=== PATIENT | female | born 1965 | race Caucasian/White ===

== ENCOUNTER 2016-11-28 06:35 | Day surgery (SDC) | payer MEDICARE, OTHER ==
[2016-11-25 10:34] VITALS: BMI 40.3
[~2016-11-28 06:35] MED LIST: LACTATED RINGERS 1,000 ML IV SCH
[2016-11-28] MEDS ORDERED: LACTATED RINGERS 1,000 ML IV ONE (06:55)
[2016-11-28 07:12] LABS: Glucose,Whole Blood 155 mg/dL (75-99)
[2016-11-28 07:14] VITALS: TEMP 97.4
[2016-11-28] MEDS ORDERED: LIDOCAINE 1% INJ 10MG/ML (20 ML MDV) ONE (07:17)
[2016-11-28] MEDS ORDERED: MIDAZOLAM 2 MG/2 ML VIAL ONE (07:17)
[2016-11-28] MEDS ORDERED: PROPOFOL 10 MG/ML 20 ML VIAL IV ONE (07:17)
--- NOTE | 2016-11-28 07:36 | P.GSHP ---
History of Present Illness H&P Date: 11/28/16 Chief Complaint: GERD, screening colonoscopy This is a 51-year-old female for from Dr. Kay. Patient presents today for EGD and screening colonoscopy. She's had issues with GERD. - Constitutional Constitutional: Reports as per HPI Past Medical History Past Medical History: Asthma, Heart Failure, COPD, Diabetes Mellitus, Fibromyalgia, GERD/Reflux, Hypertension, Osteoarthritis (OA), Pneumonia, Sleep Apnea/CPAP/BIPAP, Thyroid Disorder Additional Past Medical History / Comment(s): neuropathy, GLAUCOMA, Degenerative disk disease and heraniated disk. irregular heartbeat, "low functioning kidneys", MS, no cpap used, diarrhea-occ black stool, diverticulitis , anemia History of Any Multi-Drug Resistant Organisms: None Reported Past Surgical History: Cholecystectomy, Hysterectomy, Orthopedic Surgery Additional Past Surgical History / Comment(s): benign mass removed from bladder , meño carpal tunnel, had 3 large herniated discs removed between c4-c6. Past Anesthesia/Blood Transfusion Reactions: No Reported Reaction Past Psychological History: Anxiety, Depression Smoking Status: Current every day smoker Past Alcohol Use History: None Reported Additional Past Alcohol Use History / Comment(s): smokes < 1 PD, has smoked for 20 yrs on and off Past Drug Use History: Marijuana Additional Drug Use History / Comment(s): . - Past Family History Father Family Medical History: Coronary Artery Disease (CAD) Additional Family Medical History / Comment(s): quadruple bypass surgery Mother Family Medical History: Cancer Medications and Allergies Home Medications Medication Instructions Recorded Confirmed Type Levothyroxine Sodium [Synthroid] 100 mcg PO DAILY 07/29/15 11/28/16 History Budesonide/Formoterol Fumarate 2 puff INHALATION BID 12/04/15 11/28/16 History [Symbicort 80-4.5 Mcg Inhaler] Divalproex [Depakote] 250 mg PO HS 12/04/15 11/28/16 History Divalproex [Depakote] 500 mg PO TID 12/04/15 11/28/16 History metFORMIN HCL 1,000 mg PO BID 12/04/15 11/28/16 History Insulin Glargine [Lantus] 50 unit SQ HS 02/10/16 11/28/16 History DULoxetine HCL [Cymbalta] 60 mg PO DAILY 02/11/16 11/28/16 History Furosemide [Lasix] 40 mg PO DAILY 03/09/16 11/28/16 History Carvedilol [Coreg] 6.25 mg PO QAM 03/10/16 11/28/16 History Baclofen [Lioresal] 10 mg PO HS 05/15/16 11/28/16 History Insulin Aspart [NovoLOG] See Protocol SQ ACHS 05/15/16 11/28/16 History Ipratropium-Albuterol Nebulize 3 ml INHALATION RT-Q4H PRN 05/15/16 11/28/16 History [Duoneb 0.5 mg-3 mg/3 ml Soln] Potassium Chloride ER [K-Dur 20] 20 meq PO DAILY 05/15/16 11/28/16 History traZODone HCL 300 mg PO HS 05/15/16 11/28/16 History Ferrous Sulfate [Feosol] 325 mg PO DAILY 11/25/16 11/28/16 History Isosorbide Mononitrate ER [Imdur] 30 mg PO DAILY 11/25/16 11/28/16 History Montelukast [Singulair] 10 mg PO HS 11/25/16 11/28/16 History Sucralfate [Carafate] 1 gm PO AC-TID 11/25/16 11/28/16 History diphenhydrAMINE [Benadryl] 25 mg PO DAILY PRN 11/25/16 11/28/16 History Allergies Allergy/AdvReac Type Severity Reaction Status Date / Time No Known Allergies Allergy Verified 11/28/16 06:51 Surgical - Exam Vital Signs Temp Pulse Resp BP Pulse Ox 97.4 F L 78 18 134/81 96 11/28/16 07:11 11/28/16 07:11 11/28/16 07:11 11/28/16 07:11 11/28/16 07:11 - General well developed, no distress - Eyes PERRL - ENT normal pinna - Neck no masses - Respiratory normal expansion - Cardiovascular Rhythm: regular - Abdomen Abdomen: soft, non tender Results - Labs Abnormal Lab Results - Last 24 Hours (Table) 11/28/16 Range/Units 07:09 POC Glucose (mg/dL) 155 H (75-99) mg/dL Assessment and Plan Plan: GERD we'll perform EGD. We'll also perform screening colonoscopy.
[2016-11-28 08:02] VITALS: RESP 16
--- NOTE | 2016-11-28 08:03 | P.OP ---
Date of Procedure: 11/28/16 Preoperative Diagnosis: GERD Screening colonoscopy Postoperative Diagnosis: Mild antral gastritis Mild esophagitis No evidence of hiatal hernia Mild diverticulosis Procedure(s) Performed: EGD Colonoscopy Anesthesia: MAC Surgeon: Rush Whitlock Pathology: other (Antral, esophagus) Condition: stable Disposition: PACU Description of Procedure: The patient's placed on the endoscopy table in the lateral position. He received IV sedation. The gastroscope placed oropharynx and passed into the esophagus and into the stomach. Scope was then placed through the pylorus. The first and second portion of the duodenum appeared normal. Scope was then brought back the antrum and this appeared mildly inflamed. A biopsies was performed. The scope was retroflexed and the remainder stomach appeared normal. There was no significant hiatal hernia. The scope was then brought back to the level GE junction and this was at 40 cm. The distal esophagus appeared mildly inflamed a biopsies was performed. The proximal esophagus appeared normal. Scope was withdrawn for patient. Next digital rectal exam was performed which revealed no abnormalities. Flexible colonoscope was then placed patient anus passed throughout the entire colon. The ileocecal valve was visualized. The cecum, ascending and transverse colon appeared normal. In the descending and sigmoid colon there is mild diverticulosis. Scope was then brought back the rectum and this appeared normal. Scope was withdrawn for patient.
[2016-11-28 08:11] LABS: Glucose,Whole Blood 147 mg/dL (75-99)
[2016-11-28 08:31] VITALS: BP 117/73; PULSE 74
== END 2016-11-28 08:49 | disposition home or self-care (01) ==
LOC: ORWHC2ENDO 06:35
PROVIDERS: ATTEND Surgery
DX: Z12.11 Encounter for screening for malignant neoplasm of colon (principal); K29.50 Unspecified chronic gastritis without bleeding; K21.0 Gastro-esophageal reflux disease with esophagitis; K57.30 Diverticulosis of large intestine without perforation or abscess without bleeding; J45.909 Unspecified asthma, uncomplicated; I11.0 Hypertensive heart disease with heart failure; I50.9 Heart failure, unspecified; J44.9 Chronic obstructive pulmonary disease, unspecified; E11.9 Type 2 diabetes mellitus without complications; M79.7 Fibromyalgia; G47.33 Obstructive sleep apnea (adult) (pediatric); M19.90 Unspecified osteoarthritis, unspecified site; E07.9 Disorder of thyroid, unspecified; I25.10 Atherosclerotic heart disease of native coronary artery without angina pectoris; H40.9 Unspecified glaucoma; F41.9 Anxiety disorder, unspecified; F31.9 Bipolar disorder, unspecified; Z79.84 Long term (current) use of oral hypoglycemic drugs; Z79.4 Long term (current) use of insulin; Z79.51 Long term (current) use of inhaled steroids; Z79.899 Other long term (current) drug therapy; F17.200 Nicotine dependence, unspecified, uncomplicated
CPT/HCPCS: 88305; 88342; 43239; J2250; J2001; J2704; G0121

== ENCOUNTER 2017-04-13 15:37 | Emergency (ER) | payer MEDICARE, OTHER ==
[2017-04-13 15:45] VITALS: PULSE 89; RESP 18
[2017-04-13] MEDS ORDERED: IOHEXOL 350 MG/ML 25 ML BOTTLE (ORAL USE) PO PRN (16:01)
[2017-04-13] MEDS ORDERED: RX INFO: IV CONTRAST WAS GIVEN 1 EACH MISC MISCELLANE PRN (16:01)
[2017-04-13] MEDS ORDERED: KETOROLAC 30 MG/ML 1 ML VIAL IVP STA (16:02)
[2017-04-13] MEDS ORDERED: ONDANSETRON 4 MG/2 ML VIAL IVP STA (16:02)
--- NOTE | 2017-04-13 16:15 | ED ---
General Adult HPI - General Chief complaint: Abdominal Pain Stated complaint: Abdominal pain Time Seen by Provider: 04/13/17 15:49 Source: patient Mode of arrival: wheelchair Limitations: no limitations - History of Present Illness Initial comments: Patient is a 52-year-old female with a significant medical history of bipolar depression, anxiety, fibromyalgia, diverticulosis presents with a chief complaint abdominal pain and lightheadedness 4 days. Patient states that her first symptom was abdominal pain. She characterizes her pain as sharp and localized to her left lower quadrant. Patient states that her symptoms are exacerbated by bowel movements, and certain movements. There are no alleviating factors. Patient takes [place] at home for pain control. Patient admits to being lightheaded recently. There are no aggravating or alleviating factors for lightheadedness. Onset/Timin -: days(s) Location: abdomen Radiation: non-radiation Quality: stabbing, sharp Consistency: constant Improves with: none Worsens with: none Associated Symptoms: fever/chills, nausea/vomiting - Related Data Home Medications Medication Instructions Recorded Confirmed RX: Levothyroxine Sodium 100 mcg PO DAILY 07/29/15 04/13/17 [Synthroid] RX: Budesonide/Formoterol Fumarate 2 puff INHALATION RT-BID 12/04/15 04/13/17 [Symbicort 80-4.5 Mcg Inhaler] RX: Divalproex [Depakote] 250 mg PO HS 12/04/15 04/13/17 RX: Divalproex [Depakote] 500 mg PO TID 12/04/15 04/13/17 RX: Insulin Glargine [Lantus] 50 unit SQ HS 02/10/16 04/13/17 RX: Furosemide [Lasix] 40 mg PO DAILY 03/09/16 04/13/17 RX: Carvedilol [Coreg] 6.25 mg PO AC-BID 03/10/16 04/13/17 Insulin Aspart [NovoLOG] See Protocol SQ ACHS 05/15/16 04/13/17 RX: Baclofen [Lioresal] 10 mg PO TID PRN 05/15/16 04/13/17 RX: Ipratropium-Albuterol Nebulize 3 ml INHALATION RT-Q4H PRN 05/15/16 04/13/17 [Duoneb 0.5 mg-3 mg/3 ml Soln] RX: Potassium Chloride ER [K-Dur 20 meq PO QAM 05/15/16 04/13/17 20] Isosorbide Mononitrate ER [Imdur] 30 mg PO DAILY 11/25/16 04/13/17 Montelukast [Singulair] 10 mg PO HS 11/25/16 04/13/17 RX: Sucralfate [Carafate] 1 gm PO QID 11/25/16 04/13/17 diphenhydrAMINE [Benadryl] 25 mg PO DAILY PRN 11/25/16 04/13/17 Albuterol Inhaler [Ventolin Hfa 1 - 2 puff INHALATION RT-Q6H PRN 04/13/17 Inhaler] HYDROcodone/APAP 10-325MG [[place] 1 tab PO TID PRN 04/13/17 04/13/17 10-325] RX: traZODone HCL 300 mg PO HS 04/13/17 04/13/17 metFORMIN HCL ER [Glucophage Xr] 500 mg PO BID 04/13/17 04/13/17 Previous Rx's Medication Instructions Recorded RX: LORazepam [Ativan] 1 mg PO TID PRN #20 tab 03/11/16 Allergies Allergy/AdvReac Type Severity Reaction Status Date / Time No Known Allergies Allergy Verified 04/13/17 15:55 Review of Systems ROS Statement: Those systems with pertinent positive or pertinent negative responses have been documented in the HPI. ROS Other: All systems not noted in ROS Statement are negative. Constitutional: Reports: chills. Denies: fever Eyes: Reports: vision change (Patient says that she has intermittent blurry vision) ENT: Denies: throat pain, hearing loss Respiratory: Denies: cough, dyspnea Cardiovascular: Denies: chest pain Endocrine: Reports: fatigue Gastrointestinal: Reports: nausea. Denies: vomiting Genitourinary: Reports: urgency Musculoskeletal: Reports: back pain (Chronic) Skin: Denies: rash Neurological: Reports: headache. Denies: weakness, numbness, paresthesias, abnormal gait Psychiatric: Reports: anxiety, depression Hematological/Lymphatic: Reports: as per HPI Past Medical History Past Medical History: Asthma, Heart Failure, COPD, Diabetes Mellitus, Fibromyalgia, GERD/Reflux, Hypertension, Osteoarthritis (OA), Pneumonia, Sleep Apnea/CPAP/BIPAP, Thyroid Disorder Additional Past Medical History / Comment(s): neuropathy, GLAUCOMA, Degenerative disk disease and heraniated disk. irregular heartbeat, "low functioning kidneys", MS, no cpap used, diarrhea-occ black stool, diverticulitis , anemia History of Any Multi-Drug Resistant Organisms: None Reported Past Surgical History: Cholecystectomy, Hysterectomy, Orthopedic Surgery Additional Past Surgical History / Comment(s): benign mass removed from bladder , meño carpal tunnel, had 3 large herniated discs removed between c4-c6. Past Anesthesia/Blood Transfusion Reactions: No Reported Reaction Past Psychological History: Anxiety, Depression Smoking Status: Current every day smoker Past Alcohol Use History: None Reported Past Drug Use History: Marijuana - Past Family History Father Family Medical History: Coronary Artery Disease (CAD) Additional Family Medical History / Comment(s): quadruple bypass surgery Mother Family Medical History: Cancer General Exam Limitations: no limitations General appearance: alert, in no apparent distress Head exam: Present: atraumatic, normocephalic Eye exam: Present: normal appearance ENT exam: Present: normal exam Neck exam: Present: normal inspection Respiratory exam: Present: normal lung sounds bilaterally, wheezes (Right-sided) . Absent: respiratory distress, rhonchi Cardiovascular Exam: Present: regular rate, normal rhythm, normal heart sounds GI/Abdominal exam: Present: soft, tenderness (Patient is tenderness palpation in the lower abdomen left greater than right. Abdomen is non-peritoneal. Abdominal exam is somewhat limited secondary to body habitus.). Absent: distended Rectal exam: Present: deferred Extremities exam: Present: normal inspection Back exam: Present: normal inspection Neurological exam: Present: alert, oriented X3 Psychiatric exam: Present: normal mood, anxious Skin exam: Present: warm, dry, intact Course Vital Signs 04/13/17 15:42 Temperature 99.1 F Pulse Rate 89 Respiratory 18 Rate Blood Pressure 139/68 O2 Sat by Pulse 96 Oximetry Medical Decision Making - Medical Decision Making Patient is a 52-year-old female presents with chief complaint of abdominal pain with associated chills, lightheadedness. Patient states that her primary care doctor is Dr. Kay who wanted her to come to the emergency department yesterday. Patient states that she is scheduled to have a CAT scan of her abdomen on . On examination, patient appears to be mildly anxious. She has a handwritten note explaining her current symptoms today. On initial evaluation, vital signs are stable. Patient is tenderness to the abdomen and the lower left quadrant. Given the patient's history of diverticulosis and upcoming CAT scan, we'll perform CAT scan today oral and IV contrast. Lab evaluation was sent, we'll evaluate urine as well. 6:45 PM Lab evaluation of this patient is unremarkable. Urinalysis does not show any evidence of infection. Computed tomography scan of the abdomen and pelvis that show any acute process. I discussed the results with Dr. Campbell, Dr. Kay' s partner. He is aware that the scheduled CT was performed today. He is agreeable to having the patient follow-up within the next week. I discussed results with the patient. At this time, she is agreeable with discharge. She is instructed to continue to take her normally prescribed pain medications as prescribed. He is instructed to return to the emergency department if her symptoms worsen or change in any way. - Lab Data Result diagrams: 04/13/17 16:22 04/13/17 16:22 Lab Results 04/13/17 04/13/17 04/13/17 Range/Units 16:22 16:22 16:55 WBC 10.4 (3.8-10.6) k/uL RBC 4.55 (3.80-5.40) m/uL Hgb 12.2 (11.4-16.0) gm/dL Hct 37.4 (34.0-46.0) % MCV 82.1 (80.0-100.0) fL MCH 26.9 (25.0-35.0) pg MCHC 32.8 (31.0-37.0) g/dL RDW 14.3 (11.5-15.5) % Plt Count 315 (150-450) k/uL Neutrophils % 43 % Lymphocytes % 50 % Monocytes % 4 % Eosinophils % 1 % Basophils % 1 % Neutrophils # 4.4 (1.3-7.7) k/uL Lymphocytes # 5.2 H (1.0-4.8) k/uL Monocytes # 0.4 (0-1.0) k/uL Eosinophils # 0.1 (0-0.7) k/uL Basophils # 0.1 (0-0.2) k/uL Manual Slide Review Performed Sodium 137 (137-145) mmol/L Potassium 4.1 (3.5-5.1) mmol/L Chloride 99 (98-107) mmol/L Carbon Dioxide 30 (22-30) mmol/L Anion Gap 8 mmol/L BUN 11 (7-17) mg/dL Creatinine 0.69 (0.52-1.04) mg/dL Est GFR (MDRD) Af Amer >60 (>60 ml/min/1.73 sqM) Est GFR (MDRD) Non-Af >60 (>60 ml/min/1.73 sqM) Glucose 123 H (74-99) mg/dL Calcium 9.6 (8.4-10.2) mg/dL Magnesium 1.5 L (1.6-2.3) mg/dL Total Bilirubin 0.2 (0.2-1.3) mg/dL AST 14 (14-36) U/L ALT 26 (9-52) U/L Alkaline Phosphatase 70 (38-126) U/L Total Protein 6.7 (6.3-8.2) g/dL Albumin 4.1 (3.5-5.0) g/dL Lipase 20 L (23-300) U/L Urine Color Yellow Urine Appearance Clear (Clear) Urine pH 6.0 (5.0-8.0) Ur Specific [place] 1.014 (1.001-1.035) Urine Protein Negative (Negative) Urine Glucose (UA) Negative (Negative) Urine Ketones 1+ H (Negative) Urine Blood Negative (Negative) Urine Nitrite Negative (Negative) Urine Bilirubin Negative (Negative) Urine Urobilinogen <2.0 (<2.0) mg/dL Ur Leukocyte Esterase Negative (Negative) Disposition Clinical Impression: Abdominal pain Disposition: HOME SELF-CARE Condition: Good Instructions: Abdominal Pain (ED) Referrals: Watson Kay MD [Primary Care Provider] - 1-2 days
[2017-04-13 16:38] LABS: Basophils # (A) 0.1 k/uL (0-0.2); Basophils % (A) 1 %; CH 27.6; CHCM 33.7; Eosinophils # (A) 0.1 k/uL (0-0.7); Eosinophils % (A) 1 %; HCT 37.4 % (34.0-46.0); HDW 2.47; HGB 12.2 gm/dL (11.4-16.0); Luc # (Auto) 0.19; Luc % (Auto) 2; Lymphocytes # (A) 5.2 k/uL (1.0-4.8); Lymphocytes % (A) 50 %; MCH 26.9 pg (25.0-35.0); MCHC 32.8 g/dL (31.0-37.0); MCV 82.1 fL (80.0-100.0); Mean Platelet Volume 7.2; Monocytes # (A) 0.4 k/uL (0-1.0); Monocytes % (A) 4 %; Neutrophils # (A) 4.4 k/uL (1.3-7.7); Neutrophils % (A) 43 %; RBC 4.55 m/uL (3.80-5.40); RDW 14.3 % (11.5-15.5); WBC 10.4 k/uL (3.8-10.6); WBC (Perox) 10.66
[2017-04-13 16:48] LABS: ALT 26 U/L (9-52); AST 14 U/L (14-36); Alkaline Phosphatase 70 U/L (38-126); Anion Gap 8 mmol/L; Blood Urea Nitrogen 11 mg/dL (7-17); Calcium 9.6 mg/dL (8.4-10.2); Carbon Dioxide 30 mmol/L (22-30); Chloride 99 mmol/L (98-107); Glucose 123 mg/dL (74-99); Magnesium 1.5 mg/dL (1.6-2.3); Non-African American GFR(MDRD) >60 (>60 ml/min/1.73 sqM); Potassium 4.1 mmol/L (3.5-5.1); Sodium 137 mmol/L (137-145); Total Bilirubin 0.2 mg/dL (0.2-1.3); Total Protein 6.7 g/dL (6.3-8.2)
[2017-04-13 16:51] LABS: Manual Review Performed
[2017-04-13 17:07] LABS: Appearance,Urine Clear (Clear); Bilirubin,Urine Negative (Negative); Glucose,Urine (UA) Negative (Negative); Ketones,Urine 1+ (Negative); Leukocyte Esterase,Urine Negative (Negative); Nitrite,Urine Negative (Negative); Protein,Urine Negative (Negative); Specific Gravity,Urine 1.014 (1.001-1.035); UA Billing (MACRO vs. MICRO) CHEM; Urobilinogen,Urine <2.0 mg/dL (<2.0)
--- NOTE | 2017-04-13 17:25 | XR ---
EXAMINATION TYPE: XR chest 2V DATE OF EXAM: 04/13/2017 COMPARISON: 05/15/2016 HISTORY: Syncope TECHNIQUE: Frontal and lateral views of the chest are obtained. FINDINGS: Heart and mediastinum are normal. Lungs are clear. Diaphragm is normal. Bony thorax is int act. IMPRESSION: No active cardiopulmonary disease. No change.
--- NOTE | 2017-04-13 18:21 | CT ---
EXAMINATION TYPE: CT abdomen pelvis w con DATE OF EXAM: 04/13/2017 COMPARISON: 12/07/2014 HISTORY: Generalized abdominal pain and left lower quadrant pain with nausea and changes in bowel hab its. CT DLP: 1795.30 mGycm Automated exposure control for dose reduction was used. TECHNIQUE: Helical acquisition of images was performed from the lung bases through the pelvis. CONTRAST: Performed with Oral Contrast and with IV Contrast, patient injected with 100 mL of Omnipaque 300. FINDINGS: Lung bases are clear. There is no pleural effusion. Heart size is normal. Liver spleen pancreas appear normal. Bile ducts are not dilated. There are clips from cholecystectomy . There is no adrenal mass. Kidneys show satisfactory contrast opacification. There is a 1 cm cortical cyst on the posterior right kidney. There is no hydronephrosis. There is no ascites. Bladder distends smoothly. There are multiple sigmoid diverticula. There is no sign of diverticulitis. Appendix is no t seen. There is no sign of appendicitis. There is no free fluid in the pelvis. I see no bony destruc tive process. There is no evidence of a hernia. IMPRESSION: THERE IS SIGMOID DIVERTICULOSIS WITHOUT SIGN OF DIVERTICULITIS. SMALL RIGHT RENAL CORTICAL CYST. NO A DVERSE CHANGE COMPARED TO OLD EXAM. I DO NOT SEE A CAUSE FOR LEFT LOWER QUADRANT PAIN.
[2017-04-13 18:53] VITALS: BP 133/98; TEMP 98
== END 2017-04-13 18:53 | disposition home or self-care (01) ==
LOC: EC 15:37
DX: R10.32 Left lower quadrant pain (principal); R11.2 Nausea with vomiting, unspecified; R42 Dizziness and giddiness; R50.9 Fever, unspecified; R06.2 Wheezing; F41.9 Anxiety disorder, unspecified; I11.0 Hypertensive heart disease with heart failure; I50.9 Heart failure, unspecified; E11.9 Type 2 diabetes mellitus without complications; J44.9 Chronic obstructive pulmonary disease, unspecified; E07.9 Disorder of thyroid, unspecified; F32.9 Major depressive disorder, single episode, unspecified; F17.200 Nicotine dependence, unspecified, uncomplicated; Z79.4 Long term (current) use of insulin; Z79.51 Long term (current) use of inhaled steroids; Z79.84 Long term (current) use of oral hypoglycemic drugs; Z79.899 Other long term (current) drug therapy; Z90.49 Acquired absence of other specified parts of digestive tract
CPT/HCPCS: 36415; 80053; 83690; 83735; 85025; 81003; 71020; 74177; 99284; 96374; 96375; J2405; J1885; Q9967

== ENCOUNTER 2019-01-07 06:37 | Day surgery (SDC) | payer MEDICARE, OTHER ==
[2019-01-05 10:38] VITALS: BMI 36.0
[2019-01-07 07:18] VITALS: TEMP 97.6
[2019-01-07 07:18] LABS: Glucose,Whole Blood 184 mg/dL (75-99)
[2019-01-07] MEDS ORDERED: LACTATED RINGERS 1,000 ML IV ONE ×2 (07:19)
[2019-01-07] MEDS ORDERED: MIDAZOLAM (PF) 2 MG/2 ML VIAL IVP ONE (07:26)
[2019-01-07] MEDS ORDERED: MIDAZOLAM (PF) 2 MG/2 ML VIAL IV ONE (07:27)
[2019-01-07] MEDS ORDERED: PROPOFOL 10 MG/ML 20 ML VIAL IV ONE (07:43)
--- NOTE | 2019-01-07 08:01 | P.GSHP ---
History of Present Illness H&P Date: 01/07/19 Chief Complaint: Diverticulitis, GERD This is a 56-year-old female who presents today for EGD colonoscopy. Patient has history of diverticulitis. There is question of a colovaginal fistula. She is also had GERD. Past Medical History Past Medical History: Asthma, Heart Failure, COPD, Diabetes Mellitus, Fibromyalgia, GERD/Reflux, Hypertension, Osteoarthritis (OA), Pneumonia, Thyroid Disorder Additional Past Medical History / Comment(s): neuropathy, GLAUCOMA, DDD, herniated disc, irregular heartbeat, "low functioning kidneys", ?MS, narcolepsy, diverticulitis, recent abd. pain History of Any Multi-Drug Resistant Organisms: None Reported Past Surgical History: Cholecystectomy, Hysterectomy, Orthopedic Surgery Additional Past Surgical History / Comment(s): benign mass removed from bladder, meño carpal tunnel, cervical fusion c4-c6. Past Anesthesia/Blood Transfusion Reactions: No Reported Reaction Smoking Status: Current every day smoker - Past Family History Father Family Medical History: Coronary Artery Disease (CAD) Additional Family Medical History / Comment(s): quadruple bypass surgery Mother Family Medical History: Cancer Medications and Allergies Home Medications Medication Instructions Recorded Confirmed Type Levothyroxine Sodium [Synthroid] 100 mcg PO DAILY 07/29/15 01/05/19 History Budesonide/Formoterol Fumarate 2 puff INHALATION HS 12/04/15 01/05/19 History [Symbicort 80-4.5 Mcg Inhaler] Insulin Glargine [Lantus] 40 unit SQ HS 02/10/16 01/05/19 History Furosemide [Lasix] 20 mg PO DAILY 03/09/16 01/05/19 History Carvedilol [Coreg] 3.125 mg PO AC-BID 03/10/16 01/05/19 History Ipratropium-Albuterol Nebulize 3 ml INHALATION RT-Q4H PRN 05/15/16 01/05/19 History [Duoneb 0.5 mg-3 mg/3 ml Soln] Potassium Chloride ER [K-Dur 20] 20 meq PO QAM 05/15/16 01/05/19 History Albuterol Inhaler [Ventolin Hfa 1 - 2 puff INHALATION RT-Q6H PRN 04/13/17 01/05/19 History Inhaler] HYDROcodone/APAP 10-325MG [[place] 1 tab PO TID PRN 04/13/17 01/05/19 History 10-325] metFORMIN HCL ER [Glucophage Xr] 500 mg PO BID 04/13/17 01/05/19 History Atorvastatin [Lipitor] 10 mg PO DAILY 01/05/19 01/05/19 History Brimonidine Tartrate/Timolol 1 drop BOTH EYES BID 01/05/19 01/05/19 History [Combigan 0.2%-0.5% Eye Drops] Latanoprost Ophth [Xalatan 0.005%] 1 drops BOTH EYES HS 01/05/19 01/05/19 History Liraglutide [Victoza 2-[place]] 1.2 mg SQ DAILY 01/05/19 01/05/19 History Melatonin 3 mg PO HS PRN 01/05/19 01/05/19 History Sertraline [Zoloft] 50 mg PO DAILY 01/05/19 01/05/19 History Allergies Allergy/AdvReac Type Severity Reaction Status Date / Time No Known Allergies Allergy Verified 01/05/19 10:29 Surgical - Exam Vital Signs Temp Pulse Resp BP Pulse Ox 97.6 F 80 20 142/82 97 01/07/19 07:14 01/07/19 07:14 01/07/19 07:14 01/07/19 07:14 01/07/19 07:14 - General well developed, well nourished, no distress - Eyes PERRL - ENT normal pinna - Neck no masses - Respiratory normal expansion - Cardiovascular Rhythm: regular - Abdomen Abdomen: soft, non tender Results - Labs Abnormal Lab Results - Last 24 Hours (Table) 01/07/19 Range/Units 07:15 POC Glucose (mg/dL) 184 H (75-99) mg/dL Assessment and Plan Assessment: GERD, diverticula is. We'll perform EGD and colonoscopy.
[2019-01-07 08:24] VITALS: RESP 16
--- NOTE | 2019-01-07 08:38 | P.OP ---
Date of Procedure: 01/07/19 Preoperative Diagnosis: GERD Diverticulitis Postoperative Diagnosis: Antral gastritis No hiatal hernia Diverticulosis Procedure(s) Performed: Colonoscopy EGD Anesthesia: MAC Surgeon: Rush Whitlock Pathology: other (Antrum) Condition: stable Disposition: PACU Description of Procedure: The patient was placed on the endoscopy table in the lateral position she received IV sedation. The gastroscope placed oropharynx passed in the esophagus and into the stomach. Scope was then placed through the pylorus. First and second portion of the duodenum appeared normal. Scope summer back the antrum this was mildly inflamed. A biopsies performed. The scope was then retroflexed and remainder stomach appeared normal there was no significant hiatal hernia. The GE junction was at 40 cm. The distal esophagus. Normal. The proximal esophagus. Normal. Scope was withdrawn for patient. Next digital rectal exam was performed which revealed a few external hemorrhoids. The flexor clot scope was then placed patient anus and passed with colon. Scope was passed beyond the sigmoid colon secondary to diverticulosis and tortuosity of the bowel. Scope was withdrawn. The rectum. Normal. Scope was withdrawn for patient. Patient was scheduled for a CAT scan of the abdomen. She'll follow-up in the office after the CAT scans performed.
[2019-01-07 08:59] VITALS: BP 120/83; PULSE 82
== END 2019-01-07 08:59 | disposition home or self-care (01) ==
LOC: ORWHC2ENDO 06:37
PROVIDERS: ATTEND Surgery
DX: K21.9 Gastro-esophageal reflux disease without esophagitis (principal); K29.50 Unspecified chronic gastritis without bleeding; K57.30 Diverticulosis of large intestine without perforation or abscess without bleeding; Q43.9 Congenital malformation of intestine, unspecified; K64.4 Residual hemorrhoidal skin tags; I11.0 Hypertensive heart disease with heart failure; I50.9 Heart failure, unspecified; E78.5 Hyperlipidemia, unspecified; J44.9 Chronic obstructive pulmonary disease, unspecified; E11.40 Type 2 diabetes mellitus with diabetic neuropathy, unspecified; E07.9 Disorder of thyroid, unspecified; M79.7 Fibromyalgia; N28.89 Other specified disorders of kidney and ureter; H40.9 Unspecified glaucoma; G47.419 Narcolepsy without cataplexy; M19.90 Unspecified osteoarthritis, unspecified site; I49.9 Cardiac arrhythmia, unspecified; F17.200 Nicotine dependence, unspecified, uncomplicated; Z87.01 Personal history of pneumonia (recurrent); Z79.4 Long term (current) use of insulin; Z79.891 Long term (current) use of opiate analgesic; Z79.890 Hormone replacement therapy; Z79.899 Other long term (current) drug therapy; Z79.51 Long term (current) use of inhaled steroids; Z97.2 Presence of dental prosthetic device (complete) (partial); Z90.49 Acquired absence of other specified parts of digestive tract; Z90.710 Acquired absence of both cervix and uterus; Z98.1 Arthrodesis status
CPT/HCPCS: 45378; 43239; 88305; J2704; J2250

== ENCOUNTER 2019-01-07 11:39 | Inpatient (IN) | payer MEDICARE ==
[2019-01-07 10:03] LABS: Blood Urea Nitrogen 11 mg/dL (7-17)
--- NOTE | 2019-01-07 11:25 | CT ---
EXAMINATION TYPE: CT abdomen pelvis w con DATE OF EXAM: 01/07/2019 COMPARISON: March 2017 HISTORY: Abdominal pain CT DLP: 1586 mGycm CONTRAST: CT scan of the abdomen and pelvis is performed with Oral Contrast and with IV Contrast, patient injec misty with 100 mL of Isovue 300. FINDINGS: LUNG BASES-: No visible nodule. No infiltrate. LIVER/GB: There is evidence of fatty liver. Cholecystectomy clips are in place. No space occupying he patic lesion. Biliary tree is of normal caliber. PANCREAS: No inflammation. No distinct mass. SPLEEN: No splenic enlargement. No lesion seen. ADRENALS: No nodule. No thickening. KIDNEYS/BLADDER: No hydronephrosis. No nephrolithiasis. No distinct renal mass. Urinary bladder g rossly unremarkable. BOWEL: Normal appendix. Mild inflammatory change involving the distal descending colon compatible wit h mild uncomplicated acute diverticulitis. No evidence of perforation or abscess. GENITAL ORGANS: No gross abnormality. LYMPH NODES: No greater than 1cm abdominal or pelvic lymph nodes are appreciated. AORTA: No significant abnormality. OSSEOUS STRUCTURES: No significant abnormality is seen. OTHER: No significant additional abnormality is seen. IMPRESSION: 1. Mild inflammatory change involving the distal descending colon compatible with mild uncomplicated acute diverticulitis.
[2019-01-07] MEDS ORDERED: PIPERACILLIN-TAZOBACTAM 3.375 GM in SODIUM CHLORIDE 0.9% 100 ML IVPB STA (12:00)
[2019-01-07] MEDS ORDERED: KETOROLAC 30 MG/ML 1 ML VIAL IVP STA (12:01)
[2019-01-07] MEDS ORDERED: NICOTINE 21MG/24HR PATCH TRANSDERM STA (12:01)
[2019-01-07] MEDS ORDERED: SODIUM CHLORIDE 0.9% 1,000 ML IV ONE (12:01)
[2019-01-07] MEDS ORDERED: MORPHINE SULFATE 4 MG/ML SYRINGE IVP STA (12:01)
[2019-01-07] MEDS ORDERED: NALOXONE 0.4 MG/ML 1 ML VIAL IV PRN (12:28)
[2019-01-07] MEDS ORDERED: ONDANSETRON 4 MG/2 ML VIAL IVP PRN (12:28)
[2019-01-07 12:33] LABS: Basophils # (A) 0.1 k/uL (0-0.2); Basophils % (A) 1 %; Eosinophils # (A) 0.2 k/uL (0-0.7); Eosinophils % (A) 2 %; HCT 36.4 % (34.0-46.0); HGB 12.2 gm/dL (11.4-16.0); Lymphocytes # (A) 3.7 k/uL (1.0-4.8); Lymphocytes % (A) 33 %; MCH 26.8 pg (25.0-35.0); MCHC 33.4 g/dL (31.0-37.0); MCV 80.1 fL (80.0-100.0); Mean Platelet Volume 7.2; Monocytes # (A) 0.4 k/uL (0-1.0); Monocytes % (A) 3 %; Neutrophils # (A) 6.8 k/uL (1.3-7.7); Neutrophils % (A) 61 %; Platelet Count 325 k/uL (150-450); RBC 4.55 m/uL (3.80-5.40); RDW 13.9 % (11.5-15.5); WBC 11.3 k/uL (3.8-10.6)
--- NOTE | 2019-01-07 12:34 | ED ---
General Adult HPI - General Chief complaint: Abdominal Pain Stated complaint: Abn findings Time Seen by Provider: 01/07/19 11:52 Source: patient, RN notes reviewed, old records reviewed Mode of arrival: ambulatory Limitations: no limitations - History of Present Illness Initial comments: 53-year-old female presenting with 3 days of abdominal pain, chills, nausea. Patient was sent from outpatient computed tomography scan with CT evidence of diverticulitis. She is having significant lower abdominal pain predominantly left-sided. No dysuria or hematuria. Patient has not had fever but does report chills. Denies rectal bleeding. - Related Data Home Medications Medication Instructions Recorded Confirmed Levothyroxine Sodium [Synthroid] 100 mcg PO DAILY 07/29/15 01/05/19 Budesonide/Formoterol Fumarate 2 puff INHALATION HS 12/04/15 01/05/19 [Symbicort 80-4.5 Mcg Inhaler] Insulin Glargine [Lantus] 40 unit SQ HS 02/10/16 01/05/19 Furosemide [Lasix] 20 mg PO DAILY 03/09/16 01/05/19 Carvedilol [Coreg] 3.125 mg PO AC-BID 03/10/16 01/05/19 Ipratropium-Albuterol Nebulize 3 ml INHALATION RT-Q4H PRN 05/15/16 01/05/19 [Duoneb 0.5 mg-3 mg/3 ml Soln] Potassium Chloride ER [K-Dur 20] 20 meq PO QAM 05/15/16 01/05/19 Albuterol Inhaler [Ventolin Hfa 1 - 2 puff INHALATION RT-Q6H PRN 04/13/1712/16 Inhaler] HYDROcodone/APAP 10-325MG [[place] 1 tab PO TID PRN 04/13/17 01/05/19 10-325] metFORMIN HCL ER [Glucophage Xr] 500 mg PO BID 04/13/17 01/05/19 Atorvastatin [Lipitor] 10 mg PO DAILY 01/05/19 01/05/19 Brimonidine Tartrate/Timolol 1 drop BOTH EYES BID 01/05/19 01/05/19 [Combigan 0.2%-0.5% Eye Drops] Latanoprost Ophth [Xalatan 0.005%] 1 drops BOTH EYES HS 01/05/19 01/05/19 Liraglutide [Victoza 2-[place]erson] 1.2 mg SQ DAILY 01/05/19 01/05/19 Melatonin 3 mg PO HS PRN 01/05/19 01/05/19 Sertraline [Zoloft] 50 mg PO DAILY 01/05/19 01/05/19 Allergies Allergy/AdvReac Type Severity Reaction Status Date / Time No Known Allergies Allergy Verified 01/07/19 11:44 Review of Systems ROS Statement: Those systems with pertinent positive or pertinent negative responses have been documented in the HPI. ROS Other: All systems not noted in ROS Statement are negative. Past Medical History Past Medical History: Asthma, Heart Failure, COPD, Diabetes Mellitus, Fibromyalgia, GERD/Reflux, Hypertension, Osteoarthritis (OA), Pneumonia, Thyroid Disorder Additional Past Medical History / Comment(s): neuropathy, GLAUCOMA, DDD, herniated disc, irregular heartbeat, "low functioning kidneys", ?MS, narcolepsy, diverticulitis, recent abd. pain History of Any Multi-Drug Resistant Organisms: None Reported Past Surgical History: Cholecystectomy, Hysterectomy, Orthopedic Surgery Additional Past Surgical History / Comment(s): benign mass removed from bladder, meño carpal tunnel, cervical fusion c4-c6. Past Anesthesia/Blood Transfusion Reactions: No Reported Reaction Past Psychological History: Anxiety, Depression Smoking Status: Current every day smoker Past Alcohol Use History: None Reported Past Drug Use History: None Reported - Past Family History Father Family Medical History: Coronary Artery Disease (CAD) Additional Family Medical History / Comment(s): quadruple bypass surgery Mother Family Medical History: Cancer General Exam Limitations: no limitations General appearance: alert, in no apparent distress Head exam: Present: atraumatic, normocephalic Eye exam: Present: normal appearance, PERRL ENT exam: Present: normal exam Neck exam: Present: normal inspection. Absent: tenderness Respiratory exam: Present: wheezes. Absent: respiratory distress Cardiovascular Exam: Present: regular rate, normal rhythm GI/Abdominal exam: Present: soft, tenderness (Left lower). Absent: distended, guarding, rebound Extremities exam: Present: normal inspection, normal capillary refill. Absent: pedal edema Neurological exam: Present: alert, oriented X3, CN II-XII intact. Absent: motor sensory deficit Psychiatric exam: Present: normal affect, normal mood Skin exam: Present: warm, dry, intact. Absent: cyanosis, diaphoretic Course Vital Signs 01/07/19 11:42 Temperature 98.2 F Pulse Rate 79 Respiratory 18 Rate Blood Pressure 128/76 O2 Sat by Pulse 96 Oximetry Medical Decision Making - Medical Decision Making 53-year-old female with 3 days of left lower quadrant abdominal pain. Patient has abdominal tenderness. Pain is severe in nature. CT does show left-sided diverticulitis with no complicating feature. Case discussed with Dr. Whitlock will admit. Patient placed on IV antibiotics. - Lab Data Result diagrams: 01/07/19 09:35 Lab Results 01/07/19 Range/Units 09:35 BUN 11 (7-17) mg/dL Creatinine 0.54 (0.52-1.04) mg/dL Est GFR (CKD-EPI)AfAm >90 (>60 ml/min/1.73 sqM) Est GFR (CKD-EPI)NonAf >90 (>60 ml/min/1.73 sqM) Disposition Clinical Impression: Abdominal pain, Diverticulitis Disposition: ADMITTED IP TO [facility] Condition: Stable Is patient prescribed a controlled substance at d/c from ED?: No Referrals: Watson Kay MD [Primary Care Provider] - 1-2 days Time of Disposition: 12:33 Decision to Admit Reason: Admit from EC Decision Date: 01/07/19 Decision Time: 12:34
[2019-01-07 12:44] LABS: ALT 41 U/L (9-52); AST 31 U/L (14-36); Alkaline Phosphatase 102 U/L (38-126); Anion Gap 7 mmol/L; Blood Urea Nitrogen 10 mg/dL (7-17); Calcium 9.8 mg/dL (8.4-10.2); Carbon Dioxide 28 mmol/L (22-30); Chloride 103 mmol/L (98-107); Glucose 124 mg/dL (74-99); Potassium 3.7 mmol/L (3.5-5.1); Sodium 138 mmol/L (137-145); Total Bilirubin 0.4 mg/dL (0.2-1.3); Total Protein 6.7 g/dL (6.3-8.2)
[2019-01-07] MEDS: SODIUM CHLORIDE 0.9% 1,000 ML IV SCH (12:47)
[2019-01-07] MEDS: ACETAMINOPHEN TAB 325 MG TAB PO PRN (13:59)
[2019-01-07] MEDS: IPRATROPIUM-ALBUTEROL 3 ML NEB INHALATION PRN (15:23)
[2019-01-07] MEDS: HYDROmorphone 0.5 MG/0.5 ML SYRINGE IVP PRN ×3 (15:54→23:08)
[2019-01-07 17:27] LABS: Glucose,Whole Blood 100 mg/dL (75-99)
[2019-01-07] MEDS: CARVEDILOL 3.125 MG TAB PO SCH (18:10)
[2019-01-07] MEDS: metFORMIN 500 MG TAB PO SCH (18:10)
[2019-01-07] MEDS: PIPERACILLIN-TAZOBACTAM 3.375 GM in SODIUM CHLORIDE 0.9% 100 ML IVPB SCH (20:10)
[2019-01-07 20:23] LABS: Glucose,Whole Blood 123 mg/dL (75-99)
[2019-01-07] MEDS: SYMBICORT 80-4.5 MCG INHALER INHALATION SCH (20:37)
[2019-01-07] MEDS: ALBUTEROL NEBULIZED 2.5 MG/3 ML INHALATION PRN (20:38)
[2019-01-07] MEDS ORDERED: INSULIN DETEMIR (LEVEMIR) 100 UNIT/ML SYR SQ SCH (21:00)
[2019-01-07] MEDS: ONDANSETRON 4 MG/2 ML VIAL IVP PRN (21:07)
[2019-01-07] MEDS: diphenhydrAMINE 25 MG CAP PO PRN (21:07)
[2019-01-07] MEDS: LATANOPROST 0.005% OPHTH DROPS 2.5 ML BTL BOTH EYES SCH (21:08)
[2019-01-07] MEDS: BRIMONIDINE TARTRATE 0.2% DROPS 5 ML BTL BOTH EYES SCH (21:08)
[2019-01-07] MEDS: TIMOLOL 0.5% OPHTH DROPS 5 ML BTL BOTH EYES SCH (21:08)
[2019-01-07 23:42] LABS: Glucose,Whole Blood 124 mg/dL (75-99)
[2019-01-08] MEDS: HYDROmorphone 0.5 MG/0.5 ML SYRINGE IVP PRN ×7 (02:29→22:11)
[2019-01-08] MEDS: ONDANSETRON 4 MG/2 ML VIAL IVP PRN ×4 (02:29→22:11)
[2019-01-08] MEDS: IPRATROPIUM-ALBUTEROL 3 ML NEB INHALATION PRN ×4 (05:00→18:56)
[2019-01-08] MEDS: PIPERACILLIN-TAZOBACTAM 3.375 GM in SODIUM CHLORIDE 0.9% 100 ML IVPB SCH ×3 (05:55→19:12)
[2019-01-08] MEDS: SODIUM CHLORIDE 0.9% 1,000 ML IV SCH ×2 (05:56→16:16)
[2019-01-08] MEDS: LEVOTHYROXINE 100 MCG TAB PO SCH (05:56)
[2019-01-08 07:00] LABS: Glucose,Whole Blood 128 mg/dL (75-99)
[2019-01-08 07:55] LABS: Basophils % (A) 1 %; Eosinophils # (A) 0.1 k/uL (0-0.7); Eosinophils % (A) 2 %; HCT 34.3 % (34.0-46.0); HGB 11.2 gm/dL (11.4-16.0); Lymphocytes # (A) 3.3 k/uL (1.0-4.8); Lymphocytes % (A) 41 %; MCH 26.2 pg (25.0-35.0); MCHC 32.7 g/dL (31.0-37.0); MCV 80.2 fL (80.0-100.0); Mean Platelet Volume 6.6; Monocytes # (A) 0.3 k/uL (0-1.0); Monocytes % (A) 4 %; Neutrophils % (A) 50 %; Platelet Count 305 k/uL (150-450); RBC 4.28 m/uL (3.80-5.40); RDW 13.8 % (11.5-15.5)
[2019-01-08 08:09] LABS: ALT 46 U/L (9-52); AST 32 U/L (14-36); Albumin 3.7 g/dL (3.5-5.0); Alkaline Phosphatase 88 U/L (38-126); Anion Gap 5 mmol/L; Blood Urea Nitrogen 9 mg/dL (7-17); Calcium 9.4 mg/dL (8.4-10.2); Carbon Dioxide 28 mmol/L (22-30); Chloride 107 mmol/L (98-107); Glucose 119 mg/dL (74-99); Magnesium 1.8 mg/dL (1.6-2.3); Potassium 3.9 mmol/L (3.5-5.1); Sodium 140 mmol/L (137-145); Total Bilirubin 0.5 mg/dL (0.2-1.3); Total Protein 6.1 g/dL (6.3-8.2)
[2019-01-08] MEDS: POTASSIUM CHLORIDE ER 20 MEQ TAB.ER PO SCH (09:42)
[2019-01-08] MEDS: ATORVASTATIN 10 MG TAB PO SCH (09:42)
[2019-01-08] MEDS: SERTRALINE 50 MG TAB PO SCH (09:42)
[2019-01-08] MEDS: FUROSEMIDE 20 MG TAB PO SCH (09:43)
[2019-01-08] MEDS: BRIMONIDINE TARTRATE 0.2% DROPS 5 ML BTL BOTH EYES SCH ×2 (09:43→21:30)
[2019-01-08] MEDS: metFORMIN 500 MG TAB PO SCH ×2 (09:43→16:19)
[2019-01-08] MEDS: NON-FORMULARY DRUG (Liraglutide [Victoza 2-Pak] 1.2 MG) SQ SCH (09:43)
[2019-01-08] MEDS: CARVEDILOL 3.125 MG TAB PO SCH ×2 (09:43→16:16)
[2019-01-08] MEDS: TIMOLOL 0.5% OPHTH DROPS 5 ML BTL BOTH EYES SCH ×2 (09:44→21:29)
--- NOTE | 2019-01-08 11:09 | P.GSHP ---
History of Present Illness H&P Date: 01/07/19 Chief Complaint: Diverticulitis 's is a 53-year-old female who was admitted to the hospital. Patient points of left lower quadrant pain. Her CAT scan shows evidence of diverticulitis. Past Medical History Past Medical History: Asthma, Heart Failure, COPD, Diabetes Mellitus, Eye Disorder (glaucoma), Fibromyalgia, GERD/Reflux, Hypertension, Musculoskeletal Disorder (DDD, herniated disc,), Osteoarthritis (OA), Pneumonia, Thyroid Dis order Additional Past Medical History / Comment(s): neuropathy, narcolepsy, History of Any Multi-Drug Resistant Organisms: None Reported Past Surgical History: Back Surgery (cervical fusion c4-c6), Bladder Surgery (benign tumor excision), Cholecystectomy, Hysterectomy, Orthopedic Surgery (CTR b/l) Additional Past Surgical History / Comment(s): benign mass removed from bladder, meño carpal tunnel, cervical fusion c4-c6, right wrist cyst removed. Past Anesthesia/Blood Transfusion Reactions: No Reported Reaction Past Psychological History: Anxiety, Depression Smoking Status: Current every day smoker Past Alcohol Use History: None Reported Additional Past Alcohol Use History / Comment(s): smokes < 1 PPD, has smoked for 35 yrs on and off Past Drug Use History: None Reported Additional Drug Use History / Comment(s): doesn't use anymore - Past Family History Father Family Medical History: Coronary Artery Disease (CAD) Additional Family Medical History / Comment(s): quadruple bypass surgery Mother Family Medical History: Cancer Medications and Allergies Home Medications Medication Instructions Recorded Confirmed Type Levothyroxine Sodium [Synthroid] 100 mcg PO DAILY 07/29/15 01/07/19 History Budesonide/Formoterol Fumarate 2 puff INHALATION RT-HS 12/04/15 01/07/19 History [Symbicort 80-4.5 Mcg Inhaler] Insulin Glargine [Lantus] 40 unit SQ HS 02/10/16 01/07/19 History Ipratropium-Albuterol Nebulize 3 ml INHALATION RT-Q4H PRN 05/15/16 01/07/19 History [Duoneb 0.5 mg-3 mg/3 ml Soln] Potassium Chloride ER [K-Dur 20] 20 meq PO QAM 05/15/16 01/07/19 History Albuterol Inhaler [Ventolin Hfa 1 - 2 puff INHALATION RT-Q6H PRN 04/13/17 01/07/19 History Inhaler] HYDROcodone/APAP 10-325MG [[place] 1 tab PO TID PRN 04/13/17 01/07/19 History 10-325] metFORMIN HCL ER [Glucophage Xr] 500 mg PO BID 04/13/17 01/07/19 History Atorvastatin [Lipitor] 10 mg PO DAILY 01/05/19 01/07/19 History Brimonidine Tartrate/Timolol 1 drop BOTH EYES BID 01/05/19 01/07/19 History [Combigan 0.2%-0.5% Eye Drops] Latanoprost Ophth [Xalatan 0.005%] 1 drops BOTH EYES HS 01/05/19 01/07/19 History Liraglutide [Victoza 2-[place]] 1.2 mg SQ DAILY 01/05/19 01/07/19 History Melatonin 3 mg PO HS PRN 01/05/19 01/07/19 History Sertraline [Zoloft] 50 mg PO DAILY 01/05/19 01/07/19 History Carvedilol [Coreg] 3.125 mg PO BID 01/07/19 01/07/19 History Furosemide [Lasix] 20 mg PO DAILY 01/07/19 01/07/19 History Allergies Allergy/AdvReac Type Severity Reaction Status Date / Time No Known Allergies Allergy Verified 01/07/19 13:37 Surgical - Exam Vital Signs Temp Pulse Resp BP Pulse Ox 98.2 F 79 18 128/76 96 01/07/19 11:42 01/07/19 11:42 01/07/19 11:42 01/07/19 11:42 01/07/19 11:42 - General well developed, well nourished, no distress - Eyes PERRL - ENT normal pinna - Cardiovascular Rhythm: regular - Abdomen Marked left lower quadrant pain Abdomen: soft Results - Labs 01/08/19 07:37 01/08/19 07:37 Abnormal Lab Results - Last 24 Hours (Table) 01/07/19 01/07/19 01/07/19 Range/Units 12:09 12:09 17:20 WBC 11.3 H (3.8-10.6) k/uL Hgb (11.4-16.0) gm/dL Glucose 124 H (74-99) mg/dL POC Glucose (mg/dL) 100 H (75-99) mg/dL Total Protein (6.3-8.2) g/dL 01/07/19 01/07/19 01/08/19 Range/Units 20:23 23:40 06:56 WBC (3.8-10.6) k/uL Hgb (11.4-16.0) gm/dL Glucose (74-99) mg/dL POC Glucose (mg/dL) 123 H 124 H 128 H (75-99) mg/dL Total Protein (6.3-8.2) g/dL 01/08/19 01/08/19 Range/Units 07:37 07:37 WBC (3.8-10.6) k/uL Hgb 11.2 L (11.4-16.0) gm/dL Glucose 119 H (74-99) mg/dL POC Glucose (mg/dL) (75-99) mg/dL Total Protein 6.1 L (6.3-8.2) g/dL Diabetes panel 01/07/19 01/08/19 Range/Units 12:09 07:37 Sodium 138 140 (137-145) mmol/L Potassium 3.7 3.9 (3.5-5.1) mmol/L Chloride 103 107 (98-107) mmol/L Carbon Dioxide 28 28 (22-30) mmol/L BUN 10 9 (7-17) mg/dL Creatinine 0.52 0.67 (0.52-1.04) mg/dL Glucose 124 H 119 H (74-99) mg/dL Calcium 9.8 9.4 (8.4-10.2) mg/dL AST 31 32 (14-36) U/L ALT 41 46 (9-52) U/L Alkaline Phosphatase 102 88 (38-126) U/L Total Protein 6.7 6.1 L (6.3-8.2) g/dL Albumin 4.0 3.7 (3.5-5.0) g/dL Calcium panel 01/07/19 01/08/19 Range/Units 12:09 07:37 Calcium 9.8 9.4 (8.4-10.2) mg/dL Albumin 4.0 3.7 (3.5-5.0) g/dL Pituitary panel 01/07/19 01/08/19 Range/Units 12:09 07:37 Sodium 138 140 (137-145) mmol/L Potassium 3.7 3.9 (3.5-5.1) mmol/L Chloride 103 107 (98-107) mmol/L Carbon Dioxide 28 28 (22-30) mmol/L BUN 10 9 (7-17) mg/dL Creatinine 0.52 0.67 (0.52-1.04) mg/dL Glucose 124 H 119 H (74-99) mg/dL Calcium 9.8 9.4 (8.4-10.2) mg/dL Adrenal panel 01/07/19 01/08/19 Range/Units 12: 07:37 Sodium 138 140 (137-145) mmol/L Potassium 3.7 3.9 (3.5-5.1) mmol/L Chloride 103 107 (98-107) mmol/L Carbon Dioxide 28 28 (22-30) mmol/L BUN 10 9 (7-17) mg/dL Creatinine 0.52 0.67 (0.52-1.04) mg/dL Glucose 124 H 119 H (74-99) mg/dL Calcium 9.8 9.4 (8.4-10.2) mg/dL Total Bilirubin 0.4 0.5 (0.2-1.3) mg/dL AST 31 32 (14-36) U/L ALT 41 46 (9-52) U/L Alkaline Phosphatase 102 88 (38-126) U/L Total Protein 6.7 6.1 L (6.3-8.2) g/dL Albumin 4.0 3.7 (3.5-5.0) g/dL Assessment and Plan Assessment: Diverticula is patient will receive IV antibiotics and IV hydration.
--- NOTE | 2019-01-08 11:10 | P.PN ---
Progress Note - Text Progress Note Date: 01/08/19 The patient still has complaints of left lower quadrant pain. She states her pain is almost the same as yesterday. On exam her vital signs are stable. Her abdomen soft. Diverticula is. Patient remain nothing by mouth and receive IV antibiotics.
--- NOTE | 2019-01-08 11:30 | P.CONS ---
History of Present Illness - Reason for Consult Consult date: 01/08/19 diabetes management Requesting physician: Rush Whitlock - History of Present Illness Kika is a 53-year-old white female well-known to me. She has a history of type 2 diabetes and COPD. She has multiple other medical medical comorbidities including cervical spinal fusion and chronic low back pain from this. She reports a several week history of increasing abdominal pain. She been referred to general surgery regarding this. She indicated her pain is mostly left lower quadrant. CT scan showed evidence of diverticulitis. General surgery was admitted her for further treatment. She is currently on clear liquids. She is requesting a nicotine patch. She denies any chest pains, pressures, or shortness of breath this time. He has some mild nausea, no recent emesis. No significant constipation or diarrhea. Review of Systems All systems: negative Past Medical History Past Medical History: Asthma, Heart Failure, COPD, Diabetes Mellitus, Eye Disorder (glaucoma), Fibromyalgia, GERD/Reflux, Hypertension, Musculoskeletal Disorder (DDD, herniated disc,), Osteoarthritis (OA), Pneumonia, Thyroid Disorder Additional Past Medical History / Comment(s): neuropathy, narcolepsy, History of Any Multi-Drug Resistant Organisms: None Reported Past Surgical History: Back Surgery (cervical fusion c4-c6), Bladder Surgery (benign tumor excision), Cholecystectomy, Hysterectomy, Orthopedic Surgery (CTR b/l) Past Anesthesia/Blood Transfusion Reactions: No Reported Reaction Past Psychological History: Anxiety, Depression Smoking Status: Current every day smoker Past Alcohol Use History: None Reported Additional Past Alcohol Use History / Comment(s): smokes < 1 PPD, has smoked for 35 yrs on and off Past Drug Use History: None Reported Additional Drug Use History / Comment(s): doesn't use anymore - Past Family History Father Family Medical History: Coronary Artery Disease (CAD) Additional Family Medical History / Comment(s): quadruple bypass surgery Mother Family Medical History: Cancer Medications and Allergies Home Medications Medication Instructions Recorded Confirmed Type Levothyroxine Sodium [Synthroid] 100 mcg PO DAILY 07/29/15 01/07/19 History Budesonide/Formoterol Fumarate 2 puff INHALATION RT-HS 12/04/15 01/07/19 History [Symbicort 80-4.5 Mcg Inhaler] Insulin Glargine [Lantus] 40 unit SQ HS 02/10/16 01/07/19 History Ipratropium-Albuterol Nebulize 3 ml INHALATION RT-Q4H PRN 05/15/16 01/07/19 History [Duoneb 0.5 mg-3 mg/3 ml Soln] Potassium Chloride ER [K-Dur 20] 20 meq PO QAM 05/15/16 01/07/19 History Albuterol Inhaler [Ventolin Hfa 1 - 2 puff INHALATION RT-Q6H PRN 04/13/17 01/07/19 History Inhaler] HYDROcodone/APAP 10-325MG [[place] 1 tab PO TID PRN 04/13/17 01/07/19 History 10-325] metFORMIN HCL ER [Glucophage Xr] 500 mg PO BID 04/13/17 01/07/19 History Atorvastatin [Lipitor] 10 mg PO DAILY 01/05/19 01/07/19 History Brimonidine Tartrate/Timolol 1 drop BOTH EYES BID 01/05/19 01/07/19 History [Combigan 0.2%-0.5% Eye Drops] Latanoprost Ophth [Xalatan 0.005%] 1 drops BOTH EYES HS 01/05/19 01/07/19 History Liraglutide [Victoza 2-[place]] 1.2 mg SQ DAILY 01/05/19 01/07/19 History Melatonin 3 mg PO HS PRN 01/05/19 01/07/19 History Sertraline [Zoloft] 50 mg PO DAILY 01/05/19 01/07/19 History Carvedilol [Coreg] 3.125 mg PO BID 01/07/19 01/07/19 History Furosemide [Lasix] 20 mg PO DAILY 01/07/19 01/07/19 History Allergies Allergy/AdvReac Type Severity Reaction Status Date / Time No Known Allergies Allergy Verified 01/07/19 13:37 Physical Exam Vitals: Vital Signs Temp Pulse Pulse Resp BP BP Pulse Ox 01/08/19 05:27 97.9 F 76 16 114/76 95 01/08/19 05:10 76 01/08/19 05:02 72 01/07/19 20:46 74 01/07/19 20:39 76 01/07/19 20:33 97.6 F 85 18 141/78 96 01/07/19 15:32 79 01/07/19 15:23 78 14 01/07/19 13:19 98.2 F 76 18 123/90 95 01/07/19 11:42 98.2 F 79 18 128/76 96 Intake and Output 01/07/19 01/08/19 01/08/19 22:59 06:59 14:59 Other: Voiding Method Toilet # Voids 1 0 GENERAL: Fatigue and mild discomfort. HEAD: Atraumatic, normocephalic. EYES: Pupils equal round and reactive to light, extraocular movements intact, sclera anicteric, conjunctiva are normal. ENT:nares patent, oropharynx clear without exudates. Moist mucous membranes. NECK: Normal range of motion, supple without lymphadenopathy or JVD, no thyromegaly LUNGS: Breath sounds coarse with bilateral expiratory wheeze. No crackles or rales this time HEART: Regular rate and rhythm without murmurs, rubs or gallops.S1S2 Normal ABDOMEN: Soft, slightly decreased bowel sounds, pain to palpation in the left lower quadrant, no hepatosplenomegaly is palpated EXTREMITIES: Normal range of motion, no pitting or edema. No clubbing or cyanosis. NEUROLOGICAL: Cranial nerves II through XII grossly intact. Normal speech, n ormal gait. PSYCH: Normal mood, normal affect. SKIN: Warm, Dry, normal turgor, no rashes or lesions noted. Results CBC & Chem 7: 01/08/19 07:37 01/08/19 07:37 Labs: Abnormal Lab Results - Last 24 Hours (Table) 01/07/19 01/07/19 01/07/19 Range/Units 12:09 12:09 17:20 WBC 11.3 H (3.8-10.6) k/uL Hgb (11.4-16.0) gm/dL Glucose 124 H (74-99) mg/dL POC Glucose (mg/dL) 100 H (75-99) mg/dL Total Protein (6.3-8.2) g/dL 01/07/19 01/07/19 01/08/19 Range/Units 20:23 23:40 06:56 WBC (3.8-10.6) k/uL Hgb (11.4-16.0) gm/dL Glucose (74-99) mg/dL POC Glucose (mg/dL) 123 H 124 H 128 H (75-99) mg/dL Total Protein (6.3-8.2) g/dL 01/08/19 01/08/19 Range/Units 07:37 07:37 WBC (3.8-10.6) k/uL Hgb 11.2 L (11.4-16.0) gm/dL Glucose 119 H (74-99) mg/dL POC Glucose (mg/dL) (75-99) mg/dL Total Protein 6.1 L (6.3-8.2) g/dL CT scan - abdomen: report reviewed (mild diverticulitis) Assessment and Plan (1) Diverticulitis Current Visit: Yes Status: Acute Code(s): K57.92 - DVTRCLI OF INTEST, PART UNSP, W/O PERF OR ABSCESS W/O BLEED SNOMED Code(s): 768514572 (2) Abdominal pain Current Visit: Yes Status: Acute Code(s): R10.9 - UNSPECIFIED ABDOMINAL PAIN SNOMED Code(s): 89627086 (3) Diabetes Current Visit: Yes Status: Chronic Code(s): E11.9 - TYPE 2 DIABETES MELLITUS WITHOUT COMPLICATIONS SNOMED Code(s): 47498812 (4) Status post cervical spinal fusion Current Visit: No Status: Chronic Code(s): Z98.1 - ARTHRODESIS STATUS SNOMED Code(s): 4299799087243 (5) COPD (chronic obstructive pulmonary disease) Current Visit: Yes Status: Chronic Code(s): J44.9 - CHRONIC OBSTRUCTIVE PULMONARY DISEASE, UNSPECIFIED SNOMED Code(s): 93052971 Plan: Since she is currently on clears and her glucoses remained excellent, I'll discontinue her Levemir and Victoza, there were held overnight. We will add a NovoLog scale and continue Accu-Cheks every 6 hours General surgery or monitor her diverticulitis. She'll continue on Symbicort along with the wound updrafts and Ventolin HFA as needed. She'll continue levothyroxine for hypothyroidism. She can remain on metformin from medications. Nicotine patch has been ordered. She is currently on Zosyn for antibiotic coverage. I'll reevaluate next 24 hours. Thank you very much for this consultation.
[2019-01-08 12:03] LABS: Glucose,Whole Blood 120 mg/dL (75-99)
[2019-01-08] MEDS: INSULIN ASPART (NovoLOG) 100 UNIT/ML VIAL SQ SCH ×3 (12:37→21:15)
[2019-01-08] MEDS: NICOTINE 21MG/24HR PATCH TRANSDERM SCH (13:05)
[2019-01-08] MEDS: diphenhydrAMINE 25 MG CAP PO PRN ×2 (14:39→22:11)
[2019-01-08 16:49] LABS: Glucose,Whole Blood 109 mg/dL (75-99)
[2019-01-08] MEDS: SYMBICORT 80-4.5 MCG INHALER INHALATION SCH (18:56)
[2019-01-08 20:58] LABS: Glucose,Whole Blood 128 mg/dL (75-99)
[2019-01-08] MEDS: LATANOPROST 0.005% OPHTH DROPS 2.5 ML BTL BOTH EYES SCH (21:30)
[2019-01-09] MEDS: SODIUM CHLORIDE 0.9% 1,000 ML IV SCH ×4 (00:15→20:16)
[2019-01-09] MEDS: HYDROmorphone 0.5 MG/0.5 ML SYRINGE IVP PRN ×6 (03:10→23:22)
[2019-01-09] MEDS: PIPERACILLIN-TAZOBACTAM 3.375 GM in SODIUM CHLORIDE 0.9% 100 ML IVPB SCH ×3 (03:13→20:14)
[2019-01-09] MEDS: ALBUTEROL NEBULIZED 2.5 MG/3 ML INHALATION PRN (03:43)
[2019-01-09] MEDS: ACETAMINOPHEN TAB 325 MG TAB PO PRN (05:24)
[2019-01-09] MEDS: LEVOTHYROXINE 100 MCG TAB PO SCH (06:16)
[2019-01-09 07:27] LABS: Glucose,Whole Blood 123 mg/dL (75-99)
[2019-01-09] MEDS: IPRATROPIUM-ALBUTEROL 3 ML NEB INHALATION PRN ×4 (07:56→19:40)
[2019-01-09] MEDS: SYMBICORT 80-4.5 MCG INHALER INHALATION SCH ×2 (07:57→19:40)
[2019-01-09] MEDS: ATORVASTATIN 10 MG TAB PO SCH (08:15)
[2019-01-09] MEDS: CARVEDILOL 3.125 MG TAB PO SCH ×2 (08:15→16:11)
[2019-01-09] MEDS: metFORMIN 500 MG TAB PO SCH ×2 (08:15→16:11)
[2019-01-09] MEDS: NICOTINE 21MG/24HR PATCH TRANSDERM SCH (08:15)
[2019-01-09] MEDS: SERTRALINE 50 MG TAB PO SCH (08:15)
[2019-01-09] MEDS: ONDANSETRON 4 MG/2 ML VIAL IVP PRN ×3 (08:16→22:30)
[2019-01-09] MEDS: INSULIN ASPART (NovoLOG) 100 UNIT/ML VIAL SQ SCH ×4 (08:16→22:33)
[2019-01-09] MEDS: diphenhydrAMINE 25 MG CAP PO PRN ×2 (08:16→16:11)
[2019-01-09] MEDS: POTASSIUM CHLORIDE ER 20 MEQ TAB.ER PO SCH (08:16)
[2019-01-09] MEDS: FUROSEMIDE 20 MG TAB PO SCH (08:16)
[2019-01-09] MEDS: BRIMONIDINE TARTRATE 0.2% DROPS 5 ML BTL BOTH EYES SCH ×2 (08:17→20:15)
[2019-01-09] MEDS: NON-FORMULARY DRUG (Liraglutide [Victoza 2-Pak] 1.2 MG) SQ SCH (08:17)
[2019-01-09] MEDS: TIMOLOL 0.5% OPHTH DROPS 5 ML BTL BOTH EYES SCH ×2 (08:18→20:15)
--- NOTE | 2019-01-09 10:04 | P.PN ---
Progress Note - Text Progress Note Date: 01/09/19 The patient feels slightly better today. She states that her pain is improved. She's had some feculent discharge from her vagina. On exam her vital signs are stable. There is less left lower quadrant abdominal pain. There is no rebound or guarding. Acute diverticulitis with colovaginal fistula. Patient continue clear liquids and IV antibiotics.
[2019-01-09 12:11] LABS: Glucose,Whole Blood 130 mg/dL (75-99)
[2019-01-09 16:58] LABS: Glucose,Whole Blood 145 mg/dL (75-99)
[2019-01-09] MEDS: LATANOPROST 0.005% OPHTH DROPS 2.5 ML BTL BOTH EYES SCH (20:15)
[2019-01-09 20:55] LABS: Glucose,Whole Blood 136 mg/dL (75-99)
[2019-01-09] MEDS: PROMETHAZINE 25 MG TAB PO PRN (23:26)
[2019-01-10] MEDS: HYDROmorphone 0.5 MG/0.5 ML SYRINGE IVP PRN ×7 (02:25→21:22)
[2019-01-10] MEDS: diphenhydrAMINE 25 MG CAP PO PRN ×2 (02:25→21:30)
[2019-01-10] MEDS: ALBUTEROL NEBULIZED 2.5 MG/3 ML INHALATION PRN (03:18)
[2019-01-10] MEDS: PIPERACILLIN-TAZOBACTAM 3.375 GM in SODIUM CHLORIDE 0.9% 100 ML IVPB SCH ×3 (04:36→19:52)
[2019-01-10] MEDS: LEVOTHYROXINE 100 MCG TAB PO SCH (05:45)
[2019-01-10] MEDS: PROMETHAZINE 25 MG TAB PO PRN ×3 (06:42→21:30)
[2019-01-10] MEDS: SODIUM CHLORIDE 0.9% 1,000 ML IV SCH ×3 (06:44→19:55)
[2019-01-10 07:05] LABS: Glucose,Whole Blood 114 mg/dL (75-99)
[2019-01-10] MEDS: IPRATROPIUM-ALBUTEROL 3 ML NEB INHALATION PRN ×4 (07:32→20:30)
[2019-01-10] MEDS: INSULIN ASPART (NovoLOG) 100 UNIT/ML VIAL SQ SCH ×4 (07:48→21:22)
[2019-01-10] MEDS: CARVEDILOL 3.125 MG TAB PO SCH ×2 (07:48→17:52)
[2019-01-10] MEDS: metFORMIN 500 MG TAB PO SCH ×2 (07:48→17:52)
[2019-01-10] MEDS: FUROSEMIDE 20 MG TAB PO SCH (07:48)
[2019-01-10] MEDS: POTASSIUM CHLORIDE ER 20 MEQ TAB.ER PO SCH (07:48)
[2019-01-10] MEDS: ATORVASTATIN 10 MG TAB PO SCH (07:48)
[2019-01-10] MEDS: SERTRALINE 50 MG TAB PO SCH (07:48)
[2019-01-10] MEDS: NICOTINE 21MG/24HR PATCH TRANSDERM SCH (07:49)
[2019-01-10] MEDS: BRIMONIDINE TARTRATE 0.2% DROPS 5 ML BTL BOTH EYES SCH ×2 (07:51→20:02)
[2019-01-10] MEDS: TIMOLOL 0.5% OPHTH DROPS 5 ML BTL BOTH EYES SCH ×2 (07:51→20:03)
[2019-01-10] MEDS: NON-FORMULARY DRUG (Liraglutide [Victoza 2-Pak] 1.2 MG) SQ SCH (07:52)
--- NOTE | 2019-01-10 10:32 | P.PN ---
Progress Note - Text Progress Note Date: 01/10/19 The patient has complaints of left lower quadrant pain. She is still passing small amount stool through her vagina. On exam her vital signs are stable. Her abdomen soft. She is tender in the left lower quadrant. Diverticulitis. Patient is a slow improvement with IV antibiotic. She'll cont inue on clear liquid diet. She'll be reassessed in the a.m.
[2019-01-10 12:00] LABS: Glucose,Whole Blood 104 mg/dL (75-99)
--- NOTE | 2019-01-10 12:17 | P.PN ---
Subjective Patient is admitted to Dr. Lacy for diverticulitis. She remains on Zosyn for antibiotic coverage. She has a DuoNeb and albuterol along with Symbicort for her COPD. She remains on metformin and NovoLog scale for diabetes. Her sugars seem well controlled this time. She has new complaints of bilateral mastoid pain. Worse on the right side. She denies any vomiting, some nausea, minimal chest pain with coughing, shortness of breath.Ongoing left lower quadrant abdominal pain. Objective - Vital Signs Vital signs: Vital Signs Temp 97.8 F 01/10/19 04:51 Pulse 72 01/10/19 11:47 Resp 18 01/10/19 04:51 BP 120/73 01/10/19 04:51 Pulse Ox 92 L 01/10/19 04:51 Intake & Output 01/09/19 01/10/19 01/10/19 18:59 06:59 18:59 Intake Total 600 Balance 600 Intake: Oral 600 Other: Voiding Method Toilet # Voids 3 3 # Bowel Movements 1 0 - Exam GENERAL: Fatigued and mild discomfort. HEAD: Atraumatic, normocephalic. EYES: Pupils equal round and reactive to light, extraocular movements intact, sclera anicteric, conjunctiva are normal. ENT:Moist mucous membranes. Dentition appears intact, multiple crowns and fillings. No evidence of significant caries, has not been previously treated. NECK: Normal range of motion, supple without lymphadenopathy or JVD, no thyromegaly. There is pain to palpation of the mastoids worse on the right to left. LUNGS: Breath sounds coarse with bilateral expiratory wheeze. No crackles or rales this time HEART: Regular rate and rhythm without murmurs, rubs or gallops.S1S2 Normal ABDOMEN: Soft, slightly decreased bowel sounds, pain to palpation in the left lower quadrant, no hepatosplenomegaly is palpated EXTREMITIES: Normal range of motion, no pitting or edema. No clubbing or cyanosis. NEUROLOGICAL: Cranial nerves II through XII grossly intact. Normal speech, normal gait. PSYCH: Normal mood, normal affect. SKIN: Warm, Dry, normal turgor, no rashes or lesions noted. - Labs CBC & Chem 7: 01/08/19 07:37 01/08/19 07:37 Labs: Abnormal Lab Results - Last 24 Hours (Table) 01/09/19 01/09/19 01/09/19 Range/Units 11:54 16:50 20:54 POC Glucose (mg/dL) 130 H 145 H 136 H (75-99) mg/dL 01/10/19 01/10/19 Range/Units 06:50 11:57 POC Glucose (mg/dL) 114 H 104 H (75-99) mg/dL Microbiology - Last 24 Hours (Table) 01/07/19 12:09 Blood Culture - Preliminary Blood No Growth after 48 hours Assessment and Plan (1) Diverticulitis Current Visit: Yes Status: Acute Code(s): K57.92 - DVTRCLI OF INTEST, PART UNSP, W/O PERF OR ABSCESS W/O BLEED SNOMED Code(s): 734169718 (2) Abdominal pain Current Visit: Yes Status: Acute Code(s): R10.9 - UNSPECIFIED ABDOMINAL PAIN SNOMED Code(s): 07764124 (3) Diabetes Current Visit: Yes Status: Chronic Code(s): E11.9 - TYPE 2 DIABETES MELLITUS WITHOUT COMPLICATIONS SNOMED Code(s): 67679716 (4) Status post cervical spinal fusion Current Visit: No Status: Chronic Code(s): Z98.1 - ARTHRODESIS STATUS SNOMED Code(s): 4454713683947 (5) COPD (chronic obstructive pulmonary disease) Current Visit: Yes Status: Chronic Code(s): J44.9 - CHRONIC OBSTRUCTIVE PULMONARY DISEASE, UNSPECIFIED SNOMED Code(s): 38338174 Plan: Tinea her current treatments for diabetes. General surgery or monitor her diverticulitis. She'll continue on Symbicort along with the updrafts and Ventolin HFA as needed For her COPD.She'll continue levothyroxine for hypothyroidism. She can remain on metformin from medications. Nicotine patch has been ordered. She is currently on Zosyn for antibiotic coverage. Consent suspicious or mastoid pain may be more on visualized dental caries underneath filling. The otoscope was unavailable this time will plan for evaluation bilaterally if her symptoms continue. I'll reevaluate next 24 hours.
[2019-01-10 17:12] LABS: Glucose,Whole Blood 121 mg/dL (75-99)
[2019-01-10] MEDS: LATANOPROST 0.005% OPHTH DROPS 2.5 ML BTL BOTH EYES SCH (20:02)
[2019-01-10 20:51] LABS: Glucose,Whole Blood 208 mg/dL (75-99)
[2019-01-10] MEDS: MELATONIN 3 MG TABLET PO PRN (21:32)
[2019-01-11] MEDS: HYDROmorphone 0.5 MG/0.5 ML SYRINGE IVP PRN ×7 (01:38→19:37)
[2019-01-11] MEDS: PIPERACILLIN-TAZOBACTAM 3.375 GM in SODIUM CHLORIDE 0.9% 100 ML IVPB SCH ×3 (03:39→19:36)
[2019-01-11] MEDS: LEVOTHYROXINE 100 MCG TAB PO SCH (05:26)
[2019-01-11 06:54] LABS: Glucose,Whole Blood 111 mg/dL (75-99)
[2019-01-11] MEDS: INSULIN ASPART (NovoLOG) 100 UNIT/ML VIAL SQ SCH ×4 (07:07→20:30)
[2019-01-11] MEDS: NON-FORMULARY DRUG (Liraglutide [Victoza 2-Pak] 1.2 MG) SQ SCH (07:07)
[2019-01-11] MEDS: FUROSEMIDE 20 MG TAB PO SCH (07:09)
[2019-01-11] MEDS: SERTRALINE 50 MG TAB PO SCH (07:09)
[2019-01-11] MEDS: POTASSIUM CHLORIDE ER 20 MEQ TAB.ER PO SCH (07:09)
[2019-01-11] MEDS: ATORVASTATIN 10 MG TAB PO SCH (07:09)
[2019-01-11] MEDS: NICOTINE 21MG/24HR PATCH TRANSDERM SCH (07:09)
[2019-01-11] MEDS: CARVEDILOL 3.125 MG TAB PO SCH ×2 (07:09→16:59)
[2019-01-11] MEDS: TIMOLOL 0.5% OPHTH DROPS 5 ML BTL BOTH EYES SCH ×2 (07:10→19:35)
[2019-01-11] MEDS: SODIUM CHLORIDE 0.9% 1,000 ML IV SCH ×2 (07:10→13:49)
[2019-01-11] MEDS: metFORMIN 500 MG TAB PO SCH ×2 (07:10→16:59)
[2019-01-11] MEDS: BRIMONIDINE TARTRATE 0.2% DROPS 5 ML BTL BOTH EYES SCH ×2 (07:10→19:35)
--- NOTE | 2019-01-11 09:03 | XR ---
EXAMINATION TYPE: XR chest 2V DATE OF EXAM: 01/11/2019 COMPARISON: 04/13/2017 HISTORY: Wheezing, cough, and shortness of breath TECHNIQUE: Frontal and lateral views of the chest are obtained. FINDINGS: There is no focal air space opacity, pleural effusion, or pneumothorax seen. Minimal centr al peribronchial cuffing is seen on the lateral view. The cardiac silhouette size is within normal li mits. The osseous structures are intact. There is partial visualization of a cervical fusion device . IMPRESSION: Minimal peribronchial cuffing centrally may represent reactive or infectious airway dise ase. No focal consolidation to suggest pneumonia.
[2019-01-11 09:40] LABS: Basophils % (A) 1 %; Eosinophils # (A) 0.3 k/uL (0-0.7); Eosinophils % (A) 3 %; HGB 11.5 gm/dL (11.4-16.0); Lymphocytes # (A) 2.4 k/uL (1.0-4.8); Lymphocytes % (A) 30 %; MCH 26.4 pg (25.0-35.0); MCV 82.4 fL (80.0-100.0); Mean Platelet Volume 7.4; Monocytes # (A) 0.3 k/uL (0-1.0); Monocytes % (A) 4 %; Neutrophils # (A) 4.7 k/uL (1.3-7.7); Neutrophils % (A) 60 %; Platelet Count 305 k/uL (150-450); RBC 4.38 m/uL (3.80-5.40); RDW 14.1 % (11.5-15.5); WBC 7.8 k/uL (3.8-10.6)
[2019-01-11 10:00] LABS: Anion Gap 8 mmol/L; Blood Urea Nitrogen 4 mg/dL (7-17); Calcium 9.5 mg/dL (8.4-10.2); Carbon Dioxide 28 mmol/L (22-30); Chloride 104 mmol/L (98-107); Glucose 256 mg/dL (74-99); Potassium 3.7 mmol/L (3.5-5.1); Sodium 140 mmol/L (137-145)
[2019-01-11] MEDS ORDERED: Potassium Replacement Protocol 1 EACH MISC MISCELLANE PRN (10:37)
[2019-01-11] MEDS: PROMETHAZINE 25 MG TAB PO PRN ×2 (11:20→16:59)
[2019-01-11] MEDS: IPRATROPIUM-ALBUTEROL 3 ML NEB INHALATION PRN (11:45)
[2019-01-11 12:00] LABS: Glucose,Whole Blood 122 mg/dL (75-99)
--- NOTE | 2019-01-11 13:23 | P.PN ---
Subjective Progress Note Date: 01/11/19 CHIEF COMPLAINT: Abdominal pain HISTORY OF PRESENT ILLNESS: Patient examined at the bedside. Patient reports diffuse abdominal pain. She continues to have stool via vagina. She is tolerating clear liquid diet. PHYSICAL EXAM: VITAL SIGNS: Reviewed. GENERAL: Well-developed in no acute distress. HEENT: No sclera icterus. Extraocular movements grossly intact. Moist buccal mucosa. Head is atraumatic, normocephalic. ABDOMEN: Soft. Nondistended. Generalized tenderness upon palpation. NEUROLOGIC: Alert and oriented. Cranial nerves II through XII grossly intact. ASSESSMENT: 1. Diverticulitis with colovaginal fistula PLAN: 1. Continue clear liquid diet 2. NPO after midnight 3. Patient will be tentatively scheduled for sigmoid colectomy with ostomy tomorrow with Dr. Whitlock Nurse practitioner note has been reviewed by physician. Signing provider agrees with the documented findings, assessment, and plan of care. Objective - Vital Signs Vital signs: Vital Signs Temp 98.1 F 01/11/19 06:00 Pulse 80 01/11/19 11:56 Resp 18 01/11/19 06:00 BP 124/74 01/11/19 06:00 Pulse Ox 95 01/11/19 06:00 Intake & Output 01/10/19 01/11/19 01/11/19 18:59 06:59 18:59 Intake Total 600 925 600 Balance 600 925 600 Weight 106.5 kg Intake: Oral 600 925 600 Other: Voiding Method Toilet Toilet # Voids 2 2 2 # Bowel Movements 1 0 - Labs CBC & Chem 7: 01/11/19 09:13 01/11/19 09:13 Labs: Abnormal Lab Results - Last 24 Hours (Table) 01/10/19 01/10/19 01/11/19 Range/Units 17:07 20:26 06:43 BUN (7-17) mg/dL Glucose (74-99) mg/dL POC Glucose (mg/dL) 121 H 208 H 111 H (75-99) mg/dL 01/11/19 01/11/19 Range/Units 09:13 11:53 BUN 4 L (7-17) mg/dL Glucose 256 H (74-99) mg/dL POC Glucose (mg/dL) 122 H (75-99) mg/dL Microbiology - Last 24 Hours (Table) 01/07/19 12:09 Blood Culture - Preliminary Blood No Growth after 72 hours
[2019-01-11] MEDS ORDERED: IPRATROPIUM-ALBUTEROL 3 ML NEB INHALATION PRN (14:51)
--- NOTE | 2019-01-11 14:56 | P.PN ---
Subjective Progress Note Date: 01/11/19 Patient is admitted to Dr. Lacy for diverticulitis. She remains on Zosyn for antibiotic coverage. She has a DuoNeb and albuterol along with Symbicort for her COPD. She remains on metformin and NovoLog scale for diabetes. Her sugars seem well controlled this time. She has new complaints of bilateral mastoid pain. Worse on the right side. She denies any vomiting, some nausea, minimal chest pain with coughing, shortness of breath.Ongoing left lower quadrant abdominal pain. 01/11/19 tolerating clear liquid diet with no nausea, vomiting. continues to have left lower quadrant pain as well as stool via Vagina. Afebrile, maintained on Zofran and IV fluids. Chest x-ray reporting very bronchial cuffing with no focal consolidation. IV fluids. Scheduled for sigmoid colectomy with colostomy tomorrow. Denies chest pain, palpitations or increased shortness of breath. No complaints of mastoid pain today, possibly sinus related. Objective - Vital Signs Vital signs: Vital Signs Temp 98.1 F 01/11/19 06:00 Pulse 73 01/11/19 06:00 Resp 18 01/11/19 06:00 BP 124/74 01/11/19 06:00 Pulse Ox 95 01/11/19 06:00 Intake & Output 01/10/19 01/11/19 01/11/19 18:59 06:59 18:59 Intake Total 600 925 600 Balance 600 925 600 Weight 106.5 kg Intake: Oral 600 925 600 Other: Voiding Method Toilet Toilet # Voids 2 2 # Bowel Movements 1 0 - Exam GENERAL: Sitting up in bed, no acute distress HEAD: Atraumatic, normocephalic. EYES: Pupils equal round and reactive to light, extraocular movements intact, sclera anicteric, conjunctiva are normal. ENT:Moist mucous membranes. Dentition appears intact, multiple crowns and fillings. No evidence of significant caries, has not been previously treated. NECK: Normal range of motion, supple without lymphadenopathy or JVD, no thyromegaly. LUNGS: Breath sounds coarse with fine bilateral expiratory wheeze. No crackles or rales at this time. HEART: Regular rate and rhythm without murmurs, rubs or gallops.S1S2 Normal ABDOMEN: Soft, slightly decreased bowel sounds, pain to palpation in the left lower quadrant, no hepatosplenomegaly is palpated EXTREMITIES: Normal range of motion, no pitting or edema. No clubbing or cyanosis. NEUROLOGICAL: Cranial nerves II through XII grossly intact. Normal speech, normal gait. PSYCH: Normal mood, normal affect. SKIN: Warm, Dry, normal turgor, no rashes or lesions noted. - Labs CBC & Chem 7: 01/11/19 09:13 01/11/19 09:13 Labs: Abnormal Lab Results - Last 24 Hours (Table) 01/10/19 01/10/19 01/10/19 Range/Units 11:57 17:07 20:26 BUN (7-17) mg/dL Glucose (74-99) mg/dL POC Glucose (mg/dL) 104 H 121 H 208 H (75-99) mg/dL 01/11/19 01/11/19 Range/Units 06:43 09:13 BUN 4 L (7-17) mg/dL Glucose 256 H (74-99) mg/dL POC Glucose (mg/dL) 111 H (75-99) mg/dL Microbiology - Last 24 Hours (Table) 01/07/19 12:09 Blood Culture - Preliminary Blood No Growth after 72 hours Assessment and Plan Assessment: (1) Diverticulitis Current Visit: Yes Status: Acute Code(s): K57.92 - DVTRCLI OF INTEST, PART UNSP, W/O PERF OR ABSCESS W/O BLEED SNOMED Code(s): 407386882 (2) Abdominal pain Current Visit: Yes Status: Acute Code(s): R10.9 - UNSPECIFIED ABDOMINAL PAIN SNOMED Code(s): 51043116 (3) Diabetes Current Visit: Yes Status: Chronic Code(s): E11.9 - TYPE 2 DIABETES MELLITUS WITHOUT COMPLICATIONS SNOMED Code(s): 71193125 (4) Status post cervical spinal fusion Current Visit: No Status: Chronic Code(s): Z98.1 - ARTHRODESIS STATUS SNOMED Code(s): 2982743948736 (5) COPD (chronic obstructive pulmonary disease) Current Visit: Yes Status: Chronic Code(s): J44.9 - CHRONIC OBSTRUCTIVE PULMONARY DISEASE, UNSPECIFIED SNOMED Code(s): 11347540 Plan: Continue on current medication regime ,monitoring and symptomatic treatment. Gentle IV fluid hydration, IV antibiotics. Nothing by mouth at midnight for colectomy. Update/Discussed plan at Bedside, questions and concerns addressed. Patient verbalizes understanding of. Further recommendations to follow. The impression and plan of care has been dictated as directed. : I performed a history and examination of this patient, discussed the same with the dictator. I agree with the dictator's note ,documented as a scribe. Any additional findings or plans will be noted.
[2019-01-11] MEDS: IPRATROPIUM-ALBUTEROL 3 ML NEB INHALATION SCH ×2 (16:36→20:15)
[2019-01-11 17:18] LABS: Glucose,Whole Blood 130 mg/dL (75-99)
[2019-01-11] MEDS: LATANOPROST 0.005% OPHTH DROPS 2.5 ML BTL BOTH EYES SCH (19:35)
[2019-01-11] MEDS: LORATADINE 10 MG TAB PO SCH (19:36)
[2019-01-11] MEDS: diphenhydrAMINE 25 MG CAP PO PRN (19:36)
[2019-01-11] MEDS: SYMBICORT 80-4.5 MCG INHALER INHALATION SCH (20:16)
[2019-01-11 20:17] LABS: Glucose,Whole Blood 216 mg/dL (75-99)
[2019-01-12] MEDS: PROMETHAZINE 25 MG TAB PO PRN ×2 (00:37→07:18)
[2019-01-12] MEDS: HYDROmorphone 0.5 MG/0.5 ML SYRINGE IVP PRN ×6 (00:37→21:14)
[2019-01-12] MEDS: PIPERACILLIN-TAZOBACTAM 3.375 GM in SODIUM CHLORIDE 0.9% 100 ML IVPB SCH ×3 (03:41→19:37)
[2019-01-12] MEDS: LEVOTHYROXINE 100 MCG TAB PO SCH (05:47)
[2019-01-12 07:02] LABS: Glucose,Whole Blood 121 mg/dL (75-99)
[2019-01-12] MEDS: POTASSIUM CHLORIDE ER 20 MEQ TAB.ER PO SCH (07:17)
[2019-01-12] MEDS: CARVEDILOL 3.125 MG TAB PO SCH ×2 (07:17→17:12)
[2019-01-12] MEDS: SERTRALINE 50 MG TAB PO SCH (07:17)
[2019-01-12] MEDS: ATORVASTATIN 10 MG TAB PO SCH (07:17)
[2019-01-12] MEDS: NICOTINE 21MG/24HR PATCH TRANSDERM SCH (07:18)
[2019-01-12] MEDS: FUROSEMIDE 20 MG TAB PO SCH (07:18)
[2019-01-12] MEDS: metFORMIN 500 MG TAB PO SCH ×2 (07:23→17:14)
[2019-01-12] MEDS: INSULIN ASPART (NovoLOG) 100 UNIT/ML VIAL SQ SCH ×4 (07:23→21:14)
[2019-01-12] MEDS: NON-FORMULARY DRUG (Liraglutide [Victoza 2-Pak] 1.2 MG) SQ SCH (07:24)
[2019-01-12] MEDS: BRIMONIDINE TARTRATE 0.2% DROPS 5 ML BTL BOTH EYES SCH ×2 (07:24→21:12)
[2019-01-12] MEDS: TIMOLOL 0.5% OPHTH DROPS 5 ML BTL BOTH EYES SCH ×2 (07:24→21:13)
[2019-01-12] MEDS: IPRATROPIUM-ALBUTEROL 3 ML NEB INHALATION SCH ×4 (08:04→20:42)
[2019-01-12 11:07] LABS: Anion Gap 6 mmol/L; Blood Urea Nitrogen 4 mg/dL (7-17); Calcium 9.8 mg/dL (8.4-10.2); Carbon Dioxide 32 mmol/L (22-30); Chloride 106 mmol/L (98-107); Glucose 93 mg/dL (74-99); Sodium 144 mmol/L (137-145)
[2019-01-12] MEDS: SODIUM CHLORIDE 0.9% 1,000 ML IV SCH (11:22)
[2019-01-12 11:24] LABS: Basophils % (A) 1 %; Eosinophils # (A) 0.3 k/uL (0-0.7); Eosinophils % (A) 3 %; HCT 36.1 % (34.0-46.0); HGB 11.2 gm/dL (11.4-16.0); Lymphocytes # (A) 3.2 k/uL (1.0-4.8); Lymphocytes % (A) 37 %; MCH 25.3 pg (25.0-35.0); MCHC 31.1 g/dL (31.0-37.0); MCV 81.3 fL (80.0-100.0); Monocytes # (A) 0.3 k/uL (0-1.0); Monocytes % (A) 4 %; Neutrophils # (A) 4.6 k/uL (1.3-7.7); Neutrophils % (A) 53 %; Platelet Count 340 k/uL (150-450); RBC 4.44 m/uL (3.80-5.40); WBC 8.6 k/uL (3.8-10.6)
[2019-01-12 12:24] LABS: Glucose,Whole Blood 100 mg/dL (75-99)
[2019-01-12] MEDS ORDERED: IV FLUID CONTINUATION 1,000 ML IV ONE (13:47)
[2019-01-12 14:22] LABS: Glucose,Whole Blood 100 mg/dL (75-99)
[2019-01-12] MEDS ORDERED: MIDAZOLAM (PF) 2 MG/2 ML VIAL IVP ONE (14:27)
[2019-01-12 14:29] VITALS: BMI 39.7
[2019-01-12] MEDS ORDERED: ONDANSETRON 4 MG/2 ML VIAL ONE (15:33)
[2019-01-12] MEDS ORDERED: LIDOCAINE 1% INJ 10MG/ML (20 ML MDV) ONE (15:33)
[2019-01-12] MEDS ORDERED: SUCCINYLCHOLINE CHLORIDE 100 MG/5 ML SYR IV ONE (15:33)
[2019-01-12] MEDS ORDERED: PROPOFOL 10 MG/ML 20 ML VIAL IV ONE (15:33)
[2019-01-12] MEDS ORDERED: HEPARIN SODIUM,PORCINE 5,000 UNIT/ML 1 ML VIAL ONE (15:33)
[2019-01-12] MEDS ORDERED: MIDAZOLAM 2 MG/2 ML VIAL ONE (15:33)
[2019-01-12] MEDS ORDERED: GLYCOPYRROLATE 0.2 MG/ML 2 ML VIAL ONE (15:33)
[2019-01-12] MEDS ORDERED: fentaNYL (PF) 50 MCG/ML 2 ML AMP ONE (15:33)
[2019-01-12] MEDS ORDERED: ROCURONIUM BROMIDE 10 MG/ML 10 ML VIAL IV ONE (15:33)
[2019-01-12] MEDS ORDERED: NEOSTIGMINE 1 MG/ML 10 ML VIAL ONE (15:33)
[2019-01-12] MEDS ORDERED: HYDROmorphone (PF) 1 MG/ML ONE (15:33)
[2019-01-12] MEDS ORDERED: LACTATED RINGERS 1,000 ML IV ONE (16:18)
--- NOTE | 2019-01-12 16:54 | P.PN ---
Subjective Progress Note Date: 01/12/19 Patient is admitted to Dr. Lacy for diverticulitis. She remains on Zosyn for antibiotic coverage. She has a DuoNeb and albuterol along with Symbicort for her COPD. She remains on metformin and NovoLog scale for diabetes. Her sugars seem well controlled this time. She has new complaints of bilateral mastoid pain. Worse on the right side. She denies any vomiting, some nausea, minimal chest pain with coughing, shortness of breath.Ongoing left lower quadrant abdominal pain. 01/11/19 tolerating clear liquid diet with no nausea, vomiting. continues to have left lower quadrant pain as well as stool via Vagina. Afebrile, maintained on Zofran and IV fluids. Chest x-ray reporting very bronchial cuffing with no focal consolidation. IV fluids. Scheduled for sigmoid colectomy with colostomy tomorrow. Denies chest pain, palpitations or increased shortness of breath. No complaints of mastoid pain today, possibly sinus related. 01/12/2019 NPO, scheduled for today.Denies chest pain, palpitations or increased shortness of breath.VSS. Objective - Vital Signs Vital signs: Vital Signs Temp 97.9 F 01/12/19 05:49 Pulse 80 01/12/19 08:17 Resp 18 01/12/19 05:49 BP 118/72 01/12/19 05:49 Pulse Ox 98 01/12/19 05:49 Intake & Output 01/11/19 01/12/19 01/12/19 18:59 06:59 18:59 Intake Total 600 500 Balance 600 500 Weight 105 kg Intake: Oral 600 500 Other: Voiding Method Toilet Toilet Toilet # Voids 2 2 - Exam GENERAL: Sitting up in bed, no acute distress HEENT: Atraumatic, normocephalic.Pupils equal round and reactive to light, extraocular movements intact, sclera anicteric, conjunctiva are normal.Oral mucosa dry. NECK: Normal range of motion, supple without lymphadenopathy or JVD, no thyromegaly. LUNGS: Breath sounds coarse with fine bilateral expiratory wheeze. No crackles, No wheezing. HEART: Regular rate and rhythm without murmurs, rubs or gallops.S1S2 Normal ABDOMEN: Soft, slightly decreased bowel sounds, pain to palpation in the left lower quadrant, no hepatosplenomegaly is palpated, positive bowel sounds EXTREMITIES: Normal range of motion, no pitting or edema. No clubbing or cyanosis. NEUROLOGICAL: Cranial nerves II through XII grossly intact. Normal speech, normal gait. PSYCH: Normal mood, normal affect. SKIN: Warm, Dry, normal turgor, no rashes or lesions noted. - Labs CBC & Chem 7: 01/12/19 09:57 01/12/19 09:57 Labs: Abnormal Lab Results - Last 24 Hours (Table) 01/11/19 01/11/19 01/11/19 Range/Units 09:13 11:53 17:15 BUN 4 L (7-17) mg/dL Glucose 256 H (74-99) mg/dL POC Glucose (mg/dL) 122 H 130 H (75-99) mg/dL 01/11/19 01/12/19 Range/Units 20:02 06:55 BUN (7-17) mg/dL Glucose (74-99) mg/dL POC Glucose (mg/dL) 216 H 121 H (75-99) mg/dL Microbiology - Last 24 Hours (Table) 01/07/19 12:09 Blood Culture - Preliminary Blood No Growth after 96 hours Assessment and Plan Assessment: (1) Diverticulitis Current Visit: Yes Status: Acute Code(s): K57.92 - DVTRCLI OF INTEST, PART UNSP, W/O PERF OR ABSCESS W/O BLEED SNOMED Code(s): 708034659 (2) Abdominal pain Current Visit: Yes Status: Acute Code(s): R10.9 - UNSPECIFIED ABDOMINAL PAIN SNOMED Code(s): 92552767 (3) Diabetes Current Visit: Yes Status: Chronic Code(s): E11.9 - TYPE 2 DIABETES MELLITUS WITHOUT COMPLICATIONS SNOMED Code(s): 43045271 (4) Status post cervical spinal fusion Current Visit: No Status: Chronic Code(s): Z98.1 - ARTHRODESIS STATUS SNOMED Code(s): 2362661325900 (5) COPD (chronic obstructive pulmonary disease) Current Visit: Yes Status: Chronic Code(s): J44.9 - CHRONIC OBSTRUCTIVE PULMONARY DISEASE, UNSPECIFIED SNOMED Code(s): 12661150 Plan: Continue on current medication regime ,monitoring and symptomatic treatment. Maintain IV fluid hydration, IV antibiotics. NPO/ Scheduled for colectomy today. Further recommendations to follow. The impression and plan of care has been dictated as directed. : I performed a history and examination of this patient, discussed the same with the dictator. I agree with the dictator's note ,documented as a scribe. Any additional findings or plans will be noted.
[2019-01-12] MEDS ORDERED: BENZOCAINE/MENTHOL LOZENG 1 EACH LOZENGE MUCOUS MEM PRN (17:23)
--- NOTE | 2019-01-12 17:29 | P.OP ---
Date of Procedure: 01/12/19 Preoperative Diagnosis: Acute diverticulitis Postoperative Diagnosis: Acute diverticulitis Adhesions Procedure(s) Performed: Exploratory laparotomy Lysis of adhesions Sigmoid colectomy Anesthesia: MITRA Surgeon: Rush Whitlock Pathology: other (Sigmoid colon) Condition: stable Disposition: PACU Description of Procedure: Patient's placed on the operative table in supine position. She received general anesthesia. Patient had a midline skin incision made. Alternatives used to dissect through the subcutaneous tissues. The fascia was opened in the midline. There is evidence of previous laparotomy on the fascia. The fascia was then opened. There were dense adhesions within the perineal cavity. Approximately 35 minutes of operative time used to lyse adhesions. The sigmoid colon was adhesed this was freed by lysing adhesions. The distal descending colon was then transected with the GI stapler. Using the Enseal device the mesentery the sigmoid colon was divided. The dissection was taken down to the level of the rectum. There was dense adhesions in the pelvis. These were lysed sharply. The rectum was then transected with the contour stapler. There is no evidence of any ureteral injury. The abdomen was irrigated there is no bleeding seen. The colon was brought up through colostomy in the left abdominal wall. The fascia was closed with looped #1 PDS suture. Skin was closed christiana. The colostomy then matured with 3-0 Vicryl. Patient top she will was sent to recovery in stable condition..
[2019-01-12] MEDS: HYDROmorphone 1 MG/ML 1 ML SYRINGE IVP ONE ×4 (17:37→18:03)
[2019-01-12] MEDS ORDERED: ONDANSETRON 4 MG/2 ML VIAL IVP ONE (17:50)
[2019-01-12] MEDS: KETOROLAC 30 MG/ML 1 ML VIAL IVP PRN (18:13)
[2019-01-12 18:30] LABS: Glucose,Whole Blood 162 mg/dL (75-99)
[2019-01-12] MEDS: D5-0.45% NACL WITH KCL 20MEQ/L 1,000 ML IV SCH ×2 (19:20→22:22)
[2019-01-12 20:17] LABS: Glucose,Whole Blood 169 mg/dL (75-99)
[2019-01-12] MEDS: SYMBICORT 80-4.5 MCG INHALER INHALATION SCH (20:43)
[2019-01-12] MEDS: LATANOPROST 0.005% OPHTH DROPS 2.5 ML BTL BOTH EYES SCH (21:12)
[2019-01-12] MEDS: LORATADINE 10 MG TAB PO SCH (21:13)
[2019-01-13] MEDS: KETOROLAC 30 MG/ML 1 ML VIAL IVP PRN (01:27)
[2019-01-13] MEDS: PIPERACILLIN-TAZOBACTAM 3.375 GM in SODIUM CHLORIDE 0.9% 100 ML IVPB SCH ×3 (03:22→20:03)
[2019-01-13] MEDS: D5-0.45% NACL WITH KCL 20MEQ/L 1,000 ML IV SCH ×2 (05:42→17:43)
[2019-01-13] MEDS: LEVOTHYROXINE 100 MCG TAB PO SCH (05:42)
[2019-01-13 07:04] LABS: Glucose,Whole Blood 159 mg/dL (75-99)
[2019-01-13] MEDS: SODIUM CHLORIDE 0.9% 1,000 ML IV SCH (07:08)
[2019-01-13] MEDS: IPRATROPIUM-ALBUTEROL 3 ML NEB INHALATION SCH ×4 (07:27→19:36)
[2019-01-13] MEDS: CARVEDILOL 3.125 MG TAB PO SCH ×2 (07:37→15:11)
[2019-01-13] MEDS: POTASSIUM CHLORIDE ER 20 MEQ TAB.ER PO SCH (07:42)
[2019-01-13] MEDS: FUROSEMIDE 20 MG TAB PO SCH (07:43)
[2019-01-13] MEDS: ATORVASTATIN 10 MG TAB PO SCH (07:43)
[2019-01-13] MEDS: SERTRALINE 50 MG TAB PO SCH (07:43)
[2019-01-13] MEDS: INSULIN ASPART (NovoLOG) 100 UNIT/ML VIAL SQ SCH ×4 (07:43→22:33)
[2019-01-13] MEDS: HYDROmorphone 0.5 MG/0.5 ML SYRINGE IVP PRN (07:43)
[2019-01-13] MEDS: metFORMIN 500 MG TAB PO SCH (07:43)
[2019-01-13] MEDS: NICOTINE 21MG/24HR PATCH TRANSDERM SCH (07:48)
[2019-01-13] MEDS: NON-FORMULARY DRUG (Liraglutide [Victoza 2-Pak] 1.2 MG) SQ SCH (07:48)
[2019-01-13] MEDS: BRIMONIDINE TARTRATE 0.2% DROPS 5 ML BTL BOTH EYES SCH ×2 (07:49→22:40)
[2019-01-13] MEDS: TIMOLOL 0.5% OPHTH DROPS 5 ML BTL BOTH EYES SCH ×2 (07:49→22:41)
[2019-01-13] MEDS ORDERED: HYDROmorphone 1 MG/ML 1 ML SYRINGE IVP PRN (09:36)
[2019-01-13] MEDS: HYDROmorphone 1 MG/ML 1 ML SYRINGE IVP PRN ×6 (10:15→22:34)
[2019-01-13 11:15] LABS: Basophils % (A) 0 %; Eosinophils # (A) 0.2 k/uL (0-0.7); Eosinophils % (A) 1 %; HCT 35.3 % (34.0-46.0); Lymphocytes # (A) 1.2 k/uL (1.0-4.8); Lymphocytes % (A) 11 %; MCH 25.7 pg (25.0-35.0); MCHC 31.2 g/dL (31.0-37.0); MCV 82.2 fL (80.0-100.0); Monocytes # (A) 0.4 k/uL (0-1.0); Monocytes % (A) 4 %; Neutrophils # (A) 9.6 k/uL (1.3-7.7); Neutrophils % (A) 84 %; Platelet Count 315 k/uL (150-450); RDW 14.2 % (11.5-15.5); WBC 11.5 k/uL (3.8-10.6)
--- NOTE | 2019-01-13 11:16 | P.PN ---
Subjective Progress Note Date: 01/13/19 CHIEF COMPLAINT: Abdominal pain HISTORY OF PRESENT ILLNESS: Patient is status post exploratory laparotomy, lysis of adhesions, sigmoid colectomy, and colostomy creation. POD #1 Patient sitting up in the chair. She reports her pain is 10/10. She is tolerating clear liquid diet. Denies nausea or vomiting. Ostomy to left lower quadrant with serous discharge. No stool or gas noted. PHYSICAL EXAM: VITAL SIGNS: Reviewed. GENERAL: Well-developed in no acute distress. HEENT: No sclera icterus. Extraocular movements grossly intact. Moist buccal mucosa. Head is atraumatic, normocephalic. ABDOMEN: Soft. Nondistended. Surgical tenderness. Dressing to midline with distal portion saturated. Ostomy with no gas or stool. NEUROLOGIC: Alert and oriented. Cranial nerves II through XII grossly intact. ASSESSMENT: 1. Diverticulitis with colovaginal fistula PLAN: 1. Continue clear liquid diet. Will advance when ostomy is functional 2. Change optifoam dressing due to saturation 3. Pain control. Will increase dose and frequency of Dilaudid 4. Activity as tolerated 5. Incentive spirometry 6. Continue kenny catheter for today 7. Consult ostomy resource nurse 8. Wean oxygen as tolerated Nurse practitioner note has been reviewed by physician. Signing provider agrees with the documented findings, assessment, and plan of care. Objective - Vital Signs Vital signs: Vital Signs Temp 98.8 F 01/13/19 04:58 Pulse 92 01/13/19 07:40 Resp 18 01/13/19 04:58 BP 108/58 01/13/19 10:17 Pulse Ox 97 01/13/19 04:58 Intake & Output 01/12/19 01/13/19 01/13/19 18:59 06:59 18:59 Intake Total 1700 Output Total 490 250 Balance 1210 -250 Weight 105 kg Intake: IV 1700 Output: Drainage 0 Left Lower Abdomen 0 Urine 390 250 Estimated Blood Loss 100 Other: Voiding Method Toilet Toilet Indwelling Catheter # Voids 3 - Labs CBC & Chem 7: 01/12/19 09:57 01/12/19 09:57 Labs: Abnormal Lab Results - Last 24 Hours (Table) 01/12/19 01/12/19 01/12/19 Range/Units 09:57 12:21 14:19 Hgb 11.2 L (11.4-16.0) gm/dL POC Glucose (mg/dL) 100 H 100 H (75-99) mg/dL 01/12/19 01/12/19 01/13/19 Range/Units 18:04 20:15 07:02 Hgb (11.4-16.0) gm/dL POC Glucose (mg/dL) 162 H 169 H 159 H (75-99) mg/dL Microbiology - Last 24 Hours (Table) 01/07/19 12:09 Blood Culture - Preliminary Blood No Growth after 120 hours
[2019-01-13 11:28] LABS: Potassium 3.9 mmol/L (3.5-5.1)
[2019-01-13 12:03] LABS: Glucose,Whole Blood 195 mg/dL (75-99)
[2019-01-13 17:02] LABS: Glucose,Whole Blood 141 mg/dL (75-99)
[2019-01-13] MEDS: ONDANSETRON 4 MG/2 ML VIAL IVP PRN (17:46)
[2019-01-13] MEDS: SYMBICORT 80-4.5 MCG INHALER INHALATION SCH (19:36)
[2019-01-13 20:42] LABS: Glucose,Whole Blood 206 mg/dL (75-99)
[2019-01-13] MEDS: INSULIN DETEMIR (LEVEMIR) 100 UNIT/ML SYR SQ SCH (22:33)
[2019-01-13] MEDS: LORATADINE 10 MG TAB PO SCH (22:33)
[2019-01-13] MEDS: LATANOPROST 0.005% OPHTH DROPS 2.5 ML BTL BOTH EYES SCH (22:40)
[2019-01-14] MEDS: HYDROmorphone 1 MG/ML 1 ML SYRINGE IVP PRN ×9 (01:49→23:58)
[2019-01-14] MEDS: D5-0.45% NACL WITH KCL 20MEQ/L 1,000 ML IV SCH ×3 (02:19→17:05)
[2019-01-14] MEDS: PIPERACILLIN-TAZOBACTAM 3.375 GM in SODIUM CHLORIDE 0.9% 100 ML IVPB SCH ×3 (04:01→20:16)
[2019-01-14] MEDS: LEVOTHYROXINE 100 MCG TAB PO SCH (05:56)
[2019-01-14] MEDS: IPRATROPIUM-ALBUTEROL 3 ML NEB INHALATION SCH ×4 (07:04→19:10)
[2019-01-14 07:08] LABS: Glucose,Whole Blood 121 mg/dL (75-99)
[2019-01-14] MEDS: INSULIN ASPART (NovoLOG) 100 UNIT/ML VIAL SQ SCH ×4 (07:12→20:52)
[2019-01-14] MEDS: NICOTINE 21MG/24HR PATCH TRANSDERM SCH (08:05)
[2019-01-14] MEDS: TIMOLOL 0.5% OPHTH DROPS 5 ML BTL BOTH EYES SCH ×2 (08:06→20:17)
[2019-01-14] MEDS: POTASSIUM CHLORIDE ER 20 MEQ TAB.ER PO SCH (08:06)
[2019-01-14] MEDS: ATORVASTATIN 10 MG TAB PO SCH (08:06)
[2019-01-14] MEDS: SERTRALINE 50 MG TAB PO SCH (08:06)
[2019-01-14] MEDS: CARVEDILOL 3.125 MG TAB PO SCH ×2 (08:06→17:19)
[2019-01-14] MEDS: NON-FORMULARY DRUG (Liraglutide [Victoza 2-Pak] 1.2 MG) SQ SCH (08:06)
[2019-01-14] MEDS: BRIMONIDINE TARTRATE 0.2% DROPS 5 ML BTL BOTH EYES SCH ×2 (08:06→20:17)
[2019-01-14] MEDS: FUROSEMIDE 20 MG TAB PO SCH (08:06)
--- NOTE | 2019-01-14 09:34 | P.PN ---
Subjective Progress Note Date: 01/13/19 Patient is admitted to Dr. Lacy for diverticulitis. She remains on Zosyn for antibiotic coverage. She has a DuoNeb and albuterol along with Symbicort for her COPD. She remains on metformin and NovoLog scale for diabetes. Her sugars seem well controlled this time. She has new complaints of bilateral mastoid pain. Worse on the right side. She denies any vomiting, some nausea, minimal chest pain with coughing, shortness of breath.Ongoing left lower quadrant abdominal pain. 01/11/19 tolerating clear liquid diet with no nausea, vomiting. continues to have left lower quadrant pain as well as stool via Vagina. Afebrile, maintained on Zofran and IV fluids. Chest x-ray reporting very bronchial cuffing with no focal consolidation. IV fluids. Scheduled for sigmoid colectomy with colostomy tomorrow. Denies chest pain, palpitations or increased shortness of breath. No complaints of mastoid pain today, possibly sinus related. 01/12/2019 NPO, scheduled for today.Denies chest pain, palpitations or increased shortness of breath.VSS. 01/13/2019 status post exploratory laparotomy, lysis of adhesions, sigmoid colectomy with colostomy, postop day #1. Tolerated procedure well. Sitting up in chair, ambulating in hallway, tolerating exertion well. Recently medicated for pain, currently controlled. Tolerating clear liquid diet with no nausea or vomiting. No flatus, no bowel movement. Objective - Vital Signs Vital signs: Vital Signs Temp 97.2 F L 01/13/19 14:22 Pulse 92 01/13/19 15:21 Resp 16 01/13/19 14:22 BP 92/55 01/13/19 14:22 Pulse Ox 97 01/13/19 14:22 Intake & Output 01/12/19 01/13/19 01/13/19 18:59 06:59 18:59 Intake Total 1700 Output Total 490 250 Balance 1210 -250 Weight 105 kg Intake: IV 1700 Output: Drainage 0 Left Lower Abdomen 0 Urine 390 250 Estimated Blood Loss 100 Other: Voiding Method Toilet Toilet Indwelling Catheter # Voids 3 - Exam GENERAL: Sitting up in chair, no acute distress HEENT: Atraumatic, normocephalic.Pupils equal round and reactive to light, extraocular movements intact, sclera anicteric, conjunctiva are normal.Oral mucosa dry. NECK: Normal range of motion, supple without lymphadenopathy or JVD, no thyromegaly. LUNGS: Breath sounds coarse with fine bilateral expiratory wheeze. No crackles, No wheezing. HEART: Regular rate and rhythm without murmurs, rubs or gallops.S1S2 Normal ABDOMEN: Soft, distended, status post surgery .lower midline abdominal dressing with dried drainage, colostomy left lower quadrant with serous drainage. Hypoactive bowel sounds EXTREMITIES: Normal range of motion, no pitting or edema. No clubbing or c yanosis. NEUROLOGICAL: Cranial nerves II through XII grossly intact. Normal speech, normal gait. PSYCH: Normal mood, normal affect. SKIN: Warm, Dry, normal turgor, no rashes or lesions noted. - Labs CBC & Chem 7: 01/13/19 10:47 01/13/19 10:47 Labs: Abnormal Lab Results - Last 24 Hours (Table) 01/12/19 01/12/19 01/13/19 Range/Units 18:04 20:15 07:02 WBC (3.8-10.6) k/uL Hgb (11.4-16.0) gm/dL Neutrophils # (1.3-7.7) k/uL Glucose (74-99) mg/dL POC Glucose (mg/dL) 162 H 169 H 159 H (75-99) mg/dL 01/13/19 01/13/19 01/13/19 Range/Units 10:47 10:47 12:01 WBC 11.5 H (3.8-10.6) k/uL Hgb 11.0 L (11.4-16.0) gm/dL Neutrophils # 9.6 H (1.3-7.7) k/uL Glucose 226 H (74-99) mg/dL POC Glucose (mg/dL) 195 H (75-99) mg/dL Microbiology - Last 24 Hours (Table) 01/07/19 12:09 Blood Culture - Final Blood No Growth after 144 hours Assessment and Plan Assessment: (1) Diverticulitis with colovaginal fistula, status post exploratory laparotomy, lysis of adhesions, sigmoid colectomy and colostomy. Current Visit: Yes Status: Acute Code(s): K57.92 - DVTRCLI OF INTEST, PART UNSP, W/O PERF OR ABSCESS W/O BLEED SNOMED Code(s): 355669464 (2) Abdominal pain secondary to the above Current Visit: Yes Status: Acute Code(s): R10.9 - UNSPECIFIED ABDOMINAL PAIN SNOMED Code(s): 70107288 (3) Diabetes Current Visit: Yes Status: Chronic Code(s): E11.9 - TYPE 2 DIABETES MELLITUS WITHOUT COMPLICATIONS SNOMED Code(s): 38610956 (4) Status post cervical spinal fusion Current Visit: No Status: Chronic Code(s): Z98.1 - ARTHRODESIS STATUS SNOMED Code(s): 8061518704294 (5) COPD (chronic obstructive pulmonary disease) Current Visit: Yes Status: Chronic Code(s): J44.9 - CHRONIC OBSTRUCTIVE PULMONARY DISEASE, UNSPECIFIED SNOMED Code(s): 78659783 Plan: Continue on current medication regime ,monitoring and symptomatic treatment. Maintain IV fluid hydration, IV antibiotics. Diet advancement as per surgery, currently on clears. Aggressive pulmonary toileting with incentive spirometer reinforced. Increase ambulation as tolerated. Further recommen dations to follow. The impression and plan of care has been dictated as directed. : I performed a history and examination of this patient, discussed the same with the dictator. I agree with the dictator's note ,documented as a scribe. Any additional findings or plans will be noted.
[2019-01-14 10:18] LABS: Anion Gap 7 mmol/L; Blood Urea Nitrogen 6 mg/dL (7-17); Calcium 8.8 mg/dL (8.4-10.2); Carbon Dioxide 28 mmol/L (22-30); Chloride 103 mmol/L (98-107); Glucose 263 mg/dL (74-99); Potassium 3.8 mmol/L (3.5-5.1); Sodium 138 mmol/L (137-145)
[2019-01-14 10:45] LABS: Basophils % (A) 0 %; Eosinophils # (A) 0.3 k/uL (0-0.7); Eosinophils % (A) 3 %; HCT 30.8 % (34.0-46.0); Hypochromasia Slight; Lymphocytes # (A) 2.1 k/uL (1.0-4.8); Lymphocytes % (A) 21 %; MCH 26.7 pg (25.0-35.0); MCHC 32.4 g/dL (31.0-37.0); MCV 82.4 fL (80.0-100.0); Mean Platelet Volume 7.6; Monocytes # (A) 0.4 k/uL (0-1.0); Monocytes % (A) 4 %; Neutrophils # (A) 7.3 k/uL (1.3-7.7); Neutrophils % (A) 72 %; Platelet Count 258 k/uL (150-450); RBC 3.73 m/uL (3.80-5.40); RDW 13.5 % (11.5-15.5); WBC 10.1 k/uL (3.8-10.6)
--- NOTE | 2019-01-14 12:03 | P.PN ---
Subjective Progress Note Date: 01/14/19 Patient is admitted to Dr. Lacy for diverticulitis. She remains on Zosyn for antibiotic coverage. She has a DuoNeb and albuterol along with Symbicort for her COPD. She remains on metformin and NovoLog scale for diabetes. Her sugars seem well controlled this time. She has new complaints of bilateral mastoid pain. Worse on the right side. She denies any vomiting, some nausea, minimal chest pain with coughing, shortness of breath.Ongoing left lower quadrant abdominal pain. 01/11/19 tolerating clear liquid diet with no nausea, vomiting. continues to have left lower quadrant pain as well as stool via Vagina. Afebrile, maintained on Zofran and IV fluids. Chest x-ray reporting very bronchial cuffing with no focal consolidation. IV fluids. Scheduled for sigmoid colectomy with colostomy tomorrow. Denies chest pain, palpitations or increased shortness of breath. No complaints of mastoid pain today, possibly sinus related. 01/12/2019 NPO, scheduled for today.Denies chest pain, palpitations or increased shortness of breath.VSS. 01/13/2019 status post exploratory laparotomy, lysis of adhesions, sigmoid colectomy with colostomy, postop day #1. Tolerated procedure well. Sitting up in chair, ambulating in hallway, tolerating exertion well. Recently medicated for pain, currently controlled. Tolerating clear liquid diet with no nausea or vomiting. No flatus, no bowel movement. 01/14/2019 tolerating clear liquids with no nausea vomiting. Positive gas, no bowel movement. Pain better controlled today. Ambulating in hallway, tolerating exertion well. Last night colostomy appliance leaked; appliance and surgical dressingchanged. Scheduled to meet with magistrate judge this afternoon. Denies chest pain, palpitations or shortness of breath. Afebrile. Maintaining O2 sats in the mid 90s on room air. Objective - Vital Signs Vital signs: Vital Signs Temp 98.7 F 01/14/19 05:03 Pulse 92 01/14/19 07:17 Resp 17 01/14/19 05:03 BP 101/54 01/14/19 05:03 Pulse Ox 95 01/14/19 07:06 Intake & Output 01/13/19 01/14/19 01/14/19 18:59 06:59 18:59 Output Total 1500 Balance -1500 Output: Urine 1500 Other: Voiding Method Indwelling Catheter Indwelling Catheter - Exam GENERAL: Sitting up in chair, no acute distress HEENT: Atraumatic, normocephalic.Pupils equal round and reactive to light, extraocular movements intact, sclera anicteric, conjunctiva are normal.Oral mucosa dry. NECK: Normal range of motion, supple without lymphadenopathy or JVD, no thyromegaly. LUNGS: Breath sounds coarse with fine bilateral expiratory wheeze. No crackles, No wheezing. HEART: Regular rate and rhythm without murmurs, rubs or gallops.S1S2 Normal ABDOMEN: Soft, nondistended, status post surgery .lower midline abdominal dressing with minimal serosanguineous drainage, christiana intact, well approximated ,functioning colostomy left lower quadrant. Hypoactive bowel sounds EXTREMITIES: Normal range of motion, no pitting or edema. No clubbing or cyanosis. NEUROLOGICAL: Cranial nerves II through XII grossly intact. Normal speech, norm al gait. PSYCH: Normal mood, normal affect. SKIN: Warm, Dry, normal turgor, no rashes or lesions noted. - Labs CBC & Chem 7: 01/14/19 09:08 01/14/19 09:08 Labs: Abnormal Lab Results - Last 24 Hours (Table) 01/13/19 01/13/19 01/13/19 Range/Units 10:47 10:47 12:01 WBC 11.5 H (3.8-10.6) k/uL Hgb 11.0 L (11.4-16.0) gm/dL Neutrophils # 9.6 H (1.3-7.7) k/uL Glucose 226 H (74-99) mg/dL POC Glucose (mg/dL) 195 H (75-99) mg/dL 01/13/19 01/13/19 01/14/19 Range/Units 17:00 20:41 07:04 WBC (3.8-10.6) k/uL Hgb (11.4-16.0) gm/dL Neutrophils # (1.3-7.7) k/uL Glucose (74-99) mg/dL POC Glucose (mg/dL) 141 H 206 H 121 H (75-99) mg/dL Microbiology - Last 24 Hours (Table) 01/07/19 12:09 Blood Culture - Final Blood No Growth after 144 hours Assessment and Plan Assessment: (1) Diverticulitis with colovaginal fistula, status post exploratory laparotomy, lysis of adhesions, sigmoid colectomy and colostomy. Current Visit: Yes Status: Acute Code(s): K57.92 - DVTRCLI OF INTEST, PART UNSP, W/O PERF OR ABSCESS W/O BLEED SNOMED Code(s): 194830610 (2) Abdominal pain secondary to the above Current Visit: Yes Status: Acute Code(s): R10.9 - UNSPECIFIED ABDOMINAL PAIN SNOMED Code(s): 55437468 (3) Diabetes Current Visit: Yes Status: Chronic Code(s): E11.9 - TYPE 2 DIABETES MELLITUS WITHOUT COMPLICATIONS SNOMED Code(s): 17385581 (4) Status post cervical spinal fusion Current Visit: No Status: Chronic Code(s): Z98.1 - ARTHRODESIS STATUS SNOMED Code(s): 9506004468463 (5) COPD (chronic obstructive pulmonary disease) Current Visit: Yes Status: Chronic Code(s): J44.9 - CHRONIC OBSTRUCTIVE PULMONARY DISEASE, UNSPECIFIED SNOMED Code(s): 78671581 Plan: Continue on current medication regime ,monitoring and symptomatic treatment. magistrate judge visit pending. Increase ambulation as tolerated. Continue with IV fluid hydration, IV antibiotics. Pain management. Diet advanced to full liquids as per surgery. Aggressive pulmonary toileting with incentive spirometer reinforced. Further recommendations to follow. The impression and plan of care has been dictated as directed. : I performed a history and examination of this patient, discussed the same with the dictator. I agree with the dictator's note ,documented as a scribe. Any additional findings or plans will be noted.
[2019-01-14 12:15] LABS: Glucose,Whole Blood 164 mg/dL (75-99)
--- NOTE | 2019-01-14 12:35 | P.PN ---
Subjective Progress Note Date: 01/14/19 CHIEF COMPLAINT: Abdominal pain HISTORY OF PRESENT ILLNESS: Patient is status post exploratory laparotomy, lysis of adhesions, sigmoid colectomy, and colostomy creation. POD #2 Patient sitting up in the chair. Reports abdominal pain this morning. Ostomy with stool noted. Tolerating clear liquid diet. PHYSICAL EXAM: VITAL SIGNS: Reviewed. GENERAL: Well-developed in no acute distress. HEENT: No sclera icterus. Extraocular movements grossly intact. Moist buccal mucosa. Head is atraumatic, normocephalic. ABDOMEN: Soft. Nondistended. Surgical tenderness. Dressing to midline clean dry intact. Ostomy with stool and gas noted. NEUROLOGIC: Alert and oriented. Cranial nerves II through XII grossly intact. ASSESSMENT: 1. Diverticulitis with colovaginal fistula PLAN: 1. Advance diet to full liquid 2. Pain control. Continue dilaudid prn. Will add [place]. 3. Discontinue kenny catheter 4. Activity as tolerated 5. Incentive spirometry Nurse practitioner note has been reviewed by physician. Signing provider agrees with the documented findings, assessment, and plan of care. Objective - Vital Signs Vital signs: Vital Signs Temp 98.7 F 01/14/19 05:03 Pulse 86 01/14/19 11:17 Resp 17 01/14/19 05:03 BP 101/54 01/14/19 05:03 Pulse Ox 95 01/14/19 07:06 Intake & Output 01/13/19 01/14/19 01/14/19 18:59 06:59 18:59 Output Total 1500 Balance -1500 Weight 105 kg Output: Urine 1500 Other: Voiding Method Indwelling Catheter Indwelling Catheter Indwelling Catheter - Labs CBC & Chem 7: 01/14/19 09:08 01/14/19 09:08 Labs: Abnormal Lab Results - Last 24 Hours (Table) 01/13/19 01/13/19 01/14/19 Range/Units 17:00 20:41 07:04 RBC (3.80-5.40) m/uL Hgb (11.4-16.0) gm/dL Hct (34.0-46.0) % BUN (7-17) mg/dL Glucose (74-99) mg/dL POC Glucose (mg/dL) 141 H 206 H 121 H (75-99) mg/dL 01/14/19 01/14/1901/14/19 Range/Units 09:08 09:08 12:00 RBC 3.73 L (3.80-5.40) m/uL Hgb 10.0 L (11.4-16.0) gm/dL Hct 30.8 L (34.0-46.0) % BUN 6 L (7-17) mg/dL Glucose 263 H (74-99) mg/dL POC Glucose (mg/dL) 164 H (75-99) mg/dL Microbiology - Last 24 Hours (Table) 01/07/19 12:09 Blood Culture - Final Blood No Growth after 144 hours
[2019-01-14] MEDS: HYDROcodone/APAP 5-325MG 1 EACH TAB PO PRN (14:45)
[2019-01-14 16:52] LABS: Glucose,Whole Blood 192 mg/dL (75-99)
[2019-01-14] MEDS: SYMBICORT 80-4.5 MCG INHALER INHALATION SCH (19:10)
[2019-01-14] MEDS: LORATADINE 10 MG TAB PO SCH (20:16)
[2019-01-14] MEDS: LATANOPROST 0.005% OPHTH DROPS 2.5 ML BTL BOTH EYES SCH (20:16)
[2019-01-14] MEDS: MELATONIN 3 MG TABLET PO PRN (20:23)
[2019-01-14 20:48] LABS: Glucose,Whole Blood 154 mg/dL (75-99)
[2019-01-14] MEDS: INSULIN DETEMIR (LEVEMIR) 100 UNIT/ML SYR SQ SCH (20:52)
[2019-01-15] MEDS: D5-0.45% NACL WITH KCL 20MEQ/L 1,000 ML IV SCH ×3 (02:01→18:33)
[2019-01-15] MEDS: PIPERACILLIN-TAZOBACTAM 3.375 GM in SODIUM CHLORIDE 0.9% 100 ML IVPB SCH ×3 (03:23→19:33)
[2019-01-15] MEDS: HYDROmorphone 1 MG/ML 1 ML SYRINGE IVP PRN ×5 (03:24→22:00)
[2019-01-15] MEDS: ONDANSETRON 4 MG/2 ML VIAL IVP PRN (03:24)
[2019-01-15] MEDS: HYDROcodone/APAP 5-325MG 1 EACH TAB PO PRN ×3 (05:25→20:46)
[2019-01-15] MEDS: LEVOTHYROXINE 100 MCG TAB PO SCH (05:26)
[2019-01-15] MEDS: IPRATROPIUM-ALBUTEROL 3 ML NEB INHALATION SCH ×4 (07:15→19:26)
[2019-01-15] MEDS: SYMBICORT 80-4.5 MCG INHALER INHALATION SCH ×2 (07:16→19:26)
[2019-01-15 07:33] LABS: Glucose,Whole Blood 121 mg/dL (75-99)
[2019-01-15] MEDS: CARVEDILOL 3.125 MG TAB PO SCH ×2 (08:01→16:32)
[2019-01-15] MEDS: ATORVASTATIN 10 MG TAB PO SCH (08:02)
[2019-01-15] MEDS: FUROSEMIDE 20 MG TAB PO SCH (08:02)
[2019-01-15] MEDS: BRIMONIDINE TARTRATE 0.2% DROPS 5 ML BTL BOTH EYES SCH ×2 (08:03→19:32)
[2019-01-15] MEDS: INSULIN ASPART (NovoLOG) 100 UNIT/ML VIAL SQ SCH ×4 (08:03→20:46)
[2019-01-15] MEDS: NICOTINE 21MG/24HR PATCH TRANSDERM SCH (08:04)
[2019-01-15] MEDS: NON-FORMULARY DRUG (Liraglutide [Victoza 2-Pak] 1.2 MG) SQ SCH (08:04)
[2019-01-15] MEDS: TIMOLOL 0.5% OPHTH DROPS 5 ML BTL BOTH EYES SCH ×2 (08:05→19:33)
[2019-01-15] MEDS: SERTRALINE 50 MG TAB PO SCH (08:08)
[2019-01-15] MEDS: POTASSIUM CHLORIDE ER 20 MEQ TAB.ER PO SCH (08:08)
[2019-01-15 11:47] LABS: Anion Gap 4 mmol/L; Blood Urea Nitrogen 5 mg/dL (7-17); Carbon Dioxide 29 mmol/L (22-30); Chloride 105 mmol/L (98-107); Glucose 234 mg/dL (74-99); Potassium 3.8 mmol/L (3.5-5.1); Sodium 138 mmol/L (137-145)
[2019-01-15 12:11] LABS: Glucose,Whole Blood 228 mg/dL (75-99)
[2019-01-15 12:27] LABS: Basophils % (A) 0 %; Eosinophils # (A) 0.4 k/uL (0-0.7); Eosinophils % (A) 4 %; HCT 26.1 % (34.0-46.0); HGB 8.6 gm/dL (11.4-16.0); Lymphocytes # (A) 1.9 k/uL (1.0-4.8); Lymphocytes % (A) 20 %; MCV 81.8 fL (80.0-100.0); Mean Platelet Volume 7.5; Monocytes # (A) 0.4 k/uL (0-1.0); Monocytes % (A) 4 %; Neutrophils # (A) 6.8 k/uL (1.3-7.7); Neutrophils % (A) 71 %; Platelet Count 231 k/uL (150-450); RBC 3.19 m/uL (3.80-5.40); RDW 13.6 % (11.5-15.5); WBC 9.7 k/uL (3.8-10.6)
[2019-01-15 17:17] LABS: Glucose,Whole Blood 168 mg/dL (75-99)
--- NOTE | 2019-01-15 17:47 | P.PN ---
Subjective Progress Note Date: 01/15/19 CHIEF COMPLAINT: Status post colectomy for diverticulitis HISTORY OF PRESENT ILLNESS: The patient is a 53-year-old female postop day 3 status post colectomy with descending colostomy for diverticulitis with colovaginal fistula, 01/12/2019. She reports having leakage from her ostomy bag yesterday along her incision where today she has burning sensation of the abdomen. She is concerned she is not getting enough pain medication when requested. Separately in the past, she is taken Lyrica. Otherwise no fevers or chills. She is tolerating diet. She has bowel function through her ostomy. ROS: No reports of nausea and vomiting. No fevers or chills. No new chest pain. PHYSICAL EXAM: VITAL SIGNS: Reviewed CONSTITUTIONAL: Well developed and in no acute distress. EYES: Conjuctivae without sclera icterus. Extraocular movements grossly intact. HEAD, EARS, NOSE, THROAT: Moist buccal mucosa. Head is atraumatic, normocephalic. Hears conversational speech. No nasal drainage. NECK: Supple. No thyroidomegaly. RESPIRATORY: Non-labored respirations and equal bilateral excursions. CARDIOVASCULAR: Palpable 2+ radial pulses. Regular rate. Regular rhythm. ABDOMEN: Incisions clean dry and intact. Soft. No peritonitis. Ostomy with stool and flatus and functioning. MUSCULOSKELETAL: No gross deformity of the lower extremities noted. No clubbing. No cyanosis. SKIN: Good skin turgor. Well perfused. NEUROLOGIC: Cranial nerves I through XII grossly intact. No focal or lateralizing signs. PSYCH: Appropriate affect. Alert and oriented to person, place and time. CLINCAL LABS: White blood cell count normal. Hemoglobin dropped 2 g from 10-8. ASSESSMENT: 1. Diverticulitis with colovaginal fistula 2. Status post colectomy PLAN: 1. For pain management, recommend adding Lyrica for neuropathic pain including burning type pain that she complains of. 2. Ostomy is functioning and may slowly advance diet. 3. Repeat hemoglobin for recent drop of 2 g. Objective - Vital Signs Vital signs: Vital Signs Temp 99.7 F H 01/15/19 15:32 Pulse 88 01/15/19 15:51 Resp 20 01/15/19 15:32 BP 100/55 01/15/19 15:32 Pulse Ox 96 01/15/19 15:32 Intake & Output 01/14/19 01/15/19 01/15/19 18:59 06:59 18:59 Intake Total 500 240 Output Total 0 0 Balance 500 240 Weight 105 kg 105 kg Intake: Oral 500 240 Output: Drainage 0 0 Left Lower Abdomen 0 0 Other: Voiding Method Indwelling Catheter Indwelling Catheter Toilet # Voids 2 - Labs CBC & Chem 7: 01/15/19 10:39 01/15/19 10:39 Labs: Abnormal Lab Results - Last 24 Hours (Table) 01/14/19 01/15/19 01/15/19 Range/Units 20:32 07:03 10:39 RBC 3.19 L (3.80-5.40) m/uL Hgb 8.6 L (11.4-16.0) gm/dL Hct 26.1 L (34.0-46.0) % BUN (7-17) mg/dL Glucose (74-99) mg/dL POC Glucose (mg/dL) 154 H 121 H (75-99) mg/dL 01/15/19 01/15/19 01/15/19 Range/Units 10:39 11:58 17:15 RBC (3.80-5.40) m/uL Hgb (11.4-16.0) gm/dL Hct (34.0-46.0) % BUN 5 L (7-17) mg/dL Glucose 234 H (74-99) mg/dL POC Glucose (mg/dL) 228 H 168 H (75-99) mg/dL Assessment and Plan (1) Diverticulitis large intestine Current Visit: Yes Status: Acute Code(s): K57.32 - DVTRCLI OF LG INT W/O PERFORATION OR ABSCESS W/O BLEEDING SNOMED Code(s): 5507958 (2) Colostomy care Current Visit: Yes Status: Acute Code(s): Z43.3 - ENCOUNTER FOR ATTENTION TO COLOSTOMY SNOMED Code(s): 076554408 (3) Diverticulitis Current Visit: Yes Status: Acute Code(s): K57.92 - DVTRCLI OF INTEST, PART UNSP, W/O PERF OR ABSCESS W/O BLEED SNOMED Code(s): 634486536 (4) COPD (chronic obstructive pulmonary disease) Current Visit: Yes Status: Chronic Code(s): J44.9 - CHRONIC OBSTRUCTIVE PULMONARY DISEASE, UNSPECIFIED SNOMED Code(s): 75440358 (5) Diabetes Current Visit: Yes Status: Chronic Code(s): E11.9 - TYPE 2 DIABETES MELLITUS WITHOUT COMPLICATIONS SNOMED Code(s): 34482282 (6) Obesity Current Visit: No Status: Acute Code(s): E66.9 - OBESITY, UNSPECIFIED SNOMED Code(s): 329400228 (7) Post traumatic stress disorder (PTSD) Current Visit: No Status: Chronic Priority: Medium Code(s): F43.10 - POST- TRAUMATIC STRESS DISORDER, UNSPECIFIED SNOMED Code(s): 20802411
[2019-01-15] MEDS: PREGABALIN 75 MG CAP PO SCH (18:00)
[2019-01-15] MEDS: LATANOPROST 0.005% OPHTH DROPS 2.5 ML BTL BOTH EYES SCH (19:32)
[2019-01-15] MEDS: LORATADINE 10 MG TAB PO SCH (19:33)
[2019-01-15 20:28] LABS: Glucose,Whole Blood 189 mg/dL (75-99)
[2019-01-15] MEDS: INSULIN DETEMIR (LEVEMIR) 100 UNIT/ML SYR SQ SCH (20:46)
[2019-01-15] MEDS: MELATONIN 3 MG TABLET PO PRN (22:00)
[2019-01-16] MEDS: PREGABALIN 75 MG CAP PO SCH ×4 (00:14→21:58)
[2019-01-16] MEDS: D5-0.45% NACL WITH KCL 20MEQ/L 1,000 ML IV SCH ×3 (01:37→19:00)
[2019-01-16] MEDS: PIPERACILLIN-TAZOBACTAM 3.375 GM in SODIUM CHLORIDE 0.9% 100 ML IVPB SCH ×3 (04:52→21:55)
[2019-01-16] MEDS: LEVOTHYROXINE 100 MCG TAB PO SCH (05:34)
[2019-01-16] MEDS: HYDROmorphone 1 MG/ML 1 ML SYRINGE IVP PRN ×5 (06:01→22:03)
[2019-01-16 07:11] LABS: Glucose,Whole Blood 130 mg/dL (75-99)
[2019-01-16] MEDS: IPRATROPIUM-ALBUTEROL 3 ML NEB INHALATION SCH ×4 (07:25→19:27)
[2019-01-16] MEDS: INSULIN ASPART (NovoLOG) 100 UNIT/ML VIAL SQ SCH ×4 (07:46→22:09)
[2019-01-16] MEDS: CARVEDILOL 3.125 MG TAB PO SCH ×2 (07:47→17:53)
[2019-01-16] MEDS: NICOTINE 21MG/24HR PATCH TRANSDERM SCH (07:47)
[2019-01-16] MEDS: ATORVASTATIN 10 MG TAB PO SCH (07:47)
[2019-01-16] MEDS: FUROSEMIDE 20 MG TAB PO SCH (07:47)
[2019-01-16] MEDS: SERTRALINE 50 MG TAB PO SCH (07:47)
[2019-01-16] MEDS: BRIMONIDINE TARTRATE 0.2% DROPS 5 ML BTL BOTH EYES SCH ×2 (07:48→21:57)
[2019-01-16] MEDS: POTASSIUM CHLORIDE ER 20 MEQ TAB.ER PO SCH (07:48)
[2019-01-16] MEDS: NON-FORMULARY DRUG (Liraglutide [Victoza 2-Pak] 1.2 MG) SQ SCH (07:49)
[2019-01-16] MEDS: TIMOLOL 0.5% OPHTH DROPS 5 ML BTL BOTH EYES SCH ×2 (07:49→21:58)
[2019-01-16] MEDS: ONDANSETRON 4 MG/2 ML VIAL IVP PRN (08:43)
[2019-01-16] MEDS: HYDROcodone/APAP 5-325MG 1 EACH TAB PO PRN ×2 (10:51→15:54)
[2019-01-16 12:02] LABS: Glucose,Whole Blood 155 mg/dL (75-99)
[2019-01-16 12:15] LABS: Basophils % (A) 0 %; Eosinophils # (A) 0.3 k/uL (0-0.7); Eosinophils % (A) 3 %; HCT 25.9 % (34.0-46.0); HGB 8.5 gm/dL (11.4-16.0); Lymphocytes % (A) 30 %; MCHC 32.7 g/dL (31.0-37.0); MCV 82.5 fL (80.0-100.0); Mean Platelet Volume 7.2; Monocytes # (A) 0.4 k/uL (0-1.0); Monocytes % (A) 4 %; Neutrophils # (A) 5.9 k/uL (1.3-7.7); Neutrophils % (A) 61 %; Platelet Count 269 k/uL (150-450); RBC 3.14 m/uL (3.80-5.40); RDW 13.7 % (11.5-15.5); WBC 9.8 k/uL (3.8-10.6)
[2019-01-16 12:20] LABS: Anion Gap 3 mmol/L; Blood Urea Nitrogen 5 mg/dL (7-17); Calcium 9.2 mg/dL (8.4-10.2); Carbon Dioxide 31 mmol/L (22-30); Chloride 105 mmol/L (98-107); Glucose 159 mg/dL (74-99); Potassium 4.2 mmol/L (3.5-5.1); Sodium 139 mmol/L (137-145)
[2019-01-16] MEDS: KETOROLAC 30 MG/ML 1 ML VIAL IVP SCH ×3 (12:33→23:53)
--- NOTE | 2019-01-16 13:48 | P.PN ---
Subjective Progress Note Date: 01/16/19 CHIEF COMPLAINT: Status post colectomy for diverticulitis HISTORY OF PRESENT ILLNESS: The patient is a 53-year-old female postop day 4 status post colectomy with descending colostomy for diverticulitis with colovaginal fistula, 01/12/2019. She reports previous drainage from her ostomy bag along her wound 2 days ago. She is tearful and still complains of pain along the abdomen. Lyrica was started today. She reports that she had mild shadowing along her dressing. Separately, nurse and patient describes that they were told stool was coming from her incision. She is a chronic pain patient and takes [place] 10 by her prescribing doctor Dr. Delcid. As a result, pain management this challenging. She is tolerating diet. ROS: No reports of nausea and vomiting. No fevers or chills. No new chest pain. PHYSICAL EXAM: VITAL SIGNS: Reviewed CONSTITUTIONAL: Well developed and in no acute distress. EYES: Conjuctivae without sclera icterus. Extraocular movements grossly intact. HEAD, EARS, NOSE, THROAT: Moist buccal mucosa. Head is atraumatic, normocephalic. Hears conversational speech. No nasal drainage. NECK: Supple. No thyroidomegaly. RESPIRATORY: Non-labored respirations and equal bilateral excursions. CARDIOVASCULAR: Palpable 2+ radial pulses. Regular rate. Regular rhythm. ABDOMEN: All dressings were discontinued. Ostomy pink patent and functioning with stool and flatus. Midline christiana intact. No cellulitis. No active drainage. No stool along the incision. Incision was cleaned with ChloraPrep. Dressings removed from incision that is left to air dry. MUSCULOSKELETAL: No gross deformity of the lower extremities noted. No clubbing. No cyanosis. SKIN: Good skin turgor. Well perfused. NEUROLOGIC: Cranial nerves I through XII grossly intact. No focal or lateralizing signs. PSYCH: Appropriate affect. Alert and oriented to person, place and time. CLINCAL LABS: White blood cell count normal. Hemoglobin dropped 2 g from 10-8. Current hemoglobin is stable over 8 mg/dl over 24 hours ASSESSMENT: 1. Diverticulitis with colovaginal fistula 2. Status post colectomy 3. Chronic pain needs PLAN: 1. Midline incision left open with no active drainage. 2. Recommend consultation to the pain provider Dr. Delcid. 3. Will add Toradol for additional pain control Objective - Vital Signs Vital signs: Vital Signs Temp 98.5 F 01/16/19 05:30 Pulse 84 01/16/19 11:17 Resp 18 01/16/19 05:30 BP 122/73 01/16/19 05:30 Pulse Ox 91 L 01/16/19 05:30 Intake & Output 01/15/19 01/16/19 01/16/19 18:59 06:59 18:59 Intake Total 480 400 640 Output Total 0 0 100 Balance 480 400 540 Weight 102 kg Intake: Oral 480 400 640 Output: Drainage 0 0 100 Left Lower Abdomen 0 0 100 Other: Voiding Method Toilet Toilet Toilet # Voids 1 # Bowel Movements 0 - Labs CBC & Chem 7: 01/16/19 11:33 01/16/19 11:33 Labs: Abnormal Lab Results - Last 24 Hours (Table) 01/15/19 01/15/19 01/16/19 Range/Units 17:15 20:26 07:04 RBC (3.80-5.40) m/uL Hgb (11.4-16.0) gm/dL Hct (34.0-46.0) % Carbon Dioxide (22-30) mmol/L BUN (7-17) mg/dL Glucose (74-99) mg/dL POC Glucose (mg/dL) 168 H 189 H 130 H (75-99) mg/dL 01/16/19 01/16/19 01/16/19 Range/Units 11:33 11:33 11:57 RBC 3.14 L (3.80-5.40) m/uL Hgb 8.5 L (11.4-16.0) gm/dL Hct 25.9 L (34.0-46.0) % Carbon Dioxide 31 H (22-30) mmol/L BUN 5 L (7-17) mg/dL Glucose 159 H (74-99) mg/dL POC Glucose (mg/dL) 155 H (75-99) mg/dL Assessment and Plan (1) Diverticulitis large intestine Current Visit: Yes Status: Acute Code(s): K57.32 - DVTRCLI OF LG INT W/O PERFORATION OR ABSCESS W/O BLEEDING SNOMED Code(s): 9041281 (2) Colostomy care Current Visit: Yes Status: Acute Code(s): Z43.3 - ENCOUNTER FOR ATTENTION TO COLOSTOMY SNOMED Code(s): 782030990 (3) Diverticulitis Current Visit: Yes Status: Acute Code(s): K57.92 - DVTRCLI OF INTEST, PART UNSP, W/O PERF OR ABSCESS W/O BLEED SNOMED Code(s): 400987854 (4) COPD (chronic obstructive pulmonary disease) Current Visit: Yes Status: Chronic Code(s): J44.9 - CHRONIC OBSTRUCTIVE PULMONARY DISEASE, UNSPECIFIED SNOMED Code(s): 33528044 (5) Diabetes Current Visit: Yes Status: Chronic Code(s): E11.9 - TYPE 2 DIABETES MELLITUS WITHOUT COMPLICATIONS SNOMED Code(s): 94359560 (6) Obesity Current Visit: No Status: Acute Code(s): E66.9 - OBESITY, UNSPECIFIED SNOMED Code(s): 700996177 (7) Post traumatic stress disorder (PTSD) Current Visit: No Status: Chronic Priority: Medium Code(s): F43.10 - POST- TRAUMATIC STRESS DISORDER, UNSPECIFIED SNOMED Code(s): 14102850 (8) Chronic pain syndrome Current Visit: Yes Status: Acute Code(s): G89.4 - CHRONIC PAIN SYNDROME SNOMED Code(s): 655978739
[2019-01-16 17:09] LABS: Glucose,Whole Blood 161 mg/dL (75-99)
[2019-01-16] MEDS: SYMBICORT 80-4.5 MCG INHALER INHALATION SCH (19:26)
[2019-01-16 20:39] LABS: Glucose,Whole Blood 227 mg/dL (75-99)
[2019-01-16] MEDS: LATANOPROST 0.005% OPHTH DROPS 2.5 ML BTL BOTH EYES SCH (21:57)
[2019-01-16] MEDS: INSULIN DETEMIR (LEVEMIR) 100 UNIT/ML SYR SQ SCH (21:57)
[2019-01-16] MEDS: LORATADINE 10 MG TAB PO SCH (21:58)
[2019-01-17] MEDS: HYDROmorphone 1 MG/ML 1 ML SYRINGE IVP PRN ×3 (01:03→06:18)
[2019-01-17] MEDS: D5-0.45% NACL WITH KCL 20MEQ/L 1,000 ML IV SCH ×2 (03:36→10:33)
[2019-01-17] MEDS: ONDANSETRON 4 MG/2 ML VIAL IVP PRN (04:50)
[2019-01-17] MEDS: PIPERACILLIN-TAZOBACTAM 3.375 GM in SODIUM CHLORIDE 0.9% 100 ML IVPB SCH ×2 (04:52→12:33)
[2019-01-17] MEDS: KETOROLAC 30 MG/ML 1 ML VIAL IVP SCH ×2 (05:00→12:38)
[2019-01-17] MEDS: LEVOTHYROXINE 100 MCG TAB PO SCH (05:00)
[2019-01-17 05:43] VITALS: BP 104/65; RESP 16; TEMP 98.1
[2019-01-17] MEDS: IPRATROPIUM-ALBUTEROL 3 ML NEB INHALATION SCH ×2 (07:01→11:47)
[2019-01-17 07:19] LABS: Glucose,Whole Blood 112 mg/dL (75-99)
[2019-01-17] MEDS ORDERED: HYDROcodone/APAP 10-325MG 1 EACH TAB PO PRN ×2 (08:09→10:20)
[2019-01-17] MEDS: NICOTINE 21MG/24HR PATCH TRANSDERM SCH (08:22)
[2019-01-17] MEDS: PREGABALIN 75 MG CAP PO SCH (08:22)
[2019-01-17] MEDS: FUROSEMIDE 20 MG TAB PO SCH (08:23)
[2019-01-17] MEDS: NON-FORMULARY DRUG (Liraglutide [Victoza 2-Pak] 1.2 MG) SQ SCH (08:23)
[2019-01-17] MEDS: POTASSIUM CHLORIDE ER 20 MEQ TAB.ER PO SCH (08:23)
[2019-01-17] MEDS: CARVEDILOL 3.125 MG TAB PO SCH (08:23)
[2019-01-17] MEDS: ATORVASTATIN 10 MG TAB PO SCH (08:23)
[2019-01-17] MEDS: SERTRALINE 50 MG TAB PO SCH (08:23)
[2019-01-17] MEDS: BRIMONIDINE TARTRATE 0.2% DROPS 5 ML BTL BOTH EYES SCH (08:24)
[2019-01-17] MEDS: TIMOLOL 0.5% OPHTH DROPS 5 ML BTL BOTH EYES SCH (08:26)
[2019-01-17] MEDS: INSULIN ASPART (NovoLOG) 100 UNIT/ML VIAL SQ SCH ×2 (08:27→12:40)
[2019-01-17 11:56] VITALS: PULSE 78
[2019-01-17 12:05] LABS: Appearance,Urine Cloudy (Clear); Bacteria,Urine Rare /hpf; Bilirubin,Urine Negative (Negative); Blood,Urine Negative (Negative); Color,Urine Yellow; Glucose,Urine (UA) Negative (Negative); Hyaline Casts,Urine 6 /lpf (0-2); Ketones,Urine Negative (Negative); Leukocyte Esterase,Urine Trace (Negative); Nitrite,Urine Negative (Negative); Protein,Urine Negative (Negative); RBC,Urine 1 /hpf (0-5); Specific Gravity,Urine 1.023 (1.001-1.035); Squamous Epithelial Cell,Urine 12 /hpf (0-4); Urobilinogen,Urine <2.0 mg/dL (<2.0)
--- NOTE | 2019-01-17 12:11 | P.DS ---
Providers Date of admission: 01/09/19 12:13 Expected date of discharge: 01/17/19 Attending physician: Rush Whitlock Consults: 01/07/19 15:25 Consult Physician Routine Consulting Provider: Watson Kay Consult Reason/Comments: med manage Do you want consulting provider notified?: Yes 01/16/19 13:48 Consult Physician Routine Consulting Provider: Jos Delcid Consult Reason/Comments: Chronic pain patient known to you Do you want consulting provider notified?: Yes, Notify in am Primary care physician: Watson Kay Hospital Course: 53-year-old female admitted to the hospital with abdominal pain. Patient underwent exploratory laparotomy, lysis of adhesions, sigmoid colectomy, and colostomy creation. Patient is doing well postoperatively. Tolerating diet. Ostomy functioning. Vital signs stable. She is stable for discharge home today. Patient sees Dr. Delcid outpatient for pain management. Patient instructed to continue with her [place] 10mg tablets at the time of discharge. Motrin RX also sent to pharmacy. Please see EMR for further hospital course details. Discharge Diagnosis: 1. Diverticulitis with colovaginal fistula Nurse practitioner note has been reviewed by physician. Signing provider agrees with the documented findings, assessment, and plan of care. Patient Condition at Discharge: Stable Plan - Discharge Summary New Discharge Prescriptions: New Ibuprofen [Motrin] 600 mg PO Q8HR PRN #30 tab PRN Reason: Pain No Action Levothyroxine Sodium [Synthroid] 100 mcg PO DAILY Budesonide/Formoterol Fumarate [Symbicort 80-4.5 Mcg Inhaler] 2 puff INHALATION RT-HS Insulin Glargine [Lantus] 40 unit SQ HS Ipratropium-Albuterol Nebulize [Duoneb 0.5 mg-3 mg/3 ml Soln] 3 ml INHALATION RT-Q4H PRN PRN Reason: Shortness Of Breath Or Wheezing Potassium Chloride ER [K-Dur 20] 20 meq PO QAM Albuterol Inhaler [Ventolin Hfa Inhaler] 1 - 2 puff INHALATION RT-Q6H PRN PRN Reason: Shortness Of Breath HYDROcodone/APAP 10-325MG [[place] 10-325] 1 tab PO TID PRN PRN Reason: Pain metFORMIN HCL ER [Glucophage Xr] 500 mg PO BID Sertraline [Zoloft] 50 mg PO DAILY Liraglutide [Victoza 2-[place]] 1.2 mg SQ DAILY Latanoprost Ophth [Xalatan 0.005%] 1 drops BOTH EYES HS Atorvastatin [Lipitor] 10 mg PO DAILY Melatonin 3 mg PO HS PRN PRN Reason: sleep Brimonidine Tartrate/Timolol [Combigan 0.2%-0.5% Eye Drops] 1 drop BOTH EYES BID Carvedilol [Coreg] 3.125 mg PO BID Furosemide [Lasix] 20 mg PO DAILY Discharge Medication List Levothyroxine Sodium [Synthroid] 100 mcg PO DAILY 07/29/15 [History] Budesonide/Formoterol Fumarate [Symbicort 80-4.5 Mcg Inhaler] 2 puff INHALATION RT-HS 12/04/15 [History] Insulin Glargine [Lantus] 40 unit SQ HS 02/10/16 [History] Ipratropium-Albuterol Nebulize [Duoneb 0.5 mg-3 mg/3 ml Soln] 3 ml INHALATION RT-Q4H PRN 05/15/16 [History] Potassium Chloride ER [K-Dur 20] 20 meq PO QAM 05/15/16 [History] Albuterol Inhaler [Ventolin Hfa Inhaler] 1 - 2 puff INHALATION RT-Q6H PRN 04/13/17 [History] HYDROcodone/APAP 10-325MG [[place] 10-325] 1 tab PO TID PRN 04/13/17 [History] metFORMIN HCL ER [Glucophage Xr] 500 mg PO BID 04/13/17 [History] Atorvastatin [Lipitor] 10 mg PO DAILY 01/05/19 [History] Brimonidine Tartrate/Timolol [Combig[place] 0.2%-0.5% Eye Drops] 1 drop BOTH EYES BID 01/05/19 [History] Latanoprost Ophth [Xalatan 0.005%] 1 drops BOTH EYES HS 01/05/19 [History] Liraglutide [Victoza 2-[place]] 1.2 mg SQ DAILY 01/05/19 [History] Melatonin 3 mg PO HS PRN 01/05/19 [History] Sertraline [Zoloft] 50 mg PO DAILY 01/05/19 [History] Carvedilol [Coreg] 3.125 mg PO BID 01/07/19 [History] Furosemide [Lasix] 20 mg PO DAILY 01/07/19 [History] Ibuprofen [Motrin] 600 mg PO Q8HR PRN #30 tab 01/17/19 [Rx] Follow up Appointment(s)/Referral(s): [facility], [NON-STAFF] - Watson Kay MD [Primary Care Provider] - 1 Week Rush Whitlock MD [STAFF PHYSICIAN] - 1 Week Patient Instructions/Handouts: Diverticulitis (GEN), Colostomy Care (GEN), Diverticulitis Diet (GEN), Colectomy Diet (ED) Activity/Diet/Wound Care/Special Instructions: Continue with your pain medications as prescribed by Dr. Delcid No lifting over 10 pounds You may shower. No baths or hot tubs Colostomy Care Recommendations for Home Date of last Pouching change: 01.17.2019 Current ostomy care supplies for home: Change the entire pouching system every 3-5 days unless otherwise directed by the nurse Empty the pouch over or sitting on the toilet when the bag is 1/2 to 1/3 full. Ostomy supplies: Convatec One piece cut to fit #[id number] with filter (three for home provided by the hospital) Skin prep pads (12) for home Ostomy powder Pato Seal to be placed in the skin crease around the stoma/bowel (four for home use supplied by hospital) Home Health please assist Mrs Hobbs to arrange for ostomy supplies with [employer] company Discharge Disposition: HOME WITH HOME HEALTH SERVICES
[2019-01-17 12:30] LABS: Glucose,Whole Blood 161 mg/dL (75-99)
--- NOTE | 2019-01-17 13:50 | P.PN ---
Subjective Progress Note Date: 01/17/19 Patient is admitted to Dr. Lacy for diverticulitis. She remains on Zosyn for antibiotic coverage. She has a DuoNeb and albuterol along with Symbicort for her COPD. She remains on metformin and NovoLog scale for diabetes. Her sugars seem well controlled this time. She has new complaints of bilateral mastoid pain. Worse on the right side. She denies any vomiting, some nausea, minimal chest pain with coughing, shortness of breath.Ongoing left lower quadrant abdominal pain. 01/11/19 tolerating clear liquid diet with no nausea, vomiting. continues to have left lower quadrant pain as well as stool via Vagina. Afebrile, maintained on Zofran and IV fluids. Chest x-ray reporting very bronchial cuffing with no focal consolidation. IV fluids. Scheduled for sigmoid colectomy with colostomy tomorrow. Denies chest pain, palpitations or increased shortness of breath. No complaints of mastoid pain today, possibly sinus related. 01/12/2019 NPO, scheduled for today.Denies chest pain, palpitations or increased shortness of breath.VSS. 01/13/2019 status post exploratory laparotomy, lysis of adhesions, sigmoid colectomy with colostomy, postop day #1. Tolerated procedure well. Sitting up in chair, ambulating in hallway, tolerating exertion well. Recently medicated for pain, currently controlled. Tolerating clear liquid diet with no nausea or vomiting. No flatus, no bowel movement. 01/14/2019 tolerating clear liquids with no nausea vomiting. Positive gas, no bowel movement. Pain better controlled today. Ambulating in hallway, tolerating exertion well. Last night colostomy appliance leaked; appliance and surgical dressingchanged. Scheduled to meet with fire safety manager this afternoon. Denies chest pain, palpitations or shortness of breath. Afebrile. Maintaining O2 sats in the mid 90s on room air. 02/13/2019 significant clinical improvement, ambulated in hallways, tolerated exertion well. Reporting new abdominal pain - suprapubic, left lower quadrant. UA negative. Tolerating diet with no nausea vomiting. Patient changed her appliance with assistance of quarter backer. Patient has a pain contract with Dr. Delcid denies chest pain, palpitations or increased shortness of breath. Afebrile. Objective - Vital Signs Vital signs: Vital Signs Temp 98.1 F 01/17/19 05:25 Pulse 98 01/17/19 07:12 Resp 16 01/17/19 05:25 BP 104/65 01/17/19 05:25 Pulse Ox 96 01/17/19 05:25 Intake & Output 01/16/19 01/17/19 01/17/19 18:59 06:59 18:59 Intake Total 640 Output Total 100 Balance 540 Weight 102 kg 101.3 kg Intake: Oral 640 Output: Drainage 100 Left Lower Abdomen 100 Other: Voiding Method Toilet Toilet # Voids 0 # Bowel Movements 0 - Exam GENERAL: Sitting up in chair, no acute distress HEENT: Atraumatic, normocephalic.Pupils equal round and reactive to light, extraocular movements intact, sclera anicteric, conjunctiva are normal.Oral mucosa moist. NECK: Normal range of motion, supple without lymphadenopathy or JVD, no thyromegaly. LUNGS: Breath sounds coarse with fine bilateral expiratory wheeze. No crackles, No wheezing. HEART: Regular rate and rhythm without murmurs, rubs or gallops.S1S2 Normal ABDOMEN: Soft, nondistended, status post surgery .lower midline abdominal dressing C,D,I.,functioning colostomy left lower quadrant.Positive bowel sounds EXTREMITIES: Normal range of motion, no pitting or edema. No clubbing or cyanosis. NEUROLOGICAL: Cranial nerves II through XII grossly intact. Normal speech, normal gait. PSYCH: Normal mood, normal affect. SKIN: Warm, Dry, normal turgor, no rashes or lesions noted. - Labs CBC & Chem 7: 01/16/19 11:33 01/16/19 11:33 Labs: Abnormal Lab Results - Last 24 Hours (Table) 01/16/19 01/16/19 01/16/19 Range/Units 11:33 11:33 11:57 RBC 3.14 L (3.80-5.40) m/uL Hgb 8.5 L (11.4-16.0) gm/dL Hct 25.9 L (34.0-46.0) % Carbon Dioxide 31 H (22-30) mmol/L BUN 5 L (7-17) mg/dL Glucose 159 H (74-99) mg/dL POC Glucose (mg/dL) 155 H (75-99) mg/dL 01/16/19 01/16/19 01/17/19 Range/Units 17:06 20:38 06:55 RBC (3.80-5.40) m/uL Hgb (11.4-16.0) gm/dL Hct (34.0-46.0) % Carbon Dioxide (22-30) mmol/L BUN (7-17) mg/dL Glucose (74-99) mg/dL POC Glucose (mg/dL) 161 H 227 H 112 H (75-99) mg/dL Assessment and Plan Assessment: (1) Diverticulitis with colovaginal fistula, status post exploratory laparotomy, lysis of adhesions, sigmoid colectomy and colostomy. Current Visit: Yes Status: Acute Code(s): K57.92 - DVTRCLI OF INTEST, PART UNSP, W/O PERF OR ABSCESS W/O BLEED SNOMED Code(s): 002472147 (2) Abdominal pain secondary to the above Current Visit: Yes Status: Acute Code(s): R10.9 - UNSPECIFIED ABDOMINAL PAIN SNOMED Code(s): 40383634 (3) Diabetes Current Visit: Yes Status: Chronic Code(s): E11.9 - TYPE 2 DIABETES MELLITUS WITHOUT COMPLICATIONS SNOMED Code(s): 25551917 (4) Status post cervical spinal fusion Current Visit: No Status: Chronic Code(s): Z98.1 - ARTHRODESIS STATUS SNOMED Code(s): 4777438847132 (5) COPD (chronic obstructive pulmonary disease) Current Visit: Yes Status: Chronic Code(s): J44.9 - CHRONIC OBSTRUCTIVE PULMONARY DISEASE, UNSPECIFIED SNOMED Code(s): 33969671 Plan: Continue on current medication regime ,monitoring and symptomatic treatm ent. Aggressive pulmonary toileting with incentive spirometer reinforced. Pain management-patient does have pain contract with Dr. Delcid, recently rec'd pain RX on 01/10. Discharge planning in progress as per surgery. Follow-up PCP in 1 week. The impression and plan of care has been dictated as directed. : I performed a history and examination of this patient, discussed the same with the dictator. I agree with the dictator's note ,documented as a scribe. Any additional findings or plans will be noted.
== END 2019-01-17 15:16 | disposition home health service (06) | DRG 330 ==
LOC: EC 11:39 → 4MS4W 12:28 → OBSVTOIN 01-09 12:13 → 4MS4W 01-12 17:31
PROVIDERS: ADMIT Surgery; ATTEND Surgery
PROC: 0D1M0Z4 Bypass Descending Colon to Cutaneous, Open Approach (ICD-10-PCS; 2019-01-12)
PROC: 0DNW0ZZ Release Peritoneum, Open Approach (ICD-10-PCS; 2019-01-12)
PROC: 0DTN0ZZ Resection of Sigmoid Colon, Open Approach (ICD-10-PCS; principal; 2019-01-12 07:30)
DX: K57.32 Diverticulitis of large intestine without perforation or abscess without bleeding (principal); N82.3 Fistula of vagina to large intestine; I11.0 Hypertensive heart disease with heart failure; I50.9 Heart failure, unspecified; E11.40 Type 2 diabetes mellitus with diabetic neuropathy, unspecified; K66.0 Peritoneal adhesions (postprocedural) (postinfection); E03.9 Hypothyroidism, unspecified; J44.9 Chronic obstructive pulmonary disease, unspecified; K21.9 Gastro-esophageal reflux disease without esophagitis; M79.7 Fibromyalgia; G89.4 Chronic pain syndrome; F43.10 Post-traumatic stress disorder, unspecified; F32.9 Major depressive disorder, single episode, unspecified; G47.419 Narcolepsy without cataplexy; M54.5 Low back pain; K02.9 Dental caries, unspecified; H40.9 Unspecified glaucoma; M19.90 Unspecified osteoarthritis, unspecified site; E66.9 Obesity, unspecified; Z68.38 Body mass index [BMI] 38.0-38.9, adult; F17.210 Nicotine dependence, cigarettes, uncomplicated; Z71.6 Tobacco abuse counseling; Z79.51 Long term (current) use of inhaled steroids; Z79.4 Long term (current) use of insulin; Z79.890 Hormone replacement therapy; Z79.899 Other long term (current) drug therapy; Z90.49 Acquired absence of other specified parts of digestive tract; Z90.710 Acquired absence of both cervix and uterus; Z87.01 Personal history of pneumonia (recurrent); Z98.1 Arthrodesis status; Z98.890 Other specified postprocedural states; Z82.49 Family history of ischemic heart disease and other diseases of the circulatory system; Z80.9 Family history of malignant neoplasm, unspecified
CPT/HCPCS: 36415; 71046; 74177; 80048; 80053; 81001; 82565; 83605; 83735; 84520; 85025; 87040; 88307; 94640; 94760; 96365; 96375; 99285

== ENCOUNTER 2019-01-19 14:40 | Inpatient (IN) | payer MEDICARE ==
[2019-01-19] MEDS ORDERED: SODIUM CHLORIDE 0.9% 1,000 ML IV STA (14:50)
[2019-01-19] MEDS ORDERED: SODIUM CHLORIDE 0.9% 500 ML 500 ML IV ONE (15:07)
[2019-01-19] MEDS ORDERED: PIPERACILLIN-TAZOBACTAM 3.375 GM in SODIUM CHLORIDE 0.9% 100 ML IVPB STA (15:07)
--- NOTE | 2019-01-19 15:16 | ED ---
Abdominal Pain HPI - General Chief Complaint: Abdominal Pain Stated Complaint: fever/abdominal pain/incision infection post op Time Seen by Provider: 01/19/19 14:48 Source: patient Mode of arrival: wheelchair Limitations: no limitations - History of Present Illness Initial Comments: 53-year-old female presenting today for chief complaint of postoperative abdominal pain, fever x 3 days. Patient states she had a colon resection performed on the by Dr. Whitlock due to diverticulitis. Patient states she was discharged from the hospital on Thursday. She states that she did not have fevers or significant pain while in the hospital however developed a fever the night of discharge. She states she took ibuprofen for the fever. Contacted surgeon. She states that the symptoms persisted and have been worsening including the pain. Patient has a home care nurse for her osteomy bag. Patient nurse was concerned of infection, when she noticed "pus" coming from the incision per patient. Patient states she could no longer take the lower abdominal cramping pain and was concerned of infection after being evaluated by her nurse and presented to the ER. Pt denies radiation of pain. Denies any specific alleviating or aggravating factors. Pt states she has not had an appetite denies vomiting. Patient denies any chest pain or shorts breath or he denies any lower external swelling. Remaining ROS (-). Upon arrival, VS within acceptable limits. - Related Data Home Medications Medication Instructions Recorded Confirmed Levothyroxine Sodium [Synthroid] 100 mcg PO DAILY 07/29/15 01/19/19 Budesonide/Formoterol Fumarate 2 puff INHALATION RT-HS 12/04/15 01/19/19 [Symbicort 80-4.5 Mcg Inhaler] Insulin Glargine [Lantus] 40 unit SQ HS 02/10/16 01/19/19 Ipratropium-Albuterol Nebulize 3 ml INHALATION RT-Q4H PRN 05/15/16 01/19/19 [Duoneb 0.5 mg-3 mg/3 ml Soln] Potassium Chloride ER [K-Dur 20] 20 meq PO QAM 05/15/16 01/19/19 Albuterol Inhaler [Ventolin Hfa 1 - 2 puff INHALATION RT-Q6H PRN 04/13/17 Inhaler] HYDROcodone/APAP 10-325MG [[place] 1 tab PO TID PRN 04/13/17 01/19/19 10-325] metFORMIN HCL ER [Glucophage Xr] 500 mg PO BID 04/13/17 01/19/19 Atorvastatin [Lipitor] 10 mg PO DAILY 01/05/19 01/19/19 Brimonidine Tartrate/Timolol 1 drop BOTH EYES BID 01/05/19 01/19/19 [Combigan 0.2%-0.5% Eye Drops] Latanoprost Ophth [Xalatan 0.005%] 1 drops BOTH EYES HS 01/05/19 01/19/19 Liraglutide [Victoza 2-Emerson] 1.2 mg SQ DAILY 01/05/19 01/19/19 Melatonin 3 mg PO HS PRN 01/05/19 01/19/19 Sertraline [Zoloft] 50 mg PO DAILY 01/05/19 01/19/19 Carvedilol [Coreg] 3.125 mg PO BID 01/07/19 01/19/19 Furosemide [Lasix] 20 mg PO DAILY 01/07/19 01/19/19 Previous Rx's Medication Instructions Recorded Ibuprofen [Motrin] 600 mg PO Q8HR PRN #30 tab 01/17/19 Allergies Allergy/AdvReac Type Severity Reaction Status Date / Time No Known Allergies Allergy Verified 01/19/19 15:57 Review of Systems ROS Statement: Those systems with pertinent positive or pertinent negative responses have been documented in the HPI. ROS Other: All systems not noted in ROS Statement are negative. Past Medical History Past Medical History: Asthma, Heart Failure, COPD, Diabetes Mellitus, Eye Disorder, Fibromyalgia, GERD/Reflux, Hypertension, Musculoskeletal Disorder, Osteoarthritis (OA), Pneumonia, Thyroid Disorder Additional Past Medical History / Comment(s): neuropathy, narcolepsy, History of Any Multi-Drug Resistant Organisms: None Reported Past Surgical History: Back Surgery, Bladder Surgery, Cholecystectomy, Hysterectomy, Orthopedic Surgery Additional Past Surgical History / Comment(s): benign mass removed from bladder, meño carpal tunnel, cervical fusion c4-c6, right wrist cyst removed. Past Anesthesia/Blood Transfusion Reactions: No Reported Reaction Past Psychological History: Anxiety, Depression Smoking Status: Current every day smoker Past Alcohol Use History: None Reported Past Drug Use History: None Reported - Past Family History Father Family Medical History: Coronary Artery Disease (CAD) Additional Family Medical History / Comment(s): quadruple bypass surgery Mother Family Medical History: Cancer General Exam - General Exam Comments Initial Comments: General: The patient is awake and alert, in no distress Eye: Pupils are equal, round and reactive to light, extra-ocular movements are intact. No nystagmus. There is normal conjunctiva bilaterally. No signs of icterus. Ears, nose, mouth and throat: There are moist mucous membranes and no oral lesions. Neck: The neck is supple, there is no tenderness or JVD. Cardiovascular: There is a regular rate and rhythm. No murmur, rub or gallop is appreciated. Respiratory: Lungs are clear to auscultation, respirations are non-labored, breath sounds are equal. No wheezes, stridor, rales, or rhonchi. Gastrointestinal: Midline incision with christiana in place. Purulent drainage with mild surrounding erythema along the lower aspect of the incision. No evidence of obvious dehiscence. Patient is very tender to palpation of the lower abdomen and near the area of the colostomy which is presently left lower abdomen. Soft stool, liquid brown in bag, gas in bag. Patient has rebound tenderness. Diffuse tenderness to palpation of the abdomen Musculoskeletal: Normal ROM, no tenderness. Strength 5/5. Sensation intact. Radial pulses equal bilaterally 2+. Neurological: A&O x 3. CN II-XII intact, There are no obvious motor or sensory deficits. Coordination appears grossly intact. Speech is normal. Skin: Skin is warm and dry and no rashes or lesions are noted. No LE edema. Psychiatric: Cooperative, appropriate mood & affect, normal judgment. Limitations: no limitations Course Vital Signs 01/19/19 01/19/19 14:44 16:54 Temperature 98.7 F 99.3 F Pulse Rate 89 82 Respiratory 18 18 Rate Blood Pressure 138/79 131/83 O2 Sat by Pulse 98 99 Oximetry Medical Decision Making - Medical Decision Making 53-year-old female presenting today for chief complaint of post operative pain. Concern for surgical site or deeper intra-abdominal infection. Patient has signs concerning for peritoneal irritation on examination. No evidence of wound dehiscence. Labs revealed mild leukocytosis. Lactic acid WNL. CT revealed small pneumoperitoneum, and free fluid- possibly consistent with recent intra- abdominal surgery. There is no evidence of collected fluids such as abscess. Possible right-sided colitis however patient's pain is mostly left lower and midlower abdomen. Patient has erythema near incision concerning for infection. Patient was started on Zosyn. Blood cultures pending. Patient was evaluated in person by attending provider Dr. Winters, he contacted and spoek with Dr. Whitlock. He recommended admission no further orders. Patient is transferred to the floor in stable condition appearing well pain controlled - Lab Data Result diagrams: 01/19/19 15:10 01/19/19 15:10 Lab Results 01/19/19 01/19/19 01/19/19 Range/Units 15:10 15:10 15:10 WBC 13.2 H (3.8-10.6) k/uL RBC 3.41 L (3.80-5.40) m/uL Hgb 9.2 L (11.4-16.0) gm/dL Hct 27.5 L (34.0-46.0) % MCV 80.6 (80.0-100.0) fL MCH 27.0 (25.0-35.0) pg MCHC 33.6 (31.0-37.0) g/dL RDW 13.5 (11.5-15.5) % Plt Count 448 (150-450) k/uL Neutrophils % 71 % Lymphocytes % 20 % Monocytes % 5 % Eosinophils % 2 % Basophils % 1 % Neutrophils # 9.4 H (1.3-7.7) k/uL Lymphocytes # 2.6 (1.0-4.8) k/uL Monocytes # 0.6 (0-1.0) k/uL Eosinophils # 0.3 (0-0.7) k/uL Basophils # 0.1 (0-0.2) k/uL Sodium 140 (137-145) mmol/L Potassium 3.9 (3.5-5.1) mmol/L Chloride 102 (98-107) mmol/L Carbon Dioxide 27 (22-30) mmol/L Anion Gap 11 mmol/L BUN 8 (7-17) mg/dL Creatinine 0.51 L (0.52-1.04) mg/dL Est GFR (CKD-EPI)AfAm >90 (>60 ml/min/1.73 sqM) Est GFR (CKD-EPI)NonAf >90 (>60 ml/min/1.73 sqM) Glucose 172 H (74-99) mg/dL Plasma Lactic Acid Angel 1.2 (0.7-2.0) mmol/L Calcium 9.6 (8.4-10.2) mg/dL Total Bilirubin 0.4 (0.2-1.3) mg/dL AST 16 (14-36) U/L ALT 19 (9-52) U/L Alkaline Phosphatase 110 (38-126) U/L Total Protein 6.3 (6.3-8.2) g/dL Albumin 3.5 (3.5-5.0) g/dL Amylase 32 (30-110) U/L Lipase 25 (23-300) U/L Urine Color Urine Appearance (Clear) Urine pH (5.0-8.0) Ur Specific [place] (1.001-1.035) Urine Protein (Negative) Urine Glucose (UA) (Negative) Urine Ketones (Negative) Urine Blood (Negative) Urine Nitrite (Negative) Urine Bilirubin (Negative) Urine Urobilinogen (<2.0) mg/dL Ur Leukocyte Esterase (Negative) Urine RBC (0-5) /hpf Urine WBC (0-5) /hpf Ur Squamous Epith Cells (0-4) /hpf Urine Bacteria (None) /hpf 01/19/19 Range/Units 15:34 WBC (3.8-10.6) k/uL RBC (3.80-5.40) m/uL Hgb (11.4-16.0) gm/dL Hct (34.0-46.0) % MCV (80.0-100.0) fL MCH (25.0-35.0) pg MCHC (31.0-37.0) g/dL RDW (11.5-15.5) % Plt Count (150-450) k/uL Neutrophils % % Lymphocytes % % Monocytes % % Eosinophils % % Basophils % % Neutrophils # (1.3-7.7) k/uL Lymphocytes # (1.0-4.8) k/uL Monocytes # (0-1.0) k/uL Eosinophils # (0-0.7) k/uL Basophils # (0-0.2) k/uL Sodium (137-145) mmol/L Potassium (3.5-5.1) mmol/L Chloride (98-107) mmol/L Carbon Dioxide (22-30) mmol/L Anion Gap mmol/L BUN (7-17) mg/dL Creatinine (0.52-1.04) mg/dL Est GFR (CKD-EPI)AfAm (>60 ml/min/1.73 sqM) Est GFR (CKD-EPI)NonAf (>60 ml/min/1.73 sqM) Glucose (74-99) mg/dL Plasma Lactic Acid Angel (0.7-2.0) mmol/L Calcium (8.4-10.2) mg/dL Total Bilirubin (0.2-1.3) mg/dL AST (14-36) U/L ALT (9-52) U/L Alkaline Phosphatase (38-126) U/L Total Protein (6.3-8.2) g/dL Albumin (3.5-5.0) g/dL Amylase (30-110) U/L Lipase (23-300) U/L Urine Color Light Yellow Urine Appearance Clear (Clear) Urine pH 7.5 (5.0-8.0) Ur Specific [place] 1.006 (1.001-1.035) Urine Protein Negative (Negative) Urine Glucose (UA) Negative (Negative) Urine Ketones Negative (Negative) Urine Blood Negative (Negative) Urine Nitrite Negative (Negative) Urine Bilirubin Negative (Negative) Urine Urobilinogen <2.0 (<2.0) mg/dL Ur Leukocyte Esterase Small H (Negative) Urine RBC <1 (0-5) /hpf Urine WBC 9 H (0-5) /hpf Ur Squamous Epith Cells 3 (0-4) /hpf Urine Bacteria Rare H (None) /hpf Disposition Clinical Impression: Postoperative infection, Surgical site infection, Fever, Abdominal pain Disposition: ADMITTED IP TO THIS [facility] Condition: Stable Is patient prescribed a controlled substance at d/c from ED?: No Time of Disposition: 16:58 Decision to Admit Reason: Admit from EC Decision Date: 01/19/19 Decision Time: 16:58
[2019-01-19] MEDS ORDERED: MORPHINE SULFATE 4 MG/ML SYRINGE IVP STA (15:19)
[2019-01-19 15:26] LABS: Basophils # (A) 0.1 k/uL (0-0.2); Basophils % (A) 1 %; Eosinophils # (A) 0.3 k/uL (0-0.7); Eosinophils % (A) 2 %; HCT 27.5 % (34.0-46.0); HGB 9.2 gm/dL (11.4-16.0); Lymphocytes # (A) 2.6 k/uL (1.0-4.8); Lymphocytes % (A) 20 %; MCHC 33.6 g/dL (31.0-37.0); MCV 80.6 fL (80.0-100.0); Mean Platelet Volume 7.4; Monocytes # (A) 0.6 k/uL (0-1.0); Monocytes % (A) 5 %; Neutrophils # (A) 9.4 k/uL (1.3-7.7); Neutrophils % (A) 71 %; Platelet Count 448 k/uL (150-450); RBC 3.41 m/uL (3.80-5.40); RDW 13.5 % (11.5-15.5); WBC 13.2 k/uL (3.8-10.6)
[2019-01-19 15:36] LABS: ALT 19 U/L (9-52); AST 16 U/L (14-36); African American GFR (CKD) >90 (>60 ml/min/1.73 sqM); Albumin 3.5 g/dL (3.5-5.0); Alkaline Phosphatase 110 U/L (38-126); Amylase 32 U/L (30-110); Anion Gap 11 mmol/L; Blood Urea Nitrogen 8 mg/dL (7-17); Calcium 9.6 mg/dL (8.4-10.2); Carbon Dioxide 27 mmol/L (22-30); Chloride 102 mmol/L (98-107); Glucose 172 mg/dL (74-99); Lipase 25 U/L (23-300); Potassium 3.9 mmol/L (3.5-5.1); Sodium 140 mmol/L (137-145); Total Bilirubin 0.4 mg/dL (0.2-1.3); Total Protein 6.3 g/dL (6.3-8.2)
[2019-01-19 15:44] LABS: Appearance,Urine Clear (Clear); Bacteria,Urine Rare /hpf; Bilirubin,Urine Negative (Negative); Blood,Urine Negative (Negative); Color,Urine Light Yellow; Glucose,Urine (UA) Negative (Negative); Ketones,Urine Negative (Negative); Leukocyte Esterase,Urine Small (Negative); Nitrite,Urine Negative (Negative); PH, Urine 7.5 (5.0-8.0); Protein,Urine Negative (Negative); RBC,Urine <1 /hpf (0-5); Specific Gravity,Urine 1.006 (1.001-1.035); Squamous Epithelial Cell,Urine 3 /hpf (0-4); Urobilinogen,Urine <2.0 mg/dL (<2.0); WBC,Urine 9 /hpf (0-5)
--- NOTE | 2019-01-19 16:04 | CT ---
EXAMINATION TYPE: CT abdomen pelvis w con DATE OF EXAM: 01/19/2019 HISTORY: Pain and redness at incision site post colon resection. CT DLP: 1588.9mGycm Automated Exposure Control for Dose Reduction was Utilized. CONTRAST: CT scan of the abdomen and pelvis is performed without oral but with IV Contrast, patient injected wi th 100 mL of Isovue 300. COMPARISON: CT abdomen and pelvis from 2 weeks ago. FINDINGS: LUNG BASES: No significant abnormality is appreciated. LIVER/GB: Liver is diffusely low dense consistent with fatty infiltration. Cholecystectomy clips are redemonstrated PANCREAS: No significant abnormality is seen. SPLEEN: No significant abnormality is seen. ADRENALS: No significant abnormality is seen. KIDNEYS: Symmetric cortical medullary uptake and excretion without hydronephrosis. Subcentimeter low dense lesion posteriorly lower pole right kidney is too small to further characterize axial image 40 but presumed benign. Bladder wall is mild to moderately thickened, cannot exclude underlying cystitis , correlate clinically. BOWEL: Evaluation bowel slightly suboptimal secondary to lack of enteric contrast. UTERUS/ADNEXA: Uterus is surgically absent or markedly atrophic. Surgical sutures from there a total colectomy are identified in the left pelvis axial image 64 remnant rectal pouch. There is new left lo wer quadrant colostomy. There is mild wall thickening involving the right colon. There is no suspicio us small or large bowel dilatation. Some mild ill-defined fluid and fat stranding left lower quadrant paracolic gutter extending into left pelvis is present. Small degree of pneumoperitoneum is identifi ed. LYMPH NODES: No greater than 1cm abdominal or pelvic lymph nodes are appreciated. OSSEOUS STRUCTURES: No significant abnormality is seen. OTHER: Overlying vertical skin christiana are seen in the midline. There is mild diffuse soft tissue darwin sarca with subcutaneous air. No well-formed fluid collection or abscess is present. IMPRESSION: Cannot rule out inflammatory change. Findings could be related to recent surgery however. No well-formed abscess. New colostomy. Possible more mild right-sided colitis. Correlate clinically.
[2019-01-19] MEDS ORDERED: HYDROmorphone 0.5 MG/0.5 ML SYRINGE IVP STA (16:29)
[2019-01-19] MEDS ORDERED: ACETAMINOPHEN TAB 325 MG TAB PO PRN (16:49)
[2019-01-19] MEDS ORDERED: NALOXONE 0.4 MG/ML 1 ML VIAL IV PRN (16:49)
[2019-01-19] MEDS: CARVEDILOL 3.125 MG TAB PO SCH (18:32)
[2019-01-19] MEDS: MORPHINE SULFATE 4 MG/ML SYRINGE IV PRN (18:52)
[2019-01-19] MEDS ORDERED: ALBUTEROL NEBULIZED 2.5 MG/3 ML INHALATION PRN (18:59)
[2019-01-19] MEDS: HYDROmorphone 1 MG/ML 1 ML SYRINGE IM PRN ×2 (19:38→22:01)
[2019-01-19 20:09] LABS: Glucose,Whole Blood 106 mg/dL (75-99)
[2019-01-19] MEDS: INSULIN ASPART (NovoLOG) 100 UNIT/ML VIAL SQ SCH (20:17)
[2019-01-19] MEDS: SODIUM CHLORIDE 0.9% 1,000 ML IV SCH (20:21)
[2019-01-19] MEDS: IPRATROPIUM-ALBUTEROL 3 ML NEB INHALATION PRN (20:32)
[2019-01-19] MEDS: SYMBICORT 80-4.5 MCG INHALER INHALATION SCH (20:34)
[2019-01-19] MEDS: TIMOLOL 0.5% OPHTH DROPS 5 ML BTL BOTH EYES SCH (21:31)
[2019-01-19] MEDS: BRIMONIDINE TARTRATE 0.2% DROPS 5 ML BTL BOTH EYES SCH (21:31)
[2019-01-19] MEDS: LATANOPROST 0.005% OPHTH DROPS 2.5 ML BTL BOTH EYES SCH (21:31)
[2019-01-19] MEDS: MELATONIN 3 MG TABLET PO PRN (22:58)
[2019-01-20] MEDS: HYDROmorphone 1 MG/ML 1 ML SYRINGE IM PRN (00:24)
[2019-01-20] MEDS: SODIUM CHLORIDE 0.9% 1,000 ML IV SCH ×2 (03:00→11:50)
[2019-01-20] MEDS: MORPHINE SULFATE 4 MG/ML SYRINGE IV PRN ×2 (03:10→06:19)
[2019-01-20] MEDS: LEVOTHYROXINE 100 MCG TAB PO SCH (04:33)
[2019-01-20] MEDS: ONDANSETRON 4 MG/2 ML VIAL IVP PRN (05:45)
[2019-01-20 07:05] LABS: Glucose,Whole Blood 125 mg/dL (75-99)
[2019-01-20] MEDS: INSULIN ASPART (NovoLOG) 100 UNIT/ML VIAL SQ SCH ×4 (07:24→20:02)
[2019-01-20] MEDS: NICOTINE 21MG/24HR PATCH TRANSDERM SCH (08:24)
[2019-01-20] MEDS: CARVEDILOL 3.125 MG TAB PO SCH ×2 (08:25→17:32)
[2019-01-20] MEDS: BRIMONIDINE TARTRATE 0.2% DROPS 5 ML BTL BOTH EYES SCH ×2 (08:27→19:59)
[2019-01-20] MEDS: TIMOLOL 0.5% OPHTH DROPS 5 ML BTL BOTH EYES SCH ×2 (08:29→19:59)
[2019-01-20] MEDS ORDERED: PANTOPRAZOLE 40 MG/10 ML VIAL IV SCH (09:00)
[2019-01-20] MEDS: IPRATROPIUM-ALBUTEROL 3 ML NEB INHALATION PRN ×2 (09:07→12:51)
[2019-01-20 09:38] LABS: Basophils # (A) 0.1 k/uL (0-0.2); Basophils % (A) 1 %; Eosinophils # (A) 0.3 k/uL (0-0.7); Eosinophils % (A) 3 %; HCT 26.9 % (34.0-46.0); HGB 8.7 gm/dL (11.4-16.0); Hypochromasia Slight; Lymphocytes # (A) 3.3 k/uL (1.0-4.8); Lymphocytes % (A) 32 %; MCH 26.9 pg (25.0-35.0); MCHC 32.2 g/dL (31.0-37.0); MCV 83.5 fL (80.0-100.0); Mean Platelet Volume 7.2; Monocytes # (A) 0.5 k/uL (0-1.0); Monocytes % (A) 5 %; Neutrophils # (A) 6.1 k/uL (1.3-7.7); Neutrophils % (A) 58 %; Platelet Count 455 k/uL (150-450); RBC 3.22 m/uL (3.80-5.40); RDW 13.5 % (11.5-15.5); WBC 10.6 k/uL (3.8-10.6)
[2019-01-20] MEDS: HYDROmorphone 1 MG/ML 1 ML SYRINGE IVP PRN ×4 (09:55→19:57)
[2019-01-20 11:26] LABS: Glucose,Whole Blood 118 mg/dL (75-99)
[2019-01-20] MEDS: PIPERACILLIN-TAZOBACTAM 3.375 GM in SODIUM CHLORIDE 0.9% 100 ML IVPB SCH ×2 (11:49→19:58)
[2019-01-20] MEDS: KETOROLAC 30 MG/ML 1 ML VIAL IVP SCH ×2 (11:49→17:32)
--- NOTE | 2019-01-20 13:57 | P.GSHP ---
History of Present Illness H&P Date: 01/20/19 Chief Complaint: abdominal pain CHIEF COMPLAINT: fever, abdominal pain HISTORY OF PRESENT ILLNESS: A 53-year-old female who was recently admitted to the hospital from 01/09/2019 until 01/17/2019 secondary to acute diverticulitis. Patient underwent exploratory laparotomy, sigmoid colectomy, and ostomy creation on 01/12/2018. On the day of discharge, patient was doing well. Her pain was tolerable, ostomy functioning, incision clean and without any s/s of infection. She was afebrile and her WBC was within normal limits. Patient did not require antibiotics at the time of discharge per Dr. Whitlock. Patient states she got home that night and had a fever of 102.0. She spoke with Dr. Whitlock via his on-call service and was advised if fevers persisted to the come of the ER. This INCOME TAX INVESTIGATOR spoke with patient the following day via phone. At that time, patient reported her fevers had resolved and she only had the one episode of 102.0. Her pain was tolerable and ostomy functioning well. She had no concerns or complaints at that time. She presented to the hospital yesterday after her home care nurse evaluated her and was concerned about possible infection at her surgical site. Patient reports she has been having problems with her ostomy sealing and has been having stool leaking from her appliance at home. WBC on admission was 13.2 Repeat this AM 10.6 Patient has been afebrile since admission. Vital signs stable. CT scan was negative for well formed abscess. PAST MEDICAL HISTORY: See list. PAST SURGICAL HISTORY: See list. SOCIAL HISTORY: No illicit drug use. REVIEW OF SYSTEMS: CONSTITUTIONAL: Reports fevers at home. HEENT: Denies blurred vision, vision changes, or eye pain. Denies hemoptysis CARDIOVASCULAR: Denies chest pain or pressure. RESPIRATORY: No shortness of breath. GASTROINTESTINAL: Refer to HPI for pertinent findings HEMATOLOGIC: Denies bleeding disorders. GENITOURINARY: Denies any blood in urine. SKIN: Denies pruitis. Denies rash. PHYSICAL EXAM: VITAL SIGNS: Reviewed. GENERAL: Well-developed in no acute distress. HEENT: No sclera icterus. Extraocular movements grossly intact. Moist buccal mucosa. Head is atraumatic, normocephalic. ABDOMEN: Soft. Nondistended. Tenderness upon palpation. Ostomy intact with stool noted. Midline incision with minimal erythema. Minimal amount of purulent drainage near mid incision. NEUROLOGIC: Alert and oriented. Cranial nerves II through XII grossly intact. ASSESSMENT: 1. Recent exploratory laparotomy, sigmoid colectomy, and ostomy creation on 01/12/2018 secondary to acute diverticulitis 2. Leukocytosis 3. Possible post-operative surgical site infection, CT negative for well formed abscess PLAN: 1. Two christiana at mid-incision removed with blunt dissection to separate the incision performed to allow for drainage of fluid. Cloudy serosanguineous drainage identified. Cultures obtained. 2. No packing of incision per Dr. Whitlock. Cover incision with gauze. Change daily and PRN 3. Continue antibiotics. Monitor WBC 4. Dr. Kay consulted for medical management 5. Ostomy resource RN consulted 6. Clear liquid diet. Advance as tolerated 7. Pain control. Resume home [place]. Dilaudid and Toradol PRN 8. Incentive spirometry Nurse practitioner note has been reviewed by physician. Signing provider agrees with the documented findings, assessment, and plan of care. Past Medical History Past Medical History: Asthma, Heart Failure, COPD, Diabetes Mellitus, Eye Disorder, Fibromyalgia, GERD/Reflux, Hypertension, Musculoskeletal Disorder, Osteoarthritis (OA), Pneumonia, Thyroid Disorder Additional Past Medical History / Comment(s): neuropathy, narcolepsy, History of Any Multi-Drug Resistant Organisms: None Reported Past Surgical History: Back Surgery, Bladder Surgery, Cholecystectomy, Hyster ectomy, Orthopedic Surgery Additional Past Surgical History / Comment(s): benign mass removed from bladder, meño carpal tunnel, cervical fusion c4-c6, right wrist cyst removed. Past Anesthesia/Blood Transfusion Reactions: No Reported Reaction Past Psychological History: Anxiety, Depression Smoking Status: Current every day smoker Past Alcohol Use History: None Reported Past Drug Use History: None Reported - Past Family History Father Family Medical History: Coronary Artery Disease (CAD) Additional Family Medical History / Comment(s): quadruple bypass surgery Mother Family Medical History: Cancer Medications and Allergies Home Medications Medication Instructions Recorded Confirmed Type Levothyroxine Sodium [Synthroid] 100 mcg PO DAILY 07/29/15 01/19/19 History Budesonide/Formoterol Fumarate 2 puff INHALATION RT-HS 12/04/15 01/19/19 History [Symbicort 80-4.5 Mcg Inhaler] Insulin Glargine [Lantus] 40 unit SQ HS 02/10/16 01/19/19 History Ipratropium-Albuterol Nebulize 3 ml INHALATION RT-Q4H PRN 05/15/16 01/19/19 History [Duoneb 0.5 mg-3 mg/3 ml Soln] Potassium Chloride ER [K-Dur 20] 20 meq PO QAM 05/15/16 01/19/19 History Albuterol Inhaler [Ventolin Hfa 1 - 2 puff INHALATION RT-Q6H PRN 04/13/17 01/19/19 History Inhaler] HYDROcodone/APAP 10-325MG [[place] 1 tab PO TID PRN 04/13/17 01/19/19 History 10-325] metFORMIN HCL ER [Glucophage Xr] 500 mg PO BID 04/13/17 01/19/19 History Atorvastatin [Lipitor] 10 mg PO DAILY 01/05/19 01/19/19 History Brimonidine Tartrate/Timolol 1 drop BOTH EYES BID 01/05/19 01/19/19 History [Combigan 0.2%-0.5% Eye Drops] Latanoprost Ophth [Xalatan 0.005%] 1 drops BOTH EYES HS 01/05/19 01/19/19 Hi story Liraglutide [Victoza 2-[place]] 1.2 mg SQ DAILY 01/05/19 01/19/19 History Melatonin 3 mg PO HS PRN 01/05/19 01/19/19 History Sertraline [Zoloft] 50 mg PO DAILY 01/05/19 01/19/19 History Carvedilol [Coreg] 3.125 mg PO BID 01/07/19 01/19/19 History Furosemide [Lasix] 20 mg PO DAILY 01/07/19 01/19/19 History Ibuprofen [Motrin] 600 mg PO Q8HR PRN #30 tab 01/17/19 01/19/19 Rx Allergies Allergy/AdvReac Type Severity Reaction Status Date / Time No Known Allergies Allergy Verified 01/19/19 15:57 Surgical - Exam Vital Signs Temp Pulse Resp BP Pulse Ox 98.7 F 89 18 138/79 98 01/19/19 14:44 01/19/19 14:44 01/19/19 14:44 01/19/19 14:44 01/19/19 14:44 Results - Labs 01/20/19 09:04 01/19/19 15:10 Abnormal Lab Results - Last 24 Hours (Table) 01/19/19 01/19/19 01/19/19 Range/Units 15:10 15:10 15:34 WBC 13.2 H (3.8-10.6) k/uL RBC 3.41 L (3.80-5.40) m/uL Hgb 9.2 L (11.4-16.0) gm/dL Hct 27.5 L (34.0-46.0) % Plt Count (150-450) k/uL Neutrophils # 9.4 H (1.3-7.7) k/uL Creatinine 0.51 L (0.52-1.04) mg/dL Glucose 172 H (74-99) mg/dL POC Glucose (mg/dL) (75-99) mg/dL Ur Leukocyte Esterase Small H (Negative) Urine WBC 9 H (0-5) /hpf Urine Bacteria Rare H (None) /hpf 01/19/19 01/20/19 01/20/19 Range/Units 20:08 07:04 09:04 WBC (3.8-10.6) k/uL RBC 3.22 L (3.80-5.40) m/uL Hgb 8.7 L (11.4-16.0) gm/dL Hct 26.9 L (34.0-46.0) % Plt Count 455 H (150-450) k/uL Neutrophils # (1.3-7.7) k/uL Creatinine (0.52-1.04) mg/dL Glucose (74-99) mg/dL POC Glucose (mg/dL) 106 H 125 H (75-99) mg/dL Ur Leukocyte Esterase (Negative) Urine WBC (0-5) /hpf Urine Bacteria (None) /hpf 01/20/19 Range/Units 11:24 WBC (3.8-10.6) k/uL RBC (3.80-5.40) m/uL Hgb (11.4-16.0) gm/dL Hct (34.0-46.0) % Plt Count (150-450) k/uL Neutrophils # (1.3-7.7) k/uL Creatinine (0.52-1.04) mg/dL Glucose (74-99) mg/dL POC Glucose (mg/dL) 118 H (75-99) mg/dL Ur Leukocyte Esterase (Negative) Urine WBC (0-5) /hpf Urine Bacteria (None) /hpf Diabetes panel 01/19/19 Range/Units 15:10 Sodium 140 (137-145) mmol/L Potassium 3.9 (3.5-5.1) mmol/L Chloride 102 (98-107) mmol/L Carbon Dioxide 27 (22-30) mmol/L BUN 8 (7-17) mg/dL Creatinine 0.51 L (0.52-1.04) mg/dL Glucose 172 H (74-99) mg/dL Calcium 9.6 (8.4-10.2) mg/dL AST 16 (14-36) U/L ALT 19 (9-52) U/L Alkaline Phosphatase 110 (38-126) U/L Total Protein 6.3 (6.3-8.2) g/dL Albumin 3.5 (3.5-5.0) g/dL Calcium panel 01/19/19 Range/Units 15:10 Calcium 9.6 (8.4-10.2) mg/dL Albumin 3.5 (3.5-5.0) g/dL Pituitary panel 01/19/19 Range/Units 15:10 Sodium 140 (137-145) mmol/L Potassium 3.9 (3.5-5.1) mmol/L Chloride 102 (98-107) mmol/L Carbon Dioxide 27 (22-30) mmol/L BUN 8 (7-17) mg/dL Creatinine 0.51 L (0.52-1.04) mg/dL Glucose 172 H (74-99) mg/dL Calcium 9.6 (8.4-10.2) mg/dL Adrenal panel 01/19/19 Range/Units 15:10 Sodium 140 (137-145) mmol/L Potassium 3.9 (3.5-5.1) mmol/L Chloride 102 (98-107) mmol/L Carbon Dioxide 27 (22-30) mmol/L BUN 8 (7-17) mg/dL Creatinine 0.51 L (0.52-1.04) mg/dL Glucose 172 H (74-99) mg/dL Calcium 9.6 (8.4-10.2) mg/dL Total Bilirubin 0.4 (0.2-1.3) mg/dL AST 16 (14-36) U/L ALT 19 (9-52) U/L Alkaline Phosphatase 110 (38-126) U/L Total Protein 6.3 (6.3-8.2) g/dL Albumin 3.5 (3.5-5.0) g/dL
--- NOTE | 2019-01-20 14:56 | P.CONS ---
History of Present Illness - Reason for Consult Consult date: 01/20/19 Medical management diabetes, COPD Requesting physician: Rush Whitlock - History of Present Illness This is a 53-year-old female with diabetes mellitus, COPD ,diverticulitis, colovaginal fistula, recently admitted with diverticulitis, underwent exploratory laparotomy with lysis of adhesions, sigmoid colectomy and colostomy admitted with chills, fevers (102), drainage from surgical site, pain. T-max 99.3, WBC 13.2 on admission, down to 10.6. CT reporting possible right colitis, possible inflammatory with no well-formed abscess .VSS, afebrile.Wound cultures sent.Received gentle IV fluid hydration, IV antibiotics. Review of Systems ROS Statement: Those systems with pertinent positive or pertinent negative responses have been documented in the HPI. ROS Other: All systems not noted in ROS Statement are negative. Past Medical History Past Medical History: Asthma, Heart Failure, COPD, Diabetes Mellitus, Eye Disorder, Fibromyalgia, GERD/Reflux, Hypertension, Musculoskeletal Disorder, Osteoarthritis (OA), Pneumonia, Thyroid Disorder Additional Past Medical History / Comment(s): neuropathy, narcolepsy, History of Any Multi-Drug Resistant Organisms: None Reported Past Surgical History: Back Surgery, Bladder Surgery, Cholecystectomy, Hysterectomy, Orthopedic Surgery Additional Past Surgical History / Comment(s): benign mass removed from bladder, meño carpal tunnel, cervical fusion c4-c6, right wrist cyst removed. Past Anesthesia/Blood Transfusion Reactions: No Reported Reaction Past Psychological History: Anxiety, Depression Smoking Status: Current every day smoker Past Alcohol Use History: None Reported Past Drug Use History: None Reported - Past Family History Father Family Medical History: Coronary Artery Disease (CAD) Additional Family Medical History / Comment(s): quadruple bypass surgery Mother Family Medical History: Cancer Medications and Allergies Home Medications Medication Instructions Recorded Confirmed Type Levothyroxine Sodium [Synthroid] 100 mcg PO DAILY 07/29/15 01/19/19 History Budesonide/Formoterol Fumarate 2 puff INHALATION RT-HS 12/04/15 01/19/19 History [Symbicort 80-4.5 Mcg Inhaler] Insulin Glargine [Lantus] 40 unit SQ HS 02/10/16 01/19/19 History Ipratropium-Albuterol Nebulize 3 ml INHALATION RT-Q4H PRN 05/15/16 01/19/19 History [Duoneb 0.5 mg-3 mg/3 ml Soln] Potassium Chloride ER [K-Dur 20] 20 meq PO QAM 05/15/16 01/19/19 History Albuterol Inhaler [Ventolin Hfa 1 - 2 puff INHALATION RT-Q6H PRN 04/13/17 01/19/19 History Inhaler] HYDROcodone/APAP 10-325MG [[place] 1 tab PO TID PRN 04/13/17 01/19/19 History 10-325] metFORMIN HCL ER [Glucophage Xr] 500 mg PO BID 04/13/17 01/19/19 History Atorvastatin [Lipitor] 10 mg PO DAILY 01/05/19 01/19/19 History Brimonidine Tartrate/Timolol 1 drop BOTH EYES BID 01/05/19 01/19/19 History [Combigan 0.2%-0.5% Eye Drops] Latanoprost Ophth [Xalatan 0.005%] 1 drops BOTH EYES HS 01/05/19 01/19/19 History Liraglutide [Victoza 2-[place]] 1.2 mg SQ DAILY 01/05/19 01/19/19 History Melatonin 3 mg PO HS PRN 01/05/19 01/19/19 History Sertraline [Zoloft] 50 mg PO DAILY 01/05/19 01/19/19 History Carvedilol [Coreg] 3.125 mg PO BID 01/07/19 01/19/19 History Furosemide [Lasix] 20 mg PO DAILY 01/07/19 01/19/19 History Ibuprofen [Motrin] 600 mg PO Q8HR PRN #30 tab 01/17/19 01/19/19 Rx Allergies Allergy/AdvReac Type Severity Reaction Status Date / Time No Known Allergies Allergy Verified 01/19/19 15:57 Physical Exam Vitals: Vital Signs Temp Pulse Pulse Resp BP BP Pulse Ox 01/20/19 09:20 80 01/20/19 09:07 76 01/20/19 07:13 98.3 F 74 96/61 94 L 01/20/19 01:29 98.1 F 78 18 97/61 95 01/19/19 20:48 84 01/19/19 20:35 84 01/19/19 18:45 98.8 F 82 16 114/75 95 01/19/19 16:54 99.3 F 82 18 131/83 99 01/19/19 14:44 98.7 F 89 18 138/79 98 Intake and Output 01/19/19 01/20/19 01/20/19 22:59 06:59 14:59 Other: # Voids 1 GENERAL: Sitting up in chair, no acute distress HEENT: Atraumatic, normocephalic.Pupils equal round and reactive to light, e xtraocular movements intact, sclera anicteric, conjunctiva are normal.Oral mucosa moist. NECK: Normal range of motion, supple without lymphadenopathy or JVD, no thyromegaly. LUNGS: Breath sounds coarse with fine bilateral expiratory wheeze. No crackles, No wheezing. HEART: Regular rate and rhythm without murmurs, rubs or gallops.S1S2 Normal ABDOMEN: Soft, nondistended, status post surgery .lower midline abdominal dressing C,D,I.,functioning colostomy left lower quadrant.Positive bowel sounds EXTREMITIES: Normal range of motion, no pitting or edema. No clubbing or cyanosis. NEUROLOGICAL: Cranial nerves II through XII grossly intact. Normal speech, normal gait. PSYCH: Normal mood, normal affect. SKIN: Warm, Dry, normal turgor, no rashes or lesions noted. Results CBC & Chem 7: 01/20/19 09:04 01/19/19 15:10 Labs: Abnormal Lab Results - Last 24 Hours (Table) 01/19/19 01/19/19 01/19/19 Range/Units 15:10 15:10 15:34 WBC 13.2 H (3.8-10.6) k/uL RBC 3.41 L (3.80-5.40) m/uL Hgb 9.2 L (11.4-16.0) gm/dL Hct 27.5 L (34.0-46.0) % Plt Count (150-450) k/uL Neutrophils # 9.4 H (1.3-7.7) k/uL Creatinine 0.51 L (0.52-1.04) mg/dL Glucose 172 H (74-99) mg/dL POC Glucose (mg/dL) (75-99) mg/dL Ur Leukocyte Esterase Small H (Negative) Urine WBC 9 H (0-5) /hpf Urine Bacteria Rare H (None) /hpf 01/19/19 01/20/19 01/20/19 Range/Units 20:08 07:04 09:04 WBC (3.8-10.6) k/uL RBC 3.22 L (3.80-5.40) m/uL Hgb 8.7 L (11.4-16.0) gm/dL Hct 26.9 L (34.0-46.0) % Plt Count 455 H (150-450) k/uL Neutrophils # (1.3-7.7) k/uL Creatinine (0.52-1.04) mg/dL Glucose (74-99) mg/dL POC Glucose (mg/dL) 106 H 125 H (75-99) mg/dL Ur Leukocyte Esterase (Negative) Urine WBC (0-5) /hpf Urine Bacteria (None) /hpf 01/20/19 Range/Units 11:24 WBC (3.8-10.6) k/uL RBC (3.80-5.40) m/uL Hgb (11.4-16.0) gm/dL Hct (34.0-46.0) % Plt Count (150-450) k/uL Neutrophils # (1.3-7.7) k/uL Creatinine (0.52-1.04) mg/dL Glucose (74-99) mg/dL POC Glucose (mg/dL) 118 H (75-99) mg/dL Ur Leukocyte Esterase (Negative) Urine WBC (0-5) /hpf Urine Bacteria (None) /hpf Assessment and Plan Assessment: 1) Possible postop surgical infection in a patient with recent Diverticulitis, status post exploratory laparotomy, lysis of adhesions, sigmoid colectomy and colostomy. CT reporting negative from well-formed abscess. (2) Abdominal pain secondary to the above Current Visit: Yes Status: Acute Code(s): R10.9 - UNSPECIFIED ABDOMINAL PAIN SNOMED Code(s): 45882919 (3) Diabetes Current Visit: Yes Status: Chronic Code(s): E11.9 - TYPE 2 DIABETES MELLITUS WITHOUT COMPLICATIONS SNOMED Code(s): 40590811 (4) colovaginal fistula (5) COPD (chronic obstructive pulmonary disease) Current Visit: Yes Status: Chronic Code(s): J44.9 - CHRONIC OBSTRUCTIVE PULMONARY DISEASE, UNSPECIFIED SNOMED Code(s): 52862929 Plan: Continue on current medication regime ,monitoring and symptomatic treatment. Maintain IV antibiotics, monitor cultures closely.Home meds have been reviewed and resumed;Lantus dose decreased as patient is NPO currently. Ostomy resource RN consulted, as patient experiencing difficulties with ostomy appliance at home. Aggressive pulmonary toileting with incentive spirometer reinforced. Diet advancement, pain management as per primary. Increase ambulation as tolerated. Wound care recommendations discussed with surgery; at this time, a couple christiana removed from the mid-portion of the incision and surgeon recommends leaving open with no packing. Further recommendations to follow. The impression and plan of care has been dictated as directed. : I performed a history and examination of this patient, discussed the same with the dictator. I agree with the dictator's note ,documented as a scribe. Any additional findings or plans will be noted.
[2019-01-20 15:23] LABS: Hemoglobin A1C 8.5 % (4.0-6.0)
[2019-01-20] MEDS: HEPARIN SODIUM,PORCINE 5,000 UNIT/ML 1 ML VIAL SQ SCH (16:09)
[2019-01-20] MEDS: IPRATROPIUM-ALBUTEROL 3 ML NEB INHALATION SCH ×2 (16:13→19:57)
[2019-01-20 16:48] LABS: Glucose,Whole Blood 123 mg/dL (75-99)
[2019-01-20] MEDS: SYMBICORT 80-4.5 MCG INHALER INHALATION SCH (19:55)
[2019-01-20] MEDS: INSULIN DETEMIR (LEVEMIR) 100 UNIT/ML SYR SQ SCH (19:58)
[2019-01-20] MEDS: LATANOPROST 0.005% OPHTH DROPS 2.5 ML BTL BOTH EYES SCH (19:59)
[2019-01-20 20:03] LABS: Glucose,Whole Blood 188 mg/dL (75-99)
[2019-01-20] MEDS: MELATONIN 3 MG TABLET PO PRN (20:07)
[2019-01-21] MEDS: HEPARIN SODIUM,PORCINE 5,000 UNIT/ML 1 ML VIAL SQ SCH ×3 (00:30→17:50)
[2019-01-21] MEDS: HYDROmorphone 1 MG/ML 1 ML SYRINGE IVP PRN ×5 (00:30→22:30)
[2019-01-21] MEDS: KETOROLAC 30 MG/ML 1 ML VIAL IVP SCH ×4 (00:30→18:52)
[2019-01-21] MEDS: SODIUM CHLORIDE 0.9% 1,000 ML IV SCH ×3 (00:31→20:00)
[2019-01-21] MEDS: ONDANSETRON 4 MG/2 ML VIAL IVP PRN (02:21)
[2019-01-21] MEDS: PIPERACILLIN-TAZOBACTAM 3.375 GM in SODIUM CHLORIDE 0.9% 100 ML IVPB SCH ×3 (03:50→20:14)
[2019-01-21] MEDS: LEVOTHYROXINE 100 MCG TAB PO SCH (06:22)
[2019-01-21] MEDS: PANTOPRAZOLE 40 MG TABLET PO SCH (07:41)
[2019-01-21] MEDS: CARVEDILOL 3.125 MG TAB PO SCH ×2 (07:41→17:51)
[2019-01-21] MEDS: NICOTINE 21MG/24HR PATCH TRANSDERM SCH (07:41)
[2019-01-21] MEDS: SERTRALINE 50 MG TAB PO SCH (07:42)
[2019-01-21 07:46] LABS: Glucose,Whole Blood 84 mg/dL (75-99)
[2019-01-21] MEDS: BRIMONIDINE TARTRATE 0.2% DROPS 5 ML BTL BOTH EYES SCH ×2 (07:47→20:15)
[2019-01-21] MEDS: INSULIN ASPART (NovoLOG) 100 UNIT/ML VIAL SQ SCH ×4 (07:48→21:37)
[2019-01-21 08:09] LABS: Basophils % (A) 1 %; Eosinophils # (A) 0.2 k/uL (0-0.7); Eosinophils % (A) 3 %; HCT 25.5 % (34.0-46.0); HGB 8.1 gm/dL (11.4-16.0); Hypochromasia Slight; Lymphocytes # (A) 2.4 k/uL (1.0-4.8); Lymphocytes % (A) 32 %; MCH 26.3 pg (25.0-35.0); MCHC 31.7 g/dL (31.0-37.0); MCV 82.9 fL (80.0-100.0); Mean Platelet Volume 7.5; Monocytes # (A) 0.4 k/uL (0-1.0); Monocytes % (A) 5 %; Neutrophils # (A) 4.4 k/uL (1.3-7.7); Neutrophils % (A) 58 %; Platelet Count 450 k/uL (150-450); RBC 3.08 m/uL (3.80-5.40); RDW 13.8 % (11.5-15.5); WBC 7.6 k/uL (3.8-10.6)
[2019-01-21 08:33] LABS: African American GFR (CKD) >90 (>60 ml/min/1.73 sqM); Anion Gap 6 mmol/L; Blood Urea Nitrogen 7 mg/dL (7-17); Calcium 8.7 mg/dL (8.4-10.2); Carbon Dioxide 27 mmol/L (22-30); Chloride 108 mmol/L (98-107); Glucose 92 mg/dL (74-99); Potassium 3.7 mmol/L (3.5-5.1); Sodium 141 mmol/L (137-145)
[2019-01-21] MEDS: IPRATROPIUM-ALBUTEROL 3 ML NEB INHALATION SCH ×4 (09:12→20:25)
--- NOTE | 2019-01-21 10:47 | P.PN ---
Subjective Progress Note Date: 01/21/19 CHIEF COMPLAINT: fever, abdominal pain HISTORY OF PRESENT ILLNESS: Patient examined this morning at the bedside. Patient is awake and alert. Reports abdominal pain is tolerable this morning. Ostomy is intact with no leakage of stool. Midline incision without purulent drainage, warmth, or swelling. Dressing changed this morning at the bedside. Patient has been afebrile. Her white count today is within normal limits. Wound cultures are negative at 24 hours. PHYSICAL EXAM: VITAL SIGNS: Reviewed. GENERAL: Well-developed in no acute distress. HEENT: No sclera icterus. Extraocular movements grossly intact. Moist buccal mucosa. Head is atraumatic, normocephalic. ABDOMEN: Soft. Nondistended. Ostomy intact with stool noted. Midline incision with minimal erythema. Small amount of serosanguineous drainage on old dressing which was removed and new dressing applied. NEUROLOGIC: Alert and oriented. Cranial nerves II through XII grossly intact. ASSESSMENT: 1. Recent exploratory laparotomy, sigmoid colectomy, and ostomy creation on 01/12/2018 secondary to acute diverticulitis 2. Leukocytosis, resolved 3. Possible post-operative surgical site infection, CT negative for well formed abscess PLAN: 1. Await results of wound cultures 2. No packing of incision per Dr. Whitlock. Cover incision with gauze. Change daily and PRN 3. Continue antibiotics. Monitor WBC 4. Dr. Kay consulted for medical management 5. Ostomy resource RN following 6. Advance diet 7. Pain control. Continue home dose of [place]. Dilaudid and Toradol PRN 8. Incentive spirometry 9. Ostomy appliance removed and stoma assessed. Patient with mucutaneous junction separation and recessed stoma. Spoke with Natalia Castro, glass etcher, regarding ostomy care. No surgical intervention recommended. Nurse practitioner note has been reviewed by physician. Signing provider agrees with the documented findings, assessment, and plan of care. Objective - Vital Signs Vital signs: Vital Signs Temp 97.7 F 01/21/19 07:26 Pulse 80 01/21/19 09:40 Resp 15 01/21/19 07:26 BP 133/72 01/21/19 07:26 Pulse Ox 96 01/21/19 07:26 Intake & Output 01/20/19 01/21/19 01/21/19 18:59 06:59 18:59 Intake Total 700 2280 Balance 700 2280 Intake: Intake, IV Titration 700 1200 Amount Piperacillin-Tazobactam 3 200 .375 gm In Sodium Chloride 0.9% 100 ml @ 25 mls/hr IVPB Q8H JOHN Rx#: [id number] Sodium Chloride 0.9% 1, 700 1000 000 ml @ 100 mls/hr IV . Q10H JOHN Rx#:[id number] Oral 1080 Other: # Voids 1 - Labs CBC & Chem 7: 01/21/19 07:52 01/21/19 07:52 Labs: Abnormal Lab Results - Last 24 Hours (Table) 01/19/19 01/20/19 01/20/19 Range/Units 15:10 11:24 16:47 RBC (3.80-5.40) m/uL Hgb (11.4-16.0) gm/dL Hct (34.0-46.0) % Chloride (98-107) mmol/L POC Glucose (mg/dL) 118 H 123 H (75-99) mg/dL Hemoglobin A1c 8.5 H (4.0-6.0) % 01/20/19 01/21/19 01/21/19 Range/Units 20:01 07:52 07:52 RBC 3.08 L (3.80-5.40) m/uL Hgb 8.1 L (11.4-16.0) gm/dL Hct 25.5 L (34.0-46.0) % Chloride 108 H (98-107) mmol/L POC Glucose (mg/dL) 188 H (75-99) mg/dL Hemoglobin A1c (4.0-6.0) % Microbiology - Last 24 Hours (Table) 01/20/19 08:31 Gram Stain - Preliminary Abdomen Wound Culture - Preliminary 01/19/19 15:10 Blood Culture - Preliminary Blood No Growth after 24 hours 01/20/19 12:06 Anaerobic Culture - Preliminary Abdomen
[2019-01-21] MEDS: HYDROcodone/APAP 10-325MG 1 EACH TAB PO PRN ×2 (11:14→20:13)
[2019-01-21] MEDS: TIMOLOL 0.5% OPHTH DROPS 5 ML BTL BOTH EYES SCH ×2 (11:14→20:14)
[2019-01-21 11:47] LABS: Glucose,Whole Blood 80 mg/dL (75-99)
--- NOTE | 2019-01-21 12:48 | P.PN ---
Subjective Progress Note Date: 01/21/19 This is a 53-year-old female with diabetes mellitus, COPD ,diverticulitis, colovaginal fistula, recently admitted with diverticulitis, underwent exploratory laparotomy with lysis of adhesions, sigmoid colectomy and colostomy admitted with chills, fevers (102), drainage from surgical site, pain. T-max 99.3, WBC 13.2 on admission, down to 10.6. CT reporting possible right colitis, possible inflammatory with no well-formed abscess .VSS, afebrile.Wound cultures sent.Received gentle IV fluid hydration, IV antibiotics. 01/31/2019 afebrile, normal WBC, preliminary Gram stain and blood cultures negative, anaerobic culture pending. Hemoglobin 8.1. No tachycardia, vital signs stable. Appliance changed this a.m. with manager operational. Diet advanced to regular per surgery, for lunch.Blood sugars controlled. Pain controlled. Ambulated, tolerated exertion well. Objective - Vital Signs Vital signs: Vital Signs Temp 97.7 F 01/21/19 07:26 Pulse 80 01/21/19 09:40 Resp 15 01/21/19 07:26 BP 133/72 01/21/19 07:26 Pulse Ox 96 01/21/19 07:26 Intake & Output 01/20/19 01/21/19 01/21/19 18:59 06:59 18:59 Intake Total 700 2280 Balance 700 2280 Intake: Intake, IV Titration 700 1200 Amount Piperacillin-Tazobactam 3 200 .375 gm In Sodium Chloride 0.9% 100 ml @ 25 mls/hr IVPB Q8H [facility] Rx#: [id number] Sodium Chloride 0.9% 1, 700 1000 000 ml @ 100 mls/hr IV . Q10H [facility] Rx#:[id number] Oral 1080 Other: # Voids 1 - Exam GENERAL: Sitting up in chair, no acute distress HEENT: Atraumatic, normocephalic.Pupils equal round and reactive to light, extraocular movements intact, sclera anicteric, conjunctiva are normal.Oral mucosa moist. NECK: Normal range of motion, supple without lymphadenopathy or JVD, no thyromegaly. LUNGS: Breath sounds clear, bilateral bases diminished, no rhonchi, No crackles, No wheezing. HEART: Regular rate and rhythm without murmurs, rubs or gallops.S1S2 Normal ABDOMEN: Soft, nondistended,lower midline abdominal dressing C,D,I.,functioning colostomy left lower quadrant.Positive bowel sounds EXTREMITIES: Normal range of motion, no pitting or edema. No clubbing or cyanosis. NEUROLOGICAL: Cranial nerves II through XII grossly intact. PSYCH: Normal mood, normal affect. SKIN: Warm, Dry, normal turgor, no rashes or lesions noted. - Labs CBC & Chem 7: 01/21/19 07:52 01/21/19 07:52 Labs: Abnormal Lab Results - Last 24 Hours (Table) 01/19/19 01/20/19 01/20/19 Range/Units 15:10 11:24 16:47 RBC (3.80-5.40) m/uL Hgb (11.4-16.0) gm/dL Hct (34.0-46.0) % Chloride (98-107) mmol/L POC Glucose (mg/dL) 118 H 123 H (75-99) mg/dL Hemoglobin A1c 8.5 H (4.0-6.0) % 01/20/19 01/21/19 01/21/19 Range/Units 20:01 07:52 07:52 RBC 3.08 L (3.80-5.40) m/uL Hgb 8.1 L (11.4-16.0) gm/dL Hct 25.5 L (34.0-46.0) % Chloride 108 H (98-107) mmol/L POC Glucose (mg/dL) 188 H (75-99) mg/dL Hemoglobin A1c (4.0-6.0) % Microbiology - Last 24 Hours (Table) 01/20/19 08:31 Gram Stain - Preliminary Abdomen Wound Culture - Preliminary 01/19/19 15:10 Blood Culture - Preliminary Blood No Growth after 24 hours 01/20/19 12:06 Anaerobic Culture - Preliminary Abdomen Assessment and Plan Assessment: 1) Possible postop surgical infection in a patient with recent Diverticulitis, status post exploratory laparotomy, lysis of adhesions, sigmoid colectomy and colostomy. CT reporting negative from well-formed abscess. (2) Abdominal pain secondary to the above Current Visit: Yes Status: Acute Code(s): R10.9 - UNSPECIFIED ABDOMINAL PAIN SNOMED Code(s): 68313932 (3) Diabetes Current Visit: Yes Status: Chronic Code(s): E11.9 - TYPE 2 DIABETES MELLITUS WITHOUT COMPLICATIONS SNOMED Code(s): 44600492 (4) colovaginal fistula (5) COPD (chronic obstructive pulmonary disease) Current Visit: Yes Status: Chronic Code(s): J44.9 - CHRONIC OBSTRUCTIVE PULMONARY DISEASE, UNSPECIFIED SNOMED Code(s): 48197359 Plan: Continue on current medication regime ,monitoring and symptomatic treatment. Aggressive pulmonary toileting with incentive spirometer reinforced. Maintain IV antibiotics, with close monitoring of cultures .Increase ambulation as tolerated. Pain management as per primary. Further recommendations to follow. Thank you Dr. Whitlock for allowing to participate in the care of this pleasant lady. The impression and plan of care has been dictated as directed. : I performed a history and examination of this patient, discussed the same with the dictator. I agree with the dictator's note ,documented as a scribe. Any additional findings or plans will be noted.
[2019-01-21 16:56] LABS: Glucose,Whole Blood 117 mg/dL (75-99)
[2019-01-21] MEDS: LATANOPROST 0.005% OPHTH DROPS 2.5 ML BTL BOTH EYES SCH (20:15)
[2019-01-21] MEDS: MELATONIN 3 MG TABLET PO PRN (20:19)
[2019-01-21] MEDS: SYMBICORT 80-4.5 MCG INHALER INHALATION SCH (20:25)
[2019-01-21 21:30] LABS: Glucose,Whole Blood 154 mg/dL (75-99)
[2019-01-21] MEDS: INSULIN DETEMIR (LEVEMIR) 100 UNIT/ML SYR SQ SCH (21:37)
[2019-01-22] MEDS: KETOROLAC 30 MG/ML 1 ML VIAL IVP SCH ×4 (00:48→17:28)
[2019-01-22] MEDS: HEPARIN SODIUM,PORCINE 5,000 UNIT/ML 1 ML VIAL SQ SCH ×4 (00:49→22:50)
[2019-01-22] MEDS: HYDROcodone/APAP 10-325MG 1 EACH TAB PO PRN ×4 (03:00→22:49)
[2019-01-22] MEDS: PIPERACILLIN-TAZOBACTAM 3.375 GM in SODIUM CHLORIDE 0.9% 100 ML IVPB SCH ×3 (03:01→20:22)
[2019-01-22] MEDS: ONDANSETRON 4 MG/2 ML VIAL IVP PRN (04:57)
[2019-01-22] MEDS: LEVOTHYROXINE 100 MCG TAB PO SCH (04:58)
[2019-01-22] MEDS: HYDROmorphone 1 MG/ML 1 ML SYRINGE IVP PRN ×6 (04:58→22:49)
[2019-01-22 06:57] LABS: Basophils # (A) 0.1 k/uL (0-0.2); Basophils % (A) 1 %; Eosinophils # (A) 0.2 k/uL (0-0.7); Eosinophils % (A) 3 %; HCT 25.2 % (34.0-46.0); Hypochromasia Slight; Lymphocytes # (A) 2.5 k/uL (1.0-4.8); Lymphocytes % (A) 35 %; MCH 26.2 pg (25.0-35.0); MCHC 31.6 g/dL (31.0-37.0); MCV 82.8 fL (80.0-100.0); Mean Platelet Volume 7.1; Monocytes # (A) 0.3 k/uL (0-1.0); Monocytes % (A) 5 %; Neutrophils # (A) 3.9 k/uL (1.3-7.7); Neutrophils % (A) 55 %; Platelet Count 448 k/uL (150-450); RBC 3.04 m/uL (3.80-5.40); WBC 7.1 k/uL (3.8-10.6)
[2019-01-22 07:07] LABS: African American GFR (CKD) >90 (>60 ml/min/1.73 sqM); Anion Gap 4 mmol/L; Blood Urea Nitrogen 7 mg/dL (7-17); Calcium 8.7 mg/dL (8.4-10.2); Carbon Dioxide 28 mmol/L (22-30); Chloride 107 mmol/L (98-107); Glucose 69 mg/dL (74-99); Sodium 139 mmol/L (137-145)
[2019-01-22 07:20] LABS: Glucose,Whole Blood 107 mg/dL (75-99)
[2019-01-22] MEDS: PANTOPRAZOLE 40 MG TABLET PO SCH (07:51)
[2019-01-22] MEDS: NICOTINE 21MG/24HR PATCH TRANSDERM SCH (07:51)
[2019-01-22] MEDS: SERTRALINE 50 MG TAB PO SCH (07:51)
[2019-01-22] MEDS: BRIMONIDINE TARTRATE 0.2% DROPS 5 ML BTL BOTH EYES SCH ×2 (07:52→20:23)
[2019-01-22] MEDS: SODIUM CHLORIDE 0.9% 1,000 ML IV SCH ×2 (07:52→16:27)
[2019-01-22] MEDS: CARVEDILOL 3.125 MG TAB PO SCH ×2 (07:52→17:28)
[2019-01-22] MEDS: TIMOLOL 0.5% OPHTH DROPS 5 ML BTL BOTH EYES SCH ×2 (07:53→21:17)
[2019-01-22] MEDS: INSULIN ASPART (NovoLOG) 100 UNIT/ML VIAL SQ SCH ×4 (07:53→21:17)
[2019-01-22] MEDS: IPRATROPIUM-ALBUTEROL 3 ML NEB INHALATION SCH ×4 (08:36→19:53)
--- NOTE | 2019-01-22 10:42 | P.PN ---
Progress Note - Text Progress Note Date: 01/22/19 The patient is resting comfortably in her bed. She states that the night nurse was very rude to her. I was asked she called by the night nurse regarding concern that she has had limited output through her colostomy. Patient has had crampy abdominal pain since her admission. This is unchanged. On exam her vital signs are stable. Patient is afebrile. Her white count is 7. Her abdomen is soft. Her incision site is clean dry intact. There is no evidence of any infection of the incision. The small seroma that was drained shows no evidence of any tumor growth. Her colostomy appliance was removed. The area of colostomy dehiscence along the 6-10 area of the colostomy is stable. There is a piece of silver rope and this area of the colostomy dehiscence. The colostomy was finger dilated and appeared to be patent. The patient most likely has constipation or ileus. Her abdomen is soft. She'll be observed.
[2019-01-22 10:59] VITALS: BMI 36.3
[2019-01-22 11:41] LABS: Glucose,Whole Blood 128 mg/dL (75-99)
[2019-01-22 17:28] LABS: Glucose,Whole Blood 153 mg/dL (75-99)
[2019-01-22] MEDS: SYMBICORT 80-4.5 MCG INHALER INHALATION SCH (19:53)
[2019-01-22 20:05] LABS: Glucose,Whole Blood 134 mg/dL (75-99)
[2019-01-22] MEDS: MELATONIN 3 MG TABLET PO PRN (20:22)
[2019-01-22] MEDS: INSULIN DETEMIR (LEVEMIR) 100 UNIT/ML SYR SQ SCH (20:22)
[2019-01-22] MEDS: LATANOPROST 0.005% OPHTH DROPS 2.5 ML BTL BOTH EYES SCH (20:23)
[2019-01-23] MEDS: KETOROLAC 30 MG/ML 1 ML VIAL IVP SCH ×5 (00:33→23:19)
[2019-01-23] MEDS: PIPERACILLIN-TAZOBACTAM 3.375 GM in SODIUM CHLORIDE 0.9% 100 ML IVPB SCH ×3 (04:26→19:35)
[2019-01-23] MEDS: HYDROmorphone 1 MG/ML 1 ML SYRINGE IVP PRN ×6 (04:27→21:48)
[2019-01-23] MEDS: HYDROcodone/APAP 10-325MG 1 EACH TAB PO PRN ×4 (04:27→23:22)
[2019-01-23] MEDS: SODIUM CHLORIDE 0.9% 1,000 ML IV SCH ×3 (04:31→19:35)
[2019-01-23] MEDS: LEVOTHYROXINE 100 MCG TAB PO SCH (05:48)
[2019-01-23 07:03] LABS: Glucose,Whole Blood 89 mg/dL (75-99)
[2019-01-23] MEDS: INSULIN ASPART (NovoLOG) 100 UNIT/ML VIAL SQ SCH ×4 (07:19→20:21)
[2019-01-23 07:28] LABS: Basophils # (A) 0.1 k/uL (0-0.2); Basophils % (A) 1 %; Eosinophils # (A) 0.2 k/uL (0-0.7); Eosinophils % (A) 2 %; HCT 26.7 % (34.0-46.0); HGB 8.3 gm/dL (11.4-16.0); Hypochromasia Moderate; Lymphocytes # (A) 2.6 k/uL (1.0-4.8); Lymphocytes % (A) 32 %; MCH 25.9 pg (25.0-35.0); MCHC 31.2 g/dL (31.0-37.0); Monocytes # (A) 0.3 k/uL (0-1.0); Monocytes % (A) 4 %; Neutrophils % (A) 60 %; Platelet Count 536 k/uL (150-450); RBC 3.21 m/uL (3.80-5.40); RDW 14.1 % (11.5-15.5); WBC 8.4 k/uL (3.8-10.6)
[2019-01-23] MEDS: PANTOPRAZOLE 40 MG TABLET PO SCH (07:33)
[2019-01-23] MEDS: CARVEDILOL 3.125 MG TAB PO SCH ×2 (07:34→17:04)
[2019-01-23] MEDS: HEPARIN SODIUM,PORCINE 5,000 UNIT/ML 1 ML VIAL SQ SCH ×3 (07:34→23:20)
[2019-01-23] MEDS: SERTRALINE 50 MG TAB PO SCH (07:34)
[2019-01-23] MEDS: NICOTINE 21MG/24HR PATCH TRANSDERM SCH (07:34)
[2019-01-23 07:45] LABS: African American GFR (CKD) >90 (>60 ml/min/1.73 sqM); Anion Gap 6 mmol/L; Blood Urea Nitrogen 7 mg/dL (7-17); Carbon Dioxide 28 mmol/L (22-30); Chloride 109 mmol/L (98-107); Glucose 81 mg/dL (74-99); Potassium 4.7 mmol/L (3.5-5.1); Sodium 143 mmol/L (137-145)
[2019-01-23] MEDS: IPRATROPIUM-ALBUTEROL 3 ML NEB INHALATION SCH ×4 (08:37→20:30)
[2019-01-23] MEDS: TIMOLOL 0.5% OPHTH DROPS 5 ML BTL BOTH EYES SCH ×2 (09:12→09:13)
[2019-01-23] MEDS: BRIMONIDINE TARTRATE 0.2% DROPS 5 ML BTL BOTH EYES SCH ×2 (09:12→20:20)
--- NOTE | 2019-01-23 10:38 | P.PN ---
Subjective This is a 53-year-old female with diabetes mellitus, COPD ,diverticulitis, colovaginal fistula, recently admitted with diverticulitis, underwent exp loratory laparotomy with lysis of adhesions, sigmoid colectomy and colostomy admitted with chills, fevers (102), drainage from surgical site, pain. T-max 99.3, WBC 13.2 on admission, down to 10.6. CT reporting possible right colitis, possible inflammatory with no well-formed abscess .VSS, afebrile.Wound cultures sent.Received gentle IV fluid hydration, IV antibiotics. 01/21/2019 afebrile, normal WBC, preliminary Gram stain and blood cultures negative, anaerobic culture pending. Hemoglobin 8.1. No tachycardia, vital signs stable. Appliance changed this a.m. with protein chemist. Diet advanced to regular per surgery, for lunch.Blood sugars controlled. Pain controlled. Ambulated, tolerated exertion well. 01/22/2019: Patient stable on seen by medicine. 02/02/2019: Patient remained stable. Glucose remains well. She has continued complaints of no stool through her colostomy bag. She is up walking the halls. She indicates she is ambulating hourly to help recover from her surgery. She had discharge from her incision site. Cultures were negative for growth after 48 hours. She denies any chest pains, pressures, shortness of breath this time. Indicates she is eating a little bit. No recent nausea or vomiting. She is not receiving her Victoza while inpatient. She remains on Levemir insulin 20 units at bedtime and a NovoLog scale to before meals and at bedtime. Objective - Vital Signs Vital signs: Vital Signs Temp 98.5 F 01/23/19 07:00 Pulse 88 01/23/19 08:53 Resp 16 01/23/19 07:00 BP 133/75 01/23/19 07:00 Pulse Ox 95 01/23/19 07:00 Intake & Output 01/22/19 01/23/19 01/23/19 18:59 06:59 18:59 Intake Total 296 Balance 296 Weight 96.162 kg Intake: Oral 296 Other: Voiding Method Toilet # Voids 3 1 - Exam GENERAL: Ambulating in the hallway , no acute distress NECK: Normal range of motion, supple without lymphadenopathy or JVD, no thyromegaly. LUNGS: Breath sounds clear, bilateral bases diminished, no rhonchi, No crackles, No wheezing. HEART: Regular rate and rhythm without murmurs, rubs or gallops.S1S2 Normal ABDOMEN: Soft, nondistended,lower midline abdominal dressing C,D,I.,functioning colostomy left lower quadrant.Positive bowel sounds EXTREMITIES: Normal range of motion, no pitting or edema. No clubbing or cyanosis. NEUROLOGICAL: Cranial nerves II through XII grossly intact. PSYCH: Normal mood, normal affect. SKIN: Warm, Dry, normal turgor, no rashes or lesions noted. - Labs CBC & Chem 7: 01/23/19 06:51 01/23/19 06:51 Labs: Abnormal Lab Results - Last 24 Hours (Table) 01/22/19 01/22/19 01/22/19 Range/Units 11:39 17:23 20:03 RBC (3.80-5.40) m/uL Hgb (11.4-16.0) gm/dL Hct (34.0-46.0) % Plt Count (150-450) k/uL Chloride (98-107) mmol/L POC Glucose (mg/dL) 128 H 153 H 134 H (75-99) mg/dL 01/23/19 01/23/19 Range/Units 06:51 06:51 RBC 3.21 L (3.80-5.40) m/uL Hgb 8.3 L (11.4-16.0) gm/dL Hct 26.7 L (34.0-46.0) % Plt Count 536 H (150-450) k/uL Chloride 109 H (98-107) mmol/L POC Glucose (mg/dL) (75-99) mg/dL Microbiology - Last 24 Hours (Table) 01/19/19 15:10 Blood Culture - Preliminary Blood No Growth after 72 hours 01/20/19 08:31 Gram Stain - Final Abdomen Wound Culture - Final Assessment and Plan (1) Diabetes Current Visit: No Status: Chronic Code(s): E11.9 - TYPE 2 DIABETES MELLITUS WITHOUT COMPLICATIONS SNOMED Code(s): 14424180 (2) COPD (chronic obstructive pulmonary disease) Current Visit: No Status: Chronic Code(s): J44.9 - CHRONIC OBSTRUCTIVE PULMONARY DISEASE, UNSPECIFIED SNOMED Code(s): 85886408 (3) Colostomy in place Current Visit: Yes Status: Acute Code(s): Z93.3 - COLOSTOMY STATUS SNOMED Code(s): 870245349 (4) Diverticula of colon Current Visit: Yes Status: Acute Code(s): K57.30 - DVRTCLOS OF LG INT W/O PERFORATION OR ABSCESS W/O BLEEDING SNOMED Code(s): 104088531 (5) Abdominal pain Current Visit: Yes Status: Acute Code(s): R10.9 - UNSPECIFIED ABDOMINAL PAIN SNOMED Code(s): 38079511 (6) Postoperative infection Current Visit: Yes Status: Acute Code(s): T81.40XA - INFECTION FOLLOWING A PROCEDURE, UNSPECIFIED, INIT SNOMED Code(s): 44932596 (7) Status post cervical spinal fusion Current Visit: No Status: Chronic Code(s): Z98.1 - ARTHRODESIS STATUS SNOMED Code(s): 2738515132498 Plan: She will continue her current medications and treatments. She'll continue ambulating and using the incentive spirometer. Her diabetes well well- controlled in several continue before meals and at bedtime Accu-Cheks. She is not receiving her Victoza, but with a decreased diet, this should not affect her diabetes care at this time. Her pain from chronic cervical issue seems controlled at this time as well. We will reevaluate her in the next 24 hours.
--- NOTE | 2019-01-23 11:05 | P.PN ---
Progress Note - Text Progress Note Date: 01/23/19 The patient feels better. She's had some gas in her colostomy bag she also a small amount of liquid stool. On exam her vital signs are stable. Her abdomen soft. Her incision is clean dry intact. There is no significant drainage on her dressing. Status post colostomy for colovaginal fistula and diverticulitis. Patient will have her diet advanced once her bowel function returns. Her ileus is resolving. We dysphagia discharged home the next 48 hours.
[2019-01-23 11:53] LABS: Glucose,Whole Blood 116 mg/dL (75-99)
[2019-01-23 17:01] LABS: Glucose,Whole Blood 164 mg/dL (75-99)
[2019-01-23] MEDS: ONDANSETRON 4 MG/2 ML VIAL IVP PRN (17:04)
[2019-01-23 20:01] LABS: Glucose,Whole Blood 136 mg/dL (75-99)
[2019-01-23] MEDS: LATANOPROST 0.005% OPHTH DROPS 2.5 ML BTL BOTH EYES SCH (20:20)
[2019-01-23] MEDS: INSULIN DETEMIR (LEVEMIR) 100 UNIT/ML SYR SQ SCH (20:20)
[2019-01-23] MEDS: SYMBICORT 80-4.5 MCG INHALER INHALATION SCH (20:30)
[2019-01-23] MEDS: MELATONIN 3 MG TABLET PO PRN (21:48)
[2019-01-24] MEDS: HYDROmorphone 1 MG/ML 1 ML SYRINGE IVP PRN ×8 (01:31→23:57)
[2019-01-24] MEDS: PIPERACILLIN-TAZOBACTAM 3.375 GM in SODIUM CHLORIDE 0.9% 100 ML IVPB SCH ×3 (04:26→21:02)
[2019-01-24] MEDS: LEVOTHYROXINE 100 MCG TAB PO SCH (04:26)
[2019-01-24] MEDS: KETOROLAC 30 MG/ML 1 ML VIAL IVP SCH (06:09)
[2019-01-24] MEDS: IPRATROPIUM-ALBUTEROL 3 ML NEB INHALATION SCH ×4 (07:16→21:36)
[2019-01-24 07:19] LABS: Glucose,Whole Blood 84 mg/dL (75-99)
[2019-01-24] MEDS: HEPARIN SODIUM,PORCINE 5,000 UNIT/ML 1 ML VIAL SQ SCH ×3 (07:37→23:58)
[2019-01-24] MEDS: SERTRALINE 50 MG TAB PO SCH (07:38)
[2019-01-24] MEDS: PANTOPRAZOLE 40 MG TABLET PO SCH (07:38)
[2019-01-24] MEDS: NICOTINE 21MG/24HR PATCH TRANSDERM SCH (07:38)
[2019-01-24] MEDS: CARVEDILOL 3.125 MG TAB PO SCH ×2 (07:38→17:26)
[2019-01-24] MEDS: SODIUM CHLORIDE 0.9% 1,000 ML IV SCH ×2 (07:39→16:00)
[2019-01-24] MEDS: INSULIN ASPART (NovoLOG) 100 UNIT/ML VIAL SQ SCH ×4 (07:39→21:01)
[2019-01-24] MEDS: BRIMONIDINE TARTRATE 0.2% DROPS 5 ML BTL BOTH EYES SCH ×2 (07:42→20:59)
[2019-01-24] MEDS: TIMOLOL 0.5% OPHTH DROPS 5 ML BTL BOTH EYES SCH ×2 (07:43→21:03)
--- NOTE | 2019-01-24 11:47 | P.PN ---
Subjective Progress Note Date: 01/24/19 CHIEF COMPLAINT: fever, abdominal pain HISTORY OF PRESENT ILLNESS: Patient examined this morning at the bedside. Patient reports continued abdominal pain. Ostomy with no stool present but is having gas through ostomy bag. PHYSICAL EXAM: VITAL SIGNS: Reviewed. GENERAL: Well-developed in no acute distress. HEENT: No sclera icterus. Extraocular movements grossly intact. Moist buccal mucosa. Head is atraumatic, normocephalic. ABDOMEN: Soft. Nondistended. Ostomy intact with gas present. No stool. Dressing to midline clean dry intact. NEUROLOGIC: Alert and oriented. Cranial nerves II through XII grossly intact. ASSESSMENT: 1. Recent exploratory laparotomy, sigmoid colectomy, and ostomy creation on 01/12/2018 secondary to acute diverticulitis 2. Leukocytosis, resolved 3. Possible post-operative surgical site infection, CT negative for well formed abscess 4. Ileus PLAN: Continue antibiotics Pain control Activity as tolerated Await stool from ostomy Continue current diet Nurse practitioner note has been reviewed by physician. Signing provider agrees with the documented findings, assessment, and plan of care. Objective - Vital Signs Vital signs: Vital Signs Temp 98.5 F 01/24/19 07:16 Pulse 76 01/24/19 07:28 Resp 16 01/24/19 07:16 BP 140/85 01/24/19 07:16 Pulse Ox 95 01/24/19 07:16 Intake & Output 01/23/19 01/24/19 01/24/19 18:59 06:59 18:59 Intake Total 988 700 Output Total 0 Balance 988 700 Intake: Intake, IV Titration 100 700 Amount Piperacillin-Tazobactam 3 100 100 .375 gm In Sodium Chloride 0.9% 100 ml @ 25 mls/hr IVPB Q8H [facility] Rx#: [id number] Sodium Chloride 0.9% 1, 600 000 ml @ 100 mls/hr IV . Q10H [facility] Rx#:[id number] Oral 888 Output: Stool 0 Other: Voiding Method Toilet Toilet # Voids 3 1 - Labs CBC & Chem 7: 01/23/19 06:51 01/23/19 06:51 Labs: Abnormal Lab Results - Last 24 Hours (Table) 01/23/19 01/23/19 01/23/19 Range/Units 11:52 16:59 19:59 POC Glucose (mg/dL) 116 H 164 H 136 H (75-99) mg/dL Microbiology - Last 24 Hours (Table) 01/20/19 12:06 Anaerobic Culture - Final Abdomen Anaerobic Gm Negative Bacilli Anaerobic Gm Negative Bacilli#2 Anaerobic Gm Positive Bacill 01/19/19 15:10 Blood Culture - Preliminary Blood No Growth after 96 hours
[2019-01-24 11:51] LABS: Glucose,Whole Blood 110 mg/dL (75-99)
[2019-01-24] MEDS: HYDROcodone/APAP 10-325MG 1 EACH TAB PO PRN ×3 (12:11→23:04)
--- NOTE | 2019-01-24 12:41 | CDI ---
Documentation Clarification Form Date: 01/24/2019 From: Nicki Solitario RN CCDS Admit Date: 01/21/2019 2:19:00 PM Patient Name: Kika Hobbs Visit Number: [id number] Discharge Date: ATTENTION: The Clinical Documentation Specialists (CDI) and [facility] Coding Staff appreciate your assistance in clarifying documentation. Please respond to the clarification below the line at the bottom and electronically sign. The CDI & [facility] Coding staff will review the response and follow-up if needed. Please note: Queries are made part of the Legal Health Record. If you have any questions, please contact the author of this message via ITS. Dr. Watson Kay Heart Failure is documented in the Medical History. . History/Risk Factors: 53 year old female presents to ED with possible post operative infection. Medical history Asthma; Heart Failure, COPD ; DM ; Clinical Indicators: VS/Pulse OX: 138/79 89 98.7 98% ra Treatment: Coreg, In your professional opinion, can you please clarify the acuity and type of CHF if known? * Acute Systolic Heart Failure * Chronic Systolic Heart Failure * Acute on Chronic Systolic Heart Failure * Acute Diastolic Heart Failure * Chronic Diastolic Heart Failure * Acute on Chronic Diastolic Heart Failure * Acute Systolic & Diastolic Heart Failure * Chronic Systolic & Diastolic Heart Failure * Acute on Chronic Systolic & Diastolic Heart Failure * Unable to Determine * Other, please specify (Last Revision: November 2017) MTDD
--- NOTE | 2019-01-24 14:22 | P.PN ---
Subjective Progress Note Date: 01/24/19 This is a 53-year-old female with diabetes mellitus, COPD ,diverticulitis, colovaginal fistula, recently admitted with diverticulitis, underwent exploratory laparotomy with lysis of adhesions, sigmoid colectomy and colostomy admitted with chills, fevers (102), drainage from surgical site, pain. T-max 99.3, WBC 13.2 on admission, down to 10.6. CT reporting possible right colitis, possible inflammatory with no well-formed abscess .VSS, afebrile.Wound cultures sent.Received gentle IV fluid hydration, IV antibiotics. 01/21/2019 afebrile, normal WBC, preliminary Gram stain and blood cultures negative, anaerobic culture pending. Hemoglobin 8.1. No tachycardia, vital signs stable. Appliance changed this a.m. with scrap iron loader. Diet advanced to regular per surgery, for lunch.Blood sugars controlled. Pain controlled. Ambulated, tolerated exertion well. 01/22/2019: Patient stable on seen by medicine. 02/02/2019: Patient remained stable. Glucose remains well. She has continued complaints of no stool through her colostomy bag. She is up walking the halls. She indicates she is ambulating hourly to help recover from her surgery. She had discharge from her incision site. Cultures were negative for growth after 48 hours. She denies any chest pains, pressures, shortness of breath this time. Indicates she is eating a little bit. No recent nausea or vomiting. She is not receiving her Victoza while inpatient. She remains on Levemir insulin 20 units at bedtime and a NovoLog scale to before meals and at bedtime. 01/24/19 consuming 75% of low fiber/consistent carb diet with blood sugars controlled.Afebrile. Reports abdominal pain. Colostomy with flatus, small stool in bag. Reports no issues currently with appliance. Objective - Vital Signs Vital signs: Vital Signs Temp 98.5 F 01/24/19 07:16 Pulse 76 01/24/19 07:28 Resp 16 01/24/19 07:16 BP 140/85 01/24/19 07:16 Pulse Ox 95 01/24/19 07:16 Intake & Output 01/23/19 01/24/19 01/24/19 18:59 06:59 18:59 Intake Total 988 700 Output Total 0 Balance 988 700 Intake: Intake, IV Titration 100 700 Amount Piperacillin-Tazobactam 3 100 100 .375 gm In Sodium Chloride 0.9% 100 ml @ 25 mls/hr IVPB Q8H [facility] Rx#: [id number] Sodium Chloride 0.9% 1, 600 000 ml @ 100 mls/hr IV . Q10H [facility] Rx#:[id number] Oral 888 Output: Stool 0 Other: Voiding Method Toilet Toilet # Voids 3 - Exam GENERAL: Sitting up in chair, no acute distress HEENT: Atraumatic, normocephalic.Pupils equal round and reactive to light,conjunctiva are normal.Oral mucosa moist. NECK: Normal range of motion, supple without lymphadenopathy or JVD, no thyromegaly. LUNGS: Breath sounds clear, bilateral bases diminished, no rhonchi, No crackles, No wheezing. HEART: Regular rate and rhythm without murmurs, rubs or gallops.S1S2 Normal ABDOMEN: Soft, nondistended,lower midline abdominal dressing C,D,I, colostomy left lower quadrant.Positive bowel sounds EXTREMITIES: Normal range of motion, no pitting edema. No clubbing or cyanosis. NEUROLOGICAL: Cranial nerves II through XII grossly intact. No focal deficits PSYCH: Normal mood, normal affect. SKIN: Warm, Dry, normal turgor, no rashes or lesions noted. - Labs CBC & Chem 7: 01/23/19 06:51 01/23/19 06:51 Labs: Abnormal Lab Results - Last 24 Hours (Table) 01/23/19 01/23/19 01/23/19 Range/Units 11:52 16:59 19:59 POC Glucose (mg/dL) 116 H 164 H 136 H (75-99) mg/dL Microbiology - Last 24 Hours (Table) 01/19/19 15:10 Blood Culture - Preliminary Blood No Growth after 96 hours 01/20/19 12:06 Anaerobic Culture - Preliminary Abdomen Anaerobic Gm Negative Bacilli Anaerobic Gm Negative Bacilli#2 Anaerobic Gm Positive Bacill Assessment and Plan Assessment: 1) Possible postop surgical infection in a patient with recent Diverticulitis, status post exploratory laparotomy, lysis of adhesions, sigmoid colectomy and colostomy. CT reporting negative from well-formed abscess. (2) Abdominal pain secondary to the above Current Visit: Yes Status: Acute Code(s): R10.9 - UNSPECIFIED ABDOMINAL PAIN SNOMED Code(s): 65229055 (3) Diabetes Current Visit: Yes Status: Chronic Code(s): E11.9 - TYPE 2 DIABETES MELLITUS WITHOUT COMPLICATIONS SNOMED Code(s): 51909079 (4) colovaginal fistula, hx of (5) COPD (chronic obstructive pulmonary disease) Current Visit: Yes Status: Chronic Code(s): J44.9 - CHRONIC OBSTRUCTIVE PULMONARY DISEASE, UNSPECIFIED SNOMED Code(s): 70262877 Plan: Continue on current medication regime ,monitoring and symptomatic treatment. Recommend Aquacel silver on top of the incision site, change q 72 hrs. Increase ambulation as tolerated. Maintain IV antibiotics.Aggressive pulmonary toileting with incentive spirometer reinforced. Pain management. Further recommendations to follow. The impression and plan of care has been dictated as directed. : I performed a history and examination of this patient, discussed the same with the dictator. I agree with the dictator's note ,documented as a scribe. Any additional findings or plans will be noted.
[2019-01-24] MEDS: ONDANSETRON 4 MG/2 ML VIAL IVP PRN (17:25)
[2019-01-24 17:26] LABS: Glucose,Whole Blood 111 mg/dL (75-99)
[2019-01-24 20:13] LABS: Glucose,Whole Blood 152 mg/dL (75-99)
[2019-01-24] MEDS ORDERED: IOPAMIDOL-300 CONTRAST 30 ML VIAL (ORAL USE) PO PRN (20:38)
[2019-01-24] MEDS ORDERED: HYDROmorphone 1 MG/ML 1 ML SYRINGE IVP STA (20:38)
[2019-01-24] MEDS ORDERED: ONDANSETRON 4 MG/2 ML VIAL IVP STA (20:38)
[2019-01-24] MEDS ORDERED: SODIUM CHLORIDE 0.9% 1,000 ML IV ONE (20:40)
[2019-01-24] MEDS: LATANOPROST 0.005% OPHTH DROPS 2.5 ML BTL BOTH EYES SCH (20:59)
[2019-01-24] MEDS: INSULIN DETEMIR (LEVEMIR) 100 UNIT/ML SYR SQ SCH (21:03)
[2019-01-24] MEDS: SYMBICORT 80-4.5 MCG INHALER INHALATION SCH (21:35)
[2019-01-24 22:40] LABS: HCT 27.4 % (34.0-46.0); HGB 8.7 gm/dL (11.4-16.0); Hypochromasia Moderate; MCH 26.4 pg (25.0-35.0); MCHC 31.9 g/dL (31.0-37.0); MCV 82.8 fL (80.0-100.0); Mean Platelet Volume 7.1; Platelet Count 538 k/uL (150-450); RBC 3.31 m/uL (3.80-5.40); RDW 14.5 % (11.5-15.5); WBC 13.2 k/uL (3.8-10.6)
[2019-01-24 22:58] LABS: ALT 31 U/L (9-52); AST 29 U/L (14-36); African American GFR (CKD) >90 (>60 ml/min/1.73 sqM); Albumin 3.4 g/dL (3.5-5.0); Alkaline Phosphatase 137 U/L (38-126); Anion Gap 6 mmol/L; Blood Urea Nitrogen 6 mg/dL (7-17); Calcium 9.4 mg/dL (8.4-10.2); Carbon Dioxide 30 mmol/L (22-30); Chloride 104 mmol/L (98-107); Glucose 137 mg/dL (74-99); Potassium 4.5 mmol/L (3.5-5.1); Sodium 140 mmol/L (137-145); Total Bilirubin 0.1 mg/dL (0.2-1.3)
[2019-01-24] MEDS: IOPAMIDOL-300 CONTRAST 30 ML VIAL (ORAL USE) PO PRN ×2 (23:05→23:58)
--- NOTE | 2019-01-25 02:19 | CT ---
EXAM: CT Abdomen and Pelvis With Intravenous Contrast CLINICAL HISTORY: ITS.REASON CT Reason: sudden onset of increased pain and cramping TECHNIQUE: Axial computed tomography images of the abdomen and pelvis with intravenous contrast. CTDI is 39.2 mGy and DLP is 1814.2 mGy-cm. This CT exam was performed using one or more of the following dose reduction techniques: automated exposure control, adjustment of the mA and/or kV according to patient size, and/or use of iterative reconstruction technique. COMPARISON: CT abdomen-pelvis 01/19/2019 FINDINGS: Lung bases: Development of small right pleural effusion with associated basilar atelectasis and mild consolidative opacity along posterior right lung base. Left base subsegmental atelectasis. ABDOMEN: Liver: Mild hepatomegaly and evidence of hepatic fatty infiltration. Gallbladder and bile ducts: Status post previous cholecystectomy. No evidence of biliary dilatation. Pancreas: Pancreas is unremarkable. Spleen: Spleen is unremarkable. Adrenals: No adrenal masses. Kidneys and ureters: Bilateral symmetric renal enhancement. No evidence of hydronephrosis. Small sub-centimeter probable cyst lower pole right kidney, unchanged. Stomach and bowel: Again demonstrated are postsurgical changes of partial colonic resection with left lower quadrant colostomy. Distal rectosigmoid stump identified in the pelvis. No evidence of bowel obstruction. Colonic thickening with pericolonic stranding involving distal descending colon extending towards colostomy site which may reflect colonic post surgical changes or colitis. PELVIS: Appendix: Appendix not clearly identified. Bladder: Urinary bladder is unremarkable. Reproductive: Unremarkable as visualized. ABDOMEN and PELVIS: Intraperitoneal space: Minimal free air identified along the anterior lower abdomen and pelvis with similar findings on prior CT of 01/19/2019. Associated soft tissue stranding about the lower abdomen and pelvis as well as small amount of abdominal-pelvic free fluid. Findings again may reflect residual postsurgical changes, although infectious/inflammatory process cannot be excluded. Gastrointestinal perforation/leak would also be differential possibility. Clinical correlation is recommended. No discrete abscess collection identified. Bones/joints: Degenerative changes involving lower thoracic and lumbar spine. Soft tissues: Soft tissue edematous changes/anasarca most prominent along the mid and lower abdominal wall. Midline surgical christiana along the mid-lower intra-abdominal wall with soft tissue stranding and a persistent small amount of soft tissue gas along anterior abdominal- pelvic wall. Findings may reflect post surgical changes although infectious/inflammatory process cannot be excluded. No focal abscess collection identified. Vasculature: No abdominal aortic aneurysm. Lymph nodes: No evidence of lymphadenopathy. IMPRESSION: Development of small right pleural effusion with associated basilar atelectasis and mild consolidative opacity along posterior right lung base. Again demonstrated are post surgical changes of partial colonic resection with left lower quadrant colostomy. No evidence of bowel obstruction. Colonic thickening involving distal descending colon extending towards colostomy site may reflect postsurgical findings or colitis. Anterior abdominal wall post surgical changes with small amount of residual air and soft tissue stranding which again may be postsurgical but cannot exclude infectious/inflammatory process. No discrete abscess identified. Small amount of persistent free air along the anterior lower abdomen and pelvis with soft tissue stranding and small amount of abdominal- pelvic free fluid. These findings may reflect residual postsurgical changes although infectious/inflammatory process cannot be excluded as discussed in body of report. Clinical correlation is recommended. Mild hepatomegaly and evidence of hepatic fatty infiltration. <MYCVCSECTION> Critical Value Communications 01/25/19 02:27 Verify Receipt Verified receipt with [facility]
[2019-01-25] MEDS: PIPERACILLIN-TAZOBACTAM 3.375 GM in SODIUM CHLORIDE 0.9% 100 ML IVPB SCH ×3 (03:14→19:37)
[2019-01-25] MEDS: ONDANSETRON 4 MG/2 ML VIAL IVP PRN ×2 (03:14→10:18)
[2019-01-25] MEDS: SODIUM CHLORIDE 0.9% 1,000 ML IV SCH ×2 (03:14→14:01)
[2019-01-25] MEDS: HYDROmorphone 1 MG/ML 1 ML SYRINGE IVP PRN ×6 (03:15→20:59)
[2019-01-25] MEDS: HYDROcodone/APAP 10-325MG 1 EACH TAB PO PRN ×3 (06:28→19:37)
[2019-01-25] MEDS: LEVOTHYROXINE 100 MCG TAB PO SCH (06:29)
[2019-01-25] MEDS: IPRATROPIUM-ALBUTEROL 3 ML NEB INHALATION SCH ×4 (07:25→20:08)
[2019-01-25 07:46] LABS: Glucose,Whole Blood 126 mg/dL (75-99)
[2019-01-25] MEDS: INSULIN ASPART (NovoLOG) 100 UNIT/ML VIAL SQ SCH ×4 (09:19→21:00)
[2019-01-25] MEDS: CARVEDILOL 3.125 MG TAB PO SCH ×2 (09:22→17:38)
[2019-01-25] MEDS: HEPARIN SODIUM,PORCINE 5,000 UNIT/ML 1 ML VIAL SQ SCH ×2 (09:23→17:39)
[2019-01-25] MEDS: SERTRALINE 50 MG TAB PO SCH (09:23)
[2019-01-25] MEDS: PANTOPRAZOLE 40 MG TABLET PO SCH (09:23)
[2019-01-25] MEDS: BRIMONIDINE TARTRATE 0.2% DROPS 5 ML BTL BOTH EYES SCH ×2 (09:25→20:59)
[2019-01-25] MEDS: TIMOLOL 0.5% OPHTH DROPS 5 ML BTL BOTH EYES SCH ×2 (09:25→21:00)
[2019-01-25] MEDS: NICOTINE 21MG/24HR PATCH TRANSDERM SCH (09:26)
[2019-01-25 10:37] LABS: African American GFR (CKD) >90 (>60 ml/min/1.73 sqM); Anion Gap 6 mmol/L; Blood Urea Nitrogen 5 mg/dL (7-17); Calcium 9.2 mg/dL (8.4-10.2); Carbon Dioxide 31 mmol/L (22-30); Chloride 103 mmol/L (98-107); Glucose 152 mg/dL (74-99); Potassium 4.2 mmol/L (3.5-5.1); Sodium 140 mmol/L (137-145)
[2019-01-25 10:39] LABS: Basophils # (A) 0.1 k/uL (0-0.2); Basophils % (A) 1 %; Eosinophils # (A) 0.2 k/uL (0-0.7); Eosinophils % (A) 2 %; HCT 27.4 % (34.0-46.0); HGB 8.7 gm/dL (11.4-16.0); Hypochromasia Moderate; Lymphocytes # (A) 1.8 k/uL (1.0-4.8); Lymphocytes % (A) 18 %; MCH 26.4 pg (25.0-35.0); MCHC 31.7 g/dL (31.0-37.0); MCV 83.2 fL (80.0-100.0); Mean Platelet Volume 7.1; Monocytes # (A) 0.4 k/uL (0-1.0); Monocytes % (A) 4 %; Neutrophils # (A) 7.8 k/uL (1.3-7.7); Neutrophils % (A) 75 %; Platelet Count 513 k/uL (150-450); RBC 3.29 m/uL (3.80-5.40); WBC 10.5 k/uL (3.8-10.6)
[2019-01-25 11:32] LABS: Glucose,Whole Blood 117 mg/dL (75-99)
--- NOTE | 2019-01-25 12:34 | P.PN ---
Subjective Progress Note Date: 01/25/19 CHIEF COMPLAINT: fever, abdominal pain HISTORY OF PRESENT ILLNESS: Patient examined this morning at the bedside. Patient reports continued abdominal pain. Ostomy with stool noted. WBC last night 13.2. Repeat 10.5. CT performed yesterday negative for bowel obstruction or abscess. PHYSICAL EXAM: VITAL SIGNS: Reviewed. GENERAL: Well-developed in no acute distress. HEENT: No sclera icterus. Extraocular movements grossly intact. Moist buccal mucosa. Head is atraumatic, normocephalic. ABDOMEN: Soft. Nondistended. Ostomy intact with gas and stool present. Dressing to midline clean dry intact. NEUROLOGIC: Alert and oriented. Cranial nerves II through XII grossly intact. ASSESSMENT: 1. Recent exploratory laparotomy, sigmoid colectomy, and ostomy creation on 01/12/2018 secondary to acute diverticulitis 2. Leukocytosis, resolved 3. Possible post-operative surgical site infection, CT negative for well formed abscess 4. Ileus, resolved PLAN: Continue antibiotics Pain control Activity as tolerated Continue current diet Nurse practitioner note has been reviewed by physician. Signing provider agrees with the documented findings, assessment, and plan of care. Objective - Vital Signs Vital signs: Vital Signs Temp 99.6 F 01/25/19 07:23 Pulse 88 01/25/19 12:14 Resp 18 01/25/19 07:23 BP 128/75 01/25/19 07:23 Pulse Ox 90 L 01/25/19 07:23 Intake & Output 01/24/19 01/25/19 01/25/19 18:59 06:59 18:59 Intake Total 1700 Balance 1700 Intake: Intake, IV Titration 1700 Amount Piperacillin-Tazobactam 3 100 .375 gm In Sodium Chloride 0.9% 100 ml @ 25 mls/hr IVPB Q8H JOHN Rx#: [id number] Sodium Chloride 0.9% 1, 600 000 ml @ 100 mls/hr IV . Q10H JOHN Rx#:[id number] Sodium Chloride 0.9% 1, 1000 000 ml @ 999 mls/hr IV . Q1H1M ONE Rx#:[id number] Other: Voiding Method Toilet Toilet # Voids 1 3 # Bowel Movements 1 - Labs CBC & Chem 7: 01/25/19 09:40 01/25/19 09:40 Labs: Abnormal Lab Results - Last 24 Hours (Table) 01/24/19 01/24/19 01/24/19 Range/Units 17:24 20:10 22:06 WBC 13.2 H (3.8-10.6) k/uL RBC 3.31 L (3.80-5.40) m/uL Hgb 8.7 L (11.4-16.0) gm/dL Hct 27.4 L (34.0-46.0) % Plt Count 538 H (150-450) k/uL Neutrophils # (1.3-7.7) k/uL Carbon Dioxide (22-30) mmol/L BUN (7-17) mg/dL Glucose (74-99) mg/dL POC Glucose (mg/dL) 111 H 152 H (75-99) mg/dL Total Bilirubin (0.2-1.3) mg/dL Alkaline Phosphatase (38-126) U/L Total Protein (6.3-8.2) g/dL Albumin (3.5-5.0) g/dL 01/24/19 01/25/19 01/25/19 Range/Units 22:06 07:24 09:40 WBC (3.8-10.6) k/uL RBC 3.29 L (3.80-5.40) m/uL Hgb 8.7 L (11.4-16.0) gm/dL Hct 27.4 L (34.0-46.0) % Plt Count 513 H (150-450) k/uL Neutrophils # 7.8 H (1.3-7.7) k/uL Carbon Dioxide (22-30) mmol/L BUN 6 L (7-17) mg/dL Glucose 137 H (74-99) mg/dL POC Glucose (mg/dL) 126 H (75-99) mg/dL Total Bilirubin 0.1 L (0.2-1.3) mg/dL Alkaline Phosphatase 137 H (38-126) U/L Total Protein 6.0 L (6.3-8.2) g/dL Albumin 3.4 L (3.5-5.0) g/dL 01/25/19 01/25/19 Range/Units 09:40 11:29 WBC (3.8-10.6) k/uL RBC (3.80-5.40) m/uL Hgb (11.4-16.0) gm/dL Hct (34.0-46.0) % Plt Count (150-450) k/uL Neutrophils # (1.3-7.7) k/uL Carbon Dioxide 31 H (22-30) mmol/L BUN 5 L (7-17) mg/dL Glucose 152 H (74-99) mg/dL POC Glucose (mg/dL) 117 H (75-99) mg/dL Total Bilirubin (0.2-1.3) mg/dL Alkaline Phosphatase (38-126) U/L Total Protein (6.3-8.2) g/dL Albumin (3.5-5.0) g/dL Microbiology - Last 24 Hours (Table) 01/19/19 15:10 Blood Culture - Preliminary Blood No Growth after 120 hours 01/20/19 12:06 Anaerobic Culture - Final Abdomen Anaerobic Gm Negative Bacilli Anaerobic Gm Negative Bacilli#2 Anaerobic Gm Positive Bacill
[2019-01-25] MEDS: DICYCLOMINE 10 MG CAP PO SCH ×3 (12:36→21:00)
[2019-01-25 16:54] LABS: Glucose,Whole Blood 146 mg/dL (75-99)
[2019-01-25 20:06] LABS: Glucose,Whole Blood 161 mg/dL (75-99)
[2019-01-25] MEDS: SYMBICORT 80-4.5 MCG INHALER INHALATION SCH (20:09)
[2019-01-25] MEDS: LATANOPROST 0.005% OPHTH DROPS 2.5 ML BTL BOTH EYES SCH (20:58)
[2019-01-25] MEDS: INSULIN DETEMIR (LEVEMIR) 100 UNIT/ML SYR SQ SCH (21:00)
[2019-01-25] MEDS: MELATONIN 3 MG TABLET PO PRN (21:00)
[2019-01-26] MEDS: HEPARIN SODIUM,PORCINE 5,000 UNIT/ML 1 ML VIAL SQ SCH ×4 (00:15→23:37)
[2019-01-26] MEDS: HYDROmorphone 1 MG/ML 1 ML SYRINGE IVP PRN ×7 (00:15→23:36)
[2019-01-26] MEDS: SODIUM CHLORIDE 0.9% 1,000 ML IV SCH ×3 (00:15→20:19)
[2019-01-26] MEDS: PIPERACILLIN-TAZOBACTAM 3.375 GM in SODIUM CHLORIDE 0.9% 100 ML IVPB SCH ×3 (03:45→20:20)
[2019-01-26] MEDS: IPRATROPIUM-ALBUTEROL 3 ML NEB INHALATION PRN (04:25)
[2019-01-26] MEDS: ONDANSETRON 4 MG/2 ML VIAL IVP PRN (04:26)
[2019-01-26] MEDS: HYDROcodone/APAP 10-325MG 1 EACH TAB PO PRN ×3 (04:26→18:21)
[2019-01-26] MEDS: LEVOTHYROXINE 100 MCG TAB PO SCH (04:26)
[2019-01-26] MEDS: IPRATROPIUM-ALBUTEROL 3 ML NEB INHALATION SCH ×4 (07:23→22:15)
[2019-01-26 07:51] LABS: Glucose,Whole Blood 131 mg/dL (75-99)
[2019-01-26 08:46] LABS: Basophils # (A) 0.1 k/uL (0-0.2); Basophils % (A) 1 %; Eosinophils # (A) 0.2 k/uL (0-0.7); Eosinophils % (A) 2 %; HCT 27.7 % (34.0-46.0); HGB 8.5 gm/dL (11.4-16.0); Hypochromasia Slight; Lymphocytes # (A) 1.8 k/uL (1.0-4.8); Lymphocytes % (A) 22 %; MCH 25.9 pg (25.0-35.0); MCHC 30.7 g/dL (31.0-37.0); MCV 84.1 fL (80.0-100.0); Mean Platelet Volume 6.5; Monocytes # (A) 0.4 k/uL (0-1.0); Monocytes % (A) 4 %; Neutrophils # (A) 5.9 k/uL (1.3-7.7); Neutrophils % (A) 70 %; Platelet Count 534 k/uL (150-450); RBC 3.29 m/uL (3.80-5.40); RDW 14.7 % (11.5-15.5); WBC 8.4 k/uL (3.8-10.6)
[2019-01-26 08:51] LABS: African American GFR (CKD) >90 (>60 ml/min/1.73 sqM); Anion Gap 7 mmol/L; Blood Urea Nitrogen 9 mg/dL (7-17); Carbon Dioxide 31 mmol/L (22-30); Chloride 103 mmol/L (98-107); Glucose 102 mg/dL (74-99); Potassium 4.5 mmol/L (3.5-5.1); Sodium 141 mmol/L (137-145)
[2019-01-26] MEDS: SERTRALINE 50 MG TAB PO SCH (09:25)
[2019-01-26] MEDS: PANTOPRAZOLE 40 MG TABLET PO SCH (09:25)
[2019-01-26] MEDS: DICYCLOMINE 10 MG CAP PO SCH ×4 (09:25→20:19)
[2019-01-26] MEDS: CARVEDILOL 3.125 MG TAB PO SCH ×2 (09:26→16:56)
[2019-01-26] MEDS: NICOTINE 21MG/24HR PATCH TRANSDERM SCH (09:27)
[2019-01-26] MEDS: INSULIN ASPART (NovoLOG) 100 UNIT/ML VIAL SQ SCH ×4 (09:27→20:22)
[2019-01-26] MEDS: BRIMONIDINE TARTRATE 0.2% DROPS 5 ML BTL BOTH EYES SCH ×2 (09:28→20:21)
[2019-01-26] MEDS: TIMOLOL 0.5% OPHTH DROPS 5 ML BTL BOTH EYES SCH ×2 (09:32→20:21)
[2019-01-26 11:35] LABS: Glucose,Whole Blood 169 mg/dL (75-99)
--- NOTE | 2019-01-26 13:49 | P.PN ---
Progress Note - Text Progress Note Date: 01/26/19 The patient feels better today. She's had stool in her colostomy. On exam her vital signs are stable. Her abdomen soft. Her incision site is clean dry intact. There is no evidence of any infection. Resolving diverticulitis. Patient will be discharged home tomorrow.
--- NOTE | 2019-01-26 15:48 | CT ---
EXAMINATION TYPE: CT angio chest DATE OF EXAM: 01/26/2019 COMPARISON: Chest x-ray 01/03/2019, CT chest 11/15/2012 HISTORY: SOB, chest pain, recent surgery CT DLP: 595.3 mGycm Automated exposure control for dose reduction was used. CONTRAST: CTA scan of the thorax is performed with IV Contrast, patient injected with 100 mL of Isovue 370, pul monary embolism protocol. MIP images are created and reviewed. 3D reconstructed images are created on an independent workstation and reviewed. FINDINGS: LUNGS: The lungs are remarkable for tree-in-bud and groundglass opacities in the right lower lobe. So me basilar atelectatic changes also present, minimal right pleural effusion. There is no pleural effu jeanmarie or pneumothorax seen. The tracheobronchial tree is patent. AORTA: No additional significant abnormality is seen. MEDIASTINUM: There is satisfactory enhancement of the pulmonary artery and its branches, there is no CT evidence for pulmonary embolism. Right hilar adenopathy is present, developed in the interval. The re are no greater than 1 cm mediastinal lymph nodes. No pericardial effusion is seen. The pulmonary artery is dilated. Correlate for pulmonary artery hypertension. OTHER: Liver shows low attenuation possibly due to hepatic steatosis. Patient is post cholecystectomy . IMPRESSION: RIGHT LOWER LOBE PNEUMONIA, FOLLOW-UP SUGGESTED. Correlate for pulmonary artery hypertension. Additio nal findings above.
[2019-01-26 16:40] LABS: Glucose,Whole Blood 163 mg/dL (75-99)
--- NOTE | 2019-01-26 17:55 | P.PN ---
Subjective Progress Note Date: 01/25/19 This is a 53-year-old female with diabetes mellitus, COPD ,diverticulitis, colovaginal fistula, recently admitted with diverticulitis, underwent exploratory laparotomy with lysis of adhesions, sigmoid colectomy and colostomy admitted with chills, fevers (102), drainage from surgical site, pain. T-max 99.3, WBC 13.2 on admission, down to 10.6. CT reporting possible right colitis, possible inflammatory with no well-formed abscess .VSS, afebrile.Wound cultures sent.Received gentle IV fluid hydration, IV antibiotics. 01/21/2019 afebrile, normal WBC, preliminary Gram stain and blood cultures negative, anaerobic culture pending. Hemoglobin 8.1. No tachycardia, vital signs stable. 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 Diet advanced to regular per surgery, for lunch.Blood sugars controlled. Pain controlled. Ambulated, tolerated exertion well. 01/22/2019: Patient stable on seen by medicine. 02/02/2019: Patient remained stable. Glucose remains well. She has continued complaints of no stool through her colostomy bag. She is up walking the halls. She indicates she is ambulating hourly to help recover from her surgery. She had discharge from her incision site. Cultures were negative for growth after 48 hours. She denies any chest pains, pressures, shortness of breath this time. Indicates she is eating a little bit. No recent nausea or vomiting. She is not receiving her Victoza while inpatient. She remains on Levemir insulin 20 units at bedtime and a NovoLog scale to before meals and at bedtime. 01/24/19 consuming 75% of low fiber/consistent carb diet with blood sugars controlled.Afebrile. Reports abdominal pain. Colostomy with flatus, small stool in bag. Reports no issues currently with appliance. 01/25/2019 Maintained on IV antibiotics. T-max 99.6, WBC 13.2 yesterday, now WNL. Reports abdominal pain. Functioning colostomy.Follow-up CT of abdomen and pelvis, noted, reporting possible infectious/inflammatory process, possible perforation/leak with no abscess identified, persistent small amount of soft tissue along anterior abdominal pelvic wall-no abscess identified, no bowel obstruction. Denies chest pain, palpitations or shortness of breath. Objective - Vital Signs Vital signs: Vital Signs Temp 99.6 F 01/25/19 07:23 Pulse 80 01/25/19 07:39 Resp 18 01/25/19 07:23 BP 128/75 01/25/19 07:23 Pulse Ox 90 L 01/25/19 07:23 Intake & Output 01/24/19 01/25/19 01/25/19 18:59 06:59 18:59 Intake Total 1700 Balance 1700 Intake: Intake, IV Titration 1700 Amount Piperacillin-Tazobactam 3 100 .375 gm In Sodium Chloride 0.9% 100 ml @ 25 mls/hr IVPB Q8H JOHN Rx#: [id number] Sodium Chloride 0.9% 1, 600 000 ml @ 100 mls/hr IV . Q10H JOHN Rx#:[id number] Sodium Chloride 0.9% 1, 1000 000 ml @ 999 mls/hr IV . Q1H1M ONE Rx#:[id number] Other: Voiding Method Toilet Toilet # Voids 1 3 # Bowel Movements 1 - Exam GENERAL: Sitting up in bed, no acute distress HEENT: Atraumatic, normocephalic.Pupils equal round and reactive to light,conjunctiva are normal.Oral mucosa moist. NECK: Normal range of motion, supple without lymphadenopathy or JVD, no thyromegaly. LUNGS: Breath sounds clear, bilateral bases diminished, no rhonchi, No crackles, No wheezing. HEART: Regular rate and rhythm without murmurs, rubs or gallops.S1S2 Normal ABDOMEN: Soft, nondistended,lower midline abdominal dressing C,D,I, functioning colostomy left lower quadrant.Positive bowel sounds EXTREMITIES: Normal range of motion, no pitting edema. No clubbing or cyanosis. NEUROLOGICAL: Cranial nerves II through XII grossly intact. No focal deficits PSYCH: Normal mood, normal affect. SKIN: Warm, Dry, normal turgor, no rashes or lesions noted. - Labs CBC & Chem 7: 01/26/19 07:59 01/26/19 07:59 Labs: Abnormal Lab Results - Last 24 Hours (Table) 01/24/19 01/24/19 01/24/19 Range/Units 11:46 17:24 20:10 WBC (3.8-10.6) k/uL RBC (3.80-5.40) m/uL Hgb (11.4-16.0) gm/dL Hct (34.0-46.0) % Plt Count (150-450) k/uL BUN (7-17) mg/dL Glucose (74-99) mg/dL POC Glucose (mg/dL) 110 H 111 H 152 H (75-99) mg/dL Total Bilirubin (0.2-1.3) mg/dL Alkaline Phosphatase (38-126) U/L Total Protein (6.3-8.2) g/dL Albumin (3.5-5.0) g/dL 01/24/19 01/24/19 01/25/19 Range/Units 22:06 22:06 07:24 WBC 13.2 H (3.8-10.6) k/uL RBC 3.31 L (3.80-5.40) m/uL Hgb 8.7 L (11.4-16.0) gm/dL Hct 27.4 L (34.0-46.0) % Plt Count 538 H (150-450) k/uL BUN 6 L (7-17) mg/dL Glucose 137 H (74-99) mg/dL POC Glucose (mg/dL) 126 H (75-99) mg/dL Total Bilirubin 0.1 L (0.2-1.3) mg/dL Alkaline Phosphatase 137 H (38-126) U/L Total Protein 6.0 L (6.3-8.2) g/dL Albumin 3.4 L (3.5-5.0) g/dL Microbiology - Last 24 Hours (Table) 01/19/19 15:10 Blood Culture - Preliminary Blood No Growth after 120 hours 01/20/19 12:06 Anaerobic Culture - Final Abdomen Anaerobic Gm Negative Bacilli Anaerobic Gm Negative Bacilli#2 Anaerobic Gm Positive Bacill Assessment and Plan Assessment: 1) Possible postop surgical infection in a patient with recent Diverticulitis, status post exploratory laparotomy, lysis of adhesions, sigmoid colectomy and colostomy. CT reporting negative from well-formed abscess or obstruction. (2) Abdominal pain secondary to the above Current Visit: Yes Status: Acute Code(s): R10.9 - UNSPECIFIED ABDOMINAL PAIN SNOMED Code(s): 48431727 (3) Diabetes Current Visit: Yes Status: Chronic Code(s): E11.9 - TYPE 2 DIABETES MELLITUS WITHOUT COMPLICATIONS SNOMED Code(s): 50367026 (4) colovaginal fistula, hx of (5) COPD (chronic obstructive pulmonary disease) Current Visit: Yes Status: Chronic Code(s): J44.9 - CHRONIC OBSTRUCTIVE PULMONARY DISEASE, UNSPECIFIED SNOMED Code(s): 20173070 (6) ileus, resolved Plan: Continue on current medication regime ,monitoring and symptomatic treatment. Increase ambulation as tolerated. Maintain IV antibiotics.Aggressive pulmonary toileting with incentive spirometer reinforced. Pain management. Further recommendations to follow. The impression and plan of care has been dictated as directed. : I performed a history and examination of this patient, discussed the same with the dictator. I agree with the dictator's note ,documented as a scribe. Any additional findings or plans will be noted.
[2019-01-26 19:53] LABS: Glucose,Whole Blood 164 mg/dL (75-99)
[2019-01-26] MEDS: LATANOPROST 0.005% OPHTH DROPS 2.5 ML BTL BOTH EYES SCH (20:20)
[2019-01-26] MEDS: MELATONIN 3 MG TABLET PO PRN (20:29)
[2019-01-26] MEDS: INSULIN DETEMIR (LEVEMIR) 100 UNIT/ML SYR SQ SCH (20:30)
[2019-01-26] MEDS: SYMBICORT 80-4.5 MCG INHALER INHALATION SCH (22:21)
[2019-01-27] MEDS: ONDANSETRON 4 MG/2 ML VIAL IVP PRN (00:39)
[2019-01-27] MEDS: HYDROcodone/APAP 10-325MG 1 EACH TAB PO PRN ×3 (00:39→12:15)
[2019-01-27] MEDS: IPRATROPIUM-ALBUTEROL 3 ML NEB INHALATION PRN ×2 (00:42→04:00)
[2019-01-27] MEDS: PIPERACILLIN-TAZOBACTAM 3.375 GM in SODIUM CHLORIDE 0.9% 100 ML IVPB SCH ×2 (03:09→12:09)
[2019-01-27] MEDS: HYDROmorphone 1 MG/ML 1 ML SYRINGE IVP PRN ×2 (03:10→07:13)
[2019-01-27] MEDS: SODIUM CHLORIDE 0.9% 1,000 ML IV SCH ×2 (06:01→14:44)
[2019-01-27] MEDS: LEVOTHYROXINE 100 MCG TAB PO SCH (06:20)
[2019-01-27 07:08] LABS: Glucose,Whole Blood 110 mg/dL (75-99)
[2019-01-27] MEDS: INSULIN ASPART (NovoLOG) 100 UNIT/ML VIAL SQ SCH ×2 (07:47→12:09)
[2019-01-27 08:26] VITALS: BP 119/75; RESP 16; TEMP 98.6
[2019-01-27] MEDS: SYMBICORT 80-4.5 MCG INHALER INHALATION SCH (08:55)
[2019-01-27] MEDS: IPRATROPIUM-ALBUTEROL 3 ML NEB INHALATION SCH ×3 (08:55→15:52)
[2019-01-27] MEDS ORDERED: guaiFENesin 600 MG TABLET.ER PO SCH (09:00)
[2019-01-27] MEDS: DICYCLOMINE 10 MG CAP PO SCH ×2 (09:24→14:32)
[2019-01-27] MEDS: HEPARIN SODIUM,PORCINE 5,000 UNIT/ML 1 ML VIAL SQ SCH ×2 (09:24→15:37)
[2019-01-27] MEDS: NICOTINE 21MG/24HR PATCH TRANSDERM SCH (09:24)
[2019-01-27] MEDS: CARVEDILOL 3.125 MG TAB PO SCH (09:25)
[2019-01-27] MEDS: PANTOPRAZOLE 40 MG TABLET PO SCH (09:25)
[2019-01-27] MEDS: SERTRALINE 50 MG TAB PO SCH (09:25)
[2019-01-27] MEDS: BRIMONIDINE TARTRATE 0.2% DROPS 5 ML BTL BOTH EYES SCH (09:36)
[2019-01-27] MEDS: TIMOLOL 0.5% OPHTH DROPS 5 ML BTL BOTH EYES SCH (09:37)
[2019-01-27 09:50] LABS: Basophils # (A) 0.1 k/uL (0-0.2); Basophils % (A) 1 %; Eosinophils # (A) 0.2 k/uL (0-0.7); Eosinophils % (A) 2 %; HCT 28.6 % (34.0-46.0); HGB 8.8 gm/dL (11.4-16.0); Hypochromasia Marked; Lymphocytes # (A) 1.9 k/uL (1.0-4.8); Lymphocytes % (A) 22 %; MCH 26.1 pg (25.0-35.0); MCHC 30.9 g/dL (31.0-37.0); MCV 84.5 fL (80.0-100.0); Mean Platelet Volume 7.1; Monocytes # (A) 0.4 k/uL (0-1.0); Monocytes % (A) 4 %; Neutrophils # (A) 6.1 k/uL (1.3-7.7); Neutrophils % (A) 68 %; Platelet Count 464 k/uL (150-450); RBC 3.38 m/uL (3.80-5.40); RDW 14.9 % (11.5-15.5); WBC 8.9 k/uL (3.8-10.6)
--- NOTE | 2019-01-27 10:58 | P.PN ---
Subjective Progress Note Date: 01/27/19 Principal diagnosis: History of d diverticulitis The patient states she feels better however she complains of shortness of breath and wheezing. She still has her chronic pain. Her colostomy is functioning. Objective - Vital Signs Vital signs: Vital Signs Temp 98.6 F 01/27/19 07:31 Pulse 79 01/27/19 09:07 Resp 16 01/27/19 09:40 BP 119/75 01/27/19 07:31 Pulse Ox 93 L 01/27/19 08:58 Intake & Output 01/26/19 01/27/19 01/27/19 18:59 06:59 18:59 Intake Total 2009 240 Output Total 0 Balance 2009 240 Intake: Intake, IV Titration 1200 Amount Piperacillin-Tazobactam 3 200 .375 gm In Sodium Chloride 0.9% 100 ml @ 25 mls/hr IVPB Q8H JOHN Rx#: [id number] Sodium Chloride 0.9% 1, 1000 000 ml @ 100 mls/hr IV . Q10H JOHN Rx#:[id number] Oral 810 240 Output: Stool 0 Other: Voiding Method Toilet Toilet # Voids 2 2 # Bowel Movements 2 - Constitutional General appearance: Present: cooperative - Gastrointestinal Gastrointestinal Comment(s): Abdomen soft. Incision site is clean dry. Her christiana are well healed. The colostomy is functioning. - Labs CBC & Chem 7: 01/27/19 09:24 01/26/19 07:59 Labs: Abnormal Lab Results - Last 24 Hours (Table) 01/26/19 01/26/19 01/26/19 Range/Units 11:33 16:38 19:52 RBC (3.80-5.40) m/uL Hgb (11.4-16.0) gm/dL Hct (34.0-46.0) % MCHC (31.0-37.0) g/dL Plt Count (150-450) k/uL POC Glucose (mg/dL) 169 H 163 H 164 H (75-99) mg/dL 01/27/19 01/27/19 Range/Units 07:06 09:24 RBC 3.38 L (3.80-5.40) m/uL Hgb 8.8 L (11.4-16.0) gm/dL Hct 28.6 L (34.0-46.0) % MCHC 30.9 L (31.0-37.0) g/dL Plt Count 464 H (150-450) k/uL POC Glucose (mg/dL) 110 H (75-99) mg/dL Assessment and Plan Assessment: Status post sigmoid colectomy for diverticulitis. Patient's discharge will be held today due to her wheezing. She'll be evaluated by the medical service.
--- NOTE | 2019-01-27 11:40 | P.PN ---
Subjective Progress Note Date: 01/26/19 This is a 53-year-old female with diabetes mellitus, COPD ,diverticulitis, colovaginal fistula, recently admitted with diverticulitis, underwent exploratory laparotomy with lysis of adhesions, sigmoid colectomy and colostomy admitted with chills, fevers (102), drainage from surgical site, pain. T-max 99.3, WBC 13.2 on admission, down to 10.6. CT reporting possible right colitis, possible inflammatory with no well-formed abscess .VSS, afebrile.Wound cultures sent.Received gentle IV fluid hydration, IV antibiotics. 01/21/2019 afebrile, normal WBC, preliminary Gram stain and blood cultures negative, anaerobic culture pending. Hemoglobin 8.1. No tachycardia, vital signs stable. 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 Diet advanced to regular per surgery, for lunch.Blood sugars controlled. Pain controlled. Ambulated, tolerated exertion well. 01/22/2019: Patient stable on seen by medicine. 02/02/2019: Patient remained stable. Glucose remains well. She has continued complaints of no stool through her colostomy bag. She is up walking the halls. She indicates she is ambulating hourly to help recover from her surgery. She had discharge from her incision site. Cultures were negative for growth after 48 hours. She denies any chest pains, pressures, shortness of breath this time. Indicates she is eating a little bit. No recent nausea or vomiting. She is not receiving her Victoza while inpatient. She remains on Levemir insulin 20 units at bedtime and a NovoLog scale to before meals and at bedtime. 01/24/19 consuming 75% of low fiber/consistent carb diet with blood sugars controlled.Afebrile. Reports abdominal pain. Colostomy with flatus, small stool in bag. Reports no issues currently with appliance. 01/25/2019 Maintained on IV antibiotics. T-max 99.6, WBC 13.2 yesterday, now WNL. Reports abdominal pain. Functioning colostomy.Follow-up CT of abdomen and pelvis, noted, reporting possible infectious/inflammatory process, possible perforation/leak with no abscess identified, persistent small amount of soft tissue along anterior abdominal pelvic wall-no abscess identified, no bowel obstruction. Denies chest pain, palpitations or shortness of breath. 01/26/19 functioning colostomy. Complains of dyspnea. Maintaining O2 sats in the low 90s, previously had been satting in the high 90s on room air. T-max 99. Pain controlled, recently medicated. Objective - Vital Signs Vital signs: Vital Signs Temp 99.0 F 01/26/19 14:12 Pulse 88 01/26/19 17:46 Resp 18 01/26/19 17:46 BP 119/59 01/26/19 14:12 Pulse Ox 92 L 01/26/19 14:12 Intake & Output 01/25/19 01/26/19 01/26/19 18:59 06:59 18:59 Intake Total 240 2280 Balance 240 2280 Intake: Intake, IV Titration 1200 Amount Piperacillin-Tazobactam 3 200 .375 gm In Sodium Chloride 0.9% 100 ml @ 25 mls/hr IVPB Q8H JOHN Rx#: [id number] Sodium Chloride 0.9% 1, 1000 000 ml @ 100 mls/hr IV . Q10H JOHN Rx#:[id number] Oral 240 1080 Other: Voiding Method Toilet # Voids 2 1 2 # Bowel Movements 2 - Exam GENERAL: Sitting up in bed, no acute distress, visiting with family and friends HEENT: Atraumatic, normocephalic.Pupils equal round and reactive to light,conjunctiva are normal.Oral mucosa moist. NECK: Normal range of motion, supple without lymphadenopathy or JVD, no thyromegaly. LUNGS: Nonlabored ,Breath sounds clear, bilateral bases diminished, no rhonchi, No crackles, No wheezing. HEART: Regular rate and rhythm without murmurs, rubs or gallops.S1S2 Normal ABDOMEN: Soft, nondistended,lower midline abdominal dressing C,D,I. functioning colostomy left lower quadrant.Positive bowel sounds EXTREMITIES: Normal range of motion, no pitting edema. No clubbing or cyanosis. NEUROLOGICAL: Cranial nerves II through XII grossly intact. No focal deficits PSYCH: Normal mood, normal affect. SKIN: Warm, Dry, normal turgor, no rashes or lesions noted. - Labs CBC & Chem 7: 01/27/19 09:24 01/26/19 07:59 Labs: Abnormal Lab Results - Last 24 Hours (Table) 01/25/19 01/26/19 01/26/19 Range/Units 20:04 07:31 07:59 RBC 3.29 L (3.80-5.40) m/uL Hgb 8.5 L (11.4-16.0) gm/dL Hct 27.7 L (34.0-46.0) % MCHC 30.7 L (31.0-37.0) g/dL Plt Count 534 H (150-450) k/uL Carbon Dioxide (22-30) mmol/L Glucose (74-99) mg/dL POC Glucose (mg/dL) 161 H 131 H (75-99) mg/dL 01/26/19 01/26/19 01/26/19 Range/Units 07:59 11:33 16:38 RBC (3.80-5.40) m/uL Hgb (11.4-16.0) gm/dL Hct (34.0-46.0) % MCHC (31.0-37.0) g/dL Plt Count (150-450) k/uL Carbon Dioxide 31 H (22-30) mmol/L Glucose 102 H (74-99) mg/dL POC Glucose (mg/dL) 169 H 163 H (75-99) mg/dL Microbiology - Last 24 Hours (Table) 01/19/19 15:10 Blood Culture - Final Blood No Growth after 144 hours Assessment and Plan Assessment: 1) Possible postop surgical infection in a patient with recent Diverticulitis, status post exploratory laparotomy, lysis of adhesions, sigmoid colectomy and colostomy. CT reporting negative from well-formed abscess or obstruction. (2) Abdominal pain secondary to the above Current Visit: Yes Status: Acute Code(s): R10.9 - UNSPECIFIED ABDOMINAL PAIN SNOMED Code(s): 91800039 (3) Diabetes Current Visit: Yes Status: Chronic Code(s): E11.9 - TYPE 2 DIABETES MELLITUS WITHOUT COMPLICATIONS SNOMED Code(s): 90278694 (4) colovaginal fistula, hx of (5) COPD (chronic obstructive pulmonary disease) Current Visit: Yes Status: Chronic Code(s): J44.9 - CHRONIC OBSTRUCTIVE PULMONARY DISEASE, UNSPECIFIED SNOMED Code(s): 11902641 (6) ileus, resolved Plan: Continue on current medication regime ,monitoring and symptomatic treatment. Spiral CT ordered- R/O PE in a patient with recent surgery. Contin ue on IV antibiotics and aggressive pulmonary toileting. Increase ambulation as tolerated. Pain management as per surgery. Discharge planning in progress for tomorrow as per surgery. The impression and plan of care has been dictated as directed. : I performed a history and examination of this patient, discussed the same with the dictator. I agree with the dictator's note ,documented as a scribe. Any additional findings or plans will be noted.
--- NOTE | 2019-01-27 15:16 | P.PN ---
Subjective Progress Note Date: 01/27/19 This is a 53-year-old female with diabetes mellitus, COPD ,diverticulitis, colovaginal fistula, recently admitted with diverticulitis, underwent exploratory laparotomy with lysis of adhesions, sigmoid colectomy and colostomy admitted with chills, fevers (102), drainage from surgical site, pain. T-max 99.3, WBC 13.2 on admission, down to 10.6. CT reporting possible right colitis, possible inflammatory with no well-formed abscess .VSS, afebrile.Wound cultures sent.Received gentle IV fluid hydration, IV antibiotics. 01/21/2019 afebrile, normal WBC, preliminary Gram stain and blood cultures negative, anaerobic culture pending. Hemoglobin 8.1. No tachycardia, vital signs stable. Appliance changed this a.m. with gunnery/ordnance officer. Diet advanced to regular per surgery, for lunch.Blood sugars controlled. Pain controlled. Ambulated, tolerated exertion well. 01/22/2019: Patient stable on seen by medicine. 02/02/2019: Patient remained stable. Glucose remains well. She has continued complaints of no stool through her colostomy bag. She is up walking the halls. She indicates she is ambulating hourly to help recover from her surgery. She had discharge from her incision site. Cultures were negative for growth after 48 hours. She denies any chest pains, pressures, shortness of breath this time. Indicates she is eating a little bit. No recent nausea or vomiting. She is not receiving her Victoza while inpatient. She remains on Levemir insulin 20 units at bedtime and a NovoLog scale to before meals and at bedtime. 01/24/19 consuming 75% of low fiber/consistent carb diet with blood sugars controlled.Afebrile. Reports abdominal pain. Colostomy with flatus, small stool in bag. Reports no issues currently with appliance. 01/25/2019 Maintained on IV antibiotics. T-max 99.6, WBC 13.2 yesterday, now WNL. Reports abdominal pain. Functioning colostomy.Follow-up CT of abdomen and pelvis, noted, reporting possible infectious/inflammatory process, possible perforation/leak with no abscess identified, persistent small amount of soft tissue along anterior abdominal pelvic wall-no abscess identified, no bowel obstruction. Denies chest pain, palpitations or shortness of breath. 01/26/19 functioning colostomy. Complains of dyspnea. Maintaining O2 sats in the low 90s, previously had been satting in the high 90s on room air. T-max 99. Pain controlled, recently medicated. 01/27/[address] negative for PE. Afebrile, normal WBC. Ambulated in hallway, tolerating well. Abdominal pain. Objective - Vital Signs Vital signs: Vital Signs Temp 98.6 F 01/27/19 07:31 Pulse 79 01/27/19 09:07 Resp 16 01/27/19 09:40 BP 119/75 01/27/19 07:31 Pulse Ox 93 L 01/27/19 08:58 Intake & Output 01/26/19 01/27/19 01/27/19 18:59 06:59 18:59 Intake Total 2009 240 Output Total 0 Balance 2009 240 Intake: Intake, IV Titration 1200 Amount Piperacillin-Tazobactam 3 200 .375 gm In Sodium Chloride 0.9% 100 ml @ 25 mls/hr IVPB Q8H JOHN Rx#: [id number] Sodium Chloride 0.9% 1, 1000 000 ml @ 100 mls/hr IV . Q10H JOHN Rx#:[id number] Oral 810 240 Output: Stool 0 Other: Voiding Method Toilet Toilet # Voids 2 2 # Bowel Movements 2 - Exam GENERAL: Sitting up in bed, no acute distress, HEENT: Atraumatic, normocephalic.Pupils equal round and reactive to light,conjunctiva are normal.Oral mucosa moist. NECK: Normal range of motion, supple without lymphadenopathy or JVD, no thyromegaly. LUNGS: Nonlabored ,Breath sounds clear, bilateral bases diminished, no rhonchi, No crackles, fine expiratory wheezing. HEART: Regular rate and rhythm without murmurs, rubs or gallops.S1S2 Normal ABDOMEN: Soft, nondistended,lower midline abdominal dressing C,D,I. functioning colostomy left lower quadrant.Positive bowel sounds EXTREMITIES: Normal range of motion, no pitting edema. No clubbing or cyanosis. NEUROLOGICAL: Cranial nerves II through XII grossly intact. No focal deficits PSYCH: Normal mood, normal affect. SKIN: Warm, Dry, normal turgor, no rashes or lesions noted. - Labs CBC & Chem 7: 01/27/19 09:24 01/26/19 07:59 Labs: Abnormal Lab Results - Last 24 Hours (Table) 01/26/19 01/26/19 01/27/19 Range/Units 16:38 19:52 07:06 RBC (3.80-5.40) m/uL Hgb (11.4-16.0) gm/dL Hct (34.0-46.0) % MCHC (31.0-37.0) g/dL Plt Count (150-450) k/uL POC Glucose (mg/dL) 163 H 164 H 110 H (75-99) mg/dL 01/27/19 Range/Units 09:24 RBC 3.38 L (3.80-5.40) m/uL Hgb 8.8 L (11.4-16.0) gm/dL Hct 28.6 L (34.0-46.0) % MCHC 30.9 L (31.0-37.0) g/dL Plt Count 464 H (150-450) k/uL POC Glucose (mg/dL) (75-99) mg/dL Assessment and Plan Assessment: 1) Possible postop surgical infection in a patient with recent Diverticulitis, status post exploratory laparotomy, lysis of adhesions, sigmoid colectomy and colostomy. CT reporting negative from well-formed abscess or obstruction. Anaerobic cultures reporting negative bacilli. (2) Abdominal pain secondary to the above Current Visit: Yes Status: Acute Code(s): R10.9 - UNSPECIFIED ABDOMINAL PAIN SNOMED Code(s): 48965839 (3) Diabetes Current Visit: Yes Status: Chronic Code(s): E11.9 - TYPE 2 DIABETES MELLITUS WITHOUT COMPLICATIONS SNOMED Code(s): 05658998 (4) colovaginal fistula, hx of (5) COPD (chronic obstructive pulmonary disease) Current Visit: Yes Status: Chronic Code(s): J44.9 - CHRONIC OBSTRUCTIVE PULMONARY DISEASE, UNSPECIFIED SNOMED Code(s): 89781855 (6) ileus, resolved (7) bibasilar atelectasis Plan: Continue on current medication regime ,monitoring and symptomatic treatment. Surgery is planning discharge home today. Patient has a pain contract with Dr. Delcid and advised to follow-up with him. Recommend at discharge Levaquin,Bentyl, Nicotine Patch, Aqua cell silver for wound care.Maintain agressive pulmonary toileting with incentive spirometer at home, every hour 10while awake. Follow with PCP in 3 days. The impression and plan of care has been dictated as directed. : I performed a history and examination of this patient, discussed the same with the dictator. I agree with the dictator's note ,documented as a scribe. Any additional findings or plans will be noted.
[2019-01-27 16:01] VITALS: PULSE 79
== END 2019-01-27 16:47 | disposition home health service (06) | DRG 863 ==
LOC: EC 14:40 → 4SSUR 16:50 → OBSVTOIN 01-21 14:19
PROVIDERS: ADMIT Surgery; ATTEND Surgery
DX: T81.41XA Infection following a procedure, superficial incisional surgical site, initial encounter (principal); J98.11 Atelectasis; K56.7 Ileus, unspecified; F17.200 Nicotine dependence, unspecified, uncomplicated; F32.9 Major depressive disorder, single episode, unspecified; F41.9 Anxiety disorder, unspecified; E11.40 Type 2 diabetes mellitus with diabetic neuropathy, unspecified; G47.419 Narcolepsy without cataplexy; G89.29 Other chronic pain; I11.0 Hypertensive heart disease with heart failure; I50.9 Heart failure, unspecified; J44.9 Chronic obstructive pulmonary disease, unspecified; K21.9 Gastro-esophageal reflux disease without esophagitis; M79.7 Fibromyalgia; Z79.4 Long term (current) use of insulin; Z79.51 Long term (current) use of inhaled steroids; Z79.890 Hormone replacement therapy; Z79.899 Other long term (current) drug therapy; Z82.49 Family history of ischemic heart disease and other diseases of the circulatory system; Z90.49 Acquired absence of other specified parts of digestive tract; Z90.710 Acquired absence of both cervix and uterus; Z93.3 Colostomy status; Z98.1 Arthrodesis status
CPT/HCPCS: 36415; 71275; 74177; 80048; 80053; 81001; 82150; 83036; 83605; 83690; 85025; 85027; 87040; 87070; 87075; 87205; 87324; 94640; 94760; 96361; 96365; 96375; 99285

== ENCOUNTER → 2019-04-19 | Outpatient (CLI) | payer MEDICARE ==
[2019-04-19 15:24] LABS: HCT 38.1 % (34.0-46.0); HGB 12.1 gm/dL (11.4-16.0); Hypochromasia Slight; MCH 25.4 pg (25.0-35.0); MCHC 31.7 g/dL (31.0-37.0); MCV 80.3 fL (80.0-100.0); Mean Platelet Volume 7.1; Platelet Count 371 k/uL (150-450); RBC 4.75 m/uL (3.80-5.40); RDW 15.8 % (11.5-15.5); WBC 9.7 k/uL (3.8-10.6)
[2019-04-19 15:33] LABS: Potassium 4.6 mmol/L (3.5-5.1)
== END | disposition home or self-care (01) ==
LOC: LABPAT 14:03
PROVIDERS: ATTEND Surgery
DX: Z01.812 Encounter for preprocedural laboratory examination (principal); K57.32 Diverticulitis of large intestine without perforation or abscess without bleeding
CPT/HCPCS: 36415; 80051; 85027

== ENCOUNTER 2019-04-22 08:13 | Inpatient (IN) | payer MEDICARE ==
[~2019-04-22 08:13] MED LIST changes: +DEXAMETHASONE SOD PHOSPHATE 10 MG/ML 1 ML VIAL IV ONE; +HEPARIN SODIUM,PORCINE 5,000 UNIT/ML 1 ML VIAL SQ ONE; -LACTATED RINGERS 1,000 ML IV SCH; +LIDOCAINE 1% 20 ML VIAL (10MG/ML) FOR IV START INTRADERMA PRN; +METOCLOPRAMIDE 5 MG/ML 2 ML VIAL IVP PRN; +MIDAZOLAM 2 MG/2 ML VIAL IV PRN; +MORPHINE SULFATE 2 MG/ML SYRINGE IV PRN; +ONDANSETRON 4 MG/2 ML VIAL IVP ONE; +SCOPOLAMINE 1.5MG/72HR PATCH TRANSDERM ONE; +metroNIDAZOLE-NS PMX 500 MG in SALINE 1 100ML.BAG IVPB ONE
[2019-04-22] MEDS ORDERED: NA PHOS,M-B/NA PHOS,DI-BA 133 ML ENEMA RECTAL ONE (08:58)
[2019-04-22 09:16] LABS: Glucose,Whole Blood 327 mg/dL (75-99)
[2019-04-22] MEDS: fentaNYL (PF) 50 MCG/ML 2 ML AMP IV ONE ×2 (09:25→13:46)
[2019-04-22] MEDS: LACTATED RINGERS 1,000 ML IV SCH (09:47)
[2019-04-22] MEDS ORDERED: INSULIN ASPART (NovoLOG) 100 UNIT/ML VIAL SQ ONE (09:54)
--- NOTE | 2019-04-22 09:56 | P.GSHP ---
History of Present Illness H&P Date: 04/22/19 Chief Complaint: Diverticulitis This is a 54-year-old female who presents today for reversal colostomy. Patient has history of diverticulitis with Maxime procedure and then colostomy. Patient reversed surgery including anastomotic leak, recurrent colostomy, and wound infection. Past Medical History Past Medical History: Asthma, Heart Failure, COPD, Diabetes Mellitus, Eye Disorder, Fibromyalgia, GERD/Reflux, Hypertension, Musculoskeletal Disorder, Osteoarthritis (OA), Pneumonia, Thyroid Disorder Additional Past Medical History / Comment(s): current colostomy, states has 4cm hole in abd. incision, Wound center patient, skin breakdown near colostomy site, hx diverticulitis, glaucoma, states has herniated discs in back, neuropathy, narcolepsy, History of Any Multi-Drug Resistant Organisms: None Reported Past Surgical History: Back Surgery, Bladder Surgery, Cholecystectomy, Hysterectomy, Orthopedic Surgery Additional Past Surgical History / Comment(s): Colostomy 01/12/19, benign mass removed from bladder, meño carpal tunnel, cervical fusion c4-c6, right wrist cyst removed. Past Anesthesia/Blood Transfusion Reactions: Postoperative Nausea & Vomiting (PONV) Smoking Status: Current every day smoker - Past Family History Father Family Medical History: Coronary Artery Disease (CAD) Additional Family Medical History / Comment(s): quadruple bypass surgery Mother Family Medical History: Cancer Medications and Allergies Home Medications Medication Instructions Recorded Confirmed Type Levothyroxine Sodium [Synthroid] 100 mcg PO DAILY 07/29/15 04/22/19 History Budesonide/Formoterol Fumarate 2 puff INHALATION RT-HS 12/04/15 04/22/19 History [Symbicort 80-4.5 Mcg Inhaler] Ipratropium-Albuterol Nebulize 3 ml INHALATION RT-Q4H PRN 05/15/16 04/22/19 History [Duoneb 0.5 mg-3 mg/3 ml Soln] Potassium Chloride ER [K-Dur 20] 20 meq PO QAM 05/15/16 04/22/19 History HYDROcodone/APAP 10-325MG [[place] 1 tab PO TID PRN 04/13/17 04/22/19 History 10-325] metFORMIN HCL ER [Glucophage Xr] 500 mg PO BID 04/13/17 04/22/19 History Atorvastatin [Lipitor] 10 mg PO QAM 01/05/19 04/22/19 History Brimonidine Tartrate/Timolol 1 drop BOTH EYES BID 01/05/19 04/22/19 History [Combigan 0.2%-0.5% Eye Drops] Latanoprost Ophth [Xalatan 0.005%] 1 drops BOTH EYES HS 01/05/19 04/22/19 History Liraglutide [Victoza 2-Emerson] 1.2 mg SQ QAM 01/05/19 04/22/19 History Melatonin 6 mg PO HS 01/05/19 04/22/19 History Sertraline [Zoloft] 50 mg PO DAILY 01/05/19 04/22/19 History Carvedilol [Coreg] 3.125 mg PO BID 01/07/19 04/22/19 History Furosemide [Lasix] 20 mg PO DAILY 01/07/19 04/22/19 History Ibuprofen [Motrin] 600 mg PO Q8HR PRN #30 tab 01/17/19 04/22/19 Rx Albuterol Inhaler [Ventolin Hfa 2 puff INHALATION RT-Q6H PRN #1 inh 01/27/19 04/22/19 Rx Inhaler] Insulin Glargine [Lantus] 40 unit SQ HS 04/20/19 04/22/19 History Allergies Allergy/AdvReac Type Severity Reaction Status Date / Time hydromorphone [From Dilaudid] Allergy "makes me Verified 04/22/19 08:47 mean" Surgical - Exam Vital Signs Temp Pulse Resp BP Pulse Ox 98 F 72 16 169/96 98 04/22/19 09:22 04/22/19 09:22 04/22/19 09:22 04/22/19 09:22 04/22/19 09:22 - General well developed, well nourished, no distress - Eyes PERRL - ENT normal pinna - Neck no masses - Respiratory normal expansion - Cardiovascular Rhythm: regular - Abdomen Abdomen: soft, non tender Results - Labs Abnormal Lab Results - Last 24 Hours (Table) 04/22/19 Range/Units 09:14 POC Glucose (mg/dL) 327 H (75-99) mg/dL Assessment and Plan Assessment: History of diverticulitis. We'll perform reversal colostomy.
[2019-04-22] MEDS ORDERED: ROCURONIUM BROMIDE 10 MG/ML 10 ML VIAL IV ONE (10:29)
[2019-04-22] MEDS ORDERED: MIDAZOLAM 2 MG/2 ML VIAL ONE (10:29)
[2019-04-22] MEDS ORDERED: LIDOCAINE 1% INJ 10MG/ML (20 ML MDV) ONE (10:29)
[2019-04-22] MEDS ORDERED: HYDROmorphone (PF) 1 MG/ML ONE (10:29)
[2019-04-22] MEDS ORDERED: PROPOFOL 10 MG/ML 20 ML VIAL IV ONE (10:29)
[2019-04-22] MEDS ORDERED: fentaNYL (PF) 50 MCG/ML 2 ML AMP ONE (10:29)
[2019-04-22] MEDS ORDERED: GLYCOPYRROLATE 0.2 MG/ML 2 ML VIAL ONE (10:29)
[2019-04-22] MEDS ORDERED: NEOSTIGMINE 1 MG/ML 10 ML VIAL ONE (10:29)
[2019-04-22] MEDS ORDERED: NALOXONE 0.4 MG/ML 1 ML VIAL IV PRN (11:21)
[2019-04-22] MEDS: ROPIVACAINE 250 MG, HYDROMORPHONE (PF) 5 MG in SODIUM CHLORIDE 0.9% 200 ML EPIDURAL PRN ×3 (12:58→13:49)
[2019-04-22 13:13] LABS: Glucose,Whole Blood 235 mg/dL (75-99)
[2019-04-22] MEDS: KETOROLAC 30 MG/ML 1 ML VIAL IVP SCH ×3 (13:20→17:42)
[2019-04-22] MEDS: BENZOCAINE/MENTHOL LOZENG 1 EACH LOZENGE MUCOUS MEM PRN ×2 (14:07→16:56)
[2019-04-22] MEDS: D5-0.45% NACL WITH KCL 20MEQ/L 1,000 ML IV SCH ×2 (14:09→22:45)
--- NOTE | 2019-04-22 14:13 | P.OP ---
Date of Procedure: 04/22/19 Preoperative Diagnosis: Diverticulitis Postoperative Diagnosis: Diverticulitis Procedure(s) Performed: Reversal of colostomy Lysis of extensive adhesions Omentectomy Anesthesia: MITRA Surgeon: Rush Whitlock Estimated Blood Loss (ml): 100 Pathology: none sent (:) Condition: stable Disposition: PACU Description of Procedure: The patient's placed on the operating table in the supine position. She received general anesthesia. Her abdomen was prepped and draped in usual steril e fashion. The patient had a colostomy in the left lower quadrant. The colostomy have been squared off with an Ioban drape. The skin was incised in the midline. The abdomen was entered through the midline. There were extensive adhesions noted. Approximate 45 minutes of operative time used to lyse adhesions. Once the adhesions were freed. The Bookwalter retractors placed a wound. The colostomy was then transected at the fascial lever using LANDON stapler. The colostomy site was examined. It appeared to be viable. At this point the colon was mobilized by dividing the white line of Toldt's. Next the anvil for the EEA stapler was placed into the colon I opening the end of the colon and placing the anvil into the colon. The colon was then transected with a GI stapler. The mesentery of the colon was divided using the Enseal device and the specimen sent to pathology. Next the assistant auto center manager placed the anal dilator in the anus and then the 25 mm EEA stapler was placed anus. The spike was driven through the rectal wall. The endoscope to the stapler. The stapler closed and fired. 2 intact tissue rings were then withdrawn from stapler after the stapler was removed. Next using a hydrophilic timing inspector the distal colon was occluded and then the rectal anastomosis was checked with air insufflation. There is no evidence of any extravasation of air bubbles at the anastomosis. The abdomen was then irrigated. There is no bleeding seen. A piece of nonviable omentum was transected with a GI Enseal device. Clearance was used to close the fascia. 2 sutures were used to close the fascia with looped #1 PDS suture. Skin was closed christiana. The colostomy site was then excised with cautery. The fascia was closed with 0 Vicryl. Skin was closed table. The Prevenaie a wound system was placed on the closed christiana skin. Patient was sent to the recovery room stable condition.
[2019-04-22] MEDS ORDERED: SODIUM CHLORIDE 0.9% 1,000 ML IV ONE (15:51)
[2019-04-22 15:52] LABS: Anisocytosis Slight; Basophils % (A) 0 %; Eosinophils % (A) 0 %; HCT 35.2 % (34.0-46.0); HGB 11.3 gm/dL (11.4-16.0); Lymphocytes % (A) 11 %; MCH 25.6 pg (25.0-35.0); MCHC 31.9 g/dL (31.0-37.0); MCV 80.1 fL (80.0-100.0); Mean Platelet Volume 6.9; Microcytosis Slight; Monocytes # (A) 0.3 k/uL (0-1.0); Monocytes % (A) 3 %; Neutrophils # (A) 8.1 k/uL (1.3-7.7); Neutrophils % (A) 85 %; Platelet Count 312 k/uL (150-450); RDW 16.1 % (11.5-15.5); WBC 9.5 k/uL (3.8-10.6)
[2019-04-22 16:10] LABS: African American GFR (CKD) >90 (>60 ml/min/1.73 sqM); Anion Gap 8 mmol/L; Blood Urea Nitrogen 14 mg/dL (7-17); Calcium 9.6 mg/dL (8.4-10.2); Carbon Dioxide 27 mmol/L (22-30); Chloride 104 mmol/L (98-107); Glucose 234 mg/dL (74-99); Non-African American GFR(CKD) >90 (>60 ml/min/1.73 sqM); Potassium 4.4 mmol/L (3.5-5.1); Sodium 139 mmol/L (137-145)
[2019-04-22] MEDS: IPRATROPIUM-ALBUTEROL 3 ML NEB INHALATION PRN ×2 (16:34→23:54)
[2019-04-22 17:10] LABS: Glucose,Whole Blood 209 mg/dL (75-99)
[2019-04-22] MEDS: ACETAMINOPHEN IV (For NPO) 1,000 MG in EMPTY BAG 1 BAG IVPB SCH (17:37)
[2019-04-22 20:18] LABS: Glucose,Whole Blood 241 mg/dL (75-99)
[2019-04-22] MEDS: FAMOTIDINE 20 MG/2 ML VIAL IV SCH (20:31)
[2019-04-22] MEDS: INSULIN ASPART (NovoLOG) 100 UNIT/ML VIAL SQ SCH (20:31)
[2019-04-22] MEDS: diphenhydrAMINE 50 MG/ML 1 ML VIAL IVP PRN (20:31)
[2019-04-22 21:12] LABS: Glucose,Whole Blood 266 mg/dL (75-99)
[2019-04-23] MEDS: ACETAMINOPHEN IV (For NPO) 1,000 MG in EMPTY BAG 1 BAG IVPB SCH ×3 (00:11→11:17)
[2019-04-23] MEDS: KETOROLAC 30 MG/ML 1 ML VIAL IVP SCH ×5 (00:12→22:28)
[2019-04-23] MEDS: ONDANSETRON 4 MG/2 ML VIAL IVP PRN (02:30)
[2019-04-23] MEDS: diphenhydrAMINE 50 MG/ML 1 ML VIAL IVP PRN ×4 (02:31→20:58)
[2019-04-23] MEDS: BENZOCAINE/MENTHOL LOZENG 1 EACH LOZENGE MUCOUS MEM PRN ×5 (02:31→20:57)
[2019-04-23] MEDS: D5-0.45% NACL WITH KCL 20MEQ/L 1,000 ML IV SCH ×3 (03:56→18:48)
[2019-04-23] MEDS: ROPIVACAINE 250 MG, HYDROMORPHONE (PF) 5 MG in SODIUM CHLORIDE 0.9% 200 ML EPIDURAL PRN (03:57)
[2019-04-23] MEDS: LACTATED RINGERS 1,000 ML IV SCH (03:57)
[2019-04-23] MEDS: IPRATROPIUM-ALBUTEROL 3 ML NEB INHALATION PRN ×4 (04:26→21:09)
[2019-04-23 07:09] LABS: Glucose,Whole Blood 174 mg/dL (75-99)
[2019-04-23 07:11] LABS: Anisocytosis Slight; Basophils % (A) 0 %; Eosinophils # (A) 0.2 k/uL (0-0.7); Eosinophils % (A) 2 %; HCT 31.8 % (34.0-46.0); HGB 10.3 gm/dL (11.4-16.0); Lymphocytes # (A) 2.3 k/uL (1.0-4.8); Lymphocytes % (A) 19 %; MCH 25.9 pg (25.0-35.0); MCHC 32.4 g/dL (31.0-37.0); MCV 79.9 fL (80.0-100.0); Mean Platelet Volume 7.2; Monocytes # (A) 0.5 k/uL (0-1.0); Monocytes % (A) 4 %; Neutrophils # (A) 8.8 k/uL (1.3-7.7); Neutrophils % (A) 73 %; Platelet Count 320 k/uL (150-450); RBC 3.98 m/uL (3.80-5.40); RDW 16.2 % (11.5-15.5); WBC 12.1 k/uL (3.8-10.6)
[2019-04-23 07:24] LABS: African American GFR (CKD) >90 (>60 ml/min/1.73 sqM); Anion Gap 7 mmol/L; Blood Urea Nitrogen 20 mg/dL (7-17); Calcium 9.5 mg/dL (8.4-10.2); Carbon Dioxide 27 mmol/L (22-30); Chloride 104 mmol/L (98-107); Glucose 166 mg/dL (74-99); Non-African American GFR(CKD) >90 (>60 ml/min/1.73 sqM); Potassium 4.1 mmol/L (3.5-5.1); Sodium 138 mmol/L (137-145)
[2019-04-23] MEDS: ALVIMOPAN 12 MG CAPSULE PO SCH ×2 (07:48→19:09)
[2019-04-23] MEDS: FAMOTIDINE 20 MG/2 ML VIAL IV SCH ×2 (07:53→20:58)
[2019-04-23] MEDS: INSULIN ASPART (NovoLOG) 100 UNIT/ML VIAL SQ SCH ×4 (07:54→20:58)
--- NOTE | 2019-04-23 11:12 | P.PN ---
Progress Note - Text Progress Note Date: 04/23/19 The patient is very stressed about her epidural. She complains of some minor leg numbness. I've explained the patient that I recommend keeping the epidural for pain control however the patient adamant about having epidural removed. On exam her vital signs are stable. Her abdomen soft. Incision site is clean dry tach. Status post reversal of colostomy. Patient will have her epidural catheter removed today. She will remain nothing by mouth.
[2019-04-23] MEDS ORDERED: ALPRAZolam 0.25 MG TAB PO SCH (11:15)
[2019-04-23] MEDS: MORPHINE SULFATE 4 MG/ML SYRINGE IVP PRN ×4 (11:28→23:54)
--- NOTE | 2019-04-23 11:51 | P.PN ---
Progress Note - Text 04/23/2019 54-year-old female status post colostomy reversal by Dr. Whitlock. Patient had an epidural catheter for postop pain control which was DC'd by the solution this morning. Patient was seen and evaluated, she has a VAS of 6 and is also complaining of numbness in her right leg. The epidural infusion was decreased by the nurse this morning but subsequently the surgeon asked to DC the epidural. Plan to treat pain with ordered IV pain medication, as per the surgeon.
[2019-04-23 11:55] LABS: Glucose,Whole Blood 155 mg/dL (75-99)
[2019-04-23] MEDS: NICOTINE 14MG/24HR PATCH TRANSDERM SCH (12:08)
--- NOTE | 2019-04-23 13:35 | P.CONS ---
History of Present Illness - Reason for Consult Consult date: 04/23/19 diabetes and medical management Requesting physician: Rush Whitlock - History of Present Illness Kika is a 54 y/o wf well known to me. She has extensive pain issues related to neck and back. she has significant diverticulosis amd underwent partial colectomy with colostomy several months ago for this. She is POD#1 colostomy reversal. She had an epidural and is c/o right leg numbness. She had her epidural discontinued. She is c/o also of pruritis and anxiety. no Chest pain, pressure sob, nausea or vomitting. She is a diabetic and is on Metformin, victoza and lantus for this. Review of Systems All systems: negative Past Medical History Past Medical History: Asthma, Heart Failure, COPD, Diabetes Mellitus, Eye Disorder, Fibromyalgia, GERD/Reflux, Hypertension, Musculoskeletal Disorder, Osteoarthritis (OA), Pneumonia, Thyroid Disorder Additional Past Medical History / Comment(s): skin breakdown near colostomy site, hx diverticulitis, glaucoma, states has herniated discs in back, neuropathy, narcolepsy, History of Any Multi-Drug Resistant Organisms: None Reported Past Surgical History: Back Surgery, Bladder Surgery, Cholecystectomy, Hysterectomy, Orthopedic Surgery Additional Past Surgical History / Comment(s): Colostomy 01/12/19, benign mass removed from bladder, meño carpal tunnel, cervical fusion c4-c6, right wrist cyst removed. Past Anesthesia/Blood Transfusion Reactions: Postoperative Nausea & Vomiting (PONV) Smoking Status: Current every day smoker - Past Family History Father Family Medical History: Coronary Artery Disease (CAD) Additional Family Medical History / Comment(s): quadruple bypass surgery Mother Family Medical History: Cancer Medications and Allergies Home Medications Medication Instructions Recorded Confirmed Type Levothyroxine Sodium [Synthroid] 100 mcg PO DAILY 07/29/15 04/22/19 History Budesonide/Formoterol Fumarate 2 puff INHALATION RT-HS 12/04/15 04/22/19 History [Symbicort 80-4.5 Mcg Inhaler] Ipratropium-Albuterol Nebulize 3 ml INHALATION RT-Q4H PRN 05/15/16 04/22/19 History [Duoneb 0.5 mg-3 mg/3 ml Soln] Potassium Chloride ER [K-Dur 20] 20 meq PO QAM 05/15/16 04/22/19 History HYDROcodone/APAP 10-325MG [[place] 1 tab PO TID PRN 04/13/17 04/22/19 History 10-325] metFORMIN HCL ER [Glucophage Xr] 500 mg PO BID 04/13/17 04/22/19 History Atorvastatin [Lipitor] 10 mg PO QAM 01/05/19 04/22/19 History Brimonidine Tartrate/Timolol 1 drop BOTH EYES BID 01/05/19 04/22/19 History [Combigan 0.2%-0.5% Eye Drops] Latanoprost Ophth [Xalatan 0.005%] 1 drops BOTH EYES HS 01/05/19 04/22/19 History Liraglutide [Victoza 2-[place]] 1.2 mg SQ QAM 01/05/19 04/22/19 History Melatonin 6 mg PO HS 01/05/19 04/22/19 History Sertraline [Zoloft] 50 mg PO DAILY 01/05/19 04/22/19 History Carvedilol [Coreg] 3.125 mg PO BID 01/07/19 04/22/19 History Furosemide [Lasix] 20 mg PO DAILY 01/07/19 04/22/19 History Ibuprofen [Motrin] 600 mg PO Q8HR PRN #30 tab 01/17/19 04/22/19 Rx Albuterol Inhaler [Ventolin Hfa 2 puff INHALATION RT-Q6H PRN #1 inh 01/27/19 04/22/19 Rx Inhaler] Insulin Glargine [Lantus] 40 unit SQ HS 04/20/19 04/22/19 History Allergies Allergy/AdvReac Type Severity Reaction Status Date / Time hydromorphone [From Dilaudid] AdvReac "makes me Verified 04/22/19 14:10 mean" Physical Exam Vitals: Vital Signs Temp Pulse Pulse Pulse Resp BP Pulse Ox 04/23/19 11:28 80 04/23/19 11:17 88 04/23/19 07:50 76 04/23/19 07:34 80 04/23/19 07:00 99.2 F 89 16 114/74 96 04/23/19 04:36 76 04/23/19 04:27 76 04/23/19 04:00 15 04/23/19 00:45 15 04/23/19 00:06 80 04/22/19 23:55 80 04/22/19 23:51 99.3 F 85 16 102/66 96 04/22/19 19:27 97.8 F 76 18 111/53 95 04/22/19 19:10 16 04/22/19 16:47 80 04/22/19 16:35 76 04/22/19 13:40 79 16 114/59 98 Intake and Output 04/22/19 04/23/19 04/23/19 22:59 06:59 14:59 Intake Total 1500 Output Total 1150 Balance 350 Intake: Intake, IV Titration 1500 Amount D5-0.45% NaCl with KCl 1500 20Meq/l 1,000 ml @ 125 mls/hr IV .Q8H [facility] Rx#: [id number] Output: Gastric Drainage 150 Urine 1000 Uretheral ([place]) 600 Other: Voiding Method Indwelling Catheter - Constitutional General appearance: mild distress, obese - EENT Eyes: PERRLA ENT: normal oropharynx - Neck Neck: no lymphadenopathy, normal ROM - Respiratory Respiratory: bilateral: CTA - Cardiovascular Rhythm: regular Heart sounds: normal: S1, S2 Abnormal Heart Sounds: no systolic murmur - Gastrointestinal General gastrointestinal: normal bowel sounds, no splenomegaly - Neurologic Neurologic: CNII-XII intact - Psychiatric Psychiatric: A&O x's 3 Results CBC & Chem 7: 04/23/19 06:50 04/23/19 06:50 Labs: Abnormal Lab Results - Last 24 Hours (Table) 04/22/19 04/22/19 04/22/19 Range/Units 14:45 14:45 16:57 WBC (3.8-10.6) k/uL Hgb 11.3 L (11.4-16.0) gm/dL Hct (34.0-46.0) % MCV (80.0-100.0) fL RDW 16.1 H (11.5-15.5) % Neutrophils # 8.1 H (1.3-7.7) k/uL BUN (7-17) mg/dL Glucose 234 H (74-99) mg/dL POC Glucose (mg/dL) 209 H (75-99) mg/dL 04/22/19 04/22/19 04/23/19 Range/Units 20:17 21:00 06:50 WBC 12.1 H (3.8-10.6) k/uL Hgb 10.3 L (11.4-16.0) gm/dL Hct 31.8 L (34.0-46.0) % MCV 79.9 L (80.0-100.0) fL RDW 16.2 H (11.5-15.5) % Neutrophils # 8.8 H (1.3-7.7) k/uL BUN (7-17) mg/dL Glucose (74-99) mg/dL POC Glucose (mg/dL) 241 H 266 H (75-99) mg/dL 04/23/19 04/23/19 04/23/19 Range/Units 06:50 06:58 11:44 WBC (3.8-10.6) k/uL Hgb (11.4-16.0) gm/dL Hct (34.0-46.0) % MCV (80.0-100.0) fL RDW (11.5-15.5) % Neutrophils # (1.3-7.7) k/uL BUN 20 H (7-17) mg/dL Glucose 166 H (74-99) mg/dL POC Glucose (mg/dL) 174 H 155 H (75-99) mg/dL Assessment and Plan (1) Anxiety Current Visit: Yes Status: Acute Code(s): F41.9 - ANXIETY DISORDER, UNSPECIFIED SNOMED Code(s): 29740884 (2) Drug-induced pruritus Current Visit: Yes Status: Acute Code(s): L29.8 - OTHER PRURITUS; T50.905A - ADVERSE EFFECT OF UNSP DRUG/MEDS/BIOL SUBST, INIT SNOMED Code(s): 514600884 (3) Abdominal pain Current Visit: No Status: Acute Code(s): R10.9 - UNSPECIFIED ABDOMINAL PAIN SNOMED Code(s): 15788122 (4) Cervical fusion syndrome Current Visit: No Status: Acute Code(s): Q76.1 - KLIPPEL-FEIL SYNDROME SNOMED Code(s): 6480628 (5) Chronic pain syndrome Current Visit: No Status: Acute Code(s): G89.4 - CHRONIC PAIN SYNDROME SNOMED Code(s): 884192302 (6) History of multiple sclerosis Current Visit: No Status: Acute Code(s): Z86.69 - PERSONAL HISTORY OF DIS OF THE NERVOUS SYS AND SENSE ORGANS SNOMED Code(s): 718721278 (7) Obesity Current Visit: No Status: Acute Code(s): E66.9 - OBESITY, UNSPECIFIED SNOMED Code(s): 027121852 (8) COPD (chronic obstructive pulmonary disease) Current Visit: No Status: Chronic Code(s): J44.9 - CHRONIC OBSTRUCTIVE PULMONARY DISEASE, UNSPECIFIED SNOMED Code(s): 51126229 (9) Diabetes Current Visit: No Status: Chronic Code(s): E11.9 - TYPE 2 DIABETES MELLITUS WITHOUT COMPLICATIONS SNOMED Code(s): 64302454 (10) Status post cervical spinal fusion Current Visit: No Status: Chronic Code(s): Z98.1 - ARTHRODESIS STATUS SNOM ED Code(s): 4584313733103 (11) Tobacco dependence Current Visit: Yes Status: Acute Code(s): F17.200 - NICOTINE DEPENDENCE, UNSPECIFIED, UNCOMPLICATED SNOMED Code(s): 50146243 Plan: I will increase benadryl to 50mg q6hr prn for itch 0.25mg xanax for anxiety nocotine patch repeat labs in am monitor glucose will reevalaute in 24 hrs
[2019-04-23 17:00] LABS: Glucose,Whole Blood 178 mg/dL (75-99)
[2019-04-23] MEDS: BENZOCAINE SPRAY 1 CAN MUCOUS MEM PRN ×2 (17:23→23:54)
[2019-04-23 20:49] LABS: Glucose,Whole Blood 165 mg/dL (75-99)
[2019-04-24] MEDS: KETOROLAC 30 MG/ML 1 ML VIAL IVP SCH (01:01)
[2019-04-24] MEDS: ALPRAZolam 0.25 MG TAB PO PRN (02:30)
[2019-04-24] MEDS: BENZOCAINE/MENTHOL LOZENG 1 EACH LOZENGE MUCOUS MEM PRN ×3 (02:30→10:20)
[2019-04-24] MEDS: LACTATED RINGERS 1,000 ML IV SCH (02:38)
[2019-04-24] MEDS: D5-0.45% NACL WITH KCL 20MEQ/L 1,000 ML IV SCH ×3 (03:49→20:42)
[2019-04-24] MEDS: MORPHINE SULFATE 4 MG/ML SYRINGE IVP PRN ×5 (03:55→23:47)
[2019-04-24] MEDS: IPRATROPIUM-ALBUTEROL 3 ML NEB INHALATION PRN ×5 (04:10→20:45)
[2019-04-24] MEDS: diphenhydrAMINE 50 MG/ML 1 ML VIAL IVP PRN ×3 (05:06→20:42)
[2019-04-24] MEDS: ALVIMOPAN 12 MG CAPSULE PO SCH ×2 (07:03→20:38)
[2019-04-24 07:08] LABS: Glucose,Whole Blood 217 mg/dL (75-99)
[2019-04-24] MEDS: FAMOTIDINE 20 MG/2 ML VIAL IV SCH ×2 (07:12→20:42)
[2019-04-24] MEDS: INSULIN ASPART (NovoLOG) 100 UNIT/ML VIAL SQ SCH ×4 (07:13→20:43)
[2019-04-24] MEDS: BENZOCAINE SPRAY 1 CAN MUCOUS MEM PRN (07:13)
[2019-04-24] MEDS: NICOTINE 14MG/24HR PATCH TRANSDERM SCH (07:14)
[2019-04-24 08:33] LABS: African American GFR (CKD) >90 (>60 ml/min/1.73 sqM); Anion Gap 6 mmol/L; Blood Urea Nitrogen 12 mg/dL (7-17); Carbon Dioxide 27 mmol/L (22-30); Chloride 105 mmol/L (98-107); Glucose 208 mg/dL (74-99); Non-African American GFR(CKD) >90 (>60 ml/min/1.73 sqM); Potassium 4.3 mmol/L (3.5-5.1); Sodium 138 mmol/L (137-145)
[2019-04-24 08:44] LABS: Anisocytosis Slight; HCT 29.3 % (34.0-46.0); HGB 9.7 gm/dL (11.4-16.0); MCH 26.4 pg (25.0-35.0); MCHC 33.2 g/dL (31.0-37.0); MCV 79.4 fL (80.0-100.0); Mean Platelet Volume 7.1; Microcytosis Slight; Platelet Count 258 k/uL (150-450); RBC 3.69 m/uL (3.80-5.40); RDW 16.1 % (11.5-15.5)
--- NOTE | 2019-04-24 10:45 | P.PN ---
Progress Note - Text Progress Note Date: 04/24/19 The patient is resting comfortably in her bed. She had her epidural removed yesterday. She has had some incisional pain. She has had some bowel sounds however there is no flatus. On exam her vital signs are stable. Her abdomen soft. Her incision site is clean dry intact. Status post reversal of colostomy. Patient will remain nothing by mouth with NG tube until she has significant bowel function.
[2019-04-24 11:41] LABS: Glucose,Whole Blood 159 mg/dL (75-99)
[2019-04-24 11:53] LABS: Eosinophils # (M) 0.33 k/uL (0-0.7); Lymphocytes # (M) 2.31 k/uL (1.0-4.8); Monocytes # (M) 0.44 k/uL (0-1.0); Neutrophils # (M) 7.92 k/uL (1.3-7.7); Neutrophils % (M) 72 %; Nucleated Red Blood Cells 0 /100 WBC (0-0); Total Cells Counted 100
[2019-04-24] MEDS: ONDANSETRON 4 MG/2 ML VIAL IVP PRN (12:01)
[2019-04-24 17:11] LABS: Glucose,Whole Blood 193 mg/dL (75-99)
[2019-04-24 20:28] LABS: Glucose,Whole Blood 186 mg/dL (75-99)
[2019-04-25] MEDS: ONDANSETRON 4 MG/2 ML VIAL IVP PRN (01:50)
[2019-04-25] MEDS: diphenhydrAMINE 50 MG/ML 1 ML VIAL IVP PRN ×3 (03:26→17:39)
[2019-04-25] MEDS: MORPHINE SULFATE 4 MG/ML SYRINGE IVP PRN ×4 (04:47→20:41)
[2019-04-25] MEDS: LACTATED RINGERS 1,000 ML IV SCH (04:47)
[2019-04-25] MEDS: D5-0.45% NACL WITH KCL 20MEQ/L 1,000 ML IV SCH ×3 (04:47→17:39)
[2019-04-25 07:12] LABS: Glucose,Whole Blood 185 mg/dL (75-99)
[2019-04-25 07:23] LABS: Basophils % (A) 0 %; Eosinophils # (A) 0.5 k/uL (0-0.7); Eosinophils % (A) 4 %; HCT 32.2 % (34.0-46.0); HGB 10.6 gm/dL (11.4-16.0); Lymphocytes # (A) 2.1 k/uL (1.0-4.8); Lymphocytes % (A) 18 %; MCH 25.8 pg (25.0-35.0); MCHC 32.8 g/dL (31.0-37.0); MCV 78.8 fL (80.0-100.0); Mean Platelet Volume 6.9; Microcytosis Slight; Monocytes # (A) 0.5 k/uL (0-1.0); Monocytes % (A) 4 %; Neutrophils # (A) 8.5 k/uL (1.3-7.7); Neutrophils % (A) 72 %; Platelet Count 297 k/uL (150-450); RBC 4.09 m/uL (3.80-5.40); RDW 15.9 % (11.5-15.5); WBC 11.8 k/uL (3.8-10.6)
[2019-04-25 07:40] LABS: African American GFR (CKD) >90 (>60 ml/min/1.73 sqM); Anion Gap 7 mmol/L; Blood Urea Nitrogen 5 mg/dL (7-17); Calcium 9.5 mg/dL (8.4-10.2); Carbon Dioxide 31 mmol/L (22-30); Chloride 101 mmol/L (98-107); Glucose 192 mg/dL (74-99); Non-African American GFR(CKD) >90 (>60 ml/min/1.73 sqM); Sodium 139 mmol/L (137-145)
[2019-04-25] MEDS: ALVIMOPAN 12 MG CAPSULE PO SCH ×2 (07:44→20:32)
[2019-04-25] MEDS: INSULIN ASPART (NovoLOG) 100 UNIT/ML VIAL SQ SCH ×4 (07:55→20:36)
[2019-04-25] MEDS: NICOTINE 14MG/24HR PATCH TRANSDERM SCH (07:56)
[2019-04-25] MEDS: FAMOTIDINE 20 MG/2 ML VIAL IV SCH ×2 (07:56→20:36)
[2019-04-25] MEDS: IPRATROPIUM-ALBUTEROL 3 ML NEB INHALATION PRN ×3 (08:56→19:50)
--- NOTE | 2019-04-25 10:53 | P.PN ---
Subjective Progress Note Date: 04/25/19 CHIEF COMPLAINT: diverticulitis HISTORY OF PRESENT ILLNESS: Patient examined this morning at the bedside. She is status post reversal of colostomy performed on 04/22/2019. Patient reports her pain has been tolerable with IV narcotics. She reports having one bowel movement overnight and a second bowel movement this morning. NG tube to low intermittent suction with 100 mL of bilious drainage so far this morning. WBC 11.8. Hemoglobin 10.6. Vital signs stable. Afebrile. PHYSICAL EXAM: VITAL SIGNS: Reviewed. GENERAL: Well-developed in no acute distress. HEENT: No sclera icterus. Extraocular movements grossly intact. Moist buccal mucosa. Head is atraumatic, normocephalic. ABDOMEN: Soft. Nondistended. Appropriate surgical tenderness. PREVENA wound system noted. NEUROLOGIC: Alert and oriented. Cranial nerves II through XII grossly intact. ASSESSMENT: 1. History of diverticulitis, status post reversal of colostomy PLAN: 1. Discontinue NG tube 2. Begin clear liquid diet 3. Pain control. Continue IV narcotics as needed. Resume home dose of [place] 10mg Q8 hours. 4. Incentive spirometry 10 times an hour 5. Activity as tolerated Nurse practitioner note has been reviewed by physician. Signing provider agrees with the documented findings, assessment, and plan of care. Objective - Vital Signs Vital signs: Vital Signs Temp 98.6 F 04/25/19 08:09 Pulse 83 04/25/19 09:06 Resp 17 04/25/19 08:09 BP 131/74 04/25/19 08:09 Pulse Ox 97 04/25/19 08:59 Intake & Output 04/24/19 04/25/19 04/25/19 18:59 06:59 18:59 Intake Total 1500 Output Total 301 Balance 1199 Intake: Intake, IV Titration 1500 Amount D5-0.45% NaCl with KCl 1500 20Meq/l 1,000 ml @ 125 mls/hr IV .Q8H [facility] Rx#: [id number] Output: Gastric Drainage 300 Stool 1 Other: Voiding Method Toilet Toilet # Voids 3 2 - Labs CBC & Chem 7: 04/25/19 07:04 04/25/19 07:04 Labs: Abnormal Lab Results - Last 24 Hours (Table) 04/24/19 04/24/19 04/24/19 Range/Units 07:19 11:29 17:09 WBC (3.8-10.6) k/uL Hgb (11.4-16.0) gm/dL Hct (34.0-46.0) % MCV (80.0-100.0) fL RDW (11.5-15.5) % Neutrophils # (1.3-7.7) k/uL Neutrophils # (Manual) 7.92 H (1.3-7.7) k/uL Carbon Dioxide (22-30) mmol/L BUN (7-17) mg/dL Glucose (74-99) mg/dL POC Glucose (mg/dL) 159 H 193 H (75-99) mg/dL 04/24/19 04/25/19 04/25/19 Range/Units 20:11 07:04 07:04 WBC 11.8 H (3.8-10.6) k/uL Hgb 10.6 L (11.4-16.0) gm/dL Hct 32.2 L (34.0-46.0) % MCV 78.8 L (80.0-100.0) fL RDW 15.9 H (11.5-15.5) % Neutrophils # 8.5 H (1.3-7.7) k/uL Neutrophils # (Manual) (1.3-7.7) k/uL Carbon Dioxide 31 H (22-30) mmol/L BUN 5 L (7-17) mg/dL Glucose 192 H (74-99) mg/dL POC Glucose (mg/dL) 186 H (75-99) mg/dL 04/25/19 Range/Units 07:10 WBC (3.8-10.6) k/uL Hgb (11.4-16.0) gm/dL Hct (34.0-46.0) % MCV (80.0-100.0) fL RDW (11.5-15.5) % Neutrophils # (1.3-7.7) k/uL Neutrophils # (Manual) (1.3-7.7) k/uL Carbon Dioxide (22-30) mmol/L BUN (7-17) mg/dL Glucose (74-99) mg/dL POC Glucose (mg/dL) 185 H (75-99) mg/dL
[2019-04-25 10:56] VITALS: BMI 35.9
[2019-04-25 12:01] LABS: Glucose,Whole Blood 172 mg/dL (75-99)
[2019-04-25] MEDS: METOCLOPRAMIDE 5 MG/ML 2 ML VIAL IVP PRN (13:42)
[2019-04-25] MEDS: HYDROcodone/APAP 10-325MG 1 EACH TAB PO PRN (14:56)
[2019-04-25 16:55] LABS: Glucose,Whole Blood 171 mg/dL (75-99)
[2019-04-25 20:17] LABS: Glucose,Whole Blood 223 mg/dL (75-99)
[2019-04-25] MEDS: ALPRAZolam 0.25 MG TAB PO PRN (20:36)
[2019-04-26] MEDS: MORPHINE SULFATE 4 MG/ML SYRINGE IVP PRN ×5 (01:16→23:54)
[2019-04-26] MEDS: diphenhydrAMINE 50 MG/ML 1 ML VIAL IVP PRN ×3 (01:17→21:49)
[2019-04-26] MEDS: D5-0.45% NACL WITH KCL 20MEQ/L 1,000 ML IV SCH ×3 (01:22→20:48)
[2019-04-26] MEDS: LACTATED RINGERS 1,000 ML IV SCH (02:41)
[2019-04-26] MEDS: HYDROcodone/APAP 10-325MG 1 EACH TAB PO PRN ×2 (06:12→17:21)
[2019-04-26 07:23] LABS: Glucose,Whole Blood 181 mg/dL (75-99)
[2019-04-26] MEDS: FAMOTIDINE 20 MG/2 ML VIAL IV SCH (08:05)
[2019-04-26] MEDS: ALVIMOPAN 12 MG CAPSULE PO SCH ×2 (08:05→20:42)
[2019-04-26] MEDS: NICOTINE 14MG/24HR PATCH TRANSDERM SCH (08:05)
[2019-04-26] MEDS: INSULIN ASPART (NovoLOG) 100 UNIT/ML VIAL SQ SCH ×4 (08:06→20:42)
[2019-04-26] MEDS: IPRATROPIUM-ALBUTEROL 3 ML NEB INHALATION PRN ×2 (08:48→11:39)
[2019-04-26 11:16] LABS: Glucose,Whole Blood 179 mg/dL (75-99)
--- NOTE | 2019-04-26 12:21 | P.PN ---
Subjective Progress Note Date: 04/26/19 CHIEF COMPLAINT: diverticulitis HISTORY OF PRESENT ILLNESS: Patient examined this morning at the bedside. She is status post reversal of colostomy performed on 04/22/2019. Patient reports her pain has been tolerable. NG DC yesterday. Tolerating clear liquid diet. Passing flatus and having BMs. Denies nausea or vomiting. Vital signs stable. Afebrile. PHYSICAL EXAM: VITAL SIGNS: Reviewed. GENERAL: Well-developed in no acute distress. HEENT: No sclera icterus. Extraocular movements grossly intact. Moist buccal mucosa. Head is atraumatic, normocephalic. ABDOMEN: Soft. Nondistended. Appropriate surgical tenderness. PREVENA wound s ystem noted. NEUROLOGIC: Alert and oriented. Cranial nerves II through XII grossly intact. ASSESSMENT: 1. History of diverticulitis, status post reversal of colostomy PLAN: 1. Advance diet to full liquid 2. Pain control. Continue home dose of [place] 10mg Q8 hours. 3. Incentive spirometry 10 times an hour 4. Activity as tolerated Nurse practitioner note has been reviewed by physician. Signing provider agrees with the documented findings, assessment, and plan of care. Objective - Vital Signs Vital signs: Vital Signs Temp 98.5 F 04/26/19 09:34 Pulse 92 04/26/19 11:48 Resp 18 04/26/19 09:34 BP 137/70 04/26/19 09:34 Pulse Ox 97 04/26/19 09:34 Intake & Output 04/25/19 04/26/19 04/26/19 18:59 06:59 18:59 Intake Total 240 Balance 240 Weight 95 kg Intake: Oral 240 Other: Voiding Method Toilet # Voids 3 - Labs CBC & Chem 7: 04/25/19 07:04 04/25/19 07:04 Labs: Abnormal Lab Results - Last 24 Hours (Table) 04/25/19 04/25/19 04/26/19 Range/Units 16:51 20:05 07:11 POC Glucose (mg/dL) 171 H 223 H 181 H (75-99) mg/dL 04/26/19 Range/Units 11:04 POC Glucose (mg/dL) 179 H (75-99) mg/dL
[2019-04-26] MEDS: SERTRALINE 50 MG TAB PO SCH (13:43)
[2019-04-26] MEDS: LEVOTHYROXINE 100 MCG TAB PO SCH (13:43)
[2019-04-26] MEDS: CARVEDILOL 3.125 MG TAB PO SCH ×2 (13:43→16:50)
[2019-04-26] MEDS: TIMOLOL 0.5% OPHTH DROPS 5 ML BTL BOTH EYES SCH ×2 (13:44→21:48)
[2019-04-26] MEDS: PANTOPRAZOLE 40 MG/10 ML VIAL IVP SCH (13:44)
--- NOTE | 2019-04-26 14:07 | P.PN ---
Subjective Progress Note Date: 04/26/19 Kika is a 54 y/o wf well known to me. She has extensive pain issues related to neck and back. she has significant diverticulosis amd underwent partial colectomy with colostomy several months ago for this. She is POD#1 colostomy reversal. She had an epidural and is c/o right leg numbness. She had her epidural discontinued. She is c/o also of pruritis and anxiety. no Chest pain, pressure sob, nausea or vomitting. She is a diabetic and is on Metformin, victoza and lantus for this. 04/26/2019 NG tube discontinued yesterday. Denies nausea, vomiting. Tolerating clear liquid diet, advanced to full liquids. Positive bowel movement on Thursday and Thursday. Ambulated 3 times already today in the hallway. Incentive spirometer up to 1999. States her anxiety is much better controlled on Xanax. Afebrile, vital signs stable. Objective - Vital Signs Vital signs: Vital Signs Temp 98.5 F 04/26/19 09:34 Pulse 92 04/26/19 11:48 Resp 18 04/26/19 09:34 BP 137/70 04/26/19 09:34 Pulse Ox 97 04/26/19 09:34 Intake & Output 04/25/19 04/26/19 04/26/19 18:59 06:59 18:59 Intake Total 240 Balance 240 Weight 95 kg Intake: Oral 240 Other: # Voids 3 - Exam - Constitutional General appearance: Sitting up in bed, no acute distress - EENT Eyes: PERRLA ENT: normal oropharynx - Neck Neck: no lymphadenopathy, normal ROM - Respiratory Respiratory: bilateral: CTA - Cardiovascular Rhythm: regular Heart sounds: normal: S1, S2 Abnormal Heart Sounds: no systolic murmur - Gastrointestinal General gastrointestinal: normal bowel sounds, no splenomegaly, status post s urgery, prevena wound system present. - Neurologic Neurologic: CNII-XII intact - Psychiatric Psychiatric: A&O x's 3 - Labs CBC & Chem 7: 04/25/19 07:04 04/25/19 07:04 Labs: Abnormal Lab Results - Last 24 Hours (Table) 04/25/19 04/25/19 04/25/19 Range/Units 11:57 16:51 20:05 POC Glucose (mg/dL) 172 H 171 H 223 H (75-99) mg/dL 04/26/19 04/26/19 Range/Units 07:11 11:04 POC Glucose (mg/dL) 181 H 179 H (75-99) mg/dL Assessment and Plan Assessment: (1) history of diverticulitis, status post reversal of colostomy - Anxiety Current Visit: Yes Status: Acute Code(s): F41.9 - ANXIETY DISORDER, UNS PECIFIED SNOMED Code(s): 61124064 (2) Drug-induced pruritus Current Visit: Yes Status: Acute Code(s): L29.8 - OTHER PRURITUS; T50.905A - ADVERSE EFFECT OF UNSP DRUG/MEDS/BIOL SUBST, INIT SNOMED Code(s): 233561841 (3) Abdominal pain Current Visit: No Status: Acute Code(s): R10.9 - UNSPECIFIED ABDOMINAL PAIN SNOMED Code(s): 81756997 (4) Cervical fusion syndrome Current Visit: No Status: Acute Code(s): Q76.1 - KLIPPEL-FEIL SYNDROME SNOMED Code(s): 6393461 (5) Chronic pain syndrome Current Visit: No Status: Acute Code(s): G89.4 - CHRONIC PAIN SYNDROME SNOMED Code(s): 318556028 (6) History of multiple sclerosis Current Visit: No Status: Acute Code(s): Z86.69 - PERSONAL HISTORY OF DIS OF THE NERVOUS SYS AND SENSE ORGANS SNOMED Code(s): 238650673 (7) Obesity Current Visit: No Status: Acute Code(s): E66.9 - OBESITY, UNSPECIFIED SNOMED Code(s): 485322042 (8) COPD (chronic obstructive pulmonary disease) Current Visit: No Status: Chronic Code(s): J44.9 - CHRONIC OBSTRUCTIVE PULMONARY DISEASE, UNSPECIFIED SNOMED Code(s): 17160037 (9) Diabetes Current Visit: No Status: Chronic Code(s): E11.9 - TYPE 2 DIABETES MELLITUS WITHOUT COMPLICATIONS SNOMED Code(s): 74858991 (10) Status post cervical spinal fusion Current Visit: No Status: Chronic Code(s): Z98.1 - ARTHRODESIS STATUS SNOMED Code(s): 0574731636577 (11) Tobacco dependence Current Visit: Yes Status: Acute Code(s): F17.200 - NICOTINE DEPENDENCE, UNSPECIFIED, UNCOMPLICATED SNOMED Code(s): 13832349 Plan: Continue current medication regime ,monitoring and stenotic treatment. Diet advancement/pain management as per surgery. Increase ambulation as tolerated. Aggressive pulmonary toileting with incentive spirometer reinforced. Discharge planning in progress as per surgery for the next 24-48 hours. Further recommendations to follow. The impression and plan of care has been dictated as directed. : I performed a history and examination of this patient, discussed the same with the dictator. I agree with the dictator's note ,documented as a scribe. Any additional findings or plans will be noted.
[2019-04-26] MEDS: IPRATROPIUM-ALBUTEROL 3 ML NEB INHALATION SCH ×2 (15:15→19:30)
[2019-04-26 16:44] LABS: Glucose,Whole Blood 177 mg/dL (75-99)
[2019-04-26] MEDS: ONDANSETRON 4 MG/2 ML VIAL IVP PRN (19:28)
[2019-04-26] MEDS: SYMBICORT 80-4.5 MCG INHALER INHALATION SCH (19:29)
[2019-04-26] MEDS: BENZOCAINE/MENTHOL LOZENG 1 EACH LOZENGE MUCOUS MEM PRN (19:34)
[2019-04-26 20:29] LABS: Glucose,Whole Blood 204 mg/dL (75-99)
[2019-04-26] MEDS: MELATONIN 3 MG TABLET PO SCH (20:42)
[2019-04-26] MEDS: ALPRAZolam 0.25 MG TAB PO PRN (20:42)
[2019-04-26] MEDS: BRIMONIDINE TARTRATE 0.2% DROPS 5 ML BTL BOTH EYES SCH (20:43)
[2019-04-26] MEDS: LATANOPROST 0.005% OPHTH DROPS 2.5 ML BTL BOTH EYES SCH (20:44)
[2019-04-26] MEDS: INSULIN DETEMIR (LEVEMIR) 100 UNIT/ML SYR SQ SCH (20:46)
[2019-04-26] MEDS ORDERED: FAMOTIDINE 20 MG TAB PO SCH (21:00)
[2019-04-26] MEDS: METOCLOPRAMIDE 5 MG/ML 2 ML VIAL IVP PRN (23:54)
[2019-04-27] MEDS: HYDROcodone/APAP 10-325MG 1 EACH TAB PO PRN ×2 (01:51→11:08)
[2019-04-27] MEDS: diphenhydrAMINE 50 MG/ML 1 ML VIAL IVP PRN ×3 (03:24→19:36)
[2019-04-27] MEDS: MORPHINE SULFATE 4 MG/ML SYRINGE IVP PRN ×4 (04:23→19:36)
[2019-04-27] MEDS: D5-0.45% NACL WITH KCL 20MEQ/L 1,000 ML IV SCH ×2 (04:28→17:19)
[2019-04-27] MEDS: LACTATED RINGERS 1,000 ML IV SCH (04:29)
[2019-04-27] MEDS: LEVOTHYROXINE 100 MCG TAB PO SCH (06:02)
[2019-04-27 07:00] LABS: Glucose,Whole Blood 77 mg/dL (75-99)
[2019-04-27 07:04] LABS: Anisocytosis Slight; Basophils # (A) 0.1 k/uL (0-0.2); Basophils % (A) 1 %; Eosinophils # (A) 0.3 k/uL (0-0.7); Eosinophils % (A) 4 %; HCT 30.3 % (34.0-46.0); HGB 9.7 gm/dL (11.4-16.0); Lymphocytes # (A) 2.8 k/uL (1.0-4.8); Lymphocytes % (A) 39 %; MCH 25.7 pg (25.0-35.0); MCHC 31.9 g/dL (31.0-37.0); MCV 80.7 fL (80.0-100.0); Mean Platelet Volume 7.3; Monocytes # (A) 0.4 k/uL (0-1.0); Monocytes % (A) 5 %; Neutrophils # (A) 3.5 k/uL (1.3-7.7); Neutrophils % (A) 49 %; Platelet Count 376 k/uL (150-450); RBC 3.75 m/uL (3.80-5.40); RDW 16.5 % (11.5-15.5); WBC 7.2 k/uL (3.8-10.6)
[2019-04-27 07:24] LABS: African American GFR (CKD) >90 (>60 ml/min/1.73 sqM); Anion Gap 7 mmol/L; Blood Urea Nitrogen 4 mg/dL (7-17); Calcium 9.7 mg/dL (8.4-10.2); Carbon Dioxide 32 mmol/L (22-30); Chloride 101 mmol/L (98-107); Glucose 70 mg/dL (74-99); Non-African American GFR(CKD) >90 (>60 ml/min/1.73 sqM); Potassium 4.2 mmol/L (3.5-5.1); Sodium 140 mmol/L (137-145)
[2019-04-27] MEDS: PANTOPRAZOLE 40 MG/10 ML VIAL IVP SCH (08:42)
[2019-04-27] MEDS: NICOTINE 14MG/24HR PATCH TRANSDERM SCH (08:42)
[2019-04-27] MEDS: SERTRALINE 50 MG TAB PO SCH (08:43)
[2019-04-27] MEDS: CARVEDILOL 3.125 MG TAB PO SCH ×2 (08:43→17:19)
[2019-04-27] MEDS: BRIMONIDINE TARTRATE 0.2% DROPS 5 ML BTL BOTH EYES SCH ×2 (08:43→20:33)
[2019-04-27] MEDS: ALPRAZolam 0.25 MG TAB PO PRN ×2 (08:43→21:16)
[2019-04-27] MEDS: TIMOLOL 0.5% OPHTH DROPS 5 ML BTL BOTH EYES SCH ×2 (08:43→20:32)
[2019-04-27] MEDS: INSULIN ASPART (NovoLOG) 100 UNIT/ML VIAL SQ SCH ×4 (08:44→20:32)
[2019-04-27] MEDS: ALVIMOPAN 12 MG CAPSULE PO SCH (08:44)
[2019-04-27] MEDS: IPRATROPIUM-ALBUTEROL 3 ML NEB INHALATION SCH ×4 (09:29→20:58)
--- NOTE | 2019-04-27 10:35 | P.PN ---
Subjective Progress Note Date: 04/27/19 CHIEF COMPLAINT: diverticulitis HISTORY OF PRESENT ILLNESS: Patient examined this morning at the bedside. She is status post reversal of colostomy performed on 04/22/2019. She is tolerating full liquid diet. Passing flatus and having frequent loose stools. Denies nausea or vomiting. Pain controlled this morning with current regimen. Vital signs stable. PHYSICAL EXAM: VITAL SIGNS: Reviewed. GENERAL: Well-developed in no acute distress. HEENT: No sclera icterus. Extraocular movements grossly intact. Moist buccal mucosa. Head is atraumatic, normocephalic. ABDOMEN: Soft. Nondistended. Appropriate surgical tenderness. PREVENA wound system noted. NEUROLOGIC: Alert and oriented. Cranial nerves II through XII grossly intact. ASSESSMENT: 1. History of diverticulitis, status post reversal of colostomy PLAN: 1. Advance diet to low fiber. Patient requesting to speak with dietitian re garding further education of diet once she is discharged home. 2. Pain control. Continue home dose of [place] 10mg Q8 hours. 3. Incentive spirometry 10 times an hour 4. Activity as tolerated 5. Anticipate discharge home tomorrow if patient remains stable Nurse practitioner note has been reviewed by physician. Signing provider agrees with the documented findings, assessment, and plan of care. Objective - Vital Signs Vital signs: Vital Signs Temp 98.8 F 04/27/19 07:42 Pulse 66 04/27/19 08:00 Resp 17 04/27/19 08:00 BP 113/69 04/27/19 07:42 Pulse Ox 98 04/27/19 07:42 Intake & Output 04/26/19 04/27/19 04/27/19 18:59 06:59 18:59 Intake Total 1595 390 Balance 1595 390 Intake: Intake, IV Titration 875 Amount D5-0.45% NaCl with KCl 875 20Meq/l 1,000 ml @ 125 mls/hr IV .Q8H [facility] Rx#: [id number] Oral 720 390 Other: Voiding Method Toilet Toilet - Labs CBC & Chem 7: 04/27/19 06:08 04/27/19 06:08 Labs: Abnormal Lab Results - Last 24 Hours (Table) 04/26/19 04/26/19 04/26/19 Range/Units 11:04 16:32 20:17 RBC (3.80-5.40) m/uL Hgb (11.4-16.0) gm/dL Hct (34.0-46.0) % RDW (11.5-15.5) % Carbon Dioxide (22-30) mmol/L BUN (7-17) mg/dL Glucose (74-99) mg/dL POC Glucose (mg/dL) 179 H 177 H 204 H (75-99) mg/dL 04/27/19 04/27/19 Range/Units 06:08 06:08 RBC 3.75 L (3.80-5.40) m/uL Hgb 9.7 L (11.4-16.0) gm/dL Hct 30.3 L (34.0-46.0) % RDW 16.5 H (11.5-15.5) % Carbon Dioxide 32 H (22-30) mmol/L BUN 4 L (7-17) mg/dL Glucose 70 L (74-99) mg/dL POC Glucose (mg/dL) (75-99) mg/dL
[2019-04-27 12:14] LABS: Glucose,Whole Blood 176 mg/dL (75-99)
[2019-04-27] MEDS: valACYclovir HCL 1,000 MG TABLET PO SCH (15:57)
--- NOTE | 2019-04-27 16:37 | P.PN ---
Subjective Progress Note Date: 04/27/19 Kika is a 54 y/o wf well known to me. She has extensive pain issues related to neck and back. she has significant diverticulosis amd underwent partial colectomy with colostomy several months ago for this. She is POD#1 colostomy reversal. She had an epidural and is c/o right leg numbness. She had her epidural discontinued. She is c/o also of pruritis and anxiety. no Chest pain, pressure sob, nausea or vomitting. She is a diabetic and is on Metformin, victoza and lantus for this. 04/26/2019 NG tube discontinued yesterday. Denies nausea, vomiting. Tolerating clear liquid diet, advanced to full liquids. Positive bowel movement on Thursday and Thursday. Ambulated 3 times already today in the hallway. Incentive spirometer up to 2000. States her anxiety is much better controlled on Xanax. Afebrile, vital signs stable. 04/27/2019 tolerating full liquid diet, positive loose stools. Denies nausea or vomiting. Ambulating in hallway, tolerating exertion well. Pain controlled. Vital signs stable. Objective - Vital Signs Vital signs: Vital Signs Temp 98.4 F 04/27/19 14:41 Pulse 75 04/27/19 14:41 Resp 16 04/27/19 14:41 BP 121/80 04/27/19 14:41 Pulse Ox 97 04/27/19 14:41 Intake & Output 04/26/19 04/27/19 04/27/19 18:59 06:59 18:59 Intake Total 1595 870 Balance 1595 870 Intake: Intake, IV Titration 875 Amount D5-0.45% NaCl with KCl 875 20Meq/l 1,000 ml @ 125 mls/hr IV .Q8H [facility] Rx#: [id number] Oral 720 870 Other: Voiding Method Toilet Toilet # Voids 2 - Exam - Constitutional General appearance: Sitting up in bed, no acute distress - EENT Eyes: PERRLA ENT: normal oropharynx. Cold sores upper and beneath lower lip - Neck Neck: no lymphadenopathy, normal ROM - Respiratory Respiratory: bilateral: CTA - Cardiovascular Rhythm: regular Heart sounds: normal: S1, S2 Abnormal Heart Sounds: no systolic murmur - Gastrointestinal General gastrointestinal: normal bowel sounds, no splenomegaly, status post surgery, prevena wound system present. - Neurologic Neurologic: CNII-XII intact - Psychiatric Psychiatric: A&O x's 3 - Labs CBC & Chem 7: 04/27/19 06:08 04/27/19 06:08 Labs: Abnormal Lab Results - Last 24 Hours (Table) 04/26/19 04/26/19 04/27/19 Range/Units 16:32 20:17 06:08 RBC 3.75 L (3.80-5.40) m/uL Hgb 9.7 L (11.4-16.0) gm/dL Hct 30.3 L (34.0-46.0) % RDW 16.5 H (11.5-15.5) % Carbon Dioxide (22-30) mmol/L BUN (7-17) mg/dL Glucose (74-99) mg/dL POC Glucose (mg/dL) 177 H 204 H (75-99) mg/dL 04/27/19 04/27/19 Range/Units 06:08 11:57 RBC (3.80-5.40) m/uL Hgb (11.4-16.0) gm/dL Hct (34.0-46.0) % RDW (11.5-15.5) % Carbon Dioxide 32 H (22-30) mmol/L BUN 4 L (7-17) mg/dL Glucose 70 L (74-99) mg/dL POC Glucose (mg/dL) 176 H (75-99) mg/dL Assessment and Plan Assessment: (1) history of diverticulitis, status post reversal of colostomy - Anxiety Current Visit: Yes Status: Acute Code(s): F41.9 - ANXIETY DISORDER, UNSPECIFIED SNOMED Code(s): 88868398 (2) Drug-induced pruritus Current Visit: Yes Status: Acute Code(s): L29.8 - OTHER PRURITUS; T50.905A - ADVERSE EFFECT OF UNSP DRUG/MEDS/BIOL SUBST, INIT SNOMED Code(s): 605649077 (3) Abdominal pain Current Visit: No Status: Acute Code(s): R10.9 - UNSPECIFIED ABDOMINAL PAIN SNOMED Code(s): 43793449 (4) Cervical fusion syndrome Current Visit: No Status: Acute Code(s): Q76.1 - KLIPPEL-FEIL SYNDROME SNOMED Code(s): 4220113 (5) Chronic pain syndrome Current Visit: No Status: Acute Code(s): G89.4 - CHRONIC PAIN SYNDROME SNOMED Code(s): 595268143 (6) History of multiple sclerosis Current Visit: No Status: Acute Code(s): Z86.69 - PERSONAL HISTORY OF DIS OF THE NERVOUS SYS AND SENSE ORGANS SNOMED Code(s): 651147138 (7) Obesity Current Visit: No Status: Acute Code(s): E66.9 - OBESITY, UNSPECIFIED SNOMED Code(s): 329792588 (8) COPD (chronic obstructive pulmonary disease) Current Visit: No Status: Chronic Code(s): J44.9 - CHRONIC OBSTRUCTIVE PULMONARY DISEASE, UNSPECIFIED SNOMED Code(s): 23859859 (9) Diabetes Current Visit: No Status: Chronic Code(s): E11.9 - TYPE 2 DIABETES MELLITUS WITHOUT COMPLICATIONS SNOMED Code(s): 33500951 (10) Status post cervical spinal fusion Current Visit: No Status: Chronic Code(s): Z98.1 - ARTHRODESIS STATUS SNOMED Code(s): 6755147783939 (11) Tobacco dependence Current Visit: Yes Status: Acute Code(s): F17.200 - NICOTINE DEPENDENCE, UNSPECIFIED, UNCOMPLICATED SNOMED Code(s): 05853343 Plan: Continue current medication regime ,monitoring and stenotic treatment. Zovirax added to med regime. Diet advancement to low fiber/pain management as per surgery. Aggressive pulmonary toileting with incentive spirometer reinforced. Discharge planning in progress for tomorrow. Further recommendations to follow. The impression and plan of care has been dictated as directed. : I performed a history and examination of this patient, discussed the same with the dictator. I agree with the dictator's note ,documented as a scribe. Any additional findings or plans will be noted.
[2019-04-27 16:40] LABS: Glucose,Whole Blood 177 mg/dL (75-99)
[2019-04-27] MEDS: INSULIN DETEMIR (LEVEMIR) 100 UNIT/ML SYR SQ SCH (20:31)
[2019-04-27] MEDS: ONDANSETRON 4 MG/2 ML VIAL IVP PRN (20:31)
[2019-04-27] MEDS: MELATONIN 3 MG TABLET PO SCH (20:32)
[2019-04-27] MEDS: LATANOPROST 0.005% OPHTH DROPS 2.5 ML BTL BOTH EYES SCH (20:33)
[2019-04-27 20:37] LABS: Glucose,Whole Blood 223 mg/dL (75-99)
[2019-04-27] MEDS: SYMBICORT 80-4.5 MCG INHALER INHALATION SCH (21:04)
[2019-04-28] MEDS: MORPHINE SULFATE 4 MG/ML SYRINGE IVP PRN ×2 (00:43→05:52)
[2019-04-28] MEDS: D5-0.45% NACL WITH KCL 20MEQ/L 1,000 ML IV SCH ×2 (02:17→03:40)
[2019-04-28] MEDS: LACTATED RINGERS 1,000 ML IV SCH (02:19)
[2019-04-28] MEDS: HYDROcodone/APAP 10-325MG 1 EACH TAB PO PRN ×2 (03:37→10:37)
[2019-04-28] MEDS: ONDANSETRON 4 MG/2 ML VIAL IVP PRN (03:37)
[2019-04-28] MEDS: BENZOCAINE/MENTHOL LOZENG 1 EACH LOZENGE MUCOUS MEM PRN ×2 (03:37→05:53)
[2019-04-28] MEDS: LEVOTHYROXINE 100 MCG TAB PO SCH (05:49)
[2019-04-28] MEDS: valACYclovir HCL 1,000 MG TABLET PO SCH (05:49)
[2019-04-28 07:18] LABS: Glucose,Whole Blood 157 mg/dL (75-99)
[2019-04-28] MEDS: SERTRALINE 50 MG TAB PO SCH (08:05)
[2019-04-28] MEDS: PANTOPRAZOLE 40 MG/10 ML VIAL IVP SCH (08:05)
[2019-04-28] MEDS: NICOTINE 14MG/24HR PATCH TRANSDERM SCH (08:06)
[2019-04-28] MEDS: INSULIN ASPART (NovoLOG) 100 UNIT/ML VIAL SQ SCH ×3 (08:06→12:37)
[2019-04-28] MEDS: CARVEDILOL 3.125 MG TAB PO SCH (08:06)
[2019-04-28] MEDS: TIMOLOL 0.5% OPHTH DROPS 5 ML BTL BOTH EYES SCH (08:06)
[2019-04-28] MEDS: BRIMONIDINE TARTRATE 0.2% DROPS 5 ML BTL BOTH EYES SCH (08:07)
[2019-04-28 08:08] LABS: Basophils # (A) 0.1 k/uL (0-0.2); Basophils % (A) 1 %; Eosinophils # (A) 0.3 k/uL (0-0.7); Eosinophils % (A) 3 %; HCT 30.3 % (34.0-46.0); HGB 9.4 gm/dL (11.4-16.0); Lymphocytes # (A) 2.2 k/uL (1.0-4.8); Lymphocytes % (A) 29 %; MCH 24.7 pg (25.0-35.0); MCHC 31.1 g/dL (31.0-37.0); MCV 79.3 fL (80.0-100.0); Mean Platelet Volume 6.7; Microcytosis Slight; Monocytes # (A) 0.3 k/uL (0-1.0); Monocytes % (A) 4 %; Neutrophils # (A) 4.7 k/uL (1.3-7.7); Neutrophils % (A) 62 %; Platelet Count 395 k/uL (150-450); RBC 3.82 m/uL (3.80-5.40); RDW 15.8 % (11.5-15.5); WBC 7.7 k/uL (3.8-10.6)
[2019-04-28] MEDS: IPRATROPIUM-ALBUTEROL 3 ML NEB INHALATION SCH ×3 (08:17→16:28)
[2019-04-28 08:39] LABS: African American GFR (CKD) >90 (>60 ml/min/1.73 sqM); Anion Gap 7 mmol/L; Blood Urea Nitrogen 8 mg/dL (7-17); Calcium 9.7 mg/dL (8.4-10.2); Carbon Dioxide 33 mmol/L (22-30); Chloride 99 mmol/L (98-107); Glucose 147 mg/dL (74-99); Non-African American GFR(CKD) >90 (>60 ml/min/1.73 sqM); Potassium 4.6 mmol/L (3.5-5.1); Sodium 139 mmol/L (137-145)
[2019-04-28 09:55] VITALS: BP 124/70; RESP 16; TEMP 98.7
--- NOTE | 2019-04-28 11:58 | P.PN ---
Subjective Progress Note Date: 04/28/19 CHIEF COMPLAINT: diverticulitis HISTORY OF PRESENT ILLNESS: Patient examined this morning at the bedside. She is status post reversal of colostomy performed on 04/22/2019. She is tolerating a low fiber diet. Passing flatus. Reports bowel movement this morning. Denies nausea or vomiting. Pain controlled this morning with current regimen although patient is requiring IV morphine still. Vital signs stable. PHYSICAL EXAM: VITAL SIGNS: Reviewed. GENERAL: Well-developed in no acute distress. HEENT: No sclera icterus. Extraocular movements grossly intact. Moist buccal mucosa. Head is atraumatic, normocephalic. ABDOMEN: Soft. Nondistended. Appropriate surgical tenderness. PREVENA wound system noted. NEUROLOGIC: Alert and oriented. Cranial nerves II through XII grossly intact. ASSESSMENT: 1. History of diverticulitis, status post reversal of colostomy PLAN: 1. Continue low fiber diet. 2. Pain control. Continue [place]. Patient prescribed [place] every 8 hours at home. Increase frequency to every 6 hours during hospitalization. Patient will resume home dose of [place] every 8 hours once discharged. Continue IV morphine as needed for breakthrough pain only. 3. Incentive spirometry 10 times an hour 4. Activity as tolerated 5. Discharge home tomorrow Nurse practitioner note has been reviewed by physician. Signing provider agrees with the documented findings, assessment, and plan of care. Objective - Vital Signs Vital signs: Vital Signs Temp 98.7 F 04/28/19 09:54 Pulse 73 04/28/19 09:54 Resp 16 04/28/19 09:54 BP 124/70 04/28/19 09:54 Pulse Ox 96 04/28/19 09:54 Intake & Output 04/27/19 04/28/19 04/28/19 18:59 06:59 18:59 Intake Total 870 1250 Output Total 1 Balance 870 1250 -1 Intake: Intake, IV Titration 1250 Amount D5-0.45% NaCl with KCl 1250 20Meq/l 1,000 ml @ 125 mls/hr IV .Q8H [facility] Rx#: [id number] Oral 870 Output: Stool 1 Other: Voiding Method Toilet Toilet # Voids 2 - Labs CBC & Chem 7: 04/28/19 07:26 04/28/19 07:26 Labs: Abnormal Lab Results - Last 24 Hours (Table) 04/27/19 04/27/19 04/27/19 Range/Units 11:57 16:27 20:25 Hgb (11.4-16.0) gm/dL Hct (34.0-46.0) % MCV (80.0-100.0) fL MCH (25.0-35.0) pg RDW (11.5-15.5) % Carbon Dioxide (22-30) mmol/L Glucose (74-99) mg/dL POC Glucose (mg/dL) 176 H 177 H 223 H (75-99) mg/dL 04/28/19 04/28/19 04/28/19 Range/Units 07:07 07:26 07:26 Hgb 9.4 L (11.4-16.0) gm/dL Hct 30.3 L (34.0-46.0) % MCV 79.3 L (80.0-100.0) fL MCH 24.7 L (25.0-35.0) pg RDW 15.8 H (11.5-15.5) % Carbon Dioxide 33 H (22-30) mmol/L Glucose 147 H (74-99) mg/dL POC Glucose (mg/dL) 157 H (75-99) mg/dL
[2019-04-28 12:34] LABS: Glucose,Whole Blood 177 mg/dL (75-99)
[2019-04-28 13:06] VITALS: PULSE 76
[2019-04-28] MEDS: ALPRAZolam 0.25 MG TAB PO PRN (13:39)
[2019-04-28] MEDS ORDERED: diphenhydrAMINE 25 MG CAP PO PRN (13:44)
[2019-04-28] MEDS ORDERED: HYDROcodone/APAP 10-325MG 1 EACH TAB PO SCH (14:00)
--- NOTE | 2019-04-28 14:05 | P.PN ---
Subjective Progress Note Date: 04/28/19 Kika is a 54 y/o wf well known to me. She has extensive pain issues related to neck and back. she has significant diverticulosis amd underwent partial colectomy with colostomy several months ago for this. She is POD#1 colostomy reversal. She had an epidural and is c/o right leg numbness. She had her epidural discontinued. She is c/o also of pruritis and anxiety. no Chest pain, pressure sob, nausea or vomitting. She is a diabetic and is on Metformin, victoza and lantus for this. 04/26/2019 NG tube discontinued yesterday. Denies nausea, vomiting. Tolerating clear liquid diet, advanced to full liquids. Positive bowel movement on Thursday and Thursday. Ambulated 3 times already today in the hallway. Incentive spirometer up to 2000. States her anxiety is much better controlled on Xanax. Afebrile, vital signs stable. 04/27/2019 tolerating full liquid diet, positive loose stools. Denies nausea or vomiting. Ambulating in hallway, tolerating exertion well. Pain controlled. Vital signs stable. 04/28/2019 tolerating low fiber diet. Bowel movements, firming up. Denies nausea vomiting. Pain controlled on morphine IV push and [place]. Complains of left ear pain. Afebrile, normal WBC. Hemoglobin 9.4. Objective - Vital Signs Vital signs: Vital Signs Temp 98.7 F 04/28/19 09:54 Pulse 73 04/28/19 09:54 Resp 16 04/28/19 09:54 BP 124/70 04/28/19 09:54 Pulse Ox 96 04/28/19 09:54 Intake & Output 04/27/19 04/28/19 04/28/19 18:59 06:59 18:59 Intake Total 870 1250 Output Total 1 Balance 870 1250 -1 Intake: Intake, IV Titration 1250 Amount D5-0.45% NaCl with KCl 1250 20Meq/l 1,000 ml @ 125 mls/hr IV .Q8H [facility] Rx#: [id number] Oral 870 Output: Stool 1 Other: Voiding Method Toilet Toilet # Voids 2 - Exam - Constitutional General appearance: Sitting up in chair, no acute distress - EENT Eyes: PERRLA ENT: normal oropharynx. Cold sores upper and beneath lower lip improving. Left ear with min redness noted via otiscope. - Neck Neck: no lymphadenopathy, normal ROM - Respiratory Respiratory: bilateral: CTA - Cardiovascular Rhythm: regular Heart sounds: normal: S1, S2 Abnormal Heart Sounds: no systolic murmur - Gastrointestinal General gastrointestinal: Positive bowel sounds, soft, nondistended, status post surgery, prevena wound system present. - Neurologic Neurologic: CNII-XII intact - Psychiatric Psychiatric: A&O x's 3 - Labs CBC & Chem 7: 04/28/19 07:26 04/28/19 07:26 Labs: Abnormal Lab Results - Last 24 Hours (Table) 04/27/19 04/27/19 04/27/19 Range/Units 11:57 16:27 20:25 Hgb (11.4-16.0) gm/dL Hct (34.0-46.0) % MCV (80.0-100.0) fL MCH (25.0-35.0) pg RDW (11.5-15.5) % Carbon Dioxide (22-30) mmol/L Glucose (74-99) mg/dL POC Glucose (mg/dL) 176 H 177 H 223 H (75-99) mg/dL 04/28/19 04/28/19 04/28/19 Range/Units 07:07 07:26 07:26 Hgb 9.4 L (11.4-16.0) gm/dL Hct 30.3 L (34.0-46.0) % MCV 79.3 L (80.0-100.0) fL MCH 24.7 L (25.0-35.0) pg RDW 15.8 H (11.5-15.5) % Carbon Dioxide 33 H (22-30) mmol/L Glucose 147 H (74-99) mg/dL POC Glucose (mg/dL) 157 H (75-99) mg/dL Assessment and Plan Assessment: (1) history of diverticulitis, status post reversal of colostomy - Anxiety Current Visit: Yes Status: Acute Code(s): F41.9 - ANXIETY DISORDER, UNSPECIFIED SNOMED Code(s): 63784485 (2) Drug-induced pruritus Current Visit: Yes Status: Acute Code(s): L29.8 - OTHER PRURITUS; T50.905A - ADVERSE EFFECT OF UNSP DRUG/MEDS/BIOL SUBST, INIT SNOMED Code(s): 067394298 (3) Abdominal pain Current Visit: No Status: Acute Code(s): R10.9 - UNSPECIFIED ABDOMINAL PAIN SNOMED Code(s): 70903053 (4) Cervical fusion syndrome Current Visit: No Status: Acute Code(s): Q76.1 - KLIPPEL-FEIL SYNDROME SNOMED Code(s): 7833665 (5) Chronic pain syndrome Current Visit: No Status: Acute Code(s): G89.4 - CHRONIC PAIN SYNDROME SNOMED Code(s): 035723132 (6) History of multiple sclerosis Current Visit: No Status: Acute Code(s): Z86.69 - PERSONAL HISTORY OF DIS OF THE NERVOUS SYS AND SENSE ORGANS SNOMED Code(s): 054072302 (7) Obesity Current Visit: No Status: Acute Code(s): E66.9 - OBESITY, UNSPECIFIED SNOMED Code(s): 155098157 (8) COPD (chronic obstructive pulmonary disease) Current Visit: No Status: Chronic Code(s): J44.9 - CHRONIC OBSTRUCTIVE PULMONARY DISEASE, UNSPECIFIED SNOMED Code(s): 03139578 (9) Diabetes Current Visit: No Status: Chronic Code(s): E11.9 - TYPE 2 DIABETES MELLITUS WITHOUT COMPLICATIONS SNOMED Code(s): 05103222 (10) Status post cervical spinal fusion Current Visit: No Status: Chronic Code(s): Z98.1 - ARTHRODESIS STATUS SNOMED Code(s): 0988562759481 (11) Tobacco dependence Current Visit: Yes Status: Acute Code(s): F17.200 - NICOTINE DEPENDENCE, UNSPECIFIED, UNCOMPLICATED SNOMED Code(s): 16660802 Plan: Continue current medication regime ,monitoring and stenotic treatment. Zovirax added to med regime. Cortisporin otic drops, prn oral Benadryl ordered. Protonix converted to oral. Pain management discussed in great length by Dr. Campbell. Patient agreeable to morphine being discontinued, norco being scheduled while inpatient as she prepares for discharge tomorrow. Maintain aggressive pulmonary toileting with incentive spirometer reinforced. Discharge planning in progress as per surgery. At [place], patient has pain contract with Dr.Farhana. The impression and plan of care has been dictated as directed. : I performed a history and examination of this patient, discussed the same with the dictator. I agree with the dictator's note ,documented as a scribe. Any additional findings or plans will be noted.
--- NOTE | 2019-04-28 14:41 | P.DS ---
Providers Date of admission: 04/22/19 08:13 Expected date of discharge: 04/28/19 Attending physician: Rush Whitlock Consults: 04/22/19 12:44 Consult Physician Routine Consulting Provider: Watson Kay Consult Reason/Comments: medical management Do you want consulting provider notified?: Yes Primary care physician: Watson Kay Hospital Course: 54-year-old female who underwent reversal of colostomy performed on 04/22/2019. Patient is doing well postoperatively without any immediate complications. She is tolerating diet without nausea or vomiting. Passing flatus and having bowel movements. Vital signs have been stable. She is stable for discharge home today per Dr. Whitlock. No narcotics were prescribed at the time of discharge as patient takes Benkelman on an outpatient basis prescribed by pain specialist. Please see EMR for further hospital course details. Discharge Diagnosis: 1. History of diverticulitis, status post reversal of colostomy Nurse practitioner note has been reviewed by physician. Signing provider agrees with the documented findings, assessment, and plan of care. Patient Condition at Discharge: Stable Plan - Discharge Summary Discharge Rx Participant: Yes New Discharge Prescriptions: New Lemmgiug-Bifoepcan-Hv Otic [Cortisporin Otic Soln] 4 drops LEFT EAR TID #1 bottle Nicotine 14Mg/24Hr Patch [Habitrol] 1 patch TRANSDERM DAILY #30 patch Pantoprazole [Protonix] 40 mg PO AC-BRKFST #30 tablet.[address] Pang Levothyroxine Sodium [Synthroid] 100 mcg PO DAILY Budesonide/Formoterol Fumarate [Symbicort 80-4.5 Mcg Inhaler] 2 puff INHALATI ON RT-HS Ipratropium-Albuterol Nebulize [Duoneb 0.5 mg-3 mg/3 ml Soln] 3 ml INHALATION RT-Q4H PRN PRN Reason: Shortness Of Breath Or Wheezing Potassium Chloride ER [K-Dur 20] 20 meq PO QAM HYDROcodone/APAP 10-325MG [Benkelman 10-325] 1 tab PO TID PRN PRN Reason: Pain metFORMIN HCL ER [Glucophage Xr] 500 mg PO BID Sertraline [Zoloft] 50 mg PO DAILY Liraglutide [Victoza 2-Emerson] 1.2 mg SQ QAM Latanoprost Ophth [Xalatan 0.005%] 1 drops BOTH EYES HS Atorvastatin [Lipitor] 10 mg PO QAM Melatonin 6 mg PO HS Brimonidine Tartrate/Timolol [Combigan 0.2%-0.5% Eye Drops] 1 drop BOTH EYES BID Carvedilol [Coreg] 3.125 mg PO BID Furosemide [Lasix] 20 mg PO DAILY Ibuprofen [Motrin] 600 mg PO Q8HR PRN #30 tab PRN Reason: Pain Albuterol Inhaler [Ventolin Hfa Inhaler] 2 puff INHALATION RT-Q6H PRN #1 inh PRN Reason: Shortness Of Breath Changed Insulin Glargine [Lantus] 30 unit SQ HS #0 Discharge Medication List Levothyroxine Sodium [Synthroid] 100 mcg PO DAILY 07/29/15 [History] Budesonide/Formoterol Fumarate [Symbicort 80-4.5 Mcg Inhaler] 2 puff INHALATION RT-HS 12/04/15 [History] Ipratropium-Albuterol Nebulize [Duoneb 0.5 mg-3 mg/3 ml Soln] 3 ml INHALATION RT-Q4H PRN 05/15/16 [History] Potassium Chloride ER [K-Dur 20] 20 meq PO QAM 05/15/16 [History] HYDROcodone/APAP 10-325MG [Benkelman 10-325] 1 tab PO TID PRN 04/13/17 [History] metFORMIN HCL ER [Glucophage Xr] 500 mg PO BID 04/13/17 [History] Atorvastatin [Lipitor] 10 mg PO QAM 01/05/19 [History] Brimonidine Tartrate/Timolol [Combigan 0.2%-0.5% Eye Drops] 1 drop BOTH EYES BID 01/05/19 [History] Latanoprost Ophth [Xalatan 0.005%] 1 drops BOTH EYES HS 01/05/19 [History] Liraglutide [Victoza 2-Emerson] 1.2 mg SQ QAM 01/05/19 [History] Melatonin 6 mg PO HS 01/05/19 [History] Sertraline [Zoloft] 50 mg PO DAILY 01/05/19 [History] Carvedilol [Coreg] 3.125 mg PO BID 01/07/19 [History] Furosemide [Lasix] 20 mg PO DAILY 01/07/19 [History] Ibuprofen [Motrin] 600 mg PO Q8HR PRN #30 tab 01/17/19 [Rx] Albuterol Inhaler [Ventolin Hfa Inhaler] 2 puff INHALATION RT-Q6H PRN #1 inh 01/27/19 [Rx] Insulin Glargine [Lantus] 30 unit SQ HS #0 04/28/19 [Rx] Lzqzoxrv-Sokouktxt-Ot Otic [Cortisporin Otic Soln] 4 drops LEFT EAR TID #1 bottle 04/28/19 [Rx] Nicotine 14Mg/24Hr Patch [Habitrol] 1 patch TRANSDERM DAILY #30 patch 04/28/19 [Rx] Pantoprazole [Protonix] 40 mg PO AC-BRKFST #30 tablet. 04/28/19 [Rx] Follow up Appointment(s)/Referral(s): Sravan Campbell Jr, DO [Doctor of Osteopathic Medicine] - 1 Week [employer] [NON-STAFF] - As Needed (glucometer ) [facility], [NON-STAFF] - Rush Whitlock MD [STAFF PHYSICIAN] - 1 Week Activity/Diet/Wound Care/Special Instructions: Diet: Consistent carb, low fiber Accu-Cheks before meals and at bedtime maintain log and take to follow-up with PCP for further recommendations. Lantus dose is currently at 30 units daily/patient's home dose prior to surgery 40 units; further titration as per PCP. No lifting over 10 pounds You may shower. No soaking or tub baths Very light activity until you are reevaluated at your follow up appointment with your surgeon Abdominal dressing may stay in place for 5 days. Remove at that time and leave incisions open to air. Discharge Disposition: HOME WITH HOME HEALTH SERVICES
[2019-04-28] MEDS ORDERED: NEOMYCIN-POLYMYXIN-HC (3.5-10,000-10 MG) OTIC DROPS 10 ML BTL LEFT EAR SCH (16:00)
[2019-04-29] MEDS ORDERED: PANTOPRAZOLE 40 MG TABLET PO SCH (07:30)
== END 2019-04-28 16:38 | disposition home health service (06) | DRG 330 ==
LOC: 2ORMAIN 08:13 → 4SSUR 13:04
PROVIDERS: ADMIT Surgery; ATTEND Surgery
PROC: 0DNW0ZZ Release Peritoneum, Open Approach (ICD-10-PCS; 2019-04-22)
PROC: 0DBU0ZZ Excision of Omentum, Open Approach (ICD-10-PCS; 2019-04-22)
PROC: 0DBE0ZZ Excision of Large Intestine, Open Approach (ICD-10-PCS; principal; 2019-04-22 10:05)
DX: Z43.3 Encounter for attention to colostomy (principal); D62 Acute posthemorrhagic anemia; I50.32 Chronic diastolic (congestive) heart failure; E11.40 Type 2 diabetes mellitus with diabetic neuropathy, unspecified; Z79.4 Long term (current) use of insulin; E66.9 Obesity, unspecified; Z68.35 Body mass index [BMI] 35.0-35.9, adult; F17.210 Nicotine dependence, cigarettes, uncomplicated; F41.9 Anxiety disorder, unspecified; G35 Multiple sclerosis; G47.419 Narcolepsy without cataplexy; G89.4 Chronic pain syndrome; H40.9 Unspecified glaucoma; I11.0 Hypertensive heart disease with heart failure; I50.9 Heart failure, unspecified; J44.9 Chronic obstructive pulmonary disease, unspecified; K21.9 Gastro-esophageal reflux disease without esophagitis; K66.0 Peritoneal adhesions (postprocedural) (postinfection); M79.7 Fibromyalgia; Q76.1 Klippel-Feil syndrome; T50.905A Adverse effect of unspecified drugs, medicaments and biological substances, initial encounter; L29.8 Other pruritus; Z79.51 Long term (current) use of inhaled steroids; Z79.890 Hormone replacement therapy; Z79.899 Other long term (current) drug therapy; Z82.49 Family history of ischemic heart disease and other diseases of the circulatory system; Z90.710 Acquired absence of both cervix and uterus; Z98.1 Arthrodesis status
CPT/HCPCS: 36415; 80048; 80051; 85025; 85027; 86850; 86900; 86901; 88304; 93005; 94640; 94760

== ENCOUNTER 2019-05-06 13:27 | Emergency (ER) | payer MEDICARE, OTHER ==
[2019-05-06] MEDS ORDERED: SODIUM CHLORIDE 0.9% 1,000 ML IV STA (15:12)
[2019-05-06] MEDS ORDERED: MORPHINE SULFATE 4 MG/ML SYRINGE IV STA (15:12)
[2019-05-06] MEDS ORDERED: ONDANSETRON 4 MG/2 ML VIAL IVP STA (15:12)
--- NOTE | 2019-05-06 15:15 | ED ---
Abdominal Pain HPI - General Chief Complaint: Recheck/Abnormal Lab/Rx Stated Complaint: 2 incisions opening, surgery 2 weeks ago, abd pain Time Seen by Provider: 05/06/19 13:53 Source: patient, RN notes reviewed, old records reviewed Mode of arrival: wheelchair Limitations: physical limitation - History of Present Illness Initial Comments: This is a 54-year-old female the ER for evaluation. Patient does say for evaluation regards to severe abdominal pain. Patient is a postop of a colostomy reversal. 32 weeks. Patient was originally admitted to come in hospital after for postop pain and developing seroma. Patient states pain is increased, she is having bowel movements diarrheal type bowel movements frequently. Mild nausea no vomiting no fevers. She does have increasing pain to her anterior abdomen. Has not had follow-up with Dr. Barber here at this time MD Complaint: abdominal pain -: days(s) Location: diffuse, periumbilical, epigastric, suprapubic Radiation: epigastric, suprapubic Migration to: epigastric, suprapubic Severity: severe Severity scale (1-10): 8 Quality: stabbing, aching Consistency: constant Improves With: nothing Worsens With: nothing Context: recent surgery/procedure Associated Symptoms: nausea, diarrhea - Related Data Home Medications Medication Instructions Recorded Confirmed Levothyroxine Sodium [Synthroid] 100 mcg PO DAILY 07/29/15 05/06/19 Budesonide/Formoterol Fumarate 2 puff INHALATION RT-HS 12/04/15 05/06/19 [Symbicort 80-4.5 Mcg Inhaler] Ipratropium-Albuterol Nebulize 3 ml INHALATION RT-Q4H PRN 05/15/16 05/06/19 [Duoneb 0.5 mg-3 mg/3 ml Soln] Potassium Chloride ER [K-Dur 20] 20 meq PO QAM 05/15/16 05/06/19 HYDROcodone/APAP 10-325MG [Bath 1 tab PO TID PRN 04/13/17 05/06/19 10-325] metFORMIN HCL ER [Glucophage Xr] 500 mg PO BID 04/13/17 05/06/19 Atorvastatin [Lipitor] 10 mg PO QAM 01/05/19 05/06/19 Brimonidine Tartrate/Timolol 1 drop BOTH EYES BID 01/05/19 05/06/19 [Combigan 0.2%-0.5% Eye Drops] Latanoprost Ophth [Xalatan 0.005%] 1 drops BOTH EYES HS 01/05/19 05/06/19 Liraglutide [Victoza 2-Emerson] 1.2 mg SQ QAM 01/05/19 05/06/19 Melatonin 6 mg PO HS 01/05/19 05/06/19 Sertraline [Zoloft] 50 mg PO DAILY 01/05/19 05/06/19 Carvedilol [Coreg] 3.125 mg PO BID 01/07/19 05/06/19 Furosemide [Lasix] 20 mg PO DAILY 01/07/19 05/06/19 Previous Rx's Medication Instructions Recorded Ibuprofen [Motrin] 600 mg PO Q8HR PRN #30 tab 01/17/19 Albuterol Inhaler [Ventolin Hfa 2 puff INHALATION RT-Q6H PRN #1 inh 01/27/19 Inhaler] Insulin Glargine [Lantus] 30 unit SQ HS #0 04/28/19 Drivhkzr-Oufusosrf-Ib Otic 4 drops LEFT EAR TID #1 bottle 04/28/19 [Cortisporin Otic Soln] Pantoprazole [Protonix] 40 mg PO AC-BRKFST #30 tablet. 04/28/19 Allergies Allergy/AdvReac Type Severity Reaction Status Date / Time hydromorphone [From Dilaudid] AdvReac "makes me Verified 05/06/19 14:09 mean" Review of Systems ROS Statement: Those systems with pertinent positive or pertinent negative responses have been documented in the HPI. ROS Other: All systems not noted in ROS Statement are negative. Past Medical History Past Medical History: Asthma, Heart Failure, COPD, Diabetes Mellitus, Eye Disorder, Fibromyalgia, GERD/Reflux, Hypertension, Musculoskeletal Disorder, Osteoarthritis (OA), Pneumonia, Thyroid Disorder Additional Past Medical History / Comment(s): skin breakdown near colostomy site, hx diverticulitis, glaucoma, states has herniated discs in back, neuropathy, narcolepsy, History of Any Multi-Drug Resistant Organisms: None Reported Past Surgical History: Back Surgery, Bladder Surgery, Cholecystectomy, Hysterectomy, Orthopedic Surgery Additional Past Surgical History / Comment(s): Colostomy 01/12/19, benign mass removed from bladder, meño carpal tunnel, cervical fusion c4-c6, right wrist cys t removed, colostomy reversile. Past Anesthesia/Blood Transfusion Reactions: Postoperative Nausea & Vomiting (PONV) Past Psychological History: Anxiety, Depression Smoking Status: Current every day smoker Past Alcohol Use History: None Reported Past Drug Use History: None Reported - Past Family History Father Family Medical History: Coronary Artery Disease (CAD) Additional Family Medical History / Comment(s): quadruple bypass surgery Mother Family Medical History: Cancer General Exam Limitations: physical limitation General appearance: alert, in no apparent distress, obese Head exam: Present: atraumatic, normocephalic, normal inspection Eye exam: Present: normal appearance, PERRL, EOMI. Absent: scleral icterus, conjunctival injection, periorbital swelling ENT exam: Present: normal exam, mucous membranes moist Neck exam: Present: normal inspection. Absent: tenderness, meningismus, l ymphadenopathy Respiratory exam: Present: normal lung sounds bilaterally. Absent: respiratory distress, wheezes, rales, rhonchi, stridor Cardiovascular Exam: Present: regular rate, normal rhythm, normal heart sounds. Absent: systolic murmur, diastolic murmur, rubs, gallop, clicks GI/Abdominal exam: Present: soft, distended, tenderness, guarding, normal bowel sounds, other (Michelle are intact, incision is clean dry). Absent: rebound, rigid Extremities exam: Present: normal inspection, full ROM, normal capillary refill. Absent: tenderness, pedal edema, joint swelling, calf tenderness Back exam: Present: normal inspection Neurological exam: Present: alert, oriented X3, CN II-XII intact Psychiatric exam: Present: normal affect, normal mood Skin exam: Present: warm, dry, intact, normal color. Absent: rash Course Vital Signs 05/06/19 05/06/19 05/06/19 13:40 16:46 17:08 Temperature 99.9 F H Pulse Rate 88 79 68 Respiratory 16 18 16 Rate Blood Pressure 165/107 144/72 O2 Sat by Pulse 96 96 Oximetry 05/06/19 17:16 Temperature Pulse Rate 72 Respiratory 16 Rate Blood Pressure O2 Sat by Pulse Oximetry - Reevaluation(s) Reevaluation #1: 05/06/19 15:14 Medical record and surgical record is reviewed Reevaluation #2: 05/06/19 15:15 Patient has adequate pain control - Consultations Consultation #1: spoke with Dr cohen regarding lab values CT scans and findings, physical exam findings. He is agreeable for discharge and follow-up Medical Decision Making - Medical Decision Making 54 female the ER with postop pain. Pain is well-controlled currently. CT is negative patient can be discharged home - Lab Data Result diagrams: 05/06/19 14:58 05/06/19 14:58 Lab Results 05/06/19 05/06/19 05/06/19 Range/Units 14:58 14:58 14:58 WBC 11.5 H (3.8-10.6) k/uL RBC 4.10 (3.80-5.40) m/uL Hgb 10.5 L (11.4-16.0) gm/dL Hct 31.8 L (34.0-46.0) % MCV 77.4 L (80.0-100.0) fL MCH 25.6 (25.0-35.0) pg MCHC 33.0 (31.0-37.0) g/dL RDW 15.9 H (11.5-15.5) % Plt Count 565 H (150-450) k/uL Neutrophils % 60 % Lymphocytes % 30 % Monocytes % 3 % Eosinophils % 3 % Basophils % 1 % Neutrophils # 6.9 (1.3-7.7) k/uL Lymphocytes # 3.4 (1.0-4.8) k/uL Monocytes # 0.4 (0-1.0) k/uL Eosinophils # 0.3 (0-0.7) k/uL Basophils # 0.2 (0-0.2) k/uL Microcytosis Slight Sodium 139 (137-145) mmol/L Potassium 4.6 (3.5-5.1) mmol/L Chloride 99 (98-107) mmol/L Carbon Dioxide 28 (22-30) mmol/L Anion Gap 12 mmol/L BUN 8 (7-17) mg/dL Creatinine 0.48 L (0.52-1.04) mg/dL Est GFR (CKD-EPI)AfAm >90 (>60 ml/min/1.73 sqM) Est GFR (CKD-EPI)NonAf >90 (>60 ml/min/1.73 sqM) Glucose 253 H (74-99) mg/dL Plasma Lactic Acid Angel 1.5 (0.7-2.0) mmol/L Calcium 10.6 H (8.4-10.2) mg/dL Total Bilirubin 0.2 (0.2-1.3) mg/dL AST 17 (14-36) U/L ALT 32 (9-52) U/L Alkaline Phosphatase 135 H (38-126) U/L Total Protein 7.0 (6.3-8.2) g/dL Albumin 4.0 (3.5-5.0) g/dL Amylase 56 (30-110) U/L Lipase 27 (23-300) U/L Urine Color Urine Appearance (Clear) Urine pH (5.0-8.0) Ur Specific Holder (1.001-1.035) Urine Protein (Negative) Urine Glucose (UA) (Negative) Urine Ketones (Negative) Urine Blood (Negative) Urine Nitrite (Negative) Urine Bilirubin (Negative) Urine Urobilinogen (<2.0) mg/dL Ur Leukocyte Esterase (Negative) Urine RBC (0-5) /hpf Urine WBC (0-5) /hpf Ur Squamous Epith Cells (0-4) /hpf 05/06/19 Range/Units 14:58 WBC (3.8-10.6) k/uL RBC (3.80-5.40) m/uL Hgb (11.4-16.0) gm/dL Hct (34.0-46.0) % MCV (80.0-100.0) fL MCH (25.0-35.0) pg MCHC (31.0-37.0) g/dL RDW (11.5-15.5) % Plt Count (150-450) k/uL Neutrophils % % Lymphocytes % % Monocytes % % Eosinophils % % Basophils % % Neutrophils # (1.3-7.7) k/uL Lymphocytes # (1.0-4.8) k/uL Monocytes # (0-1.0) k/uL Eosinophils # (0-0.7) k/uL Basophils # (0-0.2) k/uL Microcytosis Sodium (137-145) mmol/L Potassium (3.5-5.1) mmol/L Chloride (98-107) mmol/L Carbon Dioxide (22-30) mmol/L Anion Gap mmol/L BUN (7-17) mg/dL Creatinine (0.52-1.04) mg/dL Est GFR (CKD-EPI)AfAm (>60 ml/min/1.73 sqM) Est GFR (CKD-EPI)NonAf (>60 ml/min/1.73 sqM) Glucose (74-99) mg/dL Plasma Lactic Acid Angel (0.7-2.0) mmol/L Calcium (8.4-10.2) mg/dL Total Bilirubin (0.2-1.3) mg/dL AST (14-36) U/L ALT (9-52) U/L Alkaline Phosphatase (38-126) U/L Total Protein (6.3-8.2) g/dL Albumin (3.5-5.0) g/dL Amylase (30-110) U/L Lipase (23-300) U/L Urine Color Light Yellow Urine Appearance Clear (Clear) Urine pH 8.0 (5.0-8.0) Ur Specific Holder 1.007 (1.001-1.035) Urine Protein Negative (Negative) Urine Glucose (UA) Negative (Negative) Urine Ketones Negative (Negative) Urine Blood Negative (Negative) Urine Nitrite Negative (Negative) Urine Bilirubin Negative (Negative) Urine Urobilinogen <2.0 (<2.0) mg/dL Ur Leukocyte Esterase Small H (Negative) Urine RBC <1 (0-5) /hpf Urine WBC 1 (0-5) /hpf Ur Squamous Epith Cells 2 (0-4) /hpf - Radiology Data Radiology results: report reviewed (Of the abdomen pelvis is negative for significant acute disease), image reviewed Disposition Clinical Impression: Postoperative pain Disposition: HOME SELF-CARE Condition: Good Instructions (If sedation given, give patient instructions): Abdominal Pain (ED) Is patient prescribed a controlled substance at d/c from ED?: No Referrals: Watson Kay MD [Primary Care Provider] - 1-2 days
[2019-05-06 15:42] LABS: Basophils # (A) 0.2 k/uL (0-0.2); Basophils % (A) 1 %; Eosinophils # (A) 0.3 k/uL (0-0.7); Eosinophils % (A) 3 %; HCT 31.8 % (34.0-46.0); HGB 10.5 gm/dL (11.4-16.0); Lymphocytes # (A) 3.4 k/uL (1.0-4.8); Lymphocytes % (A) 30 %; MCH 25.6 pg (25.0-35.0); MCV 77.4 fL (80.0-100.0); Mean Platelet Volume 6.7; Microcytosis Slight; Monocytes # (A) 0.4 k/uL (0-1.0); Monocytes % (A) 3 %; Neutrophils # (A) 6.9 k/uL (1.3-7.7); Neutrophils % (A) 60 %; Platelet Count 565 k/uL (150-450); RDW 15.9 % (11.5-15.5); WBC 11.5 k/uL (3.8-10.6)
[2019-05-06 15:44] LABS: ALT 32 U/L (9-52); AST 17 U/L (14-36); African American GFR (CKD) >90 (>60 ml/min/1.73 sqM); Alkaline Phosphatase 135 U/L (38-126); Amylase 56 U/L (30-110); Anion Gap 12 mmol/L; Blood Urea Nitrogen 8 mg/dL (7-17); Calcium 10.6 mg/dL (8.4-10.2); Carbon Dioxide 28 mmol/L (22-30); Chloride 99 mmol/L (98-107); Glucose 253 mg/dL (74-99); Potassium 4.6 mmol/L (3.5-5.1); Sodium 139 mmol/L (137-145); Total Bilirubin 0.2 mg/dL (0.2-1.3)
[2019-05-06 15:47] LABS: Appearance,Urine Clear (Clear); Bilirubin,Urine Negative (Negative); Blood,Urine Negative (Negative); Color,Urine Light Yellow; Glucose,Urine (UA) Negative (Negative); Ketones,Urine Negative (Negative); Leukocyte Esterase,Urine Small (Negative); Nitrite,Urine Negative (Negative); Protein,Urine Negative (Negative); RBC,Urine <1 /hpf (0-5); Specific Gravity,Urine 1.007 (1.001-1.035); Squamous Epithelial Cell,Urine 2 /hpf (0-4); Urobilinogen,Urine <2.0 mg/dL (<2.0)
[2019-05-06] MEDS ORDERED: MORPHINE SULFATE 4 MG/ML SYRINGE IVP STA (16:36)
--- NOTE | 2019-05-06 16:40 | CT ---
EXAMINATION TYPE: CT abdomen pelvis w con DATE OF EXAM: 05/06/2019 COMPARISON: 01/25/2019 HISTORY: Incision opening (reversal colostomy) CT DLP: 1727.8 mGycm Automated exposure control for dose reduction was used. TECHNIQUE: Helical acquisition of images was performed from the lung bases through the pelvis. CONTRAST: Performed with Oral Contrast and with IV Contrast, patient injected with 100 mL of Isovue 300. FINDINGS: Lung bases are clear. There is no pleural effusion. Heart size is normal. Liver spleen pancreas appear normal. Bile ducts are not dilated. There are clips from cholecystectomy . Stomach appears normal. There is no adrenal mass. Kidneys show satisfactory contrast opacification. There is no hydronephrosi s. There is no retroperitoneal adenopathy. Bladder distends smoothly. There is no inguinal hernia. There are skin christiana over the anterior abdomen related to colostomy surgery. There is 3.5 cm fluid collection in the subcutaneous fat at the left side colostomy site. There is some fat stranding and t hickening at the umbilicus. There are air bubbles and minimal fluid at the midline infra umbilical in cision. There is no evidence of a bowel obstruction. I see no free air within the abdomen. There are surgical clips at the rectosigmoid junction. Appendix is not seen. There is no sign of thickened appendix. Tamiko mbar spine is intact. Bony pelvis is intact. IMPRESSION: THERE IS REVERSAL OF THE COLOSTOMY COMPARED TO OLD EXAM. THERE ARE POSTSURGICAL CHANGES WITH SUBCUTAN EOUS FLUID AT THE COLOSTOMY SITE THAT COULD BE SEROMA OR HEMATOMA. ABSCESS NOT ENTIRELY EXCLUDED. THI CKENING AND A FEW AIR BUBBLES OUTSIDE OF THE PERITONEAL CAVITY AT THE MIDLINE INCISION IS INCREASED C OMPARED TO LAST EXAM. THERE IS CLEARING OF THE TINY INTRAPERITONEAL AIR BUBBLES AT THE ANTERIOR ABDOM INAL WALL COMPARED TO OLD EXAM.
[2019-05-06] MEDS ORDERED: IPRATROPIUM-ALBUTEROL 3 ML NEB INHALATION STA ×2 (16:52→17:03)
[2019-05-06 18:03] VITALS: BP 126/69; PULSE 76; RESP 18
[2019-05-06 18:13] VITALS: TEMP 98.9
== END 2019-05-06 18:12 | disposition home or self-care (01) ==
LOC: EC 13:27
DX: G89.18 Other acute postprocedural pain (principal); R10.84 Generalized abdominal pain; R14.0 Abdominal distension (gaseous); R11.0 Nausea; R19.7 Diarrhea, unspecified; J44.9 Chronic obstructive pulmonary disease, unspecified; I11.0 Hypertensive heart disease with heart failure; I50.9 Heart failure, unspecified; E11.40 Type 2 diabetes mellitus with diabetic neuropathy, unspecified; E07.9 Disorder of thyroid, unspecified; M19.90 Unspecified osteoarthritis, unspecified site; H40.9 Unspecified glaucoma; F32.9 Major depressive disorder, single episode, unspecified; F41.9 Anxiety disorder, unspecified; F17.200 Nicotine dependence, unspecified, uncomplicated; Z88.5 Allergy status to narcotic agent; Z79.51 Long term (current) use of inhaled steroids; Z79.84 Long term (current) use of oral hypoglycemic drugs; Z79.890 Hormone replacement therapy; Z79.899 Other long term (current) drug therapy; Z90.49 Acquired absence of other specified parts of digestive tract; Z98.1 Arthrodesis status
CPT/HCPCS: 36415; 94640; 80053; 82150; 83605; 83690; 85025; 81001; 74177; 99284; 96374; 96375; 96376; 96361 ×2; J2270; J2405; Q9967

== ENCOUNTER 2019-11-16 08:43 | Inpatient (IN) | payer MEDICARE ==
[2019-11-16] MEDS: fentaNYL (PF) 50 MCG/ML 2 ML AMP IV ONE ×2 (09:39→09:47)
[2019-11-16] MEDS: MIDAZOLAM 2 MG/2 ML VIAL IV ONE ×2 (09:39→09:47)
[2019-11-16] MEDS ORDERED: LIDOCAINE 1% INJ 10MG/ML (20 ML MDV) SQ ONE ×2 (09:39→15:25)
[2019-11-16] MEDS ORDERED: SODIUM CHLORIDE 0.9% 500 ML 500 ML IV ONE (09:45)
[2019-11-16] MEDS ORDERED: BIVALIRUDIN BOLUS 250 MG/50 ML IV ONE (09:55)
[2019-11-16] MEDS ORDERED: PRASUGREL 10 MG TAB PO ONE (09:59)
[2019-11-16] MEDS ORDERED: BIVALIRUDIN 250 MG in SODIUM CHLORIDE 0.9% 36 ML IV ONE (09:59)
[2019-11-16] MEDS ORDERED: IOPAMIDOL-370 125ML BTL INJ ONE ×2 (10:06→15:35)
[2019-11-16] MEDS ORDERED: RX INFO: IV CONTRAST WAS GIVEN 1 EACH MISC MISCELLANE PRN ×2 (10:20→15:45)
[2019-11-16] MEDS ORDERED: MAG HYDROX/AL HYDROX/SIMETH 30 ML CUP PO PRN (10:20)
[2019-11-16] MEDS ORDERED: ATROPINE SULFATE 0.1 MG/ML 10ML SYRINGE IV PRN (10:20)
[2019-11-16] MEDS ORDERED: SODIUM CHLORIDE 0.9% 1,000 ML IV SCH ×2 (10:30→15:45)
--- NOTE | 2019-11-16 10:34 | PTCA ---
PERCUTANEOUSTRANS CORORONARY ANGIOGRAPHY Mrs. Hobbs is a 54-year-old female with known history of hypertension, hyperlipidemia, diabetes mellitus, chronic tobacco use, who presented to [facility] with symptoms of chest discomfort and had evidence of myocardial infarction. In view of that, she underwent cardiac catheterization by Dr. Smith and was found to have a critical stenosis with evidence of ruptured plaque in the proximal LAD. In view of that, recommendation was made regarding angioplasty and stenting. The procedure as well as risks and complications were discussed with the patient who is in full understanding and agreement. PROCEDURE: A 6-Hungarian FL4 guiding catheter introduced into the system after cannulating the left main, a 0.014 balanced medium weight J-wire was advanced across the lesion, positioned distally. Subsequently, an export catheter was introduced. Because of the appearance of large amount of thrombus, one run was done without any significant aspiration. Following that, a 4.0 x 23 mm Xience Tana stent was deployed, post-dilated to 16 atmospheres. After the last inflation, after appropriate wait, the balloon and the guidewire were withdrawn back in the guiding catheter. Images were obtained and repeated. Those images reveal stable successful stenting. At that point, the guiding catheter, the balloon and the guidewire were removed. The sheath was removed. Hemostasis was obtained with deployment of an Angio-Seal. There was no immediate complication. Patient is returned to her room in stable condition. Of note, the patient had EKG changes and chest discomfort with the inflation that improved at the end of the procedure. She received Angiomax per protocol as well as oral loading dose of Effient. RESULTS: Successful stenting of the proximal LAD with reduction of stenosis from 80% to 0% with evidence of large amount of thrombus and evidence of plaque rupture. RECOMMENDATION: Patient will be continued on aspirin, Effient, statin, beta hector and the importance of smoking cessation were discussed with the patient who is in full understanding and agreement. Duration of procedure is 18 minutes. MMODL / IJN: [id number] /
[2019-11-16 11:58] LABS: Glucose,Whole Blood 140 mg/dL (75-99)
[2019-11-16] MEDS: HYDROcodone/APAP 10-325MG 1 EACH TAB PO PRN (12:15)
--- NOTE | 2019-11-16 13:34 | CC ---
CARDIAC CATHETERIZATION REPORT INDICATION: Acute myocardial infarction. PROCEDURE NOTE: After obtaining informed consent, left heart catheterization and coronary angiogram are performed via the right femoral artery using standard Obed catheters. Patient tolerated the procedure well without any obvious immediate complications. Patient received moderate conscious sedation. Total sedation time was 10 minutes. FINDINGS: 1. HEMODYNAMICS: Left ventricular end-diastolic pressure is 14 mm. There is no significant gradient across the aortic valve. 2. LEFT VENTRICULOGRAM: Left ventriculogram is not performed. 3. ANGIOGRAPHIC DATA: Left Main Coronary Artery: Left main coronary artery is a normal-sized vessel and is free of stenosis. Divides into left anterior descending coronary artery and circumflex coronary artery. Circumflex coronary artery and its branches are free of significant stenosis. LAD shows 70% to 80% stenosis in the proximal part with an area of plaque rupture. Right coronary artery is a nondominant vessel and is free of significant stenosis. CONCLUSION: Critical stenosis involving proximal left anterior descending artery with an area of plaque rupture. PLAN: The patient will undergo angioplasty of the same and will be in the hospital for the next 2 days. MMODL / IJN: [id number] /
[2019-11-16 14:19] LABS: Cholesterol 211 mg/dL (<200); HDL Cholesterol 89 mg/dL (40-60); LDL Cholesterol,Calculated 92 mg/dL (0-99); Triglycerides 151 mg/dL (<150)
[2019-11-16] MEDS: NITROGLYCERIN SL TABS 0.4 MG TAB SUBLINGUAL PRN ×2 (14:22→14:28)
[2019-11-16] MEDS ORDERED: ALPRAZolam 0.25 MG TAB PO STA (14:36)
[2019-11-16] MEDS ORDERED: LIDOCAINE 1% INJ 10MG/ML (20 ML MDV) ONE (15:22)
[2019-11-16] MEDS ORDERED: fentaNYL (PF) 50 MCG/ML 2 ML AMP ONE (15:22)
[2019-11-16] MEDS ORDERED: VERAPAMIL 2.5 MG/ML 2 ML AMP ONE (15:22)
[2019-11-16] MEDS ORDERED: fentaNYL (PF) 50 MCG/ML 2 ML AMP IV ONE (15:23)
[2019-11-16] MEDS: MIDAZOLAM 2 MG/2 ML VIAL IVP ONE ×2 (15:23→15:30)
[2019-11-16] MEDS ORDERED: VERAPAMIL SYRINGE (5 MG/10 ML) INTRAARTER ONE (15:27)
[2019-11-16] MEDS ORDERED: HEPARIN SODIUM 1,000 UN/ML (10ML VL) ONE (15:31)
[2019-11-16] MEDS ORDERED: HEPARIN SODIUM 1,000 UN/ML (10ML VL) IV ONE (15:34)
[2019-11-16] MEDS ORDERED: IV FLUID CONTINUATION 800 ML IV ONE (15:34)
--- NOTE | 2019-11-16 16:01 | CC ---
CARDIAC CATHETERIZATION REPORT Mrs. Hobbs is a 54-year-old female with known history of hypertension, hyperlipidemia, diabetes mellitus, and chronic tobacco use, who was admitted last night with evidence of myocardial infarction, underwent cardiac catheterization, was found to have a critical stenosis in the proximal LAD, underwent stenting early this morning of her proximal LAD. Later on during the day, she started to complain of chest discomfort and there was borderline changes on the EKG. Because of her discomfort and her history, recommendation made regarding cardiac catheterization. The procedures, risks, and complication were discussed with the patient who is in full understanding and agreement. PROCEDURE: Patient was brought to the [facility] facility in a fasting semi-sedated state after receiving fentanyl and Benadryl and achieving moderate conscious sedated state. Using Xylocaine anesthesia and Seldinger technique, a 6-Vincentian sheath was introduced in the right radial artery. Selective right and left coronary angiography performed using 6-Vincentian FL 3.5 guiding catheter and 5-Vincentian 3.5 right Obed catheter. Multiple views of the coronary artery including mandeep-axial views were obtained. Following that, catheters and sheaths were removed. Hemostasis was obtained with deployment of a TR band. There was no immediate complication. Patient was returned to her room in stable condition. Of note, the patient received 5000 units of intravenous heparin as well as intra- arterial verapamil. There was no immediate complication. FINDINGS: 1. LEFT MAIN: This is a short size vessel, bifurcating into left circumflex, left anterior descending artery. Left main coronary artery has no evidence of obstructive coronary artery disease. 2. LEFT ANTERIOR DESCENDING ARTERY: This is a large-sized vessel, reaching toward the apex with a wraparound apex segment, giving rise to a moderately sized diagonal branch. The stented segment in the proximal LAD is patent. The flow into the septal perforators is slow but better than it was in the morning. There was no evidence of stent thrombosis. 3. LEFT CIRCUMFLEX: This is a large codominant vessel, giving rise to two proximal obtuse marginal branch, distally bifurcating into PDA and posterolateral segment branches. The left circumflex as well as branches have no evidence of obstructive coronary artery disease. 4. RIGHT CORONARY ARTERY: This is a moderate codominant vessel, giving rise to a right PDA. The right coronary artery as well as branches have no evidence of obstructive coronary artery disease. 5. LEFT VENTRICULOGRAM: Left ventriculogram was not performed. CONCLUSION: 1. No evidence of stent thrombosis. 2. Codominant system. RECOMMENDATION: At this time, I will continue medical therapy with the aggressive risk modifications being initiated. Those findings and recommendation were discussed with the patient and she is in full understanding and agreement. Duration of the procedure is 13 minutes. PARK / DINESH: [id number] /
[2019-11-16 16:09] LABS: Glucose,Whole Blood 359 mg/dL (75-99)
[2019-11-16] MEDS: CARVEDILOL 6.25 MG TAB PO SCH (17:15)
[2019-11-16 17:44] LABS: Glucose,Whole Blood 341 mg/dL (75-99)
[2019-11-16] MEDS: INSULIN ASPART (NovoLOG) 100 UNIT/ML VIAL SQ SCH ×2 (17:57→20:35)
[2019-11-16 20:21] LABS: Glucose,Whole Blood 294 mg/dL (75-99)
[2019-11-16] MEDS: SYMBICORT 80-4.5 MCG INHALER INHALATION SCH (20:28)
[2019-11-16] MEDS: IPRATROPIUM-ALBUTEROL 3 ML NEB INHALATION PRN (20:28)
[2019-11-16] MEDS: INSULIN DETEMIR (LEVEMIR) 100 UNIT/ML SYR SQ SCH (20:35)
[2019-11-16] MEDS: ZOLPIDEM 5 MG TAB PO PRN (20:37)
[2019-11-16] MEDS: ATORVASTATIN 80 MG TAB PO SCH (20:37)
[2019-11-16] MEDS ORDERED: INSULIN ASPART (NovoLOG) 100 UNIT/ML VIAL SQ SCH (21:00)
[2019-11-16] MEDS ORDERED: INSULIN DETEMIR (LEVEMIR) 100 UNIT/ML SYR SQ SCH (21:00)
--- NOTE | 2019-11-17 00:08 | P.HPIM ---
History of Present Illness H&P Date: 11/16/19 Chief Complaint: Chest pain Patient is a 54-year-old female with known history of hypertension, diabetes type 2, COPD/asthma, fibromyalgia, GERD, osteoarthritis and hypothyroidism and also anxiety/depression was initially presented to [facility] due to complaints of chest pain mid retrosternal squeezing without any radiation to the left arm or to the back. Denied any complaints of nausea or vomiting. Patient does have shortness of breath and wheezing. Patient Was initially transferred to [facility]. Initial troponin was negative and patient did have elevated second troponin. Was started on heparin drip and a farrell was eventually transferred to [facility] for cardiac catheterization and possible stent placement. EKG showed slightly elevated ST segment in the lateral leads. Patient was recently discharged from [facility], Was Admitted Due To Acute COPD Exacerbation, Shortness Breath Cough and Subjective Fevers or 2 Weeks.. At the Time Troponin 3 negative and d-dimer is not elevated. Coumadin 19 test was negative at the time. Patient underwent cardiac catheterization and stent placement to LAD with evidence of plaque rupture. Patient is currently still complaining of shortness of breath and chest pain w ith EKG showing ST elevation. Cardiology is planning to take her back to cardiac catheterization again today. Patient has been afebrile. No nausea vomiting or abdominal pain. Review of Systems Constitutional: Patient denies any fever or chills . No generalized weakness or weight loss. Abdomen: Patient denied nausea vomiting and diarrhea and abdominal pain. Cardiovascular: Patient does have chest pain, shortness of breath. No palpitations.. Respiratory: Does have cough without sputum production and. No shortness of breath Neurologic: Patient denied any numbness or tingling headache. Musculoskeletal: Patient denies any complaints of joint swelling or deformity. Skin: Negative Psychiatric: Negative Endocrine: No heat or cold intolerance. No recent weight gain. Genitourinary: No dysuria or hematuria. All other 14 point ROS negative except the above Past Medical History Past Medical History: Asthma, Heart Failure, COPD, Diabetes Mellitus, Eye Disorder, Fibromyalgia, GERD/Reflux, Hypertension, Musculoskeletal Disorder, Osteoarthritis (OA), Pneumonia, Thyroid Disorder Additional Past Medical History / Comment(s): skin breakdown near colostomy site, hx diverticulitis, glaucoma, states has herniated discs in back, neuropathy, narcolepsy,. hx of cocaine use-17 years ago History of Any Multi-Drug Resistant Organisms: None Reported Past Surgical History: Back Surgery, Bladder Surgery, Cholecystectomy, Hys terectomy, Orthopedic Surgery Additional Past Surgical History / Comment(s): Colostomy 01/12/19, benign mass removed from bladder, meño carpal tunnel, cervical fusion c4-c6, right wrist cyst removed, colostomy reversile. Past Anesthesia/Blood Transfusion Reactions: Postoperative Nausea & Vomiting (PONV) Past Psychological History: Anxiety, Depression Smoking Status: Former smoker Past Alcohol Use History: None Reported Additional Past Alcohol Use History / Comment(s): smokes < 1/2 PPD, has smoked for 35 yrs on and off Past Drug Use History: None Reported Additional Drug Use History / Comment(s): . - Past Family History Father Family Medical History: Coronary Artery Disease (CAD) Additional Family Medical History / Comment(s): quadruple bypass surgery Mother Family Medical History: Cancer Medications and Allergies Home Medications Medication Instructions Recorded Confirmed Type Budesonide/Formoterol Fumarate 2 puff INHALATION RT-BID 12/04/15 11/16/19 History [Symbicort 80-4.5 Mcg Inhaler] Ipratropium-Albuterol Nebulize 3 ml INHALATION RT-TID PRN 05/15/16 11/16/19 History [Duoneb 0.5 mg-3 mg/3 ml Soln] Atorvastatin [Lipitor] 10 mg PO QAM 01/05/19 11/16/19 History Latanoprost Ophth [Xalatan 0.005%] 1 drops BOTH EYES HS 01/05/19 11/16/19 History Liraglutide [Victoza 2-Emerson] 1.8 mg SQ QAM 01/05/19 11/16/19 History Sertraline [Zoloft] 50 mg PO DAILY 01/05/19 11/16/19 History Albuterol Inhaler (Bulk) [Ventolin 2 puff INHALATION RT-Q4H PRN 11/16/19 11/16/19 History Hfa Inhaler (Bulk)] Brimonidine Tartrate [Alphagan P 1 drops BOTH EYES BID 11/16/19 11/16/19 History 0.2% Ophth Soln] Doxycycline Monohydrate [Monodox] 100 mg PO BID 11/16/19 11/16/19 History Estrogens, Conjugated [Premarin] 0.3 mg PO DAILY 11/16/19 11/16/19 History Ferrous Sulfate [Feosol] 325 mg PO DAILY 11/16/19 11/16/19 History Insulin Glargine [Lantus] 56 unit SQ HS 11/16/19 11/16/19 History Levothyroxine Sodium [Synthroid] 75 mcg PO DAILY 11/16/19 11/16/19 History Lisinopril 20 mg PO DAILY 11/16/19 11/16/19 History Promethazine [Phenergan] 12.5 mg PO QID 11/16/19 11/16/19 History hydrOXYzine PAMOATE [Vistaril] 50 mg PO HS 11/16/19 11/16/19 History metFORMIN HCL 1,000 mg PO BID 11/16/19 11/16/19 History predniSONE See Taper PO DAILY 11/16/19 11/16/19 History Allergies Allergy/AdvReac Type Severity Reaction Status Date / Time hydromorphone [From Dilaudid] AdvReac "makes me Verified 11/16/19 11:23 mean" Physical Exam Vitals: Vital Signs Temp Pulse Pulse Pulse Pulse Resp BP 11/16/19 22:04 95.6 F L 122 H 15 11/16/19 21:00 73 13 116/67 11/16/19 20:40 74 11/16/19 20:30 78 123/80 11/16/19 20:00 98.1 F 86 16 120/78 11/16/19 19:30 80 11/16/19 19:00 94 16 106/68 11/16/19 18:30 82 15 103/85 11/16/19 18:00 86 9 L 134/84 11/16/19 17:30 92 14 125/78 11/16/19 17:00 77 11 L 106/66 11/16/19 16:30 80 18 106/66 11/16/19 16:10 83 20 106/66 11/16/19 16:01 17 11/16/19 16:00 20 11/16/19 14:31 95 18 11/16/19 14:27 11/16/19 14:03 94 16 11/16/19 12:48 80 16 11/16/19 12:05 80 16 11/16/19 11:35 81 11/16/19 11:05 0 L 16 11/16/19 10:50 86 11/16/19 10:35 98.1 F 79 16 BP Pulse Ox 11/16/19 22:04 89/74 11/16/19 21:00 94 L 11/16/19 20:40 11/16/19 20:30 96 11/16/19 20:00 94 L 11/16/19 19:30 94 L 11/16/19 19:00 95 11/16/19 18:30 94 L 11/16/19 18:00 95 11/16/19 17:30 98 11/16/19 17:00 98 11/16/19 16:30 99 11/16/19 16:10 98 11/16/19 16:01 11/16/19 16:00 11/16/19 14:31 96/55 97 11/16/19 14:27 106/59 11/16/19 14:03 124/65 97 11/16/19 12:48 130/70 99 11/16/19 12:05 123/78 11/16/19 11:35 129/80 98 11/16/19 11:05 130/80 95 11/16/19 10:50 129/78 11/16/19 10:35 144/86 97 Intake and Output 11/16/19 11/16/19 11/16/19 06:59 14:59 22:59 Intake Total 511 507 Output Total 300 Balance 511 207 Intake: IV 271 300 Sodium Chloride 0.9% 1, 200 000 ml @ 100 mls/hr IV . Q10H JOHN Rx#:[id number] Intake, IV Titration 75 Amount Sodium Chloride 0.9% 1, 75 000 ml @ 75 mls/hr IV . [id number] JOHN Rx#:[id number] Oral 240 Hemodialysis 132 Output: Urine 0 Hemodialysis 300 Other: # Voids 2 0 # Bowel Movements 0 2 Weight 94.3 kg PHYSICAL EXAMINATION: Patient is lying in the bed comfortably, no acute distress, awake alert and oriented.. HEENT: Normocephalic. Neck is supple. Pupils reactive. Nostrils clear. Oral cavity is moist. Ears reveal no drainage. Neck reveals no JVD, carotid bruits, or thyromegaly. CHEST EXAMINATION: Trachea is central. Symmetrical expansion. Bilateral wheezing present. Nonlabored breathing.. CARDIAC: Normal S1, S2 with no gallops. No murmurs ABDOMEN: Soft. Bowel sounds normal. No organomegaly. No abdominal bruits. Extremities: reveal no edema. No clubbing or cyanosis Neurologically awake, alert, oriented x3 with well-coordinated movements. No focal deficits noted Skin: No rash or skin lesions. Psychiatric: Coperative. Nonsuicidal Musculoskeletal: No joint swelling or deformity. Normal range of motion. Results Labs: Abnormal Lab Results - Last 24 Hours (Table) 11/16/19 11/16/19 11/16/19 Range/Units 11:03 11:03 11:54 POC Glucose (mg/dL) 140 H (75-99) mg/dL Troponin I 15.000 H* (0.000-0.034) ng/mL Triglycerides 151 H (<150) mg/dL Cholesterol 211 H (<200) mg/dL HDL Cholesterol 89 H (40-60) mg/dL 11/16/19 11/16/19 11/16/19 Range/Units 16:06 16:43 17:41 POC Glucose (mg/dL) 359 H 341 H (75-99) mg/dL Troponin I 7.630 H* (0.000-0.034) ng/mL Triglycerides (<150) mg/dL Cholesterol (<200) mg/dL HDL Cholesterol (40-60) mg/dL 11/16/19 Range/Units 20:19 POC Glucose (mg/dL) 294 H (75-99) mg/dL Troponin I (0.000-0.034) ng/mL Triglycerides (<150) mg/dL Cholesterol (<200) mg/dL HDL Cholesterol (40-60) mg/dL Thrombosis Risk Factor Assmnt - DVT/VTE Prophylaxis DVT/VTE Prophylaxis: Pharmacologic Prophylaxis ordered - Choose All That Apply Each Factor Represents 1 point: Age 41-60 years, Obesity (BMI >25) Thrombosis Risk Factor Assessment Total Risk Factor Score: 2 Thrombosis Risk Factor Assessment Level: Low Risk Assessment and Plan Assessment: Acute ST elevated [place]. Status post cardiac catheterization and stent placement to LAD with evidence of Plaque rupture. Recent admission with COPD exacerbation. Asthma/COPD Hypertension Hypothyroidism Diabetes type 2 Fibromyalgia GERD Diabetic peripheral neuropathy Anxiety/depression Previous history of smoking History of cocaine use DVT prophylaxis Plan: Patient will be continued on early monitoring. Continue with aspirin, statins, Effient and Coreg. Continue with duo nebs and Symbicort. Oxygen therapy as needed. Monitor closely. Cardiology is following. Patient will be transferred to MICU. Time with Patient: Greater than 30
[2019-11-17 05:22] LABS: HCT 35.5 % (34.0-46.0); HGB 11.2 gm/dL (11.4-16.0); MCH 26.3 pg (25.0-35.0); MCHC 31.6 g/dL (31.0-37.0); MCV 83.3 fL (80.0-100.0); Mean Platelet Volume 6.6; Platelet Count 279 k/uL (150-450); RBC 4.27 m/uL (3.80-5.40); RDW 14.3 % (11.5-15.5); WBC 14.7 k/uL (3.8-10.6)
[2019-11-17 06:06] LABS: African American GFR (CKD) >90 (>60 ml/min/1.73 sqM); Anion Gap 5 mmol/L; Blood Urea Nitrogen 21 mg/dL (7-17); Calcium 9.1 mg/dL (8.4-10.2); Carbon Dioxide 27 mmol/L (22-30); Chloride 103 mmol/L (98-107); Glucose 167 mg/dL (74-99); Non-African American GFR(CKD) >90 (>60 ml/min/1.73 sqM); Potassium 4.3 mmol/L (3.5-5.1); Sodium 135 mmol/L (137-145)
[2019-11-17 06:44] LABS: Glucose,Whole Blood 128 mg/dL (75-99)
[2019-11-17] MEDS: INSULIN ASPART (NovoLOG) 100 UNIT/ML VIAL SQ SCH ×4 (06:45→21:48)
[2019-11-17] MEDS: LEVOTHYROXINE 100 MCG TAB PO SCH (06:47)
[2019-11-17] MEDS: PANTOPRAZOLE 40 MG TABLET PO SCH (06:47)
[2019-11-17] MEDS: CARVEDILOL 6.25 MG TAB PO SCH ×2 (06:47→16:57)
[2019-11-17] MEDS: IPRATROPIUM-ALBUTEROL 3 ML NEB INHALATION PRN ×4 (07:21→20:33)
[2019-11-17] MEDS: VICTOZA 1.2 MG SQ SCH (08:13)
[2019-11-17] MEDS: SODIUM CHLORIDE 0.9% 1,000 ML IV SCH (08:20)
[2019-11-17] MEDS: PRASUGREL 10 MG TAB PO SCH (08:20)
[2019-11-17] MEDS: ASPIRIN 81 MG PO SCH (08:20)
[2019-11-17] MEDS: HYDROcodone/APAP 10-325MG 1 EACH TAB PO PRN ×3 (08:20→21:47)
[2019-11-17] MEDS: SERTRALINE 50 MG TAB PO SCH (08:30)
--- NOTE | 2019-11-17 09:48 | PN ---
PROGRESS NOTE This lady came in with an ST elevation ID from [facility], underwent a cardiac cath and stenting of proximal LAD by Dr. Cruz. Because of recurrent pain, she was taken back to the [facility] and the vessel was widely patent. The second procedure was from right radial approach. Her troponin profile suggests downward trend. EKG revealed anterior T-wave changes. She is comfortable resting without symptoms. Vitals are stable. No JVD. S1, S2 heard normally. Lungs are clear. Abdomen and lower extremity exam unchanged. Plan is to continue current medications, put her on a KVO IV fluids and add a small dose of losartan at bedtime, increase activity and move her to telemetry. The patient had a good angiographic result. Her right radial and right femoral cath sites are clean and dry. Blood pressure 118/70, pulse rate 70 per minute. No JVD. S1, S2 heard normally. Lungs are clear. Abdomen and lower extremity exam is unchanged. Plan is to move her to telemetry, same medical regimen with the addition of a small dose of losartan at bedtime. MMODL / IJN: [id number] /
[2019-11-17] MEDS: ALPRAZolam 0.25 MG TAB PO PRN ×2 (11:06→21:55)
[2019-11-17 11:20] LABS: Glucose,Whole Blood 77 mg/dL (75-99)
[2019-11-17 11:42] LABS: Glucose,Whole Blood 105 mg/dL (75-99)
[2019-11-17 16:30] LABS: Glucose,Whole Blood 347 mg/dL (75-99)
[2019-11-17] MEDS ORDERED: HYDROmorphone 0.5 MG/0.5 ML SYRINGE IVP STA (16:44)
[2019-11-17] MEDS: SYMBICORT 80-4.5 MCG INHALER INHALATION SCH (20:33)
[2019-11-17 20:36] LABS: Glucose,Whole Blood 227 mg/dL (75-99)
[2019-11-17] MEDS: ATORVASTATIN 80 MG TAB PO SCH (21:46)
[2019-11-17] MEDS: LOSARTAN 25 MG TAB PO SCH (21:46)
[2019-11-17] MEDS: INSULIN DETEMIR (LEVEMIR) 100 UNIT/ML SYR SQ SCH (21:48)
[2019-11-17] MEDS: ZOLPIDEM 5 MG TAB PO PRN (21:54)
--- NOTE | 2019-11-17 22:41 | P.PN ---
Subjective Progress Note Date: 11/17/19 Principal diagnosis: Acute ST elevated [place] Patient is a 54-year-old female with known history of hypertension, diabetes type 2, COPD/asthma, fibromyalgia, GERD, osteoarthritis and hypothyroidism and also anxiety/depression was initially presented to [facility] due to complaints of chest pain mid retrosternal squeezing without any radiation to the left arm or to the back. Denied any complaints of nausea or vomiting. Patient does have shortness of breath and wheezing. Patient Was initially transferred to [facility]. Initial troponin was negative and patient did have elevated second troponin. Was started on heparin drip and a farrell was eventually transferred to [facility] for cardiac catheterization and possible stent placement. EKG showed slightly elevated ST segment in the lateral leads. Patient was recently discharged from [facility], Was Admitted Due To Acute COPD Exacerbation, Shortness Breath Cough and Subjective Fevers or 2 Weeks.. At the Time Troponin 3 negative and d-dimer is not elevated. Coumadin 19 test was negative at the time. Patient underwent cardiac catheterization and stent placement to LAD with evidence of plaque rupture. Patient is currently still complaining of shortness of breath and chest pain with EKG showing ST elevation. Cardiology is planning to take her back to cardiac catheterization again today. Patient has been afebrile. No nausea vomiting or abdominal pain. 11-16 Patient says that her chest pain is improved today. No complaints of worsening shortness of breath. Patient was taken to repeat cardiac catheterization which showed patent stent. Otherwise troponin level is trending down. No complaints of nausea vomiting or abdominal pain. Tolerating oral diet. cardiology is following. Current medications reviewed. Objective - Vital Signs Vital signs: Vital Signs Temp 98.4 F 11/17/19 10:20 Pulse 84 11/17/19 11:47 Resp 16 11/17/19 11:00 BP 109/67 11/17/19 11:00 Pulse Ox 98 11/17/19 11:00 Intake & Output 11/16/19 11/17/19 11/17/19 18:59 06:59 18:59 Intake Total 686 407 911 Output Total 950 0 Balance 686 -543 911 Weight 94.3 kg 95.1 kg Intake: IV 371 275 675 Sodium Chloride 0.9% 1, 275 75 000 ml @ 100 mls/hr IV . Q10H JOHN Rx#:[id number] Sodium Chloride 0.9% 1, 600 000 ml @ 75 mls/hr IV . [id number] JOHN Rx#:[id number] Intake, IV Titration 75 Amount Sodium Chloride 0.9% 1, 75 000 ml @ 75 mls/hr IV . [id number] JOHN Rx#:[id number] Oral 240 236 Hemodialysis 132 Output: Urine 650 0 Hemodialysis 300 Other: # Voids 2 0 1 # Bowel Movements 2 - Exam PHYSICAL EXAMINATION: Patient is lying in the bed comfortably, no acute distress, awake alert and oriented.. HEENT: Normocephalic. Neck is supple. Pupils reactive. Nostrils clear. Oral cavity is moist. Ears reveal no drainage. Neck reveals no JVD, carotid bruits, or thyromegaly. CHEST EXAMINATION: Trachea is central. Symmetrical expansion. Bilateral expiratory wheeze. Lung harper clear to auscultation and percussion. CARDIAC: Normal S1, S2 with no gallops. No murmurs ABDOMEN: Soft. Bowel sounds normal. No organomegaly. No abdominal bruits. Extremities: reveal no edema. No clubbing or cyanosis Neurologically awake, alert, oriented x3 with well-coordinated movements. No focal deficits noted Skin: No rash or skin lesions. Psychiatric: Coperative. Nonsuicidal Musculoskeletal: No joint swelling or deformity. Normal range of motion. - Labs CBC & Chem 7: 11/17/19 04:19 11/17/19 04:19 Labs: Abnormal Lab Results - Last 24 Hours (Table) 11/16/19 11/16/19 11/16/19 Range/Units 11:03 16:06 16:43 WBC (3.8-10.6) k/uL Hgb (11.4-16.0) gm/dL Sodium (137-145) mmol/L BUN (7-17) mg/dL Glucose (74-99) mg/dL POC Glucose (mg/dL) 359 H (75-99) mg/dL Troponin I 7.630 H* (0.000-0.034) ng/mL Triglycerides 151 H (<150) mg/dL Cholesterol 211 H (<200) mg/dL HDL Cholesterol 89 H (40-60) mg/dL 11/16/19 11/16/19 11/16/19 Range/Units 17:41 20:19 23:50 WBC (3.8-10.6) k/uL Hgb (11.4-16.0) gm/dL Sodium (137-145) mmol/L BUN (7-17) mg/dL Glucose (74-99) mg/dL POC Glucose (mg/dL) 341 H 294 H (75-99) mg/dL Troponin I 6.370 H* (0.000-0.034) ng/mL Triglycerides (<150) mg/dL Cholesterol (<200) mg/dL HDL Cholesterol (40-60) mg/dL 11/17/19 11/17/19 11/17/19 Range/Units 04:19 04:19 06:42 WBC 14.7 H (3.8-10.6) k/uL Hgb 11.2 L (11.4-16.0) gm/dL Sodium 135 L (137-145) mmol/L BUN 21 H (7-17) mg/dL Glucose 167 H (74-99) mg/dL POC Glucose (mg/dL) 128 H (75-99) mg/dL Troponin I (0.000-0.034) ng/mL Triglycerides (<150) mg/dL Cholesterol (<200) mg/dL HDL Cholesterol (40-60) mg/dL 11/17/19 Range/Units 11:40 WBC (3.8-10.6) k/uL Hgb (11.4-16.0) gm/dL Sodium (137-145) mmol/L BUN (7-17) mg/dL Glucose (74-99) mg/dL POC Glucose (mg/dL) 105 H (75-99) mg/dL Troponin I (0.000-0.034) ng/mL Triglycerides (<150) mg/dL Cholesterol (<200) mg/dL HDL Cholesterol (40-60) mg/dL Assessment and Plan Assessment: Acute ST elevated [place]. Status post cardiac catheterization and stent placement to LAD with evidence of Plaque rupture. Recent admission with COPD exacerbation. Asthma/COPD Hypertension Hypothyroidism Diabetes type 2 Fibromyalgia GERD Diabetic peripheral neuropathy Anxiety/depression Previous history of smoking History of cocaine use DVT prophylaxis Plan: Patient will be continued on early monitoring. Continue with aspirin, statins, Effient and Coreg. Continue with duo nebs and Symbicort. Oxygen therapy as needed. Monitor closely. Cardiology is following. Patient will be transferred to MICU. Time with Patient: Greater than 30
[2019-11-18] MEDS: SODIUM CHLORIDE 0.9% 1,000 ML IV SCH ×2 (00:48→12:30)
[2019-11-18] MEDS: HYDROmorphone 0.5 MG/0.5 ML SYRINGE IVP PRN ×2 (00:49→13:38)
[2019-11-18] MEDS: HYDROcodone/APAP 10-325MG 1 EACH TAB PO PRN ×3 (05:36→21:10)
[2019-11-18 06:29] LABS: Glucose,Whole Blood 72 mg/dL (75-99)
[2019-11-18 06:49] LABS: Glucose,Whole Blood 129 mg/dL (75-99)
[2019-11-18] MEDS: LEVOTHYROXINE 100 MCG TAB PO SCH (07:13)
[2019-11-18] MEDS: CARVEDILOL 6.25 MG TAB PO SCH (07:13)
[2019-11-18] MEDS: PANTOPRAZOLE 40 MG TABLET PO SCH (07:13)
[2019-11-18] MEDS: IPRATROPIUM-ALBUTEROL 3 ML NEB INHALATION PRN ×3 (08:18→15:56)
[2019-11-18] MEDS: INSULIN ASPART (NovoLOG) 100 UNIT/ML VIAL SQ SCH ×4 (08:48→21:13)
[2019-11-18] MEDS: ASPIRIN 81 MG PO SCH (09:14)
[2019-11-18] MEDS: SERTRALINE 50 MG TAB PO SCH (09:14)
[2019-11-18] MEDS: PRASUGREL 10 MG TAB PO SCH (09:14)
[2019-11-18] MEDS: ALPRAZolam 0.25 MG TAB PO PRN ×2 (09:14→21:10)
--- NOTE | 2019-11-18 09:34 | ECHOF ---
Referral Reason:lv function MEASUREMENTS -------- HEIGHT: 162.6 cm WEIGHT: 94.8 kg BP: RVIDd: 3.0 cm (< 3.3) IVSd: 1.1 cm (0.6 - 1.1) LVIDd: 4.3 cm (3.9 - 5.3) LVPWd: 1.0 cm (0.6 - 1.1) IVSs: 1.7 cm LVIDs: 2.5 cm LVPWs: 1.3 cm FINDINGS -------- Sinus rhythm. Limited Study for lv function The left ventricular size is normal. Left ventricular wall thickness is normal. Overall left vent ricular systolic function is low-normal with, an EF between 50 - 55 %. Apical anterior LV wall clare on is hypokinetic. Apical septum LV wall motion is hypokinetic. CONCLUSIONS -------- 1. Limited Study for lv function 2. Left ventricular wall thickness is normal. 3. Overall left ventricular systolic function is low-normal with, an EF between 50 - 55 %. 4. Apical anterior LV wall motion is hypokinetic. 5. Apical septum LV wall motion is hypokinetic. PLEATER: Eleanor Mac RDCS
[2019-11-18] MEDS: VICTOZA 1.2 MG SQ SCH (09:41)
[2019-11-18] MEDS: NITROGLYCERIN SL TABS 0.4 MG TAB SUBLINGUAL PRN (10:59)
[2019-11-18 12:24] LABS: Glucose,Whole Blood 207 mg/dL (75-99)
[2019-11-18 15:00] LABS: Glucose,Whole Blood 106 mg/dL (75-99)
--- NOTE | 2019-11-18 15:52 | XR ---
EXAMINATION TYPE: XR chest 1V DATE OF EXAM: 11/18/2019 COMPARISON: 01/11/2019 INDICATION: Difficulty in breathing TECHNIQUE: Single frontal view of the chest is obtained. FINDINGS: The heart size is normal. The pulmonary vasculature is normal. The lungs are clear. Exam appears stable from comparison. IMPRESSION: 1. No acute pulmonary process.
[2019-11-18 17:10] LABS: Glucose,Whole Blood 156 mg/dL (75-99)
[2019-11-18] MEDS: CARVEDILOL 3.125 MG TAB PO SCH (17:33)
[2019-11-18] MEDS: SYMBICORT 80-4.5 MCG INHALER INHALATION SCH (19:19)
[2019-11-18 20:35] LABS: Glucose,Whole Blood 272 mg/dL (75-99)
[2019-11-18] MEDS ORDERED: KETOROLAC 30 MG/ML 1 ML VIAL IVP ONE (21:00)
[2019-11-18] MEDS: ATORVASTATIN 80 MG TAB PO SCH (21:10)
[2019-11-18] MEDS: LOSARTAN 25 MG TAB PO SCH (21:10)
[2019-11-18] MEDS: ZOLPIDEM 5 MG TAB PO PRN (21:13)
[2019-11-18] MEDS: INSULIN DETEMIR (LEVEMIR) 100 UNIT/ML SYR SQ SCH (21:15)
--- NOTE | 2019-11-18 22:01 | PN ---
Mrs. Hobbs is doing well. She is in sinus rhythm. Had chest pain, right arm discomfort requiring Dilaudid yesterday. She has been asking for pain medications regularly, but she does not have any anginal pain. Vitals are stable. No JVD. S1, S2 heard normally. Lungs are clear. Abdomen, lower extremity exams are unchanged. PLAN: To get an echocardiogram today and if this is reasonable, she will be discharged and see Dr. Smiht in one week. I have advised that she can increase activity. Will do an Echo today, a limited study to asses LV function. LAURYN
[2019-11-19] MEDS: SODIUM CHLORIDE 0.9% 1,000 ML IV SCH (02:26)
[2019-11-19 06:02] LABS: Glucose,Whole Blood 349 mg/dL (75-99)
[2019-11-19] MEDS: PANTOPRAZOLE 40 MG TABLET PO SCH (06:16)
[2019-11-19] MEDS: CARVEDILOL 3.125 MG TAB PO SCH (06:16)
[2019-11-19] MEDS: LEVOTHYROXINE 100 MCG TAB PO SCH (06:16)
[2019-11-19] MEDS: INSULIN ASPART (NovoLOG) 100 UNIT/ML VIAL SQ SCH ×2 (06:18→12:43)
[2019-11-19] MEDS: HYDROcodone/APAP 10-325MG 1 EACH TAB PO PRN (06:18)
[2019-11-19 06:45] LABS: Basophils % (A) 0 %; Eosinophils # (A) 0.1 k/uL (0-0.7); Eosinophils % (A) 1 %; HCT 33.2 % (34.0-46.0); HGB 10.7 gm/dL (11.4-16.0); Lymphocytes # (A) 3.3 k/uL (1.0-4.8); Lymphocytes % (A) 37 %; MCHC 32.3 g/dL (31.0-37.0); MCV 83.7 fL (80.0-100.0); Mean Platelet Volume 6.8; Monocytes # (A) 0.4 k/uL (0-1.0); Monocytes % (A) 5 %; Neutrophils % (A) 56 %; Platelet Count 237 k/uL (150-450); RBC 3.97 m/uL (3.80-5.40); RDW 13.9 % (11.5-15.5); WBC 8.9 k/uL (3.8-10.6)
[2019-11-19 06:46] LABS: African American GFR (CKD) >90 (>60 ml/min/1.73 sqM); Anion Gap 4 mmol/L; Blood Urea Nitrogen 23 mg/dL (7-17); Calcium 8.8 mg/dL (8.4-10.2); Carbon Dioxide 26 mmol/L (22-30); Chloride 102 mmol/L (98-107); Glucose 336 mg/dL (74-99); Non-African American GFR(CKD) >90 (>60 ml/min/1.73 sqM); Potassium 4.9 mmol/L (3.5-5.1); Sodium 132 mmol/L (137-145)
[2019-11-19] MEDS: ALPRAZolam 0.25 MG TAB PO PRN (08:32)
[2019-11-19] MEDS ORDERED: MORPHINE SULFATE IR 15 MG TABLET PO ONE (09:32)
[2019-11-19] MEDS: VICTOZA 1.2 MG SQ SCH (09:36)
[2019-11-19] MEDS: PRASUGREL 10 MG TAB PO SCH (09:48)
[2019-11-19] MEDS: SERTRALINE 50 MG TAB PO SCH (09:48)
[2019-11-19] MEDS: ASPIRIN 81 MG PO SCH (09:48)
--- NOTE | 2019-11-19 09:49 | PN ---
PROGRESS NOTE Mrs Hobbs is doing well. She is in sinus rhythm, had chest pain, right arm discomfort requiring Dilaudid yesterday. She has been asking for pain medications regularly but she does not have any anginal pain. Vitals are stable. No JVD. S1, S2 heard normally. Lungs are clear. Abdomen and lower extremity exam unchanged. Plan is to get an echocardiogram today and if this is reasonable she will be discharged and see Dr. Smith in one week. I have advised that she can increase activity. We will do an echo today, a limited study to assess LV function. MMODL / IJN: [id number] /
[2019-11-19 12:10] LABS: Glucose,Whole Blood 358 mg/dL (75-99)
[2019-11-19 12:39] VITALS: BMI 38.4
--- NOTE | 2019-11-19 13:19 | PN ---
PROGRESS NOTE Mrs. Hobbs had an anterior [place], underwent stenting of LAD. Ejection fraction has improved. A lot of anteroapical mild hypokinesia noted on echo. She is complaining of pain all over. She has been seeking pain medications throughout. Her LV function has improved. She has no angina. She had a repeat cardiac cath because of continued pain which revealed patent LAD. I am recommending that she can go home. I am giving her a one-week supply of Xanax and [place] 5/325 one tablet b.i.d. 14 tablets and also Xanax 0.25 mg b.i.d. I have advised her to see Dr. Smith. She has been counseled regarding the need to quit smoking. Vitals are stable. No JVD. S1, S2 heard normally. Lungs are clear. Abdomen and lower extremity exam unchanged. Right groin is clean and dry. Mild tenderness. Right radial site is clean and dry with a good pulse. The patient can be discharged today. MMODL / IJN: [id number] /
[2019-11-19 14:14] VITALS: BP 124/72; PULSE 76; RESP 18; TEMP 98.4
== END 2019-11-19 15:26 | disposition home or self-care (01) | DRG 247 ==
LOC: 2SICU 08:57 → 3SCARD 10:23 → 2SICU 15:06 → 3SCARD 11-17 09:57
PROVIDERS: ADMIT Internal Medicine; ATTEND Internal Medicine
PROC: B2111ZZ Fluoroscopy of Multiple Coronary Arteries using Low Osmolar Contrast (ICD-10-PCS; 2019-11-16)
PROC: 027034Z Dilation of Coronary Artery, One Artery with Drug-eluting Intraluminal Device, Percutaneous Approach (ICD-10-PCS; principal; 2019-11-16 11:20)
PROC: 4A023N7 Measurement of Cardiac Sampling and Pressure, Left Heart, Percutaneous Approach (ICD-10-PCS; 2019-11-16 11:20)
PROC: B2111ZZ Fluoroscopy of Multiple Coronary Arteries using Low Osmolar Contrast (ICD-10-PCS; 2019-11-16 11:20)
DX: I21.09 ST elevation (STEMI) myocardial infarction involving other coronary artery of anterior wall (principal); I11.0 Hypertensive heart disease with heart failure; E11.42 Type 2 diabetes mellitus with diabetic polyneuropathy; I50.9 Heart failure, unspecified; E03.9 Hypothyroidism, unspecified; I25.10 Atherosclerotic heart disease of native coronary artery without angina pectoris; I25.83 Coronary atherosclerosis due to lipid rich plaque; E78.5 Hyperlipidemia, unspecified; M79.7 Fibromyalgia; K21.9 Gastro-esophageal reflux disease without esophagitis; J44.9 Chronic obstructive pulmonary disease, unspecified; E11.39 Type 2 diabetes mellitus with other diabetic ophthalmic complication; H40.9 Unspecified glaucoma; H42 Glaucoma in diseases classified elsewhere; G47.419 Narcolepsy without cataplexy; M19.90 Unspecified osteoarthritis, unspecified site; F32.9 Major depressive disorder, single episode, unspecified; F41.9 Anxiety disorder, unspecified; Z79.51 Long term (current) use of inhaled steroids; Z79.4 Long term (current) use of insulin; Z79.890 Hormone replacement therapy; Z79.899 Other long term (current) drug therapy; Z87.01 Personal history of pneumonia (recurrent); Z87.891 Personal history of nicotine dependence; Z90.49 Acquired absence of other specified parts of digestive tract; Z98.890 Other specified postprocedural states; Z93.3 Colostomy status; Z90.710 Acquired absence of both cervix and uterus; Z87.19 Personal history of other diseases of the digestive system; Z98.1 Arthrodesis status; Z82.49 Family history of ischemic heart disease and other diseases of the circulatory system; Z80.9 Family history of malignant neoplasm, unspecified
CPT/HCPCS: 71045; 80048; 80061; 84484; 85025; 85027; 85347; 90935; 93308; 93454; 93458; 94640

== ENCOUNTER 2019-11-28 15:43 | Emergency (ER) | payer MEDICARE ==
[2019-11-28 15:54] VITALS: RESP 18; TEMP 98
[2019-11-28 17:16] LABS: Amphetamine Screen,Urine Not Detected (NotDetected); Barbiturate Screen,Urine Not Detected (NotDetected); Benzodiazepines Screen,Urine Detected (NotDetected); Cocaine Screen,Urine Detected (NotDetected); Methadone Screen, Urine Not Detected (NotDetected); Opiate Screen,Urine Detected (NotDetected); Oxycodone Screen, Urine Not Detected (NotDetected); Phencyclidine Screen,Urine Detected (NotDetected); Tricyclic Antidepressant,Urine Detected (NotDetected); Urn Cannabinoid Scrn Detected (NotDetected)
[2019-11-28 18:08] VITALS: BP 112/72; PULSE 70
--- NOTE | 2019-11-28 18:53 | ED ---
Psych HPI - General Chief Complaint: Psychiatric Symptoms Stated Complaint: Mental Health Time Seen by Provider: 11/28/19 16:08 Source: patient Mode of arrival: ambulatory - History of Present Illness Initial Comments: 54-year-old female patient presents to the emergency department today for evaluation of suicidal ideation. Patient states for the last few days she has been feeling increasingly depressed and having intermittent thoughts of suicide. Patient states that she had a heart attack a couple of weeks ago and had stents placed. States that she believes this is the triggering event causing her depression. She denies any alcohol or drug use. States that she did attempt suicide once in the past and was quite some time ago. Denies ever having been admitted for mental health. States that she lives at home with her . She does currently have a job. Patient denies any recent rash, fever, chills, cough, shortness of breath, chest pain, abdominal pain, nausea, vomiting, diarrhea, constipation, back pain, numbness, tingling, dizziness, weakness, hematuria, dysuria, urinary urgency, urinary frequency, headache, visual changes, or any other complaints. - Related Data Home Medications Medication Instructions Recorded Confirmed Budesonide/Formoterol Fumarate 2 puff INHALATION RT-BID 12/04/15 11/16/19 [Symbicort 80-4.5 Mcg Inhaler] Ipratropium-Albuterol Nebulize 3 ml INHALATION RT-TID PRN 05/15/16 11/16/19 [Duoneb 0.5 mg-3 mg/3 ml Soln] Latanoprost Ophth [Xalatan 0.005%] 1 drops BOTH EYES HS 01/05/19 11/16/19 Liraglutide [Victoza 2-[place]erson] 1.8 mg SQ QAM 01/05/19 11/16/19 Sertraline [Zoloft] 50 mg PO DAILY 01/05/19 11/16/19 Albuterol Inhaler (Bulk) [Ventolin 2 puff INHALATION RT-Q4H PRN 11/16/19 11/16/19 Hfa Inhaler (Bulk)] Brimonidine Tartrate [Alphagan P 1 drops BOTH EYES BID 11/16/19 11/16/19 0.2% Ophth Soln] Estrogens, Conjugated [Premarin] 0.3 mg PO DAILY 11/16/19 11/16/19 Ferrous Sulfate [Iron (65 MG 325 mg PO DAILY 11/16/19 11/16/19 Elemental)] Insulin Glargine [Lantus] 56 unit SQ HS 11/16/19 11/16/19 Levothyroxine Sodium [Synthroid] 75 mcg PO DAILY 11/16/19 11/16/19 hydrOXYzine PAMOATE [Vistaril] 50 mg PO HS 11/16/19 11/16/19 metFORMIN HCL 1,000 mg PO BID 11/16/19 11/16/19 Previous Rx's Medication Instructions Recorded Aspirin 81 mg PO DAILY #30 chew 11/18/19 Atorvastatin [Lipitor] 80 mg PO HS #30 tab 11/18/19 Carvedilol [Coreg] 6.25 mg PO AC-BID #60 tab 11/18/19 Losartan [Cozaar] 12.5 mg PO HS #30 tab 11/18/19 Nitroglycerin Sl Tabs [Nitrostat] 0.4 mg SUBLINGUAL Q5M PRN #25 tab 11/18/19 Prasugrel [Effient] 10 mg PO DAILY #30 tab 11/18/19 ALPRAZolam [Xanax] 0.25 mg PO BID PRN #6 tab 11/19/19 HYDROcodone/APAP 10-325MG [Hardy 1 each PO Q6H PRN 3 Days #12 tab 11/19/19 10-325] Allergies Allergy/AdvReac Type Severity Reaction Status Date / Time hydromorphone [From Dilaudid] AdvReac "makes me Verified 11/16/19 11:23 mean" Review of Systems ROS Statement: Those systems with pertinent positive or pertinent negative responses have been documented in the HPI. ROS Other: All systems not noted in ROS Statement are negative. Past Medical History Past Medical History: Asthma, Heart Failure, COPD, Diabetes Mellitus, Eye Disorder, Fibromyalgia, GERD/Reflux, Hypertension, Myocardial Infarction (DE), Musculoskeletal Disorder, Osteoarthritis (OA), Pneumonia, Thyroid Disorder Additional Past Medical History / Comment(s): skin breakdown near colostomy site, hx diverticulitis, glaucoma, states has herniated discs in back, neuropathy, narcolepsy,. hx of cocaine use-17 years ago, heart attack x 1 1/2 weeks ago History of Any Multi-Drug Resistant Organisms: None Reported Past Surgical History: Back Surgery, Bladder Surgery, Cholecystectomy, Heart Catheterization With Stent, Hysterectomy, Orthopedic Surgery Additional Past Surgical History / Comment(s): Colostomy 01/12/19, benign mass removed from bladder, meño carpal tunnel, cervical fusion c4-c6, right wrist cyst removed, colostomy reversile. Past Anesthesia/Blood Transfusion Reactions: Postoperative Nausea & Vomiting (PONV) Past Psychological History: Anxiety, Depression Smoking Status: Former smoker Past Alcohol Use History: None Reported Past Drug Use History: None Reported - Past Family History Father Family Medical History: Coronary Artery Disease (CAD) Additional Family Medical History / Comment(s): quadruple bypass surgery Mother Family Medical History: Cancer General Exam Limitations: no limitations General appearance: alert, in no apparent distress, other (This is a well- developed, well-nourished adult female patient in no acute distress. Vital signs upon presentation are temperature 98.0F, pulse 98, respirations 18, blood pressure 99/63, pulse ox 97% on room air.) ENT exam: Present: normal exam, normal oropharynx, mucous membranes moist Respiratory exam: Present: normal lung sounds bilaterally. Absent: respiratory distress, wheezes, rales, rhonchi, stridor Cardiovascular Exam: Present: regular rate, normal rhythm, normal heart sounds. Absent: systolic murmur, diastolic murmur, rubs, gallop, clicks Neurological exam: Present: alert, oriented X3, CN II-XII intact Psychiatric exam: Present: normal affect, normal mood Skin exam: Present: warm, dry, intact, normal color. Absent: rash Course Vital Signs 11/28/19 11/28/19 15:48 18:00 Temperature 98.0 F 98.0 F Pulse Rate 98 70 Respiratory 18 18 Rate Blood Pressure 99/63 112/72 O2 Sat by Pulse 97 97 Oximetry Medical Decision Making - Medical Decision Making 54-year-old female patient presents to the emergency department today for evaluation of depression and intermittent suicidal thoughts. Physical examination is unremarkable. Urine drug screen is positive for methamphetamines, benzos, opiates, and cocaine. Patient was seen and evaluated by emergency psychiatric services. It is felt that she is safe for discharge at this time. A safety plan has been created and she has been provided with this. She'll follow-up outpatient for mental health services. Return parameters were discussed in detail. She verbalizes understanding and agrees with this plan. - Lab Data Lab Results 11/28/19 Range/Units 16:40 Urine Opiates Screen Detected H (NotDetected) Ur Oxycodone Screen Not Detected (NotDetected) Urine Methadone Screen Not Detected (NotDetected) Ur Propoxyphene Screen Not Detected (NotDetected) Ur Barbiturates Screen Not Detected (NotDetected) U Tricyclic Antidepress Detected H (NotDetected) Ur Phencyclidine Scrn Detected H (NotDetected) Ur Amphetamines Screen Not Detected (NotDetected) U Methamphetamines Scrn Detected H (NotDetected) U Benzodiazepines Scrn Detected H (NotDetected) Urine Cocaine Screen Detected H (NotDetected) U Marijuana (THC) Screen Detected H (NotDetected) Disposition Clinical Impression: Depression, Polysubstance abuse Disposition: HOME SELF-CARE Condition: Good Instructions (If sedation given, give patient instructions): Depression (ED), Polysubstance Abuse (ED), Suicide Prevention (ED) Additional Instructions: Follow-up outpatient mental health services as you have planned. Follow-up with your primary care physician for recheck in 1-2 days. Return to the emergency department immediately for any new, worsening, or concerning symptoms. Is patient prescribed a controlled substance at d/c from ED?: No Referrals: Jesenia Lora NPC [Primary Care Provider] - 1-2 days Time of Disposition: 18:53
== END 2019-11-28 19:01 | disposition home or self-care (01) ==
LOC: EC 15:43
DX: F32.9 Major depressive disorder, single episode, unspecified (principal); F15.10 Other stimulant abuse, uncomplicated; F13.10 Sedative, hypnotic or anxiolytic abuse, uncomplicated; F11.10 Opioid abuse, uncomplicated; F14.10 Cocaine abuse, uncomplicated; I11.0 Hypertensive heart disease with heart failure; I50.9 Heart failure, unspecified; J44.9 Chronic obstructive pulmonary disease, unspecified; E11.40 Type 2 diabetes mellitus with diabetic neuropathy, unspecified; I25.2 Old myocardial infarction; H40.9 Unspecified glaucoma; E07.9 Disorder of thyroid, unspecified; F41.9 Anxiety disorder, unspecified; Z95.5 Presence of coronary angioplasty implant and graft; Z87.891 Personal history of nicotine dependence; Z79.51 Long term (current) use of inhaled steroids; Z79.890 Hormone replacement therapy; Z79.4 Long term (current) use of insulin; Z79.899 Other long term (current) drug therapy; Z88.5 Allergy status to narcotic agent
CPT/HCPCS: 80306; 99285